=== PATIENT | male | born 1970 | race African-American/Black ===

== ENCOUNTER 2017-04-20 09:20 | Emergency (ER) | payer OTHER ==
[2017-04-20] MEDS: LIDOCAINE (700MG/PATCH) PATCH. TD ×2 (10:01)
[2017-04-20] MEDS: predniSONE 20 MG TABLET PO ×2 (10:02)
== END 2017-04-20 10:44 | disposition home or self-care (01) ==
LOC: ER 09:20
DX: M62.838 Other muscle spasm (principal); E78.00 Pure hypercholesterolemia, unspecified; E11.9 Type 2 diabetes mellitus without complications; I10 Essential (primary) hypertension; M10.9 Gout, unspecified; E66.01 Morbid (severe) obesity due to excess calories; Z68.43 Body mass index [BMI] 50.0-59.9, adult
CPT/HCPCS: 71046; 93005; 99284-25; J7512

== ENCOUNTER 2019-07-12 12:58 | Inpatient (IN) | payer BC, OTHER ==
[2019-07-12] VITALS: BP 195/101
[~2019-07-12] VITALS: Ht 185.4 cm; Wt 172.0 kg
[2019-07-12] MEDS: IV NORMAL SALINE 1000ML BAG 1,000 ML IV SCH (03:13)
[~2019-07-12 12:58] MED LIST: CYCL5TAB PO; PRED20TA PO; lidoderm 5% patch TOP
[2019-07-12] MEDS ORDERED: IV NORMAL SALINE 1000ML BAG 1,000 ML IV ONE (13:30)
[2019-07-12] MEDS ORDERED: ACETAMINOPHEN 500 MG TABLET PO ONE (13:45)
--- NOTE | 2019-07-12 14:00 | RAD ---
EXAM: CHEST 1 VIEW History: Covid-19 COMPARISON: 04/20/2017 TECHNIQUE: Single portable radiograph of the chest Findings/ impression: Low lung volumes and technique accentuates heart size and pulmonary vascularity. Bibasilar lung airspace opacities likely atelectasis or infiltrates likely pneumonia or atelectasis or atypical/viral infection/viral pneumonia. Correlate clinically and with lab values. Electronically signed by: Viral Mason MD (07/12/2019 1:57 PM) [id number]
[2019-07-12 14:23] LABS: BASO % 0 % (0-3); EOS % 0 % (0-3); HEMATOCRIT 36.7 % (39.0-53.0); HEMOGLOBIN 12.1 g/dL (13.0-17.5); LYMPH # 0.8 x10^3/uL (1.0-4.8); LYMPH % 8 % (24-48); MEAN CORPUSCULAR HEMOGLOBIN 27 pg (25-35); MEAN CORPUSCULAR HGB CONC 33 g/dL (31-37); MEAN CORPUSCULAR VOLUME 83 fL (79-100); MONO # 0.4 x10^3/uL (0.0-1.1); MONO % 4 % (0-9); NEUT # 8.4 x10^3/uL (1.8-7.7); NEUT % 88 % (31-73); PLATELET COUNT 251 x10^3/uL (140-400); RED BLOOD COUNT 4.42 x10^6/uL (4.30-5.70); RED CELL DISTRIBUTION WIDTH 15.1 % (11.5-14.5); WHITE BLOOD COUNT 9.6 x10^3/uL (4.0-11.0)
[2019-07-12 14:35] LABS: CALCIUM 8.7 mg/dL (8.5-10.1); CREATININE 1.3 mg/dL (0.7-1.3); GFR 71.3; POTASSIUM 4.3 mmol/L (3.5-5.1)
[2019-07-12 14:40] LABS: ALBUMIN 2.8 g/dL (3.4-5.0); ALBUMIN/GLOBULIN RATIO 0.5 (1.0-1.7); TOTAL BILIRUBIN 0.6 mg/dL (0.2-1.0); TOTAL PROTEIN 7.9 g/dL (6.4-8.2)
--- NOTE | 2019-07-12 14:47 | PHYS DOC ---
Past Medical History Past Medical History: Diabetes-Type II, High Cholesterol, Hypertension, Other Additional Past Medical Histor: morbid obesity, gout Past Surgical History: No Surgical History Smoking Status: Never Smoker Alcohol Use: Occasionally Drug Use: None General Adult EDM: Chief Complaint: SHORTNESS OF BREATH HPI: HPI: Patient is a 48-year-old morbidly obese male who for several days is had body aches subjective fever chills and now today felt very short of breath so he came to the emergency department. Prior to checking in his oxygen saturation was 73%. He does not think he has been exposed to anyone with COVID-19. He has had no nausea vomiting. [] Review of Systems: Review of Systems: Constitutional: Subjective fever. [] Eyes: Denies change in visual acuity. [] HENT: Denies nasal congestion or sore throat. [] Respiratory: Reports cough and shortness of breath. [] Cardiovascular: Denies chest pain or edema. [] GI: Denies abdominal pain, nausea, vomiting, bloody stools or diarrhea. [] : Denies dysuria. [] Musculoskeletal: Denies back pain or joint pain. [] Integument: Denies rash. [] Neurologic: Denies headache, focal weakness or sensory changes. [] Endocrine: Denies polyuria or polydipsia. [] Lymphatic: Denies swollen glands. [] Psychiatric: Anxious. [] Heart Score: Risk Factors: Risk Factors: DM, Current or recent (<one month) smoker, HTN, HLP, family history of CAD, obesity. Risk Scores: Score 0 - 3: 2.5% MACE over next 6 weeks - Discharge Home Score 4 - 6: 20.3% MACE over next 6 weeks - Admit for Clinical Observation Score 7 - 10: 72.7% MACE over next 6 weeks - Early Invasive Strategies Current Medications: Current Medications Medications (Trade) Dose Ordered Sig/Aria Start Time Stop Time Status Last Admin Dose Admin Acetaminophen (Tylenol) 1,000 mg 1X ONCE 07/12/19 13:45 07/12/19 13:46 DC 07/12/19 13:25 1,000 MG Sodium Chloride 1,000 ml @ 1,000 mls/hr 1X ONCE 07/12/19 13:30 07/12/19 14:29 DC 07/12/19 13:25 1,000 MLS/HR Allergies: Allergies: Allergies Coded Allergies Type Severity Reaction Last Updated Verified No Known Drug Allergies 04/20/17 No Physical Exam: PE: Constitutional: Well developed, well nourished, appears acutely ill. [] HENT: Normocephalic, atraumatic, bilateral external ears normal, oropharynx mois t, no oral exudates, nose normal. [] Eyes: PERRLA, EOMI, conjunctiva normal, no discharge. [] Neck: Normal range of motion, no tenderness, supple, no stridor. [] Cardiovascular:Heart rate regular rhythm, no murmur [] Lungs & Thorax: Bilateral breath sounds clear to auscultation [] Abdomen: Bowel sounds normal, soft, no tenderness, no masses, no pulsatile masses. [] Skin: Warm, dry, no erythema, no rash. [] Back: No tenderness, no CVA tenderness. [] Extremities: No tenderness, no cyanosis, no clubbing, ROM intact, no edema. [] Neurologic: Alert and oriented X 3, normal motor function, normal sensory function, no focal deficits noted. [] Psychologic: Affect normal, judgement normal, mood normal. [] Current Patient Data: Labs: Laboratory Tests Test 07/12/19 14:05 White Blood Count 9.6 x10^3/uL (4.0-11.0) Red Blood Count 4.42 x10^6/uL (4.30-5.70) Hemoglobin 12.1 g/dL (13.0-17.5) L Hematocrit 36.7 % (39.0-53.0) L Mean Corpuscular Volume 83 fL (79-100) Mean Corpuscular Hemoglobin 27 pg (25-35) Mean Corpuscular Hemoglobin Concent 33 g/dL (31-37) Red Cell Distribution Width 15.1 % (11.5-14.5) H Platelet Count 251 x10^3/uL (140-400) Neutrophils (%) (Auto) 88 % (31-73) H Lymphocytes (%) (Auto) 8 % (24-48) L Monocytes (%) (Auto) 4 % (0-9) Eosinophils (%) (Auto) 0 % (0-3) Basophils (%) (Auto) 0 % (0-3) Neutrophils # (Auto) 8.4 x10^3/uL (1.8-7.7) H Lymphocytes # (Auto) 0.8 x10^3/uL (1.0-4.8) L Monocytes # (Auto) 0.4 x10^3/uL (0.0-1.1) Eosinophils # (Auto) 0.0 x10^3/uL (0.0-0.7) Basophils # (Auto) 0.0 x10^3/uL (0.0-0.2) Platelet Estimate Pending Sodium Level 139 mmol/L (136-145) Potassium Level 4.3 mmol/L (3.5-5.1) Chloride Level 103 mmol/L (98-107) Carbon Dioxide Level 25 mmol/L (21-32) Anion Gap 11 (6-14) Blood Urea Nitrogen 11 mg/dL (8-26) Creatinine 1.3 mg/dL (0.7-1.3) Estimated GFR (Cockcroft-Gault) 71.3 BUN/Creatinine Ratio 8 (6-20) Glucose Level 126 mg/dL (70-99) H Lactic Acid Level 1.0 mmol/L (0.4-2.0) Calcium Level 8.7 mg/dL (8.5-10.1) Total Bilirubin 0.6 mg/dL (0.2-1.0) Aspartate Amino Transferase (AST) 49 U/L (15-37) H Alanine Aminotransferase (ALT) 40 U/L (16-63) Alkaline Phosphatase 76 U/L (46-116) Total Protein 7.9 g/dL (6.4-8.2) Albumin 2.8 g/dL (3.4-5.0) L Albumin/Globulin Ratio 0.5 (1.0-1.7) L Laboratory Tests 07/12/19 14:05 Laboratory Tests 07/12/19 14:05 Vital Signs: Vital Signs Date Time Temp Pulse Resp B/P (MAP) Pulse Ox O2 Delivery O2 Flow Rate FiO2 07/12/19 13:08 103.3 94 36 189/96 (127) 91 Nasal Cannula 6.0 103.3 EKG: EKG: EKG: Normal sinus rhythm rate of [address]-T changes [] Radiology/Procedures: Radiology/Procedures: [] Impression: REASON: COVID-19 PROCEDURE: CHEST AP ONLY EXAM: CHEST 1 VIEW History: Covid- COMPARISON: 04/20/2017 TECHNIQUE: Single portable radiograph of the chest Findings/ impression: Low lung volumes and technique accentuates heart size and pulmonary vascularity. Bibasilar lung airspace opacities likely atelectasis or infiltrates likely pneumonia or atelectasis or atypical/viral infection/viral pneumonia. Correlate clinically and with lab values. Course & Med Decision Making: Course & Med Decision Making Pertinent Labs and Imaging studies reviewed. (See chart for details) [ED course: Evaluation reveals a 48-year-old male who is in some respiratory distress. His oxygen saturation on room air was in the 70s supplemental oxygen brought his oxygen saturation up into the 90s. The patient was not exposed to COVID-19 but I believe this is what he has. Given the fact that there is no wheezing we will not give him any breathing treatments will watch him on supplemental oxygen and admit him to the hospital.] Patient was evaluated in full PPE Dragon Disclaimer: Dragon Disclaimer: This electronic medical record was generated, in whole or in part, using a voice recognition dictation system. Departure Departure Impression: Primary Impression: Suspected COVID-19 virus infection Disposition: ADMITTED INPATIENT Admitting Physician: SEKOU Condition: GUARDED Referrals: ANDREA HURST JR, MD (PCP) VAL CALIXTO DO Jul 12, 2019 14:47
[2019-07-12 14:58] LABS: % BANDS 9 % (0-9); % LYMPHS 16 % (24-48); % MONOS 1 % (0-10); % SEGS 74 % (35-66)
[2019-07-12 14:59] LABS: PLT ESTIMATE ADEQUATE (ADEQUATE)
--- NOTE | 2019-07-12 16:26 | PDOC1 ---
History and Physical Date of Admission Date of Admission DATE: 07/12/19 TIME: 16:26 Identification/Chief Complaint Chief Complaint SEEN IN ER , 48-year-old morbidly obese male who for several days is had body aches subjective fever chills and now today felt very short of breath prompted visit to the emergency department. Prior to checking in his oxygen saturation was 73%. does not think he has been exposed to anyone with COVID-19. OFF WORK X 4 WEEKS, Just goes to [employer], [place] Past Medical History Past Medical History Past Medical History Past Medical History Past Medical History: Diabetes-Type II, High Cholesterol, Hypertension, Other Additional Past Medical Histor: morbid obesity, gout Past Surgical History: No Surgical History Smoking Status: Never Smoker Alcohol Use: Occasionally Drug Use: None FHX OBESITY Renal/: No pertinent hx Family History Family History: High Cholestrol Social History Smoke: No ALCOHOL: occassional Drugs: None Current Problem List Problem List Problems Medical Problems: (1) Suspected COVID-19 virus infection Status: Acute Current Medications Current Medications Current Medications Sodium Chloride 1,000 ml @ 1,000 mls/hr 1X ONCE IV Last administered on 07/12/19at 13:25; Start 07/12/19 at 13:30; Stop 07/12/19 at 14:29; Status DC Acetaminophen (Tylenol) 1,000 mg 1X ONCE PO Last administered on 07/12/19at 13:25; Start 07/12/19 at 13:45; Stop 07/12/19 at 13:46; Status DC Active Scripts Active [lidoderm 5% patch] 1 Patch TOP PRN Q12HR PRN apply to affected area for 12 hours, then remove for 12 hours. Cyclobenzaprine Hcl 5 Mg Tablet 5-10 Mg PO PRN TID PRN Prednisone 20 Mg Tablet 2 Tab PO DAILY starting tomorrow Allergies Allergies: Coded Allergies: No Known Drug Allergies (Unverified , 04/20/17) ROS Review of System Constitutional: Subjective fever. [] Eyes: Denies change in visual acuity. [] HENT: Denies nasal congestion or sore throat. [] Respiratory: Reports cough and shortness of breath. [] Cardiovascular: Denies chest pain or edema. [] GI: Denies abdominal pain, nausea, vomiting, bloody stools or diarrhea. [] : Denies dysuria. [] Musculoskeletal: Denies back pain or joint pain. [] Integument: Denies rash. [] Neurologic: Denies headache, focal weakness or sensory changes. [] Endocrine: Denies polyuria or polydipsia. [] Lymphatic: Denies swollen glands. [] Psychiatric: Anxious. [] 14 PT ROS OTHERWISE NEG General: YES: Chills, Fatigue ALLERGY AND IMMUNOLOGY: No: Hives, Insect Bite Sensitivity, Itchy/Watery Eyes, Nasal Congestion, Post Nasal Drip, Seasonal Allergies, Other Hematological and Lymphatic: No: Bleeding Problems, Blood Clots, Blood Transfusions, Brusing, Night Sweats, Pallor, Swollen Lymph Nodes, Other Respiratory: YES: Cough, Shortness of breath, SOB with excertion Gastrointestinal: Yes Diarrhea Physical Exam Physical Exam Constitutional: Well developed, well nourished, appears acutely ill. [] HENT: Normocephalic, atraumatic, bilateral external ears normal, oropharynx moist, no oral exudates, nose normal. [] Eyes: PERRLA, EOMI, conjunctiva normal, no discharge. [] Neck: Normal range of motion, no tenderness, supple, no stridor. [] Cardiovascular:Heart rate regular rhythm, no murmur [] Lungs & Thorax: Bilateral breath sounds clear to auscultation [] Abdomen: Bowel sounds normal, soft, no tenderness, no masses, no pulsatile masses. [] Skin: Warm, dry, no erythema, no rash. [] Back: No tenderness, no CVA tenderness. [] Extremities: No tenderness, no cyanosis, no clubbing, ROM intact, no edema. [] Neurologic: Alert and oriented X 3, normal motor function, normal sensory function, no focal deficits noted. [] Psychologic: Affect normal, judgment normal, mood normal. [] General: Oriented X3, Cooperative, mild distress Heart: RRR Breasts: Not examined Abdomen: Soft Rectal Exam: not examined PELVIC: Examination not indicated Extremities: No cyanosis Neuro: Normal speech, Cranial nerves 3-12 NL Psych/Mental Status: Mental status NL, Mood NL Vitals Vitals Vital Signs Date Time Temp Pulse Resp B/P (MAP) Pulse Ox O2 Delivery O2 Flow Rate FiO2 07/12/19 13:08 103.3 94 36 189/96 (127) 91 Nasal Cannula 6.0 103.3 Labs Labs Laboratory Tests Test 07/12/19 14:05 White Blood Count 9.6 x10^3/uL (4.0-11.0) Red Blood Count 4.42 x10^6/uL (4.30-5.70) Hemoglobin 12.1 g/dL (13.0-17.5) Hematocrit 36.7 % (39.0-53.0) Mean Corpuscular Volume 83 fL (79-100) Mean Corpuscular Hemoglobin 27 pg (25-35) Mean Corpuscular Hemoglobin Concent 33 g/dL (31-37) Red Cell Distribution Width 15.1 % (11.5-14.5) Platelet Count 251 x10^3/uL (140-400) Neutrophils (%) (Auto) 88 % (31-73) Lymphocytes (%) (Auto) 8 % (24-48) Monocytes (%) (Auto) 4 % (0-9) Eosinophils (%) (Auto) 0 % (0-3) Basophils (%) (Auto) 0 % (0-3) Neutrophils # (Auto) 8.4 x10^3/uL (1.8-7.7) Lymphocytes # (Auto) 0.8 x10^3/uL (1.0-4.8) Monocytes # (Auto) 0.4 x10^3/uL (0.0-1.1) Eosinophils # (Auto) 0.0 x10^3/uL (0.0-0.7) Basophils # (Auto) 0.0 x10^3/uL (0.0-0.2) Segmented Neutrophils % 74 % (35-66) Band Neutrophils % 9 % (0-9) Lymphocytes % 16 % (24-48) Monocytes % 1 % (0-10) Platelet Estimate Adequate (ADEQUATE) Sodium Level 139 mmol/L (136-145) Potassium Level 4.3 mmol/L (3.5-5.1) Chloride Level 103 mmol/L (98-107) Carbon Dioxide Level 25 mmol/L (21-32) Anion Gap 11 (6-14) Blood Urea Nitrogen 11 mg/dL (8-26) Creatinine 1.3 mg/dL (0.7-1.3) Estimated GFR (Cockcroft-Gault) 71.3 BUN/Creatinine Ratio 8 (6-20) Glucose Level 126 mg/dL (70-99) Lactic Acid Level 1.0 mmol/L (0.4-2.0) Calcium Level 8.7 mg/dL (8.5-10.1) Total Bilirubin 0.6 mg/dL (0.2-1.0) Aspartate Amino Transf (AST/SGOT) 49 U/L (15-37) Alanine Aminotransferase (ALT/SGPT) 40 U/L (16-63) Alkaline Phosphatase 76 U/L (46-116) Total Protein 7.9 g/dL (6.4-8.2) Albumin 2.8 g/dL (3.4-5.0) Albumin/Globulin Ratio 0.5 (1.0-1.7) Laboratory Tests Test 07/12/19 14:05 White Blood Count 9.6 x10^3/uL (4.0-11.0) Red Blood Count 4.42 x10^6/uL (4.30-5.70) Hemoglobin 12.1 g/dL (13.0-17.5) Hematocrit 36.7 % (39.0-53.0) Mean Corpuscular Volume 83 fL (79-100) Mean Corpuscular Hemoglobin 27 pg (25-35) Mean Corpuscular Hemoglobin Concent 33 g/dL (31-37) Red Cell Distribution Width 15.1 % (11.5-14.5) Platelet Count 251 x10^3/uL (140-400) Neutrophils (%) (Auto) 88 % (31-73) Lymphocytes (%) (Auto) 8 % (24-48) Monocytes (%) (Auto) 4 % (0-9) Eosinophils (%) (Auto) 0 % (0-3) Basophils (%) (Auto) 0 % (0-3) Neutrophils # (Auto) 8.4 x10^3/uL (1.8-7.7) Lymphocytes # (Auto) 0.8 x10^3/uL (1.0-4.8) Monocytes # (Auto) 0.4 x10^3/uL (0.0-1.1) Eosinophils # (Auto) 0.0 x10^3/uL (0.0-0.7) Basophils # (Auto) 0.0 x10^3/uL (0.0-0.2) Segmented Neutrophils % 74 % (35-66) Band Neutrophils % 9 % (0-9) Lymphocytes % 16 % (24-48) Monocytes % 1 % (0-10) Platelet Estimate Adequate (ADEQUATE) Sodium Level 139 mmol/L (136-145) Potassium Level 4.3 mmol/L (3.5-5.1) Chloride Level 103 mmol/L (98-107) Carbon Dioxide Level 25 mmol/L (21-32) Anion Gap 11 (6-14) Blood Urea Nitrogen 11 mg/dL (8-26) Creatinine 1.3 mg/dL (0.7-1.3) Estimated GFR (Cockcroft-Gault) 71.3 BUN/Creatinine Ratio 8 (6-20) Glucose Level 126 mg/dL (70-99) Lactic Acid Level 1.0 mmol/L (0.4-2.0) Calcium Level 8.7 mg/dL (8.5-10.1) Total Bilirubin 0.6 mg/dL (0.2-1.0) Aspartate Amino Transf (AST/SGOT) 49 U/L (15-37) Alanine Aminotransferase (ALT/SGPT) 40 U/L (16-63) Alkaline Phosphatase 76 U/L (46-116) Total Protein 7.9 g/dL (6.4-8.2) Albumin 2.8 g/dL (3.4-5.0) Albumin/Globulin Ratio 0.5 (1.0-1.7) Images Images History: Covid-19 COMPARISON: 04/20/2017 TECHNIQUE: Single portable radiograph of the chest Findings/ impression: Low lung volumes and technique accentuates heart size and pulmonary vascularity. Bibasilar lung airspace opacities likely atelectasis or infiltrates likely pneumonia or atelectasis or atypical/viral infection/viral pneumonia. Correlate clinically and with lab values. Electronically signed by: Viral Mason MD (07/12/2019 1:57 PM) [id number] DICTATED and SIGNED BY: VIRAL MASON MD DATE: 07/12/19 1357 VTE Prophylaxis Ordered VTE Prophylaxis Devices: Yes VTE Pharmacological Prophylaxi: Yes Assessment/Plan Assessment/Plan IMPRESSION Acute hypoxic resp failure Super morbid obesity Bibasilar lung airspace opacities likely atelectasis or infiltrates likely pneumonia or atelectasis or atypical/viral infection/viral pneumonia Diabetes Hypertension, uncontrolled normocytic anemia plan admit consult pulm iv zithromax o2 support dvt prophylaxis accuchecks iv hydralazine 10mg q 4 hrs prn bp support home meds COVID-19 CRITERIA: The patient was evaluated during the global COVID-19 pandemic, and that diagnosis was suspected/considered upon their initial presentation. Their evaluation, treatment and testing were consistent with current guidelines for patients who present with complaints or symptoms that may be related to COVID-19. 33 min cc time CELESTINA MURPHY MD Jul 12, 2019 16:26
[2019-07-12] MEDS ORDERED: 0.9 % SODIUM CHLORIDE 10 ML DISP.SYRIN. IV PRN (16:45)
[2019-07-12] MEDS ORDERED: ONDANSETRON PF 4 MG/2 ML VIAL. IV PRN (16:45)
[2019-07-12] MEDS ORDERED: DOCUSATE SODIUM 100 MG CAPSULE. PO PRN (16:45)
[2019-07-12] MEDS ORDERED: IPRATRPIUM/ALBUTEROL 0.5/2.5MG 3 ML NEBU. NEB SCH ×2 (16:45→20:00)
[2019-07-12] MEDS ORDERED: MAG HYDROX/ALUMINUM HYD/SIMETH 30 ML ORAL.SUSP PO PRN (16:45)
[2019-07-12] MEDS ORDERED: ALBUTEROL SULFATE 2.5 MG/3 ML NEBU. NEB PRN (18:45)
[2019-07-12 19:00] VITALS: BP 190/82
[2019-07-12] MEDS ORDERED: METO25TA4 PO (19:36)
[2019-07-12] MEDS ORDERED: DOXA8TAB59 PO (19:36)
[2019-07-12] MEDS ORDERED: AMLO10TA8 PO (19:36)
[2019-07-12] MEDS ORDERED: METF10007 PO (19:36)
[2019-07-12] MEDS ORDERED: ALLO300T PO (19:36)
[2019-07-12] MEDS ORDERED: LISI-130 PO (19:36)
[2019-07-12] MEDS ORDERED: hydrALAZINE 20 MG/ML VIAL. IVP PRN (19:45)
[2019-07-12] MEDS: METOPROLOL TART IMMED RELEASE 25 MG TABLET. PO SCH (19:51)
[2019-07-12 20:00] VITALS: BP 203/106
[2019-07-12] MEDS: ATORVASTATIN CALCIUM 40 MG TABLET. PO SCH (21:19)
--- NOTE | 2019-07-12 21:44 | CONS ---
DATE OF CONSULTATION: 07/12/2019 PULMONARY CONSULTATION ATTENDING PHYSICIAN: Dr. Walter. REASON FOR CONSULTATION: Hypoxia. HISTORY OF PRESENT ILLNESS: The patient is a 48-year-old morbidly obese male with a BMI of 52. The patient also has diabetes. He presented to the hospital with body aches, subjective fever, chills and some shortness of breath. The patient's chest x-ray was done and shows bilateral patchy infiltrates, more on the right than on the left. The patient does not recall any obvious exposure to COVID-19 patient. His T-max was 103. His blood pressure was on the high side with a diastolic of 115. Denies any nausea or vomiting, but did have some diarrhea. The patient has never been tested for sleep apnea. Currently, is requiring 6 liters of oxygen. I have been asked to see him for further evaluation. This consult was done via telemedicine due to COVID-19 pandemia. PAST MEDICAL HISTORY: History of type 2 diabetes, dyslipidemia, hypertension, morbid obesity, gout. PAST SURGICAL HISTORY: None. ALLERGIES: None. MEDICATIONS: Reviewed as listed in the [facility] including antibiotic Levaquin. REVIEW OF SYSTEMS: Twelve-point system obtained. Pertinent positives discussed in my history of present illness, otherwise noncontributory. All systems that were negative were reviewed as well. SOCIAL HISTORY: Nonsmoker. FAMILY HISTORY: Noncontributory to lungs. PHYSICAL EXAMINATION: VITAL SIGNS: T-max of 103.3. Blood pressure 179/84. The diastolic has been higher. Pulse ox 94% on 6 liters. Further exam was performed via telemedicine: GENERAL: The visual findings showed that he does not appear to be in any obvious respiratory distress. SKIN: With no rash. EXTREMITIES: Legs with no edema. LABORATORY DATA: Reviewed. White cell count 9.6, hemoglobin 12.9, platelets 251. BUN 11, creatinine 1.3. IMPRESSION: 1. Acute hypoxic respiratory failure secondary to highly suspected coronavirus disease-19 pneumonia. 2. Abnormal chest x-ray with bilateral infiltrates suggestive of coronavirus disease-19 pneumonia. Cannot exclude bacterial pneumonia. 3. Underlying morbid obesity. 4. Diabetes. 5. Nonsmoker. RECOMMENDATIONS: 1. Continue present oxygen to keep saturation 92 and above. 2. Follow the results of COVID-19 test. 3. Empiric antibiotics. 4. If oxygenation status gets worse, then we may consider using convalescent plasma. 5. We will monitor the clinical course. 6. We will watch for any signs of cytokine storm. 7. Discussed with RN. Chart reviewed. Critical care time 33 minutes including review of chart, chest x-ray, lab values and discussion with RN and patient and decision making. HILARIO BIRCH MD DR: MIRANDA/mayela JOB#: [id number] / [id number]
[2019-07-12 22:00] VITALS: BP 199/118
--- NOTE | 2019-07-12 22:05 | NUR ---
danial Delgado to informed pt elevated BP Dr. Victoria regional trainer returned call @ [phone] informed and read pt BP and pt being anxious informed pt given IV apresoline 10mg and meto prolol po and pt did not take am BP meds cardura 8mg and norvasc 10 mg with order can give it and hold prinivil rechecked BP if it is still elevated can give prinivil
[2019-07-12] MEDS: cloNIDine HCL 0.1 MG TABLET PO PRN (22:26)
[2019-07-12] MEDS ORDERED: LISINOPRIL 10 MG TABLET PO ONE (23:00)
--- NOTE | 2019-07-12 23:00 | NUR ---
pt anxious o2 sat low was placed on venturi mask still low Parvin RN placed pt on non rebreather mask stayed and talk to patient to help patient to calm down will continue to monitor
[2019-07-12] MEDS ORDERED: amLODIPine BESYLATE 10 MG TABLET PO ONE (23:30)
[2019-07-12] MEDS ORDERED: DOXAZOSIN MESYLATE 4 MG TABLET. PO ONE (23:30)
[2019-07-12 23:42] LABS: BASE EXCESS ABG -1 mmol/L (-3-3); CORRECTED PCO2 ABG 37 mmHg; CORRECTED PH ABG 7.41; CORRECTED PO2 ABG 60 mmHg; HCO3 ABG 22 mmol/L (21-28); PCO2 ABG 34 mmHg (35-46); PO2 ABG 53 mmHg (75-108); SAT O2 ABG 86 % (92-99)
[2019-07-12 23:47] LABS: FIO2 ABG 100
[2019-07-12] MEDS: ACETAMINOPHEN 325 MG TABLET. PO PRN (23:49)
[2019-07-13] VITALS (18 sets, daily range): BP systolic 119–195; BP diastolic 69–101
--- NOTE | 2019-07-13 02:00 | NUR ---
Patient's O2 saturation consistently to <90% and as low as 86% on 100% non-rebreather so 8LNC added; O2 saturation range continued to be 88-91%. Dr Dona barrow, returned page at 0145, notified of above and ABGs drawn at while patient on non-rebreather (pH7.41, pCO2 37, pO2 60 temp corrected), also notified RR 40's and shallow, lungs sounds clear, and patient anxious when ABG's drawn but now much calmer and no change in respirations. Orders received to continue non-rebreather 100% and increase nasal canula to keep SaO2>/= to 88%, also speak to Lab to evaluate patient for Covid-19 Serum Plasma Protocol. Spoke with dairy and food laboratory assistant at 0200, she stated patient would need Type/Cross, Transfusion Consent, Consent to enroll in Covid-19 Serum Plasma program and physician will need to enroll patient on line through [facility]. Patient's RN notified. See orders, lab, nursing assessment at 0030 by this RN.
[2019-07-13] MEDS: IV NORMAL SALINE 1000ML BAG 1,000 ML IV SCH ×2 (02:41→13:48)
[2019-07-13 05:46] LABS: CALCIUM 8.4 mg/dL (8.5-10.1); CREATININE 1.2 mg/dL (0.7-1.3); GFR 78.2; POTASSIUM 3.8 mmol/L (3.5-5.1)
[2019-07-13 05:47] LABS: HEMATOCRIT 36.1 % (39.0-53.0); HEMOGLOBIN 11.7 g/dL (13.0-17.5); RED BLOOD COUNT 4.35 x10^6/uL (4.30-5.70); RED CELL DISTRIBUTION WIDTH 15.3 % (11.5-14.5); WHITE BLOOD COUNT 10.7 x10^3/uL (4.0-11.0)
--- NOTE | 2019-07-13 07:10 | NUR ---
Dr Carcamo called, updated on patient's status and O2 of 100% NRB with 15L/NC and O2 sats 88-92%, with intermittent down to 85%. Will continue to plan and give Convalescent Plasma (Covid-19 Antibodies) once registration with [facility] is completed. Orders received ok if O2 Sat mid 80's as long as patient tolerating.
[2019-07-13 07:44] LABS: BILIRUBIN,URINE NEGATIVE (NEG); CLARITY,URINE CLEAR; COLOR,URINE YELLOW; NITRITE,URINE NEGATIVE (NEG); PH,URINE 5.5 (<5.0-8.0); PROTEIN,URINE >=300 mg/dL (NEG-TRACE)
[2019-07-13 08:01] LABS: HYALINE CASTS, URINE OCCASIONAL /HPF
[2019-07-13 08:02] LABS: AMORPHOUS SEDIMENT,UR PRESENT /HPF; BACTERIA,URINE FEW /HPF (0-FEW); GRANULAR CASTS,URINE OCCASIONAL /HPF; RBC,URINE 0 /HPF (0-2); WBC,URINE OCC /HPF (0-4)
[2019-07-13] MEDS: ACETAMINOPHEN 325 MG TABLET. PO PRN ×2 (08:25→16:29)
[2019-07-13] MEDS: METOPROLOL TART IMMED RELEASE 25 MG TABLET. PO SCH ×2 (08:27→21:26)
[2019-07-13] MEDS: cloNIDine HCL 0.1 MG TABLET PO PRN (08:28)
[2019-07-13] MEDS: amLODIPine BESYLATE 10 MG TABLET PO SCH (08:28)
[2019-07-13] MEDS: ALLOPURINOL 300 MG TABLET. PO SCH (08:28)
[2019-07-13] MEDS: LISINOPRIL 20 MG TABLET PO SCH (08:29)
[2019-07-13] MEDS: DOXAZOSIN MESYLATE 4 MG TABLET. PO SCH (08:29)
[2019-07-13] MEDS: metFORMIN 500 MG TABLET PO SCH ×2 (08:30→17:01)
[2019-07-13 08:48] LABS: BASE EXCESS ABG -3 mmol/L (-3-3); HCO3 ABG 20 mmol/L (21-28); PCO2 ABG 30 mmHg (35-46); PO2 ABG 58 mmHg (75-108); SAT O2 ABG 89 % (92-99)
[2019-07-13 09:21] LABS: FIO2 ABG 100 NRB
--- NOTE | 2019-07-13 10:04 | NUR ---
IP: Pt's COVID test was unable to report due to the quantity of specimen submitted was not sufficient to verify results. Recommend retesting.
--- NOTE | 2019-07-13 10:33 | PDOC ---
PROGRESS NOTES History of Present Illness History of Present Illness VTE Prophylaxis Ordered VTE Prophylaxis Devices: Yes VTE Pharmacological Prophylaxi: Yes impression Assessment/Plan IMPRESSION Acute hypoxic resp failure Super morbid obesity Bibasilar lung airspace opacities likely atelectasis or infiltrates likely pneumonia or atelectasis or atypical/viral infection/viral pneumonia Diabetes Hypertension, uncontrolled normocytic anemia plan admit consult pulm iv zithromax o2 support dvt prophylaxis accuchecks iv hydralazine 10mg q 4 hrs prn bp support home meds COVID-19 CRITERIA: The patient was evaluated during the global COVID-19 pandemic, and that diagnosis was suspected/considered upon their initial presentation. Their evaluation, treatment and testing were consistent with current guidelines for patients who present with complaints or symptoms that may be related to COVID-19. 33 min cc time Vitals Vitals Vital Signs Date Time Temp Pulse Resp B/P (MAP) Pulse Ox O2 Delivery O2 Flow Rate FiO2 07/13/19 08:29 176/90 07/13/19 08:28 99 07/13/19 06:15 92 07/13/19 05:15 Nasal Cannula 07/13/19 04:15 41 07/13/19 03:22 100.8 100.8 07/13/19 02:00 15.0 Physical Exam General: Oriented X3, Cooperative, mild distress Abdomen: Soft Extremities: No cyanosis Labs LABS Laboratory Tests Test 07/12/19 14:05 07/12/19 21:15 07/12/19 23:35 07/13/19 04:20 White Blood Count 9.6 x10^3/uL (4.0-11.0) 10.7 x10^3/uL (4.0-11.0) Red Blood Count 4.42 x10^6/uL (4.30-5.70) 4.35 x10^6/uL (4.30-5.70) Hemoglobin 12.1 g/dL (13.0-17.5) 11.7 g/dL (13.0-17.5) Hematocrit 36.7 % (39.0-53.0) 36.1 % (39.0-53.0) Mean Corpuscular Volume 83 fL (79-100) 83 fL (79-100) Mean Corpuscular Hemoglobin 27 pg (25-35) 27 pg (25-35) Mean Corpuscular Hemoglobin Concent 33 g/dL (31-37) 32 g/dL (31-37) Red Cell Distribution Width 15.1 % (11.5-14.5) 15.3 % (11.5-14.5) Platelet Count 251 x10^3/uL (140-400) 284 x10^3/uL (140-400) Neutrophils (%) (Auto) 88 % (31-73) Lymphocytes (%) (Auto) 8 % (24-48) Monocytes (%) (Auto) 4 % (0-9) Eosinophils (%) (Auto) 0 % (0-3) Basophils (%) (Auto) 0 % (0-3) Neutrophils # (Auto) 8.4 x10^3/uL (1.8-7.7) Lymphocytes # (Auto) 0.8 x10^3/uL (1.0-4.8) Monocytes # (Auto) 0.4 x10^3/uL (0.0-1.1) Eosinophils # (Auto) 0.0 x10^3/uL (0.0-0.7) Basophils # (Auto) 0.0 x10^3/uL (0.0-0.2) Segmented Neutrophils % 74 % (35-66) Band Neutrophils % 9 % (0-9) Lymphocytes % 16 % (24-48) Monocytes % 1 % (0-10) Platelet Estimate Adequate (ADEQUATE) Sodium Level 139 mmol/L (136-145) 140 mmol/L (136-145) Potassium Level 4.3 mmol/L (3.5-5.1) 3.8 mmol/L (3.5-5.1) Chloride Level 103 mmol/L (98-107) 104 mmol/L (98-107) Carbon Dioxide Level 25 mmol/L (21-32) 23 mmol/L (21-32) Anion Gap 11 (6-14) 13 (6-14) Blood Urea Nitrogen 11 mg/dL (8-26) 13 mg/dL (8-26) Creatinine 1.3 mg/dL (0.7-1.3) 1.2 mg/dL (0.7-1.3) Estimated GFR (Cockcroft-Gault) 71.3 78.2 BUN/Creatinine Ratio 8 (6-20) Glucose Level 126 mg/dL (70-99) 119 mg/dL (70-99) Lactic Acid Level 1.0 mmol/L (0.4-2.0) Calcium Level 8.7 mg/dL (8.5-10.1) 8.4 mg/dL (8.5-10.1) Total Bilirubin 0.6 mg/dL (0.2-1.0) Aspartate Amino Transf (AST/SGOT) 49 U/L (15-37) Alanine Aminotransferase (ALT/SGPT) 40 U/L (16-63) Alkaline Phosphatase 76 U/L (46-116) Total Protein 7.9 g/dL (6.4-8.2) Albumin 2.8 g/dL (3.4-5.0) Albumin/Globulin Ratio 0.5 (1.0-1.7) Glucose (Fingerstick) 122 mg/dL (70-99) O2 Saturation 86 % (92-99) Arterial Blood pH 7.44 (7.35-7.45) Arterial Blood pH (Temp corrected) 7.41 Arterial Blood pCO2 at Patient Temp 34 mmHg (35-46) Arterial Blood pCO2 (Temp correct) 37 mmHg Arterial Blood pO2 at Patient Temp 53 mmHg (75-108) Arterial Blood pO2 (Temp corrected) 60 mmHg Arterial Blood HCO3 22 mmol/L (21-28) Arterial Blood Base Excess -1 mmol/L (-3-3) FiO2 100 Test 07/13/19 07:15 07/13/19 08:40 Urine Collection Type Unknown Urine Color Yellow Urine Clarity Clear Urine pH 5.5 (<5.0-8.0) Urine Specific Tebbetts 1.020 (1.000-1.030) Urine Protein >=300 mg/dL (NEG-TRACE) Urine Glucose (UA) Negative mg/dL (NEG) Urine Ketones (Stick) Negative mg/dL (NEG) Urine Blood Negative (NEG) Urine Nitrite Negative (NEG) Urine Bilirubin Negative (NEG) Urine Urobilinogen Dipstick 1.0 mg/dL (0.2 mg/dL) Urine Leukocyte Esterase Negative (NEG) Urine RBC 0 /HPF (0-2) Urine WBC Occ /HPF (0-4) Urine Amorphous Sediment Present /HPF Urine Bacteria Few /HPF (0-FEW) Urine Hyaline Casts Occasional /HPF Urine Granular Casts Occasional /HPF Urine Mucus Mod /LPF O2 Saturation 89 % (92-99) Arterial Blood pH 7.44 (7.35-7.45) Arterial Blood pCO2 at Patient Temp 30 mmHg (35-46) Arterial Blood pO2 at Patient Temp 58 mmHg (75-108) Arterial Blood HCO3 20 mmol/L (21-28) Arterial Blood Base Excess -3 mmol/L (-3-3) FiO2 100 nrb Assessment and Plan Assessmemt and Plan Problems Medical Problems: (1) Suspected COVID-19 virus infection Status: Acute COVID-19 CRITERIA: The patient was evaluated during the global COVID-19 pandemic, and that diagnosis was suspected/considered upon their initial presentation. Their evaluation, treatment and testing were consistent with current guidelines for patients who present with complaints or symptoms that may be related to COVID-19 COVID-19 CRITERIA: The patient was evaluated during the global COVID-19 pandemic, and that diagnosis was suspected/considered upon their initial presentation. Their evaluation, treatment and testing were consistent with current guidelines for patients who present with complaints or symptoms that may be related to COVID-19 Comment Review of Relevant I have reviewed the following items lizzy (where applicable) has been applied. Labs Laboratory Tests Test 07/12/19 14:05 07/12/19 21:15 07/12/19 23:35 07/13/19 04:20 White Blood Count 9.6 x10^3/uL (4.0-11.0) 10.7 x10^3/uL (4.0-11.0) Red Blood Count 4.42 x10^6/uL (4.30-5.70) 4.35 x10^6/uL (4.30-5.70) Hemoglobin 12.1 g/dL (13.0-17.5) 11.7 g/dL (13.0-17.5) Hematocrit 36.7 % (39.0-53.0) 36.1 % (39.0-53.0) Mean Corpuscular Volume 83 fL (79-100) 83 fL (79-100) Mean Corpuscular Hemoglobin 27 pg (25-35) 27 pg (25-35) Mean Corpuscular Hemoglobin Concent 33 g/dL (31-37) 32 g/dL (31-37) Red Cell Distribution Width 15.1 % (11.5-14.5) 15.3 % (11.5-14.5) Platelet Count 251 x10^3/uL (140-400) 284 x10^3/uL (140-400) Neutrophils (%) (Auto) 88 % (31-73) Lymphocytes (%) (Auto) 8 % (24-48) Monocytes (%) (Auto) 4 % (0-9) Eosinophils (%) (Auto) 0 % (0-3) Basophils (%) (Auto) 0 % (0-3) Neutrophils # (Auto) 8.4 x10^3/uL (1.8-7.7) Lymphocytes # (Auto) 0.8 x10^3/uL (1.0-4.8) Monocytes # (Auto) 0.4 x10^3/uL (0.0-1.1) Eosinophils # (Auto) 0.0 x10^3/uL (0.0-0.7) Basophils # (Auto) 0.0 x10^3/uL (0.0-0.2) Segmented Neutrophils % 74 % (35-66) Band Neutrophils % 9 % (0-9) Lymphocytes % 16 % (24-48) Monocytes % 1 % (0-10) Platelet Estimate Adequate (ADEQUATE) Sodium Level 139 mmol/L (136-145) 140 mmol/L (136-145) Potassium Level 4.3 mmol/L (3.5-5.1) 3.8 mmol/L (3.5-5.1) Chloride Level 103 mmol/L (98-107) 104 mmol/L (98-107) Carbon Dioxide Level 25 mmol/L (21-32) 23 mmol/L (21-32) Anion Gap 11 (6-14) 13 (6-14) Blood Urea Nitrogen 11 mg/dL (8-26) 13 mg/dL (8-26) Creatinine 1.3 mg/dL (0.7-1.3) 1.2 mg/dL (0.7-1.3) Estimated GFR (Cockcroft-Gault) 71.3 78.2 BUN/Creatinine Ratio 8 (6-20) Glucose Level 126 mg/dL (70-99) 119 mg/dL (70-99) Lactic Acid Level 1.0 mmol/L (0.4-2.0) Calcium Level 8.7 mg/dL (8.5-10.1) 8.4 mg/dL (8.5-10.1) Total Bilirubin 0.6 mg/dL (0.2-1.0) Aspartate Amino Transf (AST/SGOT) 49 U/L (15-37) Alanine Aminotransferase (ALT/SGPT) 40 U/L (16-63) Alkaline Phosphatase 76 U/L (46-116) Total Protein 7.9 g/dL (6.4-8.2) Albumin 2.8 g/dL (3.4-5.0) Albumin/Globulin Ratio 0.5 (1.0-1.7) Glucose (Fingerstick) 122 mg/dL (70-99) O2 Saturation 86 % (92-99) Arterial Blood pH 7.44 (7.35-7.45) Arterial Blood pH (Temp corrected) 7.41 Arterial Blood pCO2 at Patient Temp 34 mmHg (35-46) Arterial Blood pCO2 (Temp correct) 37 mmHg Arterial Blood pO2 at Patient Temp 53 mmHg (75-108) Arterial Blood pO2 (Temp corrected) 60 mmHg Arterial Blood HCO3 22 mmol/L (21-28) Arterial Blood Base Excess -1 mmol/L (-3-3) FiO2 100 Test 07/13/19 07:15 07/13/19 08:40 Urine Collection Type Unknown Urine Color Yellow Urine Clarity Clear Urine pH 5.5 (<5.0-8.0) Urine Specific Tebbetts 1.020 (1.000-1.030) Urine Protein >=300 mg/dL (NEG-TRACE) Urine Glucose (UA) Negative mg/dL (NEG) Urine Ketones (Stick) Negative mg/dL (NEG) Urine Blood Negative (NEG) Urine Nitrite Negative (NEG) Urine Bilirubin Negative (NEG) Urine Urobilinogen Dipstick 1.0 mg/dL (0.2 mg/dL) Urine Leukocyte Esterase Negative (NEG) Urine RBC 0 /HPF (0-2) Urine WBC Occ /HPF (0-4) Urine Amorphous Sediment Present /HPF Urine Bacteria Few /HPF (0-FEW) Urine Hyaline Casts Occasional /HPF Urine Granular Casts Occasional /HPF Urine Mucus Mod /LPF O2 Saturation 89 % (92-99) Arterial Blood pH 7.44 (7.35-7.45) Arterial Blood pCO2 at Patient Temp 30 mmHg (35-46) Arterial Blood pO2 at Patient Temp 58 mmHg (75-108) Arterial Blood HCO3 20 mmol/L (21-28) Arterial Blood Base Excess -3 mmol/L (-3-3) FiO2 100 nrb Laboratory Tests Test 07/12/19 14:05 07/12/19 21:15 07/12/19 23:35 07/13/19 04:20 White Blood Count 9.6 x10^3/uL (4.0-11.0) 10.7 x10^3/uL (4.0-11.0) Red Blood Count 4.42 x10^6/uL (4.30-5.70) 4.35 x10^6/uL (4.30-5.70) Hemoglobin 12.1 g/dL (13.0-17.5) 11.7 g/dL (13.0-17.5) Hematocrit 36.7 % (39.0-53.0) 36.1 % (39.0-53.0) Mean Corpuscular Volume 83 fL (79-100) 83 fL (79-100) Mean Corpuscular Hemoglobin 27 pg (25-35) 27 pg (25-35) Mean Corpuscular Hemoglobin Concent 33 g/dL (31-37) 32 g/dL (31-37) Red Cell Distribution Width 15.1 % (11.5-14.5) 15.3 % (11.5-14.5) Platelet Count 251 x10^3/uL (140-400) 284 x10^3/uL (140-400) Neutrophils (%) (Auto) 88 % (31-73) Lymphocytes (%) (Auto) 8 % (24-48) Monocytes (%) (Auto) 4 % (0-9) Eosinophils (%) (Auto) 0 % (0-3) Basophils (%) (Auto) 0 % (0-3) Neutrophils # (Auto) 8.4 x10^3/uL (1.8-7.7) Lymphocytes # (Auto) 0.8 x10^3/uL (1.0-4.8) Monocytes # (Auto) 0.4 x10^3/uL (0.0-1.1) Eosinophils # (Auto) 0.0 x10^3/uL (0.0-0.7) Basophils # (Auto) 0.0 x10^3/uL (0.0-0.2) Segmented Neutrophils % 74 % (35-66) Band Neutrophils % 9 % (0-9) Lymphocytes % 16 % (24-48) Monocytes % 1 % (0-10) Platelet Estimate Adequate (ADEQUATE) Sodium Level 139 mmol/L (136-145) 140 mmol/L (136-145) Potassium Level 4.3 mmol/L (3.5-5.1) 3.8 mmol/L (3.5-5.1) Chloride Level 103 mmol/L (98-107) 104 mmol/L (98-107) Carbon Dioxide Level 25 mmol/L (21-32) 23 mmol/L (21-32) Anion Gap 11 (6-14) 13 (6-14) Blood Urea Nitrogen 11 mg/dL (8-26) 13 mg/dL (8-26) Creatinine 1.3 mg/dL (0.7-1.3) 1.2 mg/dL (0.7-1.3) Estimated GFR (Cockcroft-Gault) 71.3 78.2 BUN/Creatinine Ratio 8 (6-20) Glucose Level 126 mg/dL (70-99) 119 mg/dL (70-99) Lactic Acid Level 1.0 mmol/L (0.4-2.0) Calcium Level 8.7 mg/dL (8.5-10.1) 8.4 mg/dL (8.5-10.1) Total Bilirubin 0.6 mg/dL (0.2-1.0) Aspartate Amino Transf (AST/SGOT) 49 U/L (15-37) Alanine Aminotransferase (ALT/SGPT) 40 U/L (16-63) Alkaline Phosphatase 76 U/L (46-116) Total Protein 7.9 g/dL (6.4-8.2) Albumin 2.8 g/dL (3.4-5.0) Albumin/Globulin Ratio 0.5 (1.0-1.7) Glucose (Fingerstick) 122 mg/dL (70-99) O2 Saturation 86 % (92-99) Arterial Blood pH 7.44 (7.35-7.45) Arterial Blood pH (Temp corrected) 7.41 Arterial Blood pCO2 at Patient Temp 34 mmHg (35-46) Arterial Blood pCO2 (Temp correct) 37 mmHg Arterial Blood pO2 at Patient Temp 53 mmHg (75-108) Arterial Blood pO2 (Temp corrected) 60 mmHg Arterial Blood HCO3 22 mmol/L (21-28) Arterial Blood Base Excess -1 mmol/L (-3-3) FiO2 100 Test 07/13/19 07:15 07/13/19 08:40 Urine Collection Type Unknown Urine Color Yellow Urine Clarity Clear Urine pH 5.5 (<5.0-8.0) Urine Specific Tebbetts 1.020 (1.000-1.030) Urine Protein >=300 mg/dL (NEG-TRACE) Urine Glucose (UA) Negative mg/dL (NEG) Urine Ketones (Stick) Negative mg/dL (NEG) Urine Blood Negative (NEG) Urine Nitrite Negative (NEG) Urine Bilirubin Negative (NEG) Urine Urobilinogen Dipstick 1.0 mg/dL (0.2 mg/dL) Urine Leukocyte Esterase Negative (NEG) Urine RBC 0 /HPF (0-2) Urine WBC Occ /HPF (0-4) Urine Amorphous Sediment Present /HPF Urine Bacteria Few /HPF (0-FEW) Urine Hyaline Casts Occasional /HPF Urine Granular Casts Occasional /HPF Urine Mucus Mod /LPF O2 Saturation 89 % (92-99) Arterial Blood pH 7.44 (7.35-7.45) Arterial Blood pCO2 at Patient Temp 30 mmHg (35-46) Arterial Blood pO2 at Patient Temp 58 mmHg (75-108) Arterial Blood HCO3 20 mmol/L (21-28) Arterial Blood Base Excess -3 mmol/L (-3-3) FiO2 100 nrb Medications Current Medications Sodium Chloride 1,000 ml @ 1,000 mls/hr 1X ONCE IV Last administered on 07/12/19at 13:25; Start 07/12/19 at 13:30; Stop 07/12/19 at 14:29; Status DC Acetaminophen (Tylenol) 1,000 mg 1X ONCE PO Last administered on 07/12/19at 13:25; Start 07/12/19 at 13:45; Stop 07/12/19 at 13:46; Status DC Sodium Chloride (Normal Saline Flush) 3 ml QSHIFT PRN IV AFTER MEDS AND BLOOD DRAWS; Start 07/12/19 at 16:45 Sodium Chloride 1,000 ml @ 100 mls/hr Q10H IV Last administered on 07/12/19at 03:13; Start 07/12/19 at 16:41 Ondansetron HCl (Zofran) 4 mg PRN Q4HRS PRN IV NAUSEA/VOMITING; Start 07/12/19 at 16:45 Acetaminophen (Tylenol) 650 mg PRN Q4HRS PRN PO TEMP OVER 100.4F OR MILD PAIN Last administered on 07/13/19at 08:25; Start 07/12/19 at 16:45 Al Hydroxide/Mg Hydroxide (Mylanta Plus Xs) 30 ml PRN DAILY PRN PO HEARTBURN / GAS; Start 07/12/19 at 16:45 Clonidine HCl (Catapres) 0.1 mg PRN Q6HRS PRN PO SBP>160 OR DBP>90 Last administered on 07/13/19at 08:28; Start 07/12/19 at 16:45 Docusate Sodium (Colace) 100 mg PRN BID PRN PO CONSTIPATION; Start 07/12/19 at 16:45 Albuterol/ Ipratropium (Duoneb) 3 ml Q4H NEB ; Start 07/12/19 at 16:45; Stop 07/12/19 at 16:55; Status DC Guaifenesin (Robitussin) 200 mg PRN Q4HRS PRN PO COUGH; Start 07/12/19 at 16:45 Levofloxacin/ Dextrose 100 ml @ 100 mls/hr Q24H IV ; Start 07/13/19 at 17:00 Albuterol/ Ipratropium (Duoneb) 3 ml Q4HRS NEB ; Start 07/12/19 at 20:00; Stop 07/12/19 at 18:33; Status DC Levofloxacin/ Dextrose 100 ml @ 100 mls/hr 1X ONCE IV Last administered on 07/12/19at 17:58; Start 07/12/19 at 17:45; Stop 07/12/19 at 18:44; Status DC Albuterol Sulfate (Ventolin Neb Soln) 2.5 mg PRN Q4HRS PRN NEB SHORTNESS OF BREATH; Start 07/12/19 at 18:45 Hydralazine HCl (Apresoline Inj) 10 mg PRN Q4HRS PRN IVP ELEVATED BP, SEE COMMENTS Last administered on 07/12/19at 20:31; Start 07/12/19 at 19:45; Stop 07/12/19 at 22:40; Status DC Allopurinol (Zyloprim) 300 mg DAILY PO Last administered on 07/13/19at 08:28; Start 07/13/19 at 09:00 Amlodipine Besylate (Norvasc) 10 mg DAILY PO Last administered on 07/13/19at 08:28; Start 07/13/19 at 09:00 Lisinopril (Prinivil) 40 mg DAILY PO Last administered on 07/13/19at 08:29; Start 07/13/19 at 09:00 Metoprolol Tartrate (Lopressor) 25 mg BID PO Last administered on 07/13/19at 08:27; Start 07/12/19 at 21:00 Doxazosin Mesylate (Cardura) 8 mg DAILY PO Last administered on 07/13/19at 08:29; Start 07/13/19 at 09:00 Metformin HCl (Glucophage) 1,000 mg BIDWMEALS PO Last administered on 07/13/19at 08:30; Start 07/13/19 at 08:00 Atorvastatin Calcium (Lipitor) 40 mg QHS PO Last administered on 07/12/19at 21:19; Start 07/12/19 at 21:00 Lisinopril (Prinivil) 10 mg 1X ONCE PO Last administered on 07/13/19at 00:41; Start 07/12/19 at 23:00; Stop 07/12/19 at 23:01; Status DC Hydralazine HCl (Apresoline Inj) 10 mg PRN Q4HRS PRN IVP ELEVATED BP, SEE COMMENTS; Start 07/12/19 at 22:45 Doxazosin Mesylate (Cardura) 8 mg 1X ONCE PO Last administered on 07/12/19at 23:08; Start 07/12/19 at 23:30; Stop 07/12/19 at 23:31; Status DC Amlodipine Besylate (Norvasc) 10 mg 1X ONCE PO Last administered on 07/12/19at 23:00; Start 07/12/19 at 23:30; Stop 07/12/19 at 23:31; Status DC Lorazepam (Ativan Inj) 1 mg PRN Q2HRS PRN IVP ANXIETY / AGITATION Last administered on 07/12/19at 23:08; Start 07/12/19 at 23:00 Enoxaparin Sodium (Lovenox 60mg Syringe) 60 mg Q12HR SQ ; Start 07/13/19 at 09:00 Active Scripts Active Reported Metformin Hcl 1,000 Mg Tablet 1,000 Mg PO BIDWMEALS Lisinopril 40 Mg Tablet 40 Mg PO DAILY Allopurinol 300 Mg Tablet 300 Mg PO DAILY Metoprolol Tartrate 25 Mg Tablet 25 Mg PO BID Doxazosin Mesylate 8 Mg Tablet 8 Mg PO DAILY Amlodipine Besylate 10 Mg Tablet 10 Mg PO DAILY Vitals/I & O Vital Sign - Last 24 Hours 07/12/19 07/12/19 07/12/19 07/12/19 13:08 14:04 14:37 15:37 Temp 103.3 103.3 Pulse 94 95 94 89 Resp 36 24 24 20 B/P (MAP) 189/96 (127) 179/84 (115) 183/82 (115) 166/81 (109) Pulse Ox 91 94 93 94 O2 Delivery Nasal Cannula Nasal Cannula Nasal Cannula Nasal Cannula O2 Flow Rate 6.0 6.0 6.0 6.0 07/12/19 07/12/19 07/12/19 07/12/19 16:37 17:37 19:00 19:51 Pulse 85 83 86 89 Resp 20 20 20 B/P (MAP) 156/76 (102) 152/75 (100) 190/82 (118) 203/106 Pulse Ox 93 93 96 O2 Delivery Nasal Cannula Nasal Cannula Nasal Cannula O2 Flow Rate 6.0 6.0 6.0 07/12/19 07/12/19 07/12/19 07/12/19 20:00 20:00 20:31 21:00 Temp 99.3 99.3 Pulse 89 95 Resp 22 B/P (MAP) 203/106 (138) 203/89 Pulse Ox 92 89 O2 Delivery Venturi Mask Nasal Cannula O2 Flow Rate 15.0 6.0 07/12/19 07/12/19 07/12/19 07/12/19 22:00 22:26 23:00 23:08 Pulse 97 97 95 92 Resp 26 B/P (MAP) 199/118 (145) 199/118 203/110 203/86 O2 Delivery Venturi Mask O2 Flow Rate 15.0 07/13/19 07/13/19 07/13/19 07/13/19 00:00 00:30 00:41 02:00 Temp 101.9 101.9 Pulse 87 107 104 B/P (MAP) 195/101 (132) 187/94 164/84 (110) Pulse Ox 87 88 O2 Delivery NonRebreather Mask Non-Rebreather Nasal Cannula O2 Flow Rate 15.0 15.0 15.0 07/13/19 07/13/19 07/13/19 07/13/19 03:22 04:15 05:15 06:15 Temp 100.8 100.8 Pulse 107 102 98 Resp 41 B/P (MAP) 150/88 (108) 156/87 (110) 134/77 (96) Pulse Ox 92 90 92 O2 Delivery Nasal Cannula Nasal Cannula 07/13/19 07/13/19 07/13/19 07/13/19 08:27 08:28 08:28 08:29 Pulse 99 99 B/P (MAP) 176/90 176/90 176/90 176/90 07/13/19 08:29 B/P (MAP) 176/90 Intake and Output 07/12/19 07/12/19 07/13/19 15:00 23:00 07:00 Intake Total 200 ml 150 ml Output Total 500 ml Balance -300 ml 150 ml CELESTINA MURPHY MD Jul 13, 2019 10:33
--- NOTE | 2019-07-13 11:35 | PDOC ---
PULMONARY PROGRESS NOTES Subjective worsening hypoxia since last night now on 100% fio2 BUT NOT IN ANY DISTRESS Vitals Vital Signs Date Time Temp Pulse Resp B/P (MAP) Pulse Ox O2 Delivery O2 Flow Rate FiO2 07/13/19 08:29 176/90 07/13/19 08:28 99 07/13/19 08:00 Non-Rebreather 15.0 07/13/19 08:00 98.9 56 92 98.9 Comments Visual exam done due to COVID pandemic NO SOA, ON 100%fio2 OBESE TRACE LEG EDEMA NO RASH General: Alert, No acute distress Labs Laboratory Tests Test 07/12/19 14:05 07/12/19 21:15 07/12/19 23:35 07/13/19 04:20 White Blood Count 9.6 x10^3/uL (4.0-11.0) 10.7 x10^3/uL (4.0-11.0) Red Blood Count 4.42 x10^6/uL (4.30-5.70) 4.35 x10^6/uL (4.30-5.70) Hemoglobin 12.1 g/dL (13.0-17.5) 11.7 g/dL (13.0-17.5) Hematocrit 36.7 % (39.0-53.0) 36.1 % (39.0-53.0) Mean Corpuscular Volume 83 fL (79-100) 83 fL (79-100) Mean Corpuscular Hemoglobin 27 pg (25-35) 27 pg (25-35) Mean Corpuscular Hemoglobin Concent 33 g/dL (31-37) 32 g/dL (31-37) Red Cell Distribution Width 15.1 % (11.5-14.5) 15.3 % (11.5-14.5) Platelet Count 251 x10^3/uL (140-400) 284 x10^3/uL (140-400) Neutrophils (%) (Auto) 88 % (31-73) Lymphocytes (%) (Auto) 8 % (24-48) Monocytes (%) (Auto) 4 % (0-9) Eosinophils (%) (Auto) 0 % (0-3) Basophils (%) (Auto) 0 % (0-3) Neutrophils # (Auto) 8.4 x10^3/uL (1.8-7.7) Lymphocytes # (Auto) 0.8 x10^3/uL (1.0-4.8) Monocytes # (Auto) 0.4 x10^3/uL (0.0-1.1) Eosinophils # (Auto) 0.0 x10^3/uL (0.0-0.7) Basophils # (Auto) 0.0 x10^3/uL (0.0-0.2) Segmented Neutrophils % 74 % (35-66) Band Neutrophils % 9 % (0-9) Lymphocytes % 16 % (24-48) Monocytes % 1 % (0-10) Platelet Estimate Adequate (ADEQUATE) Sodium Level 139 mmol/L (136-145) 140 mmol/L (136-145) Potassium Level 4.3 mmol/L (3.5-5.1) 3.8 mmol/L (3.5-5.1) Chloride Level 103 mmol/L (98-107) 104 mmol/L (98-107) Carbon Dioxide Level 25 mmol/L (21-32) 23 mmol/L (21-32) Anion Gap 11 (6-14) 13 (6-14) Blood Urea Nitrogen 11 mg/dL (8-26) 13 mg/dL (8-26) Creatinine 1.3 mg/dL (0.7-1.3) 1.2 mg/dL (0.7-1.3) Estimated GFR (Cockcroft-Gault) 71.3 78.2 BUN/Creatinine Ratio 8 (6-20) Glucose Level 126 mg/dL (70-99) 119 mg/dL (70-99) Lactic Acid Level 1.0 mmol/L (0.4-2.0) Calcium Level 8.7 mg/dL (8.5-10.1) 8.4 mg/dL (8.5-10.1) Total Bilirubin 0.6 mg/dL (0.2-1.0) Aspartate Amino Transf (AST/SGOT) 49 U/L (15-37) Alanine Aminotransferase (ALT/SGPT) 40 U/L (16-63) Alkaline Phosphatase 76 U/L (46-116) Total Protein 7.9 g/dL (6.4-8.2) Albumin 2.8 g/dL (3.4-5.0) Albumin/Globulin Ratio 0.5 (1.0-1.7) Glucose (Fingerstick) 122 mg/dL (70-99) O2 Saturation 86 % (92-99) Arterial Blood pH 7.44 (7.35-7.45) Arterial Blood pH (Temp corrected) 7.41 Arterial Blood pCO2 at Patient Temp 34 mmHg (35-46) Arterial Blood pCO2 (Temp correct) 37 mmHg Arterial Blood pO2 at Patient Temp 53 mmHg (75-108) Arterial Blood pO2 (Temp corrected) 60 mmHg Arterial Blood HCO3 22 mmol/L (21-28) Arterial Blood Base Excess -1 mmol/L (-3-3) FiO2 100 Test 07/13/19 07:15 07/13/19 08:40 Urine Collection Type Unknown Urine Color Yellow Urine Clarity Clear Urine pH 5.5 (<5.0-8.0) Urine Specific [place] 1.020 (1.000-1.030) Urine Protein >=300 mg/dL (NEG-TRACE) Urine Glucose (UA) Negative mg/dL (NEG) Urine Ketones (Stick) Negative mg/dL (NEG) Urine Blood Negative (NEG) Urine Nitrite Negative (NEG) Urine Bilirubin Negative (NEG) Urine Urobilinogen Dipstick 1.0 mg/dL (0.2 mg/dL) Urine Leukocyte Esterase Negative (NEG) Urine RBC 0 /HPF (0-2) Urine WBC Occ /HPF (0-4) Urine Amorphous Sediment Present /HPF Urine Bacteria Few /HPF (0-FEW) Urine Hyaline Casts Occasional /HPF Urine Granular Casts Occasional /HPF Urine Mucus Mod /LPF O2 Saturation 89 % (92-99) Arterial Blood pH 7.44 (7.35-7.45) Arterial Blood pCO2 at Patient Temp 30 mmHg (35-46) Arterial Blood pO2 at Patient Temp 58 mmHg (75-108) Arterial Blood HCO3 20 mmol/L (21-28) Arterial Blood Base Excess -3 mmol/L (-3-3) FiO2 100 nrb Laboratory Tests Test 07/12/19 14:05 07/12/19 21:15 07/12/19 23:35 07/13/19 04:20 White Blood Count 9.6 x10^3/uL (4.0-11.0) 10.7 x10^3/uL (4.0-11.0) Red Blood Count 4.42 x10^6/uL (4.30-5.70) 4.35 x10^6/uL (4.30-5.70) Hemoglobin 12.1 g/dL (13.0-17.5) 11.7 g/dL (13.0-17.5) Hematocrit 36.7 % (39.0-53.0) 36.1 % (39.0-53.0) Mean Corpuscular Volume 83 fL (79-100) 83 fL (79-100) Mean Corpuscular Hemoglobin 27 pg (25-35) 27 pg (25-35) Mean Corpuscular Hemoglobin Concent 33 g/dL (31-37) 32 g/dL (31-37) Red Cell Distribution Width 15.1 % (11.5-14.5) 15.3 % (11.5-14.5) Platelet Count 251 x10^3/uL (140-400) 284 x10^3/uL (140-400) Neutrophils (%) (Auto) 88 % (31-73) Lymphocytes (%) (Auto) 8 % (24-48) Monocytes (%) (Auto) 4 % (0-9) Eosinophils (%) (Auto) 0 % (0-3) Basophils (%) (Auto) 0 % (0-3) Neutrophils # (Auto) 8.4 x10^3/uL (1.8-7.7) Lymphocytes # (Auto) 0.8 x10^3/uL (1.0-4.8) Monocytes # (Auto) 0.4 x10^3/uL (0.0-1.1) Eosinophils # (Auto) 0.0 x10^3/uL (0.0-0.7) Basophils # (Auto) 0.0 x10^3/uL (0.0-0.2) Segmented Neutrophils % 74 % (35-66) Band Neutrophils % 9 % (0-9) Lymphocytes % 16 % (24-48) Monocytes % 1 % (0-10) Platelet Estimate Adequate (ADEQUATE) Sodium Level 139 mmol/L (136-145) 140 mmol/L (136-145) Potassium Level 4.3 mmol/L (3.5-5.1) 3.8 mmol/L (3.5-5.1) Chloride Level 103 mmol/L (98-107) 104 mmol/L (98-107) Carbon Dioxide Level 25 mmol/L (21-32) 23 mmol/L (21-32) Anion Gap 11 (6-14) 13 (6-14) Blood Urea Nitrogen 11 mg/dL (8-26) 13 mg/dL (8-26) Creatinine 1.3 mg/dL (0.7-1.3) 1.2 mg/dL (0.7-1.3) Estimated GFR (Cockcroft-Gault) 71.3 78.2 BUN/Creatinine Ratio 8 (6-20) Glucose Level 126 mg/dL (70-99) 119 mg/dL (70-99) Lactic Acid Level 1.0 mmol/L (0.4-2.0) Calcium Level 8.7 mg/dL (8.5-10.1) 8.4 mg/dL (8.5-10.1) Total Bilirubin 0.6 mg/dL (0.2-1.0) Aspartate Amino Transf (AST/SGOT) 49 U/L (15-37) Alanine Aminotransferase (ALT/SGPT) 40 U/L (16-63) Alkaline Phosphatase 76 U/L (46-116) Total Protein 7.9 g/dL (6.4-8.2) Albumin 2.8 g/dL (3.4-5.0) Albumin/Globulin Ratio 0.5 (1.0-1.7) Glucose (Fingerstick) 122 mg/dL (70-99) O2 Saturation 86 % (92-99) Arterial Blood pH 7.44 (7.35-7.45) Arterial Blood pH (Temp corrected) 7.41 Arterial Blood pCO2 at Patient Temp 34 mmHg (35-46) Arterial Blood pCO2 (Temp correct) 37 mmHg Arterial Blood pO2 at Patient Temp 53 mmHg (75-108) Arterial Blood pO2 (Temp corrected) 60 mmHg Arterial Blood HCO3 22 mmol/L (21-28) Arterial Blood Base Excess -1 mmol/L (-3-3) FiO2 100 Test 07/13/19 07:15 07/13/19 08:40 Urine Collection Type Unknown Urine Color Yellow Urine Clarity Clear Urine pH 5.5 (<5.0-8.0) Urine Specific [place] 1.020 (1.000-1.030) Urine Protein >=300 mg/dL (NEG-TRACE) Urine Glucose (UA) Negative mg/dL (NEG) Urine Ketones (Stick) Negative mg/dL (NEG) Urine Blood Negative (NEG) Urine Nitrite Negative (NEG) Urine Bilirubin Negative (NEG) Urine Urobilinogen Dipstick 1.0 mg/dL (0.2 mg/dL) Urine Leukocyte Esterase Negative (NEG) Urine RBC 0 /HPF (0-2) Urine WBC Occ /HPF (0-4) Urine Amorphous Sediment Present /HPF Urine Bacteria Few /HPF (0-FEW) Urine Hyaline Casts Occasional /HPF Urine Granular Casts Occasional /HPF Urine Mucus Mod /LPF O2 Saturation 89 % (92-99) Arterial Blood pH 7.44 (7.35-7.45) Arterial Blood pCO2 at Patient Temp 30 mmHg (35-46) Arterial Blood pO2 at Patient Temp 58 mmHg (75-108) Arterial Blood HCO3 20 mmol/L (21-28) Arterial Blood Base Excess -3 mmol/L (-3-3) FiO2 100 nrb Medications Active Scripts Medications Dose Route/Sig Max Daily Dose Days Date Category Metformin Hcl 1,000 Mg Tablet 1,000 Mg PO BIDWMEALS 07/12/19 Reported Lisinopril 40 Mg Tablet 40 Mg PO DAILY 07/12/19 Reported Allopurinol 300 Mg Tablet 300 Mg PO DAILY 07/12/19 Reported Metoprolol Tartrate 25 Mg Tablet 25 Mg PO BID 07/12/19 Reported Doxazosin Mesylate 8 Mg Tablet 8 Mg PO DAILY 07/12/19 Reported Amlodipine Besylate 10 Mg Tablet 10 Mg PO DAILY 07/12/19 Reported Impression . 1. Acute hypoxic respiratory failure secondary to highly suspected coronavirus disease-19 pneumonia. Worsening hypoxia , likely cytokine surge/ ALI 2. Abnormal chest x-ray with bilateral infiltrates suggestive of coronavirus disease-19 pneumonia. Cannot exclude bacterial pneumonia. 3. Underlying morbid obesity. 4. Diabetes. 5. Nonsmoker. Plan . 1. Continue present oxygen to keep saturation 92 and above. Hold off intubation . sats ok if > 88. He is in no distress and tolerating hypoxia well 2. Follow the results of COVID-19 test. 3. Empiric antibiotics. 4. we may consider using convalescent plasma once test comes back positive. He agrees 5. We will monitor the clinical course. 6. Monitor LFT 7. Discussed with RN. cct 30 min including review of chart, chest x-ray, lab values and discussion with RN and patient and decision making. addend: will request High flow oxygen via Vapotherm. d/w RT director HILARIO BIRCH MD Jul 13, 2019 11:35
--- NOTE | 2019-07-13 15:46 | NUR ---
SS following for discharge planning. SS reviewed pt chart and discussed with RNDes. Pt is from home and is currently requiring oxygen. COVID19 test pending at this time. SS will continue to follow for discharge planning.
[2019-07-13] MEDS: guaiFENesin ORAL 200 MG/10 ML LIQUID. PO PRN (16:30)
[2019-07-13] MEDS: BENZOCAINE/MENTHOL LOZENGE. PO PRN (17:01)
[2019-07-13] MEDS: LACTOBACILLUS RHAMNOSUS GG 1 CAPSULE. PO SCH (21:25)
[2019-07-13] MEDS: ATORVASTATIN CALCIUM 40 MG TABLET. PO SCH (21:27)
[2019-07-14] VITALS (26 sets, daily range): BP systolic 136–210; BP diastolic 75–98
[2019-07-14] MEDS: IV NORMAL SALINE 1000ML BAG 1,000 ML IV SCH ×3 (00:57→23:12)
[2019-07-14] MEDS: hydrALAZINE 20 MG/ML VIAL. IVP PRN ×2 (05:16→23:00)
--- NOTE | 2019-07-14 07:14 | NUR ---
IP: Repeat COVID is Positive.
[2019-07-14] MEDS: guaiFENesin ORAL 200 MG/10 ML LIQUID. PO PRN (08:52)
[2019-07-14] MEDS: cloNIDine HCL 0.1 MG TABLET PO PRN (08:53)
[2019-07-14] MEDS: metFORMIN 500 MG TABLET PO SCH ×2 (08:53→17:28)
[2019-07-14] MEDS: LACTOBACILLUS RHAMNOSUS GG 1 CAPSULE. PO SCH ×2 (08:53→21:21)
[2019-07-14] MEDS: LISINOPRIL 20 MG TABLET PO SCH (08:54)
[2019-07-14] MEDS: amLODIPine BESYLATE 10 MG TABLET PO SCH (08:54)
[2019-07-14] MEDS: ALLOPURINOL 300 MG TABLET. PO SCH (08:55)
[2019-07-14] MEDS: METOPROLOL TART IMMED RELEASE 25 MG TABLET. PO SCH ×2 (08:55→21:21)
[2019-07-14] MEDS: BENZOCAINE/MENTHOL LOZENGE. PO PRN (08:56)
[2019-07-14] MEDS: DOXAZOSIN MESYLATE 4 MG TABLET. PO SCH (08:56)
[2019-07-14] MEDS: ACETAMINOPHEN 325 MG TABLET. PO PRN ×2 (09:04→18:29)
--- NOTE | 2019-07-14 10:07 | PDOC ---
PROGRESS NOTES History of Present Illness History of Present Illness VTE Prophylaxis Ordered VTE Prophylaxis Devices: Yes VTE Pharmacological Prophylaxi: Yes impression Assessment/Plan IMPRESSION Acute hypoxic resp failure Super morbid obesity Bibasilar lung airspace opacities likely atelectasis or infiltrates likely pneumonia or atelectasis or atypical/viral infection/viral pneumonia Diabetes Hypertension, uncontrolled normocytic anemia plan admit consult pulm iv zithromax o2 support, HIGH FLOW 07/13 dvt prophylaxis accuchecks iv hydralazine 10mg q 4 hrs prn bp support home meds CXR IN AM 07/14 LFT'S IN AM COVID-19 CRITERIA: The patient was evaluated during the global COVID-19 pandemic, and that diagnosis was suspected/considered upon their initial presentation. Their evaluation, treatment and testing were consistent with current guidelines for patients who present with complaints or symptoms that may be related to COVID-19. 35 min cc time Vitals Vitals Vital Signs Date Time Temp Pulse Resp B/P (MAP) Pulse Ox O2 Delivery O2 Flow Rate FiO2 07/14/19 08:56 183/87 07/14/19 06:00 98 97 vapotherm 07/14/19 04:00 30.0 07/14/19 04:00 99.6 99.6 07/14/19 02:00 58 Physical Exam General: Oriented X3, Cooperative, mild distress Abdomen: Soft Extremities: No cyanosis Labs LABS SPEC #: [id number] TARIQ: 07/12/19 STATUS: RES REQ #: [id number] RECD: 07/12/[address]: CELESTINA MURPHY MD SOURCE: BLOOD ENTR: 07/12/[address] [facility]: ANDREA HURST JR, MD SPDESC: HILARIO BIRCH MD ORDERED: BCULT ----- ------- Procedure Result BLOOD CULTURE Preliminary NO GROWTH AFTER 1 DAY Laboratory Tests Test 07/13/19 10:20 07/13/19 17:10 07/13/19 21:23 07/14/19 09:09 Coronavirus (COVID-19)(PCR) See separate report Glucose (Fingerstick) 114 mg/dL (70-99) 116 mg/dL (70-99) 105 mg/dL (70-99) Assessment and Plan Assessmemt and Plan Problems Medical Problems: (1) Suspected COVID-19 virus infection Status: Acute Comment Review of Relevant I have reviewed the following items lizzy (where applicable) has been applied. Labs Laboratory Tests Test 07/12/19 14:05 07/12/19 21:15 07/12/19 23:35 07/13/19 04:20 White Blood Count 9.6 x10^3/uL (4.0-11.0) 10.7 x10^3/uL (4.0-11.0) Red Blood Count 4.42 x10^6/uL (4.30-5.70) 4.35 x10^6/uL (4.30-5.70) Hemoglobin 12.1 g/dL (13.0-17.5) 11.7 g/dL (13.0-17.5) Hematocrit 36.7 % (39.0-53.0) 36.1 % (39.0-53.0) Mean Corpuscular Volume 83 fL (79-100) 83 fL (79-100) Mean Corpuscular Hemoglobin 27 pg (25-35) 27 pg (25-35) Mean Corpuscular Hemoglobin Concent 33 g/dL (31-37) 32 g/dL (31-37) Red Cell Distribution Width 15.1 % (11.5-14.5) 15.3 % (11.5-14.5) Platelet Count 251 x10^3/uL (140-400) 284 x10^3/uL (140-400) Neutrophils (%) (Auto) 88 % (31-73) Lymphocytes (%) (Auto) 8 % (24-48) Monocytes (%) (Auto) 4 % (0-9) Eosinophils (%) (Auto) 0 % (0-3) Basophils (%) (Auto) 0 % (0-3) Neutrophils # (Auto) 8.4 x10^3/uL (1.8-7.7) Lymphocytes # (Auto) 0.8 x10^3/uL (1.0-4.8) Monocytes # (Auto) 0.4 x10^3/uL (0.0-1.1) Eosinophils # (Auto) 0.0 x10^3/uL (0.0-0.7) Basophils # (Auto) 0.0 x10^3/uL (0.0-0.2) Segmented Neutrophils % 74 % (35-66) Band Neutrophils % 9 % (0-9) Lymphocytes % 16 % (24-48) Monocytes % 1 % (0-10) Platelet Estimate Adequate (ADEQUATE) Sodium Level 139 mmol/L (136-145) 140 mmol/L (136-145) Potassium Level 4.3 mmol/L (3.5-5.1) 3.8 mmol/L (3.5-5.1) Chloride Level 103 mmol/L (98-107) 104 mmol/L (98-107) Carbon Dioxide Level 25 mmol/L (21-32) 23 mmol/L (21-32) Anion Gap 11 (6-14) 13 (6-14) Blood Urea Nitrogen 11 mg/dL (8-26) 13 mg/dL (8-26) Creatinine 1.3 mg/dL (0.7-1.3) 1.2 mg/dL (0.7-1.3) Estimated GFR (Cockcroft-Gault) 71.3 78.2 BUN/Creatinine Ratio 8 (6-20) Glucose Level 126 mg/dL (70-99) 119 mg/dL (70-99) Lactic Acid Level 1.0 mmol/L (0.4-2.0) Calcium Level 8.7 mg/dL (8.5-10.1) 8.4 mg/dL (8.5-10.1) Total Bilirubin 0.6 mg/dL (0.2-1.0) Aspartate Amino Transf (AST/SGOT) 49 U/L (15-37) Alanine Aminotransferase (ALT/SGPT) 40 U/L (16-63) Alkaline Phosphatase 76 U/L (46-116) Total Protein 7.9 g/dL (6.4-8.2) Albumin 2.8 g/dL (3.4-5.0) Albumin/Globulin Ratio 0.5 (1.0-1.7) Glucose (Fingerstick) 122 mg/dL (70-99) O2 Saturation 86 % (92-99) Arterial Blood pH 7.44 (7.35-7.45) Arterial Blood pH (Temp corrected) 7.41 Arterial Blood pCO2 at Patient Temp 34 mmHg (35-46) Arterial Blood pCO2 (Temp correct) 37 mmHg Arterial Blood pO2 at Patient Temp 53 mmHg (75-108) Arterial Blood pO2 (Temp corrected) 60 mmHg Arterial Blood HCO3 22 mmol/L (21-28) Arterial Blood Base Excess -1 mmol/L (-3-3) FiO2 100 Test 07/13/19 07:15 07/13/19 08:40 07/13/19 10:20 07/13/19 17:10 Urine Collection Type Unknown Urine Color Yellow Urine Clarity Clear Urine pH 5.5 (<5.0-8.0) Urine Specific [place] 1.020 (1.000-1.030) Urine Protein >=300 mg/dL (NEG-TRACE) Urine Glucose (UA) Negative mg/dL (NEG) Urine Ketones (Stick) Negative mg/dL (NEG) Urine Blood Negative (NEG) Urine Nitrite Negative (NEG) Urine Bilirubin Negative (NEG) Urine Urobilinogen Dipstick 1.0 mg/dL (0.2 mg/dL) Urine Leukocyte Esterase Negative (NEG) Urine RBC 0 /HPF (0-2) Urine WBC Occ /HPF (0-4) Urine Amorphous Sediment Present /HPF Urine Bacteria Few /HPF (0-FEW) Urine Hyaline Casts Occasional /HPF Urine Granular Casts Occasional /HPF Urine Mucus Mod /LPF O2 Saturation 89 % (92-99) Arterial Blood pH 7.44 (7.35-7.45) Arterial Blood pCO2 at Patient Temp 30 mmHg (35-46) Arterial Blood pO2 at Patient Temp 58 mmHg (75-108) Arterial Blood HCO3 20 mmol/L (21-28) Arterial Blood Base Excess -3 mmol/L (-3-3) FiO2 100 nrb Coronavirus (COVID-19)(PCR) See separate report Glucose (Fingerstick) 114 mg/dL (70-99) Test 07/13/19 21:23 07/14/19 09:09 Glucose (Fingerstick) 116 mg/dL (70-99) 105 mg/dL (70-99) Laboratory Tests Test 07/13/19 10:20 07/13/19 17:10 07/13/19 21:23 07/14/19 09:09 Coronavirus (COVID-19)(PCR) See separate report Glucose (Fingerstick) 114 mg/dL (70-99) 116 mg/dL (70-99) 105 mg/dL (70-99) Microbiology 07/12/19 Blood Culture - Preliminary, Resulted NO GROWTH AFTER 1 DAY Medications Current Medications Sodium Chloride 1,000 ml @ 1,000 mls/hr 1X ONCE IV Last administered on 07/12/19at 13:25; Start 07/12/19 at 13:30; Stop 07/12/19 at 14:29; Status DC Acetaminophen (Tylenol) 1,000 mg 1X ONCE PO Last administered on 07/12/19at 13:25; Start 07/12/19 at 13:45; Stop 07/12/19 at 13:46; Status DC Sodium Chloride (Normal Saline Flush) 3 ml QSHIFT PRN IV AFTER MEDS AND BLOOD DRAWS; Start 07/12/19 at 16:45 Sodium Chloride 1,000 ml @ 100 mls/hr Q10H IV Last administered on 07/14/19at 00:57; Start 07/12/19 at 16:41 Ondansetron HCl (Zofran) 4 mg PRN Q4HRS PRN IV NAUSEA/VOMITING; Start 07/12/19 at 16:45 Acetaminophen (Tylenol) 650 mg PRN Q4HRS PRN PO TEMP OVER 100.4F OR MILD PAIN Last administered on 07/14/19at 09:04; Start 07/12/19 at 16:45 Al Hydroxide/Mg Hydroxide (Mylanta Plus Xs) 30 ml PRN DAILY PRN PO HEARTBURN / GAS; Start 07/12/19 at 16:45 Clonidine HCl (Catapres) 0.1 mg PRN Q6HRS PRN PO SBP>160 OR DBP>90 Last administered on 07/14/19at 08:53; Start 07/12/19 at 16:45 Docusate Sodium (Colace) 100 mg PRN BID PRN PO CONSTIPATION; Start 07/12/19 at 16:45 Albuterol/ Ipratropium (Duoneb) 3 ml Q4H NEB ; Start 07/12/19 at 16:45; Stop 07/12/19 at 16:55; Status DC Guaifenesin (Robitussin) 200 mg PRN Q4HRS PRN PO COUGH Last administered on 07/14/19at 08:52; Start 07/12/19 at 16:45 Levofloxacin/ Dextrose 100 ml @ 100 mls/hr Q24H IV Last administered on 07/13/19at 17:01; Start 07/13/19 at 17:00 Albuterol/ Ipratropium (Duoneb) 3 ml Q4HRS NEB ; Start 07/12/19 at 20:00; Stop 07/12/19 at 18:33; Status DC Levofloxacin/ Dextrose 100 ml @ 100 mls/hr 1X ONCE IV Last administered on 07/12/19at 17:58; Start 07/12/19 at 17:45; Stop 07/12/19 at 18:44; Status DC Albuterol Sulfate (Ventolin Neb Soln) 2.5 mg PRN Q4HRS PRN NEB SHORTNESS OF BREATH; Start 07/12/19 at 18:45 Hydralazine HCl (Apresoline Inj) 10 mg PRN Q4HRS PRN IVP ELEVATED BP, SEE COMMENTS Last administered on 07/12/19at 20:31; Start 07/12/19 at 19:45; Stop 07/12/19 at 22:40; Status DC Allopurinol (Zyloprim) 300 mg DAILY PO Last administered on 07/14/19 08:55; Start 07/13/19 at 09:00 Amlodipine Besylate (Norvasc) 10 mg DAILY PO Last administered on 07/14/19 08:54; Start 07/13/19 at 09:00 Lisinopril (Prinivil) 40 mg DAILY PO Last administered on 07/14/19 08:54; Start 07/13/19 at 09:00 Metoprolol Tartrate (Lopressor) 25 mg BID PO Last administered on 07/14/19 08:55; Start 07/12/19 at 21:00 Doxazosin Mesylate (Cardura) 8 mg DAILY PO Last administered on 07/14/19 08:56; Start 07/13/19 at 09:00 Metformin HCl (Glucophage) 1,000 mg BIDWMEALS PO Last administered on 07/14/19 08:53; Start 07/13/19 at 08:00 Atorvastatin Calcium (Lipitor) 40 mg QHS PO Last administered on 07/13/19at 21:27; Start 07/12/19 at 21:00 Lisinopril (Prinivil) 10 mg 1X ONCE PO Last administered on 07/13/19at 00:41; Start 07/12/19 at 23:00; Stop 07/12/19 at 23:01; Status DC Hydralazine HCl (Apresoline Inj) 10 mg PRN Q4HRS PRN IVP ELEVATED BP, SEE COMMENTS Last administered on 07/14/19at 05:16; Start 07/12/19 at 22:45 Doxazosin Mesylate (Cardura) 8 mg 1X ONCE PO Last administered on 07/12/19at 23:08; Start 07/12/19 at 23:30; Stop 07/12/19 at 23:31; Status DC Amlodipine Besylate (Norvasc) 10 mg 1X ONCE PO Last administered on 07/12/19at 23:00; Start 07/12/19 at 23:30; Stop 07/12/19 at 23:31; Status DC Lorazepam (Ativan Inj) 1 mg PRN Q2HRS PRN IVP ANXIETY / AGITATION Last administered on 07/13/19at 21:26; Start 07/12/19 at 23:00 Enoxaparin Sodium (Lovenox 60mg Syringe) 60 mg Q12HR SQ Last administered on 07/14/19 08:52; Start 07/13/19 at 09:00 Lactobacillus Rhamnosus (Culturelle) 1 cap BID PO Last administered on 07/14/19at 08:53; Start 07/13/19 at 21:00 Throat Lozenges (Cepacol Sore Throat Lozenge) 1 jessica PRN Q2HRS PRN PO SORE THROAT Last administered on 07/14/19at 08:56; Start 07/13/19 at 16:30 Active Scripts Active Reported Metformin Hcl 1,000 Mg Tablet 1,000 Mg PO BIDWMEALS Lisinopril 40 Mg Tablet 40 Mg PO DAILY Allopurinol 300 Mg Tablet 300 Mg PO DAILY Metoprolol Tartrate 25 Mg Tablet 25 Mg PO BID Doxazosin Mesylate 8 Mg Tablet 8 Mg PO DAILY Amlodipine Besylate 10 Mg Tablet 10 Mg PO DAILY Vitals/I & O Vital Sign - Last 24 Hours 07/13/19 07/13/19 07/13/19 07/13/19 12:00 12:00 14:00 15:00 Temp 99.2 99.2 Pulse 82 82 92 Resp 55 48 58 B/P (MAP) 138/71 (93) 159/76 (103) 156/76 (102) Pulse Ox 92 89 92 O2 Delivery NonRebreather Mask Non-Rebreather NonRebreather Mask NonRebreather Mask O2 Flow Rate 15.0 07/13/19 07/13/19 07/13/19 07/13/19 16:00 16:00 17:00 18:00 Temp 99.0 99.0 Pulse 82 94 86 Resp 60 58 35 B/P (MAP) 119/69 (86) 170/93 (118) 170/93 (118) Pulse Ox 87 90 90 O2 Delivery Non-Rebreather NonRebreather Mask NonRebreather Mask NonRebreather Mask O2 Flow Rate 10.0 07/13/19 07/13/19 07/13/19 07/13/19 19:00 20:00 20:00 21:00 Temp 100.1 100.1 Pulse 98 96 98 Resp 31 55 35 B/P (MAP) 134/74 (94) 144/75 (98) 151/78 (102) Pulse Ox 98 93 91 O2 Delivery vapotherm Nasal Cannula vapotherm vapotherm O2 Flow Rate 30.0 07/13/19 07/13/19 07/13/19 07/14/19 21:26 22:00 23:00 00:00 Temp 99.0 99.0 Pulse 100 96 84 84 Resp 46 B/P (MAP) 151/78 157/87 (110) 125/71 (89) 159/89 (112) Pulse Ox 91 96 O2 Delivery vapotherm vapotherm vapotherm 07/14/19 07/14/19 07/14/19 07/14/19 00:00 01:00 02:00 03:00 Pulse 84 86 86 Resp 57 58 B/P (MAP) 154/81 (105) 165/90 (115) 175/89 (117) Pulse Ox 97 100 98 O2 Delivery Nasal Cannula vapotherm vapotherm vapotherm O2 Flow Rate 30.0 07/14/19 07/14/19 07/14/19 07/14/19 04:00 04:00 05:00 05:16 Temp 99.6 99.6 Pulse 86 98 93 B/P (MAP) 174/93 (120) 178/93 (121) 178/93 Pulse Ox 98 99 O2 Delivery vapotherm Nasal Cannula vapotherm O2 Flow Rate 30.0 07/14/19 07/14/19 07/14/19 07/14/19 06:00 08:53 08:54 08:54 Pulse 98 B/P (MAP) 136/81 (99) 183/87 183/87 183/87 Pulse Ox 97 O2 Delivery vapotherm 07/14/19 07/14/19 08:55 08:56 B/P (MAP) 183/87 183/87 Intake and Output 07/13/19 07/13/19 07/14/19 15:00 23:00 07:00 Intake Total 1950 ml 624 ml 1889 ml Output Total 800 ml Balance 1150 ml 624 ml 1889 ml CELESTINA MURPHY MD Jul 14, 2019 10:07
--- NOTE | 2019-07-14 11:07 | PDOC ---
PULMONARY PROGRESS NOTES Subjective worsening hypoxia 07/12 started on high flow oxygen via vapotherm tolerating well on 100% fio2 and 30 litres flow. NOT IN ANY DISTRESS Vitals Vital Signs Date Time Temp Pulse Resp B/P (MAP) Pulse Ox O2 Delivery O2 Flow Rate FiO2 07/14/19 10:00 88 60 155/80 (105) 91 vapotherm 07/14/19 08:00 30.0 07/14/19 08:00 99.9 99.9 Comments Visual exam done due to COVID pandemic NO SOA, ON 100%fio2 OBESE TRACE LEG EDEMA NO RASH General: Alert, No acute distress Labs Laboratory Tests Test 07/12/19 14:05 07/12/19 21:15 07/12/19 23:35 07/13/19 04:20 White Blood Count 9.6 x10^3/uL (4.0-11.0) 10.7 x10^3/uL (4.0-11.0) Red Blood Count 4.42 x10^6/uL (4.30-5.70) 4.35 x10^6/uL (4.30-5.70) Hemoglobin 12.1 g/dL (13.0-17.5) 11.7 g/dL (13.0-17.5) Hematocrit 36.7 % (39.0-53.0) 36.1 % (39.0-53.0) Mean Corpuscular Volume 83 fL (79-100) 83 fL (79-100) Mean Corpuscular Hemoglobin 27 pg (25-35) 27 pg (25-35) Mean Corpuscular Hemoglobin Concent 33 g/dL (31-37) 32 g/dL (31-37) Red Cell Distribution Width 15.1 % (11.5-14.5) 15.3 % (11.5-14.5) Platelet Count 251 x10^3/uL (140-400) 284 x10^3/uL (140-400) Neutrophils (%) (Auto) 88 % (31-73) Lymphocytes (%) (Auto) 8 % (24-48) Monocytes (%) (Auto) 4 % (0-9) Eosinophils (%) (Auto) 0 % (0-3) Basophils (%) (Auto) 0 % (0-3) Neutrophils # (Auto) 8.4 x10^3/uL (1.8-7.7) Lymphocytes # (Auto) 0.8 x10^3/uL (1.0-4.8) Monocytes # (Auto) 0.4 x10^3/uL (0.0-1.1) Eosinophils # (Auto) 0.0 x10^3/uL (0.0-0.7) Basophils # (Auto) 0.0 x10^3/uL (0.0-0.2) Segmented Neutrophils % 74 % (35-66) Band Neutrophils % 9 % (0-9) Lymphocytes % 16 % (24-48) Monocytes % 1 % (0-10) Platelet Estimate Adequate (ADEQUATE) Sodium Level 139 mmol/L (136-145) 140 mmol/L (136-145) Potassium Level 4.3 mmol/L (3.5-5.1) 3.8 mmol/L (3.5-5.1) Chloride Level 103 mmol/L (98-107) 104 mmol/L (98-107) Carbon Dioxide Level 25 mmol/L (21-32) 23 mmol/L (21-32) Anion Gap 11 (6-14) 13 (6-14) Blood Urea Nitrogen 11 mg/dL (8-26) 13 mg/dL (8-26) Creatinine 1.3 mg/dL (0.7-1.3) 1.2 mg/dL (0.7-1.3) Estimated GFR (Cockcroft-Gault) 71.3 78.2 BUN/Creatinine Ratio 8 (6-20) Glucose Level 126 mg/dL (70-99) 119 mg/dL (70-99) Lactic Acid Level 1.0 mmol/L (0.4-2.0) Calcium Level 8.7 mg/dL (8.5-10.1) 8.4 mg/dL (8.5-10.1) Total Bilirubin 0.6 mg/dL (0.2-1.0) Aspartate Amino Transf (AST/SGOT) 49 U/L (15-37) Alanine Aminotransferase (ALT/SGPT) 40 U/L (16-63) Alkaline Phosphatase 76 U/L (46-116) Total Protein 7.9 g/dL (6.4-8.2) Albumin 2.8 g/dL (3.4-5.0) Albumin/Globulin Ratio 0.5 (1.0-1.7) Glucose (Fingerstick) 122 mg/dL (70-99) O2 Saturation 86 % (92-99) Arterial Blood pH 7.44 (7.35-7.45) Arterial Blood pH (Temp corrected) 7.41 Arterial Blood pCO2 at Patient Temp 34 mmHg (35-46) Arterial Blood pCO2 (Temp correct) 37 mmHg Arterial Blood pO2 at Patient Temp 53 mmHg (75-108) Arterial Blood pO2 (Temp corrected) 60 mmHg Arterial Blood HCO3 22 mmol/L (21-28) Arterial Blood Base Excess -1 mmol/L (-3-3) FiO2 100 Test 07/13/19 07:15 07/13/19 08:40 07/13/19 10:20 07/13/19 17:10 Urine Collection Type Unknown Urine Color Yellow Urine Clarity Clear Urine pH 5.5 (<5.0-8.0) Urine Specific [place] 1.020 (1.000-1.030) Urine Protein >=300 mg/dL (NEG-TRACE) Urine Glucose (UA) Negative mg/dL (NEG) Urine Ketones (Stick) Negative mg/dL (NEG) Urine Blood Negative (NEG) Urine Nitrite Negative (NEG) Urine Bilirubin Negative (NEG) Urine Urobilinogen Dipstick 1.0 mg/dL (0.2 mg/dL) Urine Leukocyte Esterase Negative (NEG) Urine RBC 0 /HPF (0-2) Urine WBC Occ /HPF (0-4) Urine Amorphous Sediment Present /HPF Urine Bacteria Few /HPF (0-FEW) Urine Hyaline Casts Occasional /HPF Urine Granular Casts Occasional /HPF Urine Mucus Mod /LPF O2 Saturation 89 % (92-99) Arterial Blood pH 7.44 (7.35-7.45) Arterial Blood pCO2 at Patient Temp 30 mmHg (35-46) Arterial Blood pO2 at Patient Temp 58 mmHg (75-108) Arterial Blood HCO3 20 mmol/L (21-28) Arterial Blood Base Excess -3 mmol/L (-3-3) FiO2 100 nrb Coronavirus (COVID-19)(PCR) See separate report Glucose (Fingerstick) 114 mg/dL (70-99) Test 07/13/19 21:23 07/14/19 09:09 Glucose (Fingerstick) 116 mg/dL (70-99) 105 mg/dL (70-99) Laboratory Tests Test 07/13/19 17:10 07/13/19 21:23 07/14/19 09:09 Glucose (Fingerstick) 114 mg/dL (70-99) 116 mg/dL (70-99) 105 mg/dL (70-99) Medications Active Scripts Medications Dose Route/Sig Max Daily Dose Days Date Category Metformin Hcl 1,000 Mg Tablet 1,000 Mg PO BIDWMEALS 07/12/19 Reported Lisinopril 40 Mg Tablet 40 Mg PO DAILY 07/12/19 Reported Allopurinol 300 Mg Tablet 300 Mg PO DAILY 07/12/19 Reported Metoprolol Tartrate 25 Mg Tablet 25 Mg PO BID 07/12/19 Reported Doxazosin Mesylate 8 Mg Tablet 8 Mg PO DAILY 07/12/19 Reported Amlodipine Besylate 10 Mg Tablet 10 Mg PO DAILY 07/12/19 Reported Impression . 1. Acute hypoxic respiratory failure secondary to coronavirus disease-19 pneumonia. Worsening hypoxia , likely cytokine surge/ ALI/ ARDS 2. Abnormal chest x-ray with bilateral infiltrates suggestive of coronavirus disease-19 pneumonia. Cannot exclude bacterial pneumonia. 3. Underlying morbid obesity. 4. Diabetes. 5. Nonsmoker. Plan . 1. Continue present oxygen, on 100% FIO2 and 30 litres flow via Vapotherm.. NOT IN ANY DISTRESS to keep saturation 92 and above. Hold off intubation . sats ok if > 88. He is in no distress and tolerating hypoxia well 2. COVID-19 positive 3. Empiric antibiotics. 4. convalescent plasma transfusion today per protocol 5. We will monitor the clinical course. 6. Monitor LFT 7. Discussed with RN. 8. Plan to give monoclonal antibodies/Tocilizumab tomorrow. Requested the drug for availability at our hospital . Pt informed. Agrees cct 30 min including review of chart, chest x-ray, lab values and discussion with RN and patient and decision making. HILARIO BIRCH MD Jul 14, 2019 11:06
[2019-07-14 12:22] LABS: BASE EXCESS ABG -1 mmol/L (-3-3); HCO3 ABG 23 mmol/L (21-28); PCO2 ABG 35 mmHg (35-46); PO2 ABG 65 mmHg (75-108); SAT O2 ABG 92 % (92-99)
[2019-07-14 12:31] LABS: FIO2 ABG 100 vapotherm
--- NOTE | 2019-07-14 15:05 | NUR ---
SS following up with discharge planning. SS discussed with RN, Alondra. Pt is from home and is currently on vapotherm and COVID19 positive. Pt getting plasma today. SS will continue to follow for discharge planning.
[2019-07-14] MEDS: ATORVASTATIN CALCIUM 40 MG TABLET. PO SCH (21:21)
--- NOTE | 2019-07-14 21:50 | NUR ---
Dr Carcamo spoke to patient via Telehealth, discussed POC--continue Vapotherm for oxygenation requirements since patient is tolerating well and plan to give Tocilizumab tomorrow, 07/15/2019. Patient verbalized understanding and states he is "doing better using Vapotherm". Dr Carcamo notified of Vapotherm settings of 100% FiO2 plus 25Liters. No new orders at this time.
[2019-07-14] MEDS ORDERED: HALOPERIDOL LACTATE 5 MG/ML VIAL. IVP PRN (22:30)
[2019-07-15] VITALS (24 sets, daily range): BP systolic 99–202; BP diastolic 46–105
[2019-07-15] MEDS: hydrALAZINE 20 MG/ML VIAL. IVP PRN (03:07)
[2019-07-15] MEDS: cloNIDine HCL 0.1 MG TABLET PO PRN (04:25)
--- NOTE | 2019-07-15 04:44 | RAD ---
Study: CR CHEST AP ONLY Indication: Pneumonia. Comparison: 07/12/2019 Findings: The cardiomediastinal silhouette is enlarged and the central vasculature congested. Noting differences in patient positioning, apparent progression of opacities at the lower half of both lungs but more extensive on the left. Background generalized increased lung markings is similar to the prior. No pneumothorax. Impression: More pronounced opacification at the lower half of both lungs, worse on the left, relative to 07/12/2019. In the setting of cardiomegaly, central vascular congestion and generalized increased lung markings, interstitial/alveolar edema is a consideration versus multifocal pneumonia. Follow-up to resolution is recommended. Electronically signed by: IFEOMA SONG MD (07/15/2019 4:41 AM) [id number]
[2019-07-15 04:47] LABS: BASO % 0 % (0-3); EOS % 1 % (0-3); HEMOGLOBIN 11.5 g/dL (13.0-17.5); LYMPH % 10 % (24-48); MEAN CORPUSCULAR HEMOGLOBIN 27 pg (25-35); MEAN CORPUSCULAR HGB CONC 33 g/dL (31-37); MEAN CORPUSCULAR VOLUME 83 fL (79-100); MONO # 0.8 x10^3/uL (0.0-1.1); MONO % 8 % (0-9); NEUT # 7.9 x10^3/uL (1.8-7.7); NEUT % 81 % (31-73); PLATELET COUNT 379 x10^3/uL (140-400); RED BLOOD COUNT 4.21 x10^6/uL (4.30-5.70); RED CELL DISTRIBUTION WIDTH 15.2 % (11.5-14.5); WHITE BLOOD COUNT 9.8 x10^3/uL (4.0-11.0)
[2019-07-15 05:04] LABS: ALBUMIN 2.4 g/dL (3.4-5.0); ALBUMIN/GLOBULIN RATIO 0.4 (1.0-1.7); CALCIUM 8.8 mg/dL (8.5-10.1); GFR 96.5; POTASSIUM 3.7 mmol/L (3.5-5.1); TOTAL BILIRUBIN 0.9 mg/dL (0.2-1.0); TOTAL PROTEIN 8.2 g/dL (6.4-8.2)
[2019-07-15] MEDS ORDERED: KETAMINE HCL IN NACL, ISO-OSM 50 MG/5 ML SYRINGE ONE (05:44)
[2019-07-15] MEDS ORDERED: PROPOFOL 100 ML IV PRN (05:45)
[2019-07-15] MEDS ORDERED: SUCCINYLCHOLINE 200 MG/10 ML VIAL. ONE (05:45)
[2019-07-15] MEDS ORDERED: MIDAZOLAM PREMIX 100 MG/100 ML NS BAG. IV ONE (05:54)
[2019-07-15] MEDS ORDERED: fentaNYL STANDARD PCA 600 MCG/30 ML PCA.SYRING IV ONE (05:54)
--- NOTE | 2019-07-15 06:00 | NUR ---
Pt progressively tachypneic, anxious this am. ABG's showed low O2.Orders to intubate per Dr Carcamo. Pt and and pt updated on plan of care. Pt now intubated and sedated, report given to oncoming RN.
[2019-07-15] MEDS ORDERED: SUCCINYLCHOLINE 200 MG/10 ML VIAL. IV ONE (06:15)
[2019-07-15] MEDS ORDERED: KETAMINE HCL IN NACL, ISO-OSM 50 MG/5 ML SYRINGE IV ONE (06:15)
[2019-07-15 06:46] LABS: BASE EXCESS ABG -1 mmol/L (-3-3); HCO3 ABG 22 mmol/L (21-28); PCO2 ABG 31 mmHg (35-46); SAT O2 ABG 78 % (92-99)
[2019-07-15 06:48] LABS: FIO2 ABG 100; PO2 ABG 42 mmHg (75-108)
[2019-07-15] MEDS ORDERED: VECURONIUM BOLUS 10 MG VIAL. IV ONE ×2 (06:53→07:00)
[2019-07-15] MEDS: metFORMIN 500 MG TABLET PO SCH ×2 (08:00→16:22)
[2019-07-15] MEDS: PROPOFOL 100 ML IV PRN ×2 (08:04→10:08)
[2019-07-15] MEDS: IV NORMAL SALINE 1000ML BAG 1,000 ML IV SCH ×3 (08:05→21:17)
--- NOTE | 2019-07-15 09:17 | PDOC ---
Provider Note Provider Note Called for CVL. Permit obtained. +COVID. +PPE used. Standard sterile technique. Sedation per nursing and 1% lido for local. US guidance for right IJ cannulation on second try. Return of dark non pulsitile blood. Seldinger technique used. Three lumen CVL passed over wire and sewn in place at 19 cm. Lines aspirated and flushed. Sterile dressing with antibacterial patch used. CXR pending. MD THUY Watts,BERNIE Connell MD July 15, 2019 09:17
--- NOTE | 2019-07-15 09:27 | PDOC ---
Provider Note Provider Note Called for arterial line. Permit obtained. Sterile technique used. Right radial artery for insertion of #20 gauge angiocatheter with return of bright red pulsitile blood. Taped in place. Good waveform. No complications. MD THUY Watts DAVID L MD July 15, 2019 09:27
[2019-07-15 09:59] LABS: BASE EXCESS ABG -6 mmol/L (-3-3); HCO3 ABG 24 mmol/L (21-28); PO2 ABG 63 mmHg (75-108); SAT O2 ABG 83 % (92-99)
[2019-07-15 10:02] LABS: FIO2 ABG 100; PCO2 ABG 70 mmHg (35-46)
[2019-07-15] MEDS: METOPROLOL TART IMMED RELEASE 25 MG TABLET. PO SCH ×2 (10:05→20:57)
[2019-07-15] MEDS: amLODIPine BESYLATE 10 MG TABLET PO SCH (10:06)
[2019-07-15] MEDS: DOXAZOSIN MESYLATE 4 MG TABLET. PO SCH (10:06)
[2019-07-15] MEDS: ALLOPURINOL 300 MG TABLET. PO SCH (10:07)
[2019-07-15] MEDS: LACTOBACILLUS RHAMNOSUS GG 1 CAPSULE. PO SCH ×2 (10:07→20:58)
[2019-07-15] MEDS: LISINOPRIL 20 MG TABLET PO SCH (10:07)
[2019-07-15] MEDS: FAMOTIDINE 20 MG/2 ML VIAL IVP SCH ×2 (10:07→20:58)
--- NOTE | 2019-07-15 10:18 | RAD ---
Examination: PORTABLE CHEST 1V History: Endotracheal tube and nasogastric tube placement Comparison/Correlation: 07/15/2019 chest x-ray exam at 4:11 AM Findings: Portable upright frontal view of chest was obtained. Endotracheal tube terminates 2.5 cm from the germán. Right internal jugular catheter terminates overlying the superior vena cava. Enteric tube terminates in the left upper quadrant overlying the stomach. The sidehole is present just.the expected level of the gastroesophageal junction. Heart size is within upper limits of normal. No pneumothorax. Pulmonary vascular congestion is present with interstitial edema. Bibasilar consolidative findings noted. Interstitial infiltrates may also be present. Impression: No significant change in pulmonary aeration. Lines and tubes in place. No pneumothorax. Electronically signed by: Stephan Gray MD (07/15/2019 10:15 AM) [id number]
--- NOTE | 2019-07-15 10:23 | RAD ---
One view abdomen HISTORY: OG placement Supine AP views of the abdomen were obtained the 9:09 AM examination shows an enteric tube with its tip at the proximal stomach. The 9:12 AM examination shows an enteric tube with its tip at the GE junction. There is patchy opacities in the lung bases not well seen in this study. IMPRESSION: Orogastric tube has tip at the GE junction in the 9:12 AM exam. Electronically signed by: Rodolfo Caldera III, MD (07/15/2019 10:20 AM) [id number]
--- NOTE | 2019-07-15 10:31 | PDOC ---
PROGRESS NOTES History of Present Illness History of Present Illness VTE Prophylaxis Ordered VTE Prophylaxis Devices: Yes VTE Pharmacological Prophylaxi: Yes impression Assessment/Plan IMPRESSION Acute hypoxic/// HYPERCAPNIC resp failure REQUIRING VENT SUPPORT Super morbid obesity Bibasilar lung airspace opacities likely atelectasis or infiltrates likely pneumonia or atelectasis or atypical/viral infection/viral pneumonia Diabetes Hypertension, uncontrolled normocytic anemia SEVERE PROTEIN, CALORIC MALNUTRITION COVID-19 POS plan admit consult pulm iv zithromax o2 support, HIGH FLOW 07/13 NOW ON VENT dvt prophylaxis accuchecks iv hydralazine 10mg q 4 hrs prn bp support home meds CXR IN AM 07/14 LFT'S AST 68 07/14 COVID-19 CRITERIA: The patient was evaluated during the global COVID-19 pandemic, and that diagnosis was suspected/considered upon their initial presentation. Their evaluation, treatment and testing were consistent with current guidelines for patients who present with complaints or symptoms that may be related to COVID-19. 36 min cc time Vitals Vitals Vital Signs Date Time Temp Pulse Resp B/P (MAP) Pulse Ox O2 Delivery O2 Flow Rate FiO2 07/15/19 10:07 122 174/81 07/15/19 07:00 99 Ventilator 07/15/19 05:00 100.3 100.3 07/15/19 04:00 40.0 07/15/19 01:00 42 Physical Exam Physical Exam SEDATED ON VENT Breasts: Not examined Rectal Exam: not examined PELVIC: Examination not indicated Extremities: No cyanosis General: Oriented X3, Cooperative, No acute distress, mild distress Abdomen: Soft Extremities: No cyanosis Labs LABS One view abdomen HISTORY: OG placement Supine AP views of the abdomen were obtained the 9:09 AM examination shows an enteric tube with its tip at the proximal stomach. The 9:12 AM examination shows an enteric tube with its tip at the GE junction. There is patchy opacities in the lung bases not well seen in this study. IMPRESSION: Orogastric tube has tip at the GE junction in the 9:12 AM exam. Electronically signed by: Nataly Roca III, MD (07/15/2019 10:20 AM) [id number] DICTATED and SIGNED BY: NATALY ROCA III, MD DATE: 07/15/19 1020 STATUS: ADM IN ORD. PHYSICIAN: HILARIO BIRCH MD REASON: et tube placement and ng placement PROCEDURE: PORTABLE CHEST 1V Examination: PORTABLE CHEST 1V History: Endotracheal tube and nasogastric tube placement Comparison/Correlation: 07/15/2019 chest x-ray exam at 4:11 AM Findings: Portable upright frontal view of chest was obtained. Endotracheal tube terminates 2.5 cm from the germán. Right internal jugular catheter terminates overlying the superior vena cava. Enteric tube terminates in the left upper quadrant overlying the stomach. The sidehole is present just.the expected level of the gastroesophageal junction. Heart size is within upper limits of normal. No pneumothorax. Pulmonary vascular congestion is present with interstitial edema. Bibasilar consolidative findings noted. Interstitial infiltrates may also be present. Impression: No significant change in pulmonary aeration. Lines and tubes in place. No pneumothorax. Electronically signed by: Stephan Galindo MD (07/15/2019 10:15 AM) [id number] DICTATED and SIGNED BY: STEPHAN GALINDO MD DATE: 07/15/19 1015 Laboratory Tests Test 07/14/19 12:10 07/14/19 12:24 07/14/19 15:45 07/14/19 17:43 O2 Saturation 92 % (92-99) Arterial Blood pH 7.43 (7.35-7.45) Arterial Blood pCO2 at Patient Temp 35 mmHg (35-46) Arterial Blood pO2 at Patient Temp 65 mmHg (75-108) Arterial Blood HCO3 23 mmol/L (21-28) Arterial Blood Base Excess -1 mmol/L (-3-3) FiO2 100 vapotherm Glucose (Fingerstick) 99 mg/dL (70-99) 105 mg/dL (70-99) D-Dimer (Avis) 3.33 ug/mlFEU (0.00-0.50) Procalcitonin 0.89 ng/mL (0.00-0.10) Test 07/15/19 04:40 07/15/19 04:42 07/15/19 08:30 White Blood Count 9.8 x10^3/uL (4.0-11.0) Red Blood Count 4.21 x10^6/uL (4.30-5.70) Hemoglobin 11.5 g/dL (13.0-17.5) Hematocrit 35.0 % (39.0-53.0) Mean Corpuscular Volume 83 fL (79-100) Mean Corpuscular Hemoglobin 27 pg (25-35) Mean Corpuscular Hemoglobin Concent 33 g/dL (31-37) Red Cell Distribution Width 15.2 % (11.5-14.5) Platelet Count 379 x10^3/uL (140-400) Neutrophils (%) (Auto) 81 % (31-73) Lymphocytes (%) (Auto) 10 % (24-48) Monocytes (%) (Auto) 8 % (0-9) Eosinophils (%) (Auto) 1 % (0-3) Basophils (%) (Auto) 0 % (0-3) Neutrophils # (Auto) 7.9 x10^3/uL (1.8-7.7) Lymphocytes # (Auto) 1.0 x10^3/uL (1.0-4.8) Monocytes # (Auto) 0.8 x10^3/uL (0.0-1.1) Eosinophils # (Auto) 0.0 x10^3/uL (0.0-0.7) Basophils # (Auto) 0.0 x10^3/uL (0.0-0.2) Sodium Level 138 mmol/L (136-145) Potassium Level 3.7 mmol/L (3.5-5.1) Chloride Level 104 mmol/L (98-107) Carbon Dioxide Level 22 mmol/L (21-32) Anion Gap 12 (6-14) Blood Urea Nitrogen 13 mg/dL (8-26) Creatinine 1.0 mg/dL (0.7-1.3) Estimated GFR (Cockcroft-Gault) 96.5 BUN/Creatinine Ratio 13 (6-20) Glucose Level 114 mg/dL (70-99) Calcium Level 8.8 mg/dL (8.5-10.1) Total Bilirubin 0.9 mg/dL (0.2-1.0) Aspartate Amino Transf (AST/SGOT) 68 U/L (15-37) Alanine Aminotransferase (ALT/SGPT) 53 U/L (16-63) Alkaline Phosphatase 89 U/L (46-116) Total Protein 8.2 g/dL (6.4-8.2) Albumin 2.4 g/dL (3.4-5.0) Albumin/Globulin Ratio 0.4 (1.0-1.7) O2 Saturation 78 % (92-99) 83 % (92-99) Arterial Blood pH 7.48 (7.35-7.45) 7.16 (7.35-7.45) Arterial Blood pCO2 at Patient Temp 31 mmHg (35-46) 70 mmHg (35-46) Arterial Blood pO2 at Patient Temp 42 mmHg (75-108) 63 mmHg (75-108) Arterial Blood HCO3 22 mmol/L (21-28) 24 mmol/L (21-28) Arterial Blood Base Excess -1 mmol/L (-3-3) -6 mmol/L (-3-3) FiO2 100 100 Assessment and Plan Assessmemt and Plan Problems Medical Problems: (1) Suspected COVID-19 virus infection Status: Acute Comment Review of Relevant I have reviewed the following items lizzy (where applicable) has been applied. Labs Laboratory Tests Test 07/13/19 17:10 07/13/19 21:23 07/14/19 09:09 07/14/19 12:10 Glucose (Fingerstick) 114 mg/dL (70-99) 116 mg/dL (70-99) 105 mg/dL (70-99) O2 Saturation 92 % (92-99) Arterial Blood pH 7.43 (7.35-7.45) Arterial Blood pCO2 at Patient Temp 35 mmHg (35-46) Arterial Blood pO2 at Patient Temp 65 mmHg (75-108) Arterial Blood HCO3 23 mmol/L (21-28) Arterial Blood Base Excess -1 mmol/L (-3-3) FiO2 100 vapotherm Test 07/14/19 12:24 07/14/19 15:45 07/14/19 17:43 07/15/19 04:40 Glucose (Fingerstick) 99 mg/dL (70-99) 105 mg/dL (70-99) D-Dimer (Avis) 3.33 ug/mlFEU (0.00-0.50) Procalcitonin 0.89 ng/mL (0.00-0.10) White Blood Count 9.8 x10^3/uL (4.0-11.0) Red Blood Count 4.21 x10^6/uL (4.30-5.70) Hemoglobin 11.5 g/dL (13.0-17.5) Hematocrit 35.0 % (39.0-53.0) Mean Corpuscular Volume 83 fL (79-100) Mean Corpuscular Hemoglobin 27 pg (25-35) Mean Corpuscular Hemoglobin Concent 33 g/dL (31-37) Red Cell Distribution Width 15.2 % (11.5-14.5) Platelet Count 379 x10^3/uL (140-400) Neutrophils (%) (Auto) 81 % (31-73) Lymphocytes (%) (Auto) 10 % (24-48) Monocytes (%) (Auto) 8 % (0-9) Eosinophils (%) (Auto) 1 % (0-3) Basophils (%) (Auto) 0 % (0-3) Neutrophils # (Auto) 7.9 x10^3/uL (1.8-7.7) Lymphocytes # (Auto) 1.0 x10^3/uL (1.0-4.8) Monocytes # (Auto) 0.8 x10^3/uL (0.0-1.1) Eosinophils # (Auto) 0.0 x10^3/uL (0.0-0.7) Basophils # (Auto) 0.0 x10^3/uL (0.0-0.2) Sodium Level 138 mmol/L (136-145) Potassium Level 3.7 mmol/L (3.5-5.1) Chloride Level 104 mmol/L (98-107) Carbon Dioxide Level 22 mmol/L (21-32) Anion Gap 12 (6-14) Blood Urea Nitrogen 13 mg/dL (8-26) Creatinine 1.0 mg/dL (0.7-1.3) Estimated GFR (Cockcroft-Gault) 96.5 BUN/Creatinine Ratio 13 (6-20) Glucose Level 114 mg/dL (70-99) Calcium Level 8.8 mg/dL (8.5-10.1) Total Bilirubin 0.9 mg/dL (0.2-1.0) Aspartate Amino Transf (AST/SGOT) 68 U/L (15-37) Alanine Aminotransferase (ALT/SGPT) 53 U/L (16-63) Alkaline Phosphatase 89 U/L (46-116) Total Protein 8.2 g/dL (6.4-8.2) Albumin 2.4 g/dL (3.4-5.0) Albumin/Globulin Ratio 0.4 (1.0-1.7) Test 07/15/19 04:42 07/15/19 08:30 O2 Saturation 78 % (92-99) 83 % (92-99) Arterial Blood pH 7.48 (7.35-7.45) 7.16 (7.35-7.45) Arterial Blood pCO2 at Patient Temp 31 mmHg (35-46) 70 mmHg (35-46) Arterial Blood pO2 at Patient Temp 42 mmHg (75-108) 63 mmHg (75-108) Arterial Blood HCO3 22 mmol/L (21-28) 24 mmol/L (21-28) Arterial Blood Base Excess -1 mmol/L (-3-3) -6 mmol/L (-3-3) FiO2 100 100 Laboratory Tests Test 07/14/19 12:10 07/14/19 12:24 07/14/19 15:45 07/14/19 17:43 O2 Saturation 92 % (92-99) Arterial Blood pH 7.43 (7.35-7.45) Arterial Blood pCO2 at Patient Temp 35 mmHg (35-46) Arterial Blood pO2 at Patient Temp 65 mmHg (75-108) Arterial Blood HCO3 23 mmol/L (21-28) Arterial Blood Base Excess -1 mmol/L (-3-3) FiO2 100 vapotherm Glucose (Fingerstick) 99 mg/dL (70-99) 105 mg/dL (70-99) D-Dimer (Avis) 3.33 ug/mlFEU (0.00-0.50) Procalcitonin 0.89 ng/mL (0.00-0.10) Test 07/15/19 04:40 07/15/19 04:42 07/15/19 08:30 White Blood Count 9.8 x10^3/uL (4.0-11.0) Red Blood Count 4.21 x10^6/uL (4.30-5.70) Hemoglobin 11.5 g/dL (13.0-17.5) Hematocrit 35.0 % (39.0-53.0) Mean Corpuscular Volume 83 fL (79-100) Mean Corpuscular Hemoglobin 27 pg (25-35) Mean Corpuscular Hemoglobin Concent 33 g/dL (31-37) Red Cell Distribution Width 15.2 % (11.5-14.5) Platelet Count 379 x10^3/uL (140-400) Neutrophils (%) (Auto) 81 % (31-73) Lymphocytes (%) (Auto) 10 % (24-48) Monocytes (%) (Auto) 8 % (0-9) Eosinophils (%) (Auto) 1 % (0-3) Basophils (%) (Auto) 0 % (0-3) Neutrophils # (Auto) 7.9 x10^3/uL (1.8-7.7) Lymphocytes # (Auto) 1.0 x10^3/uL (1.0-4.8) Monocytes # (Auto) 0.8 x10^3/uL (0.0-1.1) Eosinophils # (Auto) 0.0 x10^3/uL (0.0-0.7) Basophils # (Auto) 0.0 x10^3/uL (0.0-0.2) Sodium Level 138 mmol/L (136-145) Potassium Level 3.7 mmol/L (3.5-5.1) Chloride Level 104 mmol/L (98-107) Carbon Dioxide Level 22 mmol/L (21-32) Anion Gap 12 (6-14) Blood Urea Nitrogen 13 mg/dL (8-26) Creatinine 1.0 mg/dL (0.7-1.3) Estimated GFR (Cockcroft-Gault) 96.5 BUN/Creatinine Ratio 13 (6-20) Glucose Level 114 mg/dL (70-99) Calcium Level 8.8 mg/dL (8.5-10.1) Total Bilirubin 0.9 mg/dL (0.2-1.0) Aspartate Amino Transf (AST/SGOT) 68 U/L (15-37) Alanine Aminotransferase (ALT/SGPT) 53 U/L (16-63) Alkaline Phosphatase 89 U/L (46-116) Total Protein 8.2 g/dL (6.4-8.2) Albumin 2.4 g/dL (3.4-5.0) Albumin/Globulin Ratio 0.4 (1.0-1.7) O2 Saturation 78 % (92-99) 83 % (92-99) Arterial Blood pH 7.48 (7.35-7.45) 7.16 (7.35-7.45) Arterial Blood pCO2 at Patient Temp 31 mmHg (35-46) 70 mmHg (35-46) Arterial Blood pO2 at Patient Temp 42 mmHg (75-108) 63 mmHg (75-108) Arterial Blood HCO3 22 mmol/L (21-28) 24 mmol/L (21-28) Arterial Blood Base Excess -1 mmol/L (-3-3) -6 mmol/L (-3-3) FiO2 100 100 Microbiology 07/12/19 Blood Culture - Preliminary, Resulted NO GROWTH AFTER 2 DAYS Medications Current Medications Sodium Chloride 1,000 ml @ 1,000 mls/hr 1X ONCE IV Last administered on 07/12/19at 13:25; Start 07/12/19 at 13:30; Stop 07/12/19 at 14:29; Status DC Acetaminophen (Tylenol) 1,000 mg 1X ONCE PO Last administered on 07/12/19at 13:25; Start 07/12/19 at 13:45; Stop 07/12/19 at 13:46; Status DC Sodium Chloride (Normal Saline Flush) 3 ml QSHIFT PRN IV AFTER MEDS AND BLOOD DRAWS; Start 07/12/19 at 16:45 Sodium Chloride 1,000 ml @ 100 mls/hr Q10H IV Last administered on 07/15/19at 08:05; Start 07/12/19 at 16:41 Ondansetron HCl (Zofran) 4 mg PRN Q4HRS PRN IV NAUSEA/VOMITING; Start 07/12/19 at 16:45 Acetaminophen (Tylenol) 650 mg PRN Q4HRS PRN PO TEMP OVER 100.4F OR MILD PAIN Last administered on 07/14/19at 18:29; Start 07/12/19 at 16:45 Al Hydroxide/Mg Hydroxide (Mylanta Plus Xs) 30 ml PRN DAILY PRN PO HEARTBURN / GAS; Start 07/12/19 at 16:45 Clonidine HCl (Catapres) 0.1 mg PRN Q6HRS PRN PO SBP>160 OR DBP>90 Last administered on 07/15/19at 04:25; Start 07/12/19 at 16:45 Docusate Sodium (Colace) 100 mg PRN BID PRN PO CONSTIPATION; Start 07/12/19 at 16:45 Albuterol/ Ipratropium (Duoneb) 3 ml Q4H NEB ; Start 07/12/19 at 16:45; Stop 07/12/19 at 16:55; Status DC Guaifenesin (Robitussin) 200 mg PRN Q4HRS PRN PO COUGH Last administered on 07/14/19at 08:52; Start 07/12/19 at 16:45 Levofloxacin/ Dextrose 100 ml @ 100 mls/hr Q24H IV Last administered on 07/14/19at 17:28; Start 07/13/19 at 17:00 Albuterol/ Ipratropium (Duoneb) 3 ml Q4HRS NEB ; Start 07/12/19 at 20:00; Stop 07/12/19 at 18:33; Status DC Levofloxacin/ Dextrose 100 ml @ 100 mls/hr 1X ONCE IV Last administered on 07/12/19at 17:58; Start 07/12/19 at 17:45; Stop 07/12/19 at 18:44; Status DC Albuterol Sulfate (Ventolin Neb Soln) 2.5 mg PRN Q4HRS PRN NEB SHORTNESS OF BREATH; Start 07/12/19 at 18:45 Hydralazine HCl (Apresoline Inj) 10 mg PRN Q4HRS PRN IVP ELEVATED BP, SEE COMMENTS Last administered on 07/12/19at 20:31; Start 07/12/19 at 19:45; Stop 07/12/19 at 22:40; Status DC Allopurinol (Zyloprim) 300 mg DAILY PO Last administered on 07/15/19at 10:07; Start 07/13/19 at 09:00 Amlodipine Besylate (Norvasc) 10 mg DAILY PO Last administered on 07/15/19at 10:06; Start 07/13/19 at 09:00 Lisinopril (Prinivil) 40 mg DAILY PO Last administered on 07/15/19at 10:07; Start 07/13/19 at 09:00 Metoprolol Tartrate (Lopressor) 25 mg BID PO Last administered on 07/15/19 10:05; Start 07/12/19 at 21:00 Doxazosin Mesylate (Cardura) 8 mg DAILY PO Last administered on 07/15/19 10:06; Start 07/13/19 at 09:00 Metformin HCl (Glucophage) 1,000 mg BIDWMEALS PO Last administered on 07/14/19 17:28; Start 07/13/19 at 08:00 Atorvastatin Calcium (Lipitor) 40 mg QHS PO Last administered on 07/14/19at 21:21; Start 07/12/19 at 21:00 Lisinopril (Prinivil) 10 mg 1X ONCE PO Last administered on 07/13/19at 00:41; Start 07/12/19 at 23:00; Stop 07/12/19 at 23:01; Status DC Hydralazine HCl (Apresoline Inj) 10 mg PRN Q4HRS PRN IVP ELEVATED BP, SEE COMMENTS Last administered on 07/15/19at 03:07; Start 07/12/19 at 22:45 Doxazosin Mesylate (Cardura) 8 mg 1X ONCE PO Last administered on 07/12/19at 23:08; Start 07/12/19 at 23:30; Stop 07/12/19 at 23:31; Status DC Amlodipine Besylate (Norvasc) 10 mg 1X ONCE PO Last administered on 07/12/19at 23:00; Start 07/12/19 at 23:30; Stop 07/12/19 at 23:31; Status DC Lorazepam (Ativan Inj) 1 mg PRN Q2HRS PRN IVP ANXIETY / AGITATION Last administered on 07/15/19at 04:24; Start 07/12/19 at 23:00 Enoxaparin Sodium (Lovenox 60mg Syringe) 60 mg Q12HR SQ Last administered on 07/15/19 10:07; Start 07/13/19 at 09:00 Lactobacillus Rhamnosus (Culturelle) 1 cap BID PO Last administered on 07/15/19 10:07; Start 07/13/19 at 21:00 Throat Lozenges (Cepacol Sore Throat Lozenge) 1 jessica PRN Q2HRS PRN PO SORE THROAT Last administered on 07/14/19at 08:56; Start 07/13/19 at 16:30 Haloperidol Lactate (Haldol Inj) 3 mg PRN Q4HRS PRN IVP AGITATION Last administered on 07/14/19at 22:59; Start 07/14/19 at 22:30 Fentanyl Citrate 30 ml @ 0 mls/hr CONT PRN IV SEE PROTOCOL; Start 07/15/19 at 05:45 Propofol 100 ml @ 0 mls/hr CONT PRN IV SEE PROTOCOL Last administered on 07/15/19at 06:03; Start 07/15/19 at 05:45; Stop 07/15/19 at 06:06; Status DC Famotidine (Pepcid Vial) 20 mg BID IVP Last administered on 07/15/19at 10:07; Start 07/15/19 at 09:00 Midazolam HCl 100 ml @ 0 mls/hr CONT PRN IV SEE PROTOCOL; Start 07/15/19 at 05:45 Ketamine HCl (Ketamine) 50 mg STK-MED ONCE .ROUTE ; Start 07/15/19 at 05:44; Stop 07/15/19 at 05:44; Status DC Succinylcholine Chloride (Anectine) 200 mg STK-MED ONCE .ROUTE ; Start 07/15/19 at 05:45; Stop 07/15/19 at 05:45; Status DC Succinylcholine Chloride (Anectine) 200 mg 1X ONCE IV Last administered on 07/15/19at 06:00; Start 07/15/19 at 06:15; Stop 07/15/19 at 06:16; Status DC Propofol 100 ml @ 2.7 mls/hr CONT PRN IV SEE I/O RECORD Last administered on 07/15/19at 10:08; Start 07/15/19 at 06:15 Ketamine HCl (Ketamine) 50 mg 1X ONCE IV Last administered on 07/15/19at 05:55; Start 07/15/19 at 06:15; Stop 07/15/19 at 06:16; Status DC Vecuronium [place] (Norcuron Bolus) 6 mg 1X ONCE IV Last administered on 07/15/19at 06:55; Start 07/15/19 at 07:00; Stop 07/15/19 at 07:01; Status DC Vecuronium [place] (Norcuron Bolus) 10 mg STK-MED ONCE IV ; Start 07/15/19 at 06:53; Stop 07/15/19 at 06:53; Status DC Active Scripts Active Reported Metformin Hcl 1,000 Mg Tablet 1,000 Mg PO BIDWMEALS Lisinopril 40 Mg Tablet 40 Mg PO DAILY Allopurinol 300 Mg Tablet 300 Mg PO DAILY Metoprolol Tartrate 25 Mg Tablet 25 Mg PO BID Doxazosin Mesylate 8 Mg Tablet 8 Mg PO DAILY Amlodipine Besylate 10 Mg Tablet 10 Mg PO DAILY Vitals/I & O Vital Sign - Last 24 Hours 07/14/19 07/14/19 07/14/19 07/14/19 11:00 12:00 12:00 12:27 Temp 98.9 98.9 Pulse 80 78 Resp 22 47 B/P (MAP) 145/76 (99) 145/76 (99) Pulse Ox 94 94 O2 Delivery vapotherm Nasal Cannula vapotherm VAPOTHERM O2 Flow Rate 35.0 07/14/19 07/14/19 07/14/19 07/14/19 12:57 13:00 13:22 14:00 Temp 99.2 98.7 99.2 98.7 Pulse 80 82 79 80 Resp 52 51 50 55 B/P (MAP) 148/78 145/76 (99) 145/77 145/76 (99) Pulse Ox 94 94 O2 Delivery vapotherm vapotherm 07/14/19 07/14/19 07/14/19 07/14/19 15:00 16:00 16:00 17:00 Temp 99.9 99.9 Pulse 86 90 90 Resp 44 60 58 B/P (MAP) 145/76 (99) 145/76 (99) 145/76 (99) Pulse Ox 94 94 94 O2 Delivery vapotherm vapotherm Nasal Cannula vapotherm O2 Flow Rate 35.0 07/14/19 07/14/19 07/14/19 07/14/19 18:00 19:00 20:00 20:00 Temp 100.6 100.6 Pulse 92 92 98 Resp 48 24 60 B/P (MAP) 145/76 (99) 156/75 (102) 179/98 (125) Pulse Ox 94 89 86 O2 Delivery vapotherm vapotherm vapotherm Nasal Cannula O2 Flow Rate 35.0 07/14/19 07/14/19 07/14/19 07/14/19 21:21 21:30 22:00 23:00 Pulse 104 106 100 104 Resp 59 56 B/P (MAP) 210/96 210/96 (134) 182/86 (118) 210/96 Pulse Ox 91 92 O2 Delivery vapotherm vapotherm 07/14/19 07/15/19 07/15/19 07/15/19 23:00 00:00 00:00 01:00 Temp 100.3 100.3 Pulse 88 96 98 Resp 51 42 B/P (MAP) 173/86 (115) 181/85 (117) 179/91 (120) Pulse Ox 82 82 96 O2 Delivery vapotherm vapotherm Nasal Cannula vapotherm O2 Flow Rate 40.0 07/15/19 07/15/19 07/15/19 07/15/19 02:00 03:00 03:07 04:00 Pulse 124 108 108 122 B/P (MAP) 202/100 (134) 187/95 (125) 187/95 199/105 (136) Pulse Ox 90 93 92 O2 Delivery vapotherm vapotherm vapotherm 07/15/19 07/15/19 07/15/19 07/15/19 04:00 04:25 05:00 06:10 Temp 100.3 100.3 Pulse 199 124 B/P (MAP) 196/84 (121) Pulse Ox 90 95 O2 Delivery Nasal Cannula vapotherm Ventilator O2 Flow Rate 40.0 07/15/19 07/15/19 07/15/19 07/15/19 06:30 07:00 10:05 10:06 Pulse 122 122 122 122 B/P (MAP) 181/90 (120) 174/81 (112) 174/81 174/81 Pulse Ox 96 99 O2 Delivery vapotherm Ventilator 07/15/19 07/15/19 10:06 10:07 Pulse 122 122 B/P (MAP) 174/81 174/81 Intake and Output 07/14/19 07/14/19 07/15/19 15:00 23:00 07:00 Intake Total 500 ml 1300 ml 1150 ml Output Total 800 ml 850 ml 700 ml Balance -300 ml 450 ml 450 ml CELESTINA MURPHY MD July 15, 2019 10:30
[2019-07-15] MEDS: MIDAZOLAM 100mg/100ml NS BAG 100 ML IV PRN ×2 (11:11→16:36)
--- NOTE | 2019-07-15 12:47 | PDOC ---
PULMONARY PROGRESS NOTES Subjective worsening hypoxia this am with increase R/R, intubated early this am tolerated vapotherm for 2-3 days but failed this am AC mode, on 100% fio2, 10 PEEP Vitals Vital Signs Date Time Temp Pulse Resp B/P (MAP) Pulse Ox O2 Delivery O2 Flow Rate FiO2 07/15/19 12:00 Mechanical Ventilator 07/15/19 12:00 99.6 88 31 112/53 (72) 90 99.6 07/15/19 04:00 40.0 Comments Visual exam done due to COVID pandemic INTUBATED/ SEDATED TRACE LEG EDEMA NO RASH Labs Laboratory Tests Test 07/13/19 17:10 07/13/19 21:23 07/14/19 09:09 07/14/19 12:10 Glucose (Fingerstick) 114 mg/dL (70-99) 116 mg/dL (70-99) 105 mg/dL (70-99) O2 Saturation 92 % (92-99) Arterial Blood pH 7.43 (7.35-7.45) Arterial Blood pCO2 at Patient Temp 35 mmHg (35-46) Arterial Blood pO2 at Patient Temp 65 mmHg (75-108) Arterial Blood HCO3 23 mmol/L (21-28) Arterial Blood Base Excess -1 mmol/L (-3-3) FiO2 100 vapotherm Test 07/14/19 12:24 07/14/19 15:45 07/14/19 17:43 07/15/19 04:40 Glucose (Fingerstick) 99 mg/dL (70-99) 105 mg/dL (70-99) D-Dimer (Avis) 3.33 ug/mlFEU (0.00-0.50) Procalcitonin 0.89 ng/mL (0.00-0.10) White Blood Count 9.8 x10^3/uL (4.0-11.0) Red Blood Count 4.21 x10^6/uL (4.30-5.70) Hemoglobin 11.5 g/dL (13.0-17.5) Hematocrit 35.0 % (39.0-53.0) Mean Corpuscular Volume 83 fL (79-100) Mean Corpuscular Hemoglobin 27 pg (25-35) Mean Corpuscular Hemoglobin Concent 33 g/dL (31-37) Red Cell Distribution Width 15.2 % (11.5-14.5) Platelet Count 379 x10^3/uL (140-400) Neutrophils (%) (Auto) 81 % (31-73) Lymphocytes (%) (Auto) 10 % (24-48) Monocytes (%) (Auto) 8 % (0-9) Eosinophils (%) (Auto) 1 % (0-3) Basophils (%) (Auto) 0 % (0-3) Neutrophils # (Auto) 7.9 x10^3/uL (1.8-7.7) Lymphocytes # (Auto) 1.0 x10^3/uL (1.0-4.8) Monocytes # (Auto) 0.8 x10^3/uL (0.0-1.1) Eosinophils # (Auto) 0.0 x10^3/uL (0.0-0.7) Basophils # (Auto) 0.0 x10^3/uL (0.0-0.2) Sodium Level 138 mmol/L (136-145) Potassium Level 3.7 mmol/L (3.5-5.1) Chloride Level 104 mmol/L (98-107) Carbon Dioxide Level 22 mmol/L (21-32) Anion Gap 12 (6-14) Blood Urea Nitrogen 13 mg/dL (8-26) Creatinine 1.0 mg/dL (0.7-1.3) Estimated GFR (Cockcroft-Gault) 96.5 BUN/Creatinine Ratio 13 (6-20) Glucose Level 114 mg/dL (70-99) Calcium Level 8.8 mg/dL (8.5-10.1) Total Bilirubin 0.9 mg/dL (0.2-1.0) Aspartate Amino Transf (AST/SGOT) 68 U/L (15-37) Alanine Aminotransferase (ALT/SGPT) 53 U/L (16-63) Alkaline Phosphatase 89 U/L (46-116) Total Protein 8.2 g/dL (6.4-8.2) Albumin 2.4 g/dL (3.4-5.0) Albumin/Globulin Ratio 0.4 (1.0-1.7) Test 07/15/19 04:42 07/15/19 08:30 O2 Saturation 78 % (92-99) 83 % (92-99) Arterial Blood pH 7.48 (7.35-7.45) 7.16 (7.35-7.45) Arterial Blood pCO2 at Patient Temp 31 mmHg (35-46) 70 mmHg (35-46) Arterial Blood pO2 at Patient Temp 42 mmHg (75-108) 63 mmHg (75-108) Arterial Blood HCO3 22 mmol/L (21-28) 24 mmol/L (21-28) Arterial Blood Base Excess -1 mmol/L (-3-3) -6 mmol/L (-3-3) FiO2 100 100 Laboratory Tests Test 07/14/19 15:45 07/14/19 17:43 07/15/19 04:40 07/15/19 04:42 D-Dimer (Avis) 3.33 ug/mlFEU (0.00-0.50) Procalcitonin 0.89 ng/mL (0.00-0.10) Glucose (Fingerstick) 105 mg/dL (70-99) White Blood Count 9.8 x10^3/uL (4.0-11.0) Red Blood Count 4.21 x10^6/uL (4.30-5.70) Hemoglobin 11.5 g/dL (13.0-17.5) Hematocrit 35.0 % (39.0-53.0) Mean Corpuscular Volume 83 fL (79-100) Mean Corpuscular Hemoglobin 27 pg (25-35) Mean Corpuscular Hemoglobin Concent 33 g/dL (31-37) Red Cell Distribution Width 15.2 % (11.5-14.5) Platelet Count 379 x10^3/uL (140-400) Neutrophils (%) (Auto) 81 % (31-73) Lymphocytes (%) (Auto) 10 % (24-48) Monocytes (%) (Auto) 8 % (0-9) Eosinophils (%) (Auto) 1 % (0-3) Basophils (%) (Auto) 0 % (0-3) Neutrophils # (Auto) 7.9 x10^3/uL (1.8-7.7) Lymphocytes # (Auto) 1.0 x10^3/uL (1.0-4.8) Monocytes # (Auto) 0.8 x10^3/uL (0.0-1.1) Eosinophils # (Auto) 0.0 x10^3/uL (0.0-0.7) Basophils # (Auto) 0.0 x10^3/uL (0.0-0.2) Sodium Level 138 mmol/L (136-145) Potassium Level 3.7 mmol/L (3.5-5.1) Chloride Level 104 mmol/L (98-107) Carbon Dioxide Level 22 mmol/L (21-32) Anion Gap 12 (6-14) Blood Urea Nitrogen 13 mg/dL (8-26) Creatinine 1.0 mg/dL (0.7-1.3) Estimated GFR (Cockcroft-Gault) 96.5 BUN/Creatinine Ratio 13 (6-20) Glucose Level 114 mg/dL (70-99) Calcium Level 8.8 mg/dL (8.5-10.1) Total Bilirubin 0.9 mg/dL (0.2-1.0) Aspartate Amino Transf (AST/SGOT) 68 U/L (15-37) Alanine Aminotransferase (ALT/SGPT) 53 U/L (16-63) Alkaline Phosphatase 89 U/L (46-116) Total Protein 8.2 g/dL (6.4-8.2) Albumin 2.4 g/dL (3.4-5.0) Albumin/Globulin Ratio 0.4 (1.0-1.7) O2 Saturation 78 % (92-99) Arterial Blood pH 7.48 (7.35-7.45) Arterial Blood pCO2 at Patient Temp 31 mmHg (35-46) Arterial Blood pO2 at Patient Temp 42 mmHg (75-108) Arterial Blood HCO3 22 mmol/L (21-28) Arterial Blood Base Excess -1 mmol/L (-3-3) FiO2 100 Test 07/15/19 08:30 O2 Saturation 83 % (92-99) Arterial Blood pH 7.16 (7.35-7.45) Arterial Blood pCO2 at Patient Temp 70 mmHg (35-46) Arterial Blood pO2 at Patient Temp 63 mmHg (75-108) Arterial Blood HCO3 24 mmol/L (21-28) Arterial Blood Base Excess -6 mmol/L (-3-3) FiO2 100 Medications Active Scripts Medications Dose Route/Sig Max Daily Dose Days Date Category Metformin Hcl 1,000 Mg Tablet 1,000 Mg PO BIDWMEALS 07/12/19 Reported Lisinopril 40 Mg Tablet 40 Mg PO DAILY 07/12/19 Reported Allopurinol 300 Mg Tablet 300 Mg PO DAILY 07/12/19 Reported Metoprolol Tartrate 25 Mg Tablet 25 Mg PO BID 07/12/19 Reported Doxazosin Mesylate 8 Mg Tablet 8 Mg PO DAILY 07/12/19 Reported Amlodipine Besylate 10 Mg Tablet 10 Mg PO DAILY 07/12/19 Reported Comments CXR 07/14 POST INTUBATION BILATERAL INFILTRATES Impression . 1. Acute hypoxic respiratory failure secondary to coronavirus disease-19 pneumonia. Worsening hypoxia , likely cytokine surge/ ALI/ ARDS, INTUBATED 07/14 2. Abnormal chest x-ray with bilateral infiltrates suggestive of coronavirus disease-19 pneumonia. Cannot exclude bacterial pneumonia. 3. Underlying morbid obesity. 4. Diabetes. 5. Nonsmoker. 6. Increase inflammatory markers suggestive of cytokine surge 7. s/p convalescent plasma Plan . 1. Continue present AC mode, on 100% FIO2 ,10 PEEP. Make changes based on ABG's 2. COVID-19 positive 3. Empiric antibiotics. 4. s/p convalescent plasma transfusion 07/13 5. start nutrition in 24 hrs/ prone positioning 6. Monitor LFT 7. Discussed with RN. 8. Plan to give monoclonal antibodies/Tocilizumab today. Requested the drug for availability at our hospital . cct 35 min including review of chart, chest x-ray, lab values and discussion with RN and patient and decision making. HILARIO BIRCH MD July 15, 2019 12:47
--- NOTE | 2019-07-15 12:51 | NUR ---
SS following up with discharge planning. SS discussed with RN, Asiya. Vapotherm unsuccessful. Pt now intubated. Pt is COVID19 positive. SS will continue to follow for discharge planning.
[2019-07-15] MEDS ORDERED: DEXTROSE 50% 25 GM / 50ML DISP.SYRIN. IV ONE ×2 (15:55→16:30)
[2019-07-15] MEDS ORDERED: TOCILIZUMAB IV ONE (16:00)
[2019-07-15] MEDS ORDERED: NORMAL SALINE IV ONE (16:00)
[2019-07-15] MEDS ORDERED: DEXMEDETOMIDINE 400 MCG in IV NORMAL SALINE 100ML 96 ML IV PRN (16:30)
[2019-07-15] MEDS: DEXMEDETOMIDINE 400 MCG in IV NORMAL SALINE 100ML 96 ML IV PRN ×2 (16:47→21:18)
[2019-07-15] MEDS: ATORVASTATIN CALCIUM 40 MG TABLET. PO SCH (20:58)
[2019-07-16] VITALS (22 sets, daily range): BP systolic 106–168; BP diastolic 72–99
[2019-07-16] MEDS ORDERED: MIDAZOLAM PREMIX 100 MG/100 ML NS BAG. IV ONE ×2 (01:15→11:44)
[2019-07-16 08:36] LABS: BASE EXCESS ABG -5 mmol/L (-3-3); HCO3 ABG 20 mmol/L (21-28); PCO2 ABG 38 mmHg (35-46); PO2 ABG 84 mmHg (75-108); SAT O2 ABG 94 % (92-99)
[2019-07-16 08:37] LABS: FIO2 ABG 100 vent
[2019-07-16] MEDS: LACTOBACILLUS RHAMNOSUS GG 1 CAPSULE. PO SCH ×2 (09:00→20:52)
[2019-07-16] MEDS: DOXAZOSIN MESYLATE 4 MG TABLET. PO SCH (09:00)
[2019-07-16] MEDS: METOPROLOL TART IMMED RELEASE 25 MG TABLET. PO SCH ×2 (09:00→20:51)
--- NOTE | 2019-07-16 09:17 | PDOC ---
PULMONARY PROGRESS NOTES Subjective continue AC mode, on 100% fio2, 10 PEEP on versed, precedex and fent gtt Vitals Vital Signs Date Time Temp Pulse Resp B/P (MAP) Pulse Ox O2 Delivery O2 Flow Rate FiO2 07/16/19 08:18 87 Ventilator 07/16/19 06:00 65 30 150/91 (110) 07/16/19 05:00 97.9 97.9 07/15/19 22:09 40.0 Comments Visual exam done due to COVID pandemic INTUBATED/ SEDATED TRACE LEG EDEMA NO RASH Labs Laboratory Tests Test 07/14/19 12:10 07/14/19 12:24 07/14/19 15:45 07/14/19 17:43 O2 Saturation 92 % (92-99) Arterial Blood pH 7.43 (7.35-7.45) Arterial Blood pCO2 at Patient Temp 35 mmHg (35-46) Arterial Blood pO2 at Patient Temp 65 mmHg (75-108) Arterial Blood HCO3 23 mmol/L (21-28) Arterial Blood Base Excess -1 mmol/L (-3-3) FiO2 100 vapotherm Glucose (Fingerstick) 99 mg/dL (70-99) 105 mg/dL (70-99) D-Dimer (Avis) 3.33 ug/mlFEU (0.00-0.50) Procalcitonin 0.89 ng/mL (0.00-0.10) Test 07/15/19 04:40 07/15/19 04:42 07/15/19 08:30 07/15/19 16:39 White Blood Count 9.8 x10^3/uL (4.0-11.0) Red Blood Count 4.21 x10^6/uL (4.30-5.70) Hemoglobin 11.5 g/dL (13.0-17.5) Hematocrit 35.0 % (39.0-53.0) Mean Corpuscular Volume 83 fL (79-100) Mean Corpuscular Hemoglobin 27 pg (25-35) Mean Corpuscular Hemoglobin Concent 33 g/dL (31-37) Red Cell Distribution Width 15.2 % (11.5-14.5) Platelet Count 379 x10^3/uL (140-400) Neutrophils (%) (Auto) 81 % (31-73) Lymphocytes (%) (Auto) 10 % (24-48) Monocytes (%) (Auto) 8 % (0-9) Eosinophils (%) (Auto) 1 % (0-3) Basophils (%) (Auto) 0 % (0-3) Neutrophils # (Auto) 7.9 x10^3/uL (1.8-7.7) Lymphocytes # (Auto) 1.0 x10^3/uL (1.0-4.8) Monocytes # (Auto) 0.8 x10^3/uL (0.0-1.1) Eosinophils # (Auto) 0.0 x10^3/uL (0.0-0.7) Basophils # (Auto) 0.0 x10^3/uL (0.0-0.2) Sodium Level 138 mmol/L (136-145) Potassium Level 3.7 mmol/L (3.5-5.1) Chloride Level 104 mmol/L (98-107) Carbon Dioxide Level 22 mmol/L (21-32) Anion Gap 12 (6-14) Blood Urea Nitrogen 13 mg/dL (8-26) Creatinine 1.0 mg/dL (0.7-1.3) Estimated GFR (Cockcroft-Gault) 96.5 BUN/Creatinine Ratio 13 (6-20) Glucose Level 114 mg/dL (70-99) Calcium Level 8.8 mg/dL (8.5-10.1) Total Bilirubin 0.9 mg/dL (0.2-1.0) Aspartate Amino Transf (AST/SGOT) 68 U/L (15-37) Alanine Aminotransferase (ALT/SGPT) 53 U/L (16-63) Alkaline Phosphatase 89 U/L (46-116) Total Protein 8.2 g/dL (6.4-8.2) Albumin 2.4 g/dL (3.4-5.0) Albumin/Globulin Ratio 0.4 (1.0-1.7) O2 Saturation 78 % (92-99) 83 % (92-99) Arterial Blood pH 7.48 (7.35-7.45) 7.16 (7.35-7.45) Arterial Blood pCO2 at Patient Temp 31 mmHg (35-46) 70 mmHg (35-46) Arterial Blood pO2 at Patient Temp 42 mmHg (75-108) 63 mmHg (75-108) Arterial Blood HCO3 22 mmol/L (21-28) 24 mmol/L (21-28) Arterial Blood Base Excess -1 mmol/L (-3-3) -6 mmol/L (-3-3) FiO2 100 100 Glucose (Fingerstick) 117 mg/dL (70-99) Test 07/16/19 08:33 O2 Saturation 94 % (92-99) Arterial Blood pH 7.34 (7.35-7.45) Arterial Blood pCO2 at Patient Temp 38 mmHg (35-46) Arterial Blood pO2 at Patient Temp 84 mmHg (75-108) Arterial Blood HCO3 20 mmol/L (21-28) Arterial Blood Base Excess -5 mmol/L (-3-3) FiO2 100 vent Laboratory Tests Test 07/15/19 16:39 07/16/19 08:33 Glucose (Fingerstick) 117 mg/dL (70-99) O2 Saturation 94 % (92-99) Arterial Blood pH 7.34 (7.35-7.45) Arterial Blood pCO2 at Patient Temp 38 mmHg (35-46) Arterial Blood pO2 at Patient Temp 84 mmHg (75-108) Arterial Blood HCO3 20 mmol/L (21-28) Arterial Blood Base Excess -5 mmol/L (-3-3) FiO2 100 vent Medications Active Scripts Medications Dose Route/Sig Max Daily Dose Days Date Category Metformin Hcl 1,000 Mg Tablet 1,000 Mg PO BIDWMEALS 07/12/19 Reported Lisinopril 40 Mg Tablet 40 Mg PO DAILY 07/12/19 Reported Allopurinol 300 Mg Tablet 300 Mg PO DAILY 07/12/19 Reported Metoprolol Tartrate 25 Mg Tablet 25 Mg PO BID 07/12/19 Reported Doxazosin Mesylate 8 Mg Tablet 8 Mg PO DAILY 07/12/19 Reported Amlodipine Besylate 10 Mg Tablet 10 Mg PO DAILY 07/12/19 Reported Comments CXR 07/14 POST INTUBATION BILATERAL INFILTRATES Impression . 1. Acute hypoxic respiratory failure secondary to coronavirus disease-19 pneumonia. Worsening hypoxia , likely cytokine surge/ ALI/ ARDS, INTUBATED 07/14 2. Abnormal chest x-ray with bilateral infiltrates suggestive of coronavirus di sease-19 pneumonia. Cannot exclude bacterial pneumonia. 3. Underlying morbid obesity. 4. Diabetes. 5. Nonsmoker. 6. Increase inflammatory markers suggestive of cytokine surge 7. s/p convalescent plasma Plan . 1. Continue present AC mode, on 100% FIO2 ,10 PEEP. Make changes based on ABG's 2. COVID-19 positive 3. Empiric antibiotics. 4. s/p convalescent plasma transfusion 07/13 5. start nutrition, PPN and TF at5 low dose 6. Monitor LFT 7. Discussed with RN. 8. S/P monoclonal antibodies/Tocilizumab 07/15/19 lovenox/pepcid cct 35 min including review of chart, chest x-ray, lab values and discussion with RN and patient and decision making. HILARIO BIRCH MD July 16, 2019 09:17
[2019-07-16] MEDS ORDERED: SODIUM BICARB ADULT 8.4% 50 MEQ/50 ML DISP.SYRIN. IV ONE (09:30)
--- NOTE | 2019-07-16 10:36 | PDOC ---
GENERAL General: Patient examined chart reviewed discussed with nursing. Today is hospital day 5 for this patient with acute hypoxic respiratory failure secondary to Covid 19. He had convalescent plasma infusion and a dose of tocilizumab yesterday. He continues to require high-dose ventilation. I appreciate critical care input. The only new finding on evaluation today is a loud aortic systolic murmur which appears to be new. We will assess with echocardiogram and cardiology consultation. I have labs pending from this morning including a BNP as well as electrolytes. We will continue current management otherwise. We will need a nutrition consultation now 5 days intubated without nutrition. After reviewing the aortic valve I will reach out to his next of kin to discuss progress. Total time today is 30 minutes with greater than 50% in counseling and coordination of care most of which in discussion with nursing and review of record. Problems: (1) COVID-19 virus infection (2) Aortic systolic murmur on examination (3) Morbid obesity VITAL SIGNS Vital Signs/I&O: Vital Signs Date Time Temp Pulse Resp B/P (MAP) Pulse Ox O2 Delivery O2 Flow Rate FiO2 07/16/19 08:18 87 Ventilator 07/16/19 06:00 65 30 150/91 (110) 07/16/19 05:00 97.9 97.9 07/15/19 22:09 40.0 I & O 07/15/19 07/15/19 07/16/19 15:00 23:00 07:00 Intake Total 317.7 ml 1938.5 ml 1306.68 ml Output Total 600 ml 250 ml 525 ml Balance -282.3 ml 1688.5 ml 781.68 ml Patient is intubated and sedated on the vent appears comfortable HEENT exam is unremarkable Chest bilateral equal air entry anteriorly though diminished throughout inspiratory and expiratory crackles of the bilateral lung bases Heart S1-S2 normal regular rate and rhythm 3 x 6 systolic murmur noted loudest at the second right intercostal space. 1+ bipedal edema is noted Abdomen is obese soft nontender nondistended no masses organomegaly noted Extremity exam is unremarkable other than 1+ bipedal edema ALLERGIES Allergies: Allergies Coded Allergies Type Severity Reaction Last Updated Verified No Known Drug Allergies 04/20/17 No MEDS Medications: Current Medications Medications (Trade) Dose Ordered Sig/Aria Route PRN Reason Start Time Stop Time Status Last Admin Dose Admin Tocilizumab 800 mg/Sodium Chloride 100 ml @ 100 mls/hr ONCE ONCE IV 07/15/19 16:00 07/15/19 16:59 DC 07/15/19 15:51 Dexmedetomidine HCl 400 mcg/ Sodium Chloride 100 ml @ 9 mls/hr CONT PRN IV SEDATION 07/15/19 16:30 07/15/19 21:18 Dextrose (Dextrose 50%-Water Syringe) 25 gm 1X ONCE IV 07/15/19 16:30 07/15/19 16:31 DC 07/15/19 16:28 LAB Lab: Laboratory Tests Test 07/15/19 16:39 07/16/19 08:33 Glucose (Fingerstick) 117 mg/dL (70-99) H O2 Saturation 94 % (92-99) Arterial Blood pH 7.34 (7.35-7.45) L Arterial Blood pCO2 at Patient Temp 38 mmHg (35-46) Arterial Blood pO2 at Patient Temp 84 mmHg (75-108) Arterial Blood HCO3 20 mmol/L (21-28) L Arterial Blood Base Excess -5 mmol/L (-3-3) L FiO2 100 vent ASSESSMENT & PLAN A&P This note was created using edupristine and may have omissions and or er rors due to the nature of real-time voice dry box tender. Assessment and plan as noted above. ERICA SMILEY MD July 16, 2019 10:35
[2019-07-16] MEDS: FAMOTIDINE 20 MG/2 ML VIAL IVP SCH ×2 (11:10→20:53)
[2019-07-16] MEDS: ALLOPURINOL 300 MG TABLET. PO SCH (11:11)
[2019-07-16] MEDS: metFORMIN 500 MG TABLET PO SCH ×2 (11:11→17:00)
[2019-07-16] MEDS: amLODIPine BESYLATE 10 MG TABLET PO SCH (11:12)
[2019-07-16] MEDS: LISINOPRIL 20 MG TABLET PO SCH (11:19)
[2019-07-16] MEDS: AMINO AC 3%/ELECTROLYTE/GLYCER 1,000 ML IV SCH ×2 (11:21→23:29)
[2019-07-16 12:54] LABS: BASO % 1 % (0-3); EOS # 0.2 x10^3/uL (0.0-0.7); EOS % 4 % (0-3); HEMATOCRIT 32.7 % (39.0-53.0); HEMOGLOBIN 10.7 g/dL (13.0-17.5); LYMPH # 0.7 x10^3/uL (1.0-4.8); LYMPH % 12 % (24-48); MEAN CORPUSCULAR HEMOGLOBIN 27 pg (25-35); MEAN CORPUSCULAR HGB CONC 33 g/dL (31-37); MEAN CORPUSCULAR VOLUME 83 fL (79-100); MONO # 0.4 x10^3/uL (0.0-1.1); MONO % 7 % (0-9); NEUT # 4.3 x10^3/uL (1.8-7.7); NEUT % 77 % (31-73); PLATELET COUNT 381 x10^3/uL (140-400); RED BLOOD COUNT 3.92 x10^6/uL (4.30-5.70); RED CELL DISTRIBUTION WIDTH 15.2 % (11.5-14.5); WHITE BLOOD COUNT 5.6 x10^3/uL (4.0-11.0)
[2019-07-16 13:05] LABS: ALBUMIN 2.1 g/dL (3.4-5.0); ALBUMIN/GLOBULIN RATIO 0.4 (1.0-1.7); CALCIUM 8.1 mg/dL (8.5-10.1); CREATININE 1.5 mg/dL (0.7-1.3); TOTAL PROTEIN 6.9 g/dL (6.4-8.2)
[2019-07-16 13:06] LABS: GFR 60.4; POTASSIUM 4.4 mmol/L (3.5-5.1); TOTAL BILIRUBIN 0.5 mg/dL (0.2-1.0)
[2019-07-16] MEDS: MIDAZOLAM 100mg/100ml NS BAG 100 ML IV PRN (19:58)
[2019-07-16] MEDS: DEXMEDETOMIDINE 400 MCG in IV NORMAL SALINE 100ML 96 ML IV PRN (19:58)
[2019-07-16] MEDS: IV NORMAL SALINE 1000ML BAG 1,000 ML IV SCH (20:41)
[2019-07-16] MEDS: ATORVASTATIN CALCIUM 40 MG TABLET. PO SCH (20:52)
[2019-07-16] MEDS: fentaNYL HIGH DOSE PCA 55 ML IV PRN (22:17)
[2019-07-17] VITALS (23 sets, daily range): BP systolic 98–172; BP diastolic 68–100
[2019-07-17] MEDS: MIDAZOLAM 100mg/100ml NS BAG 100 ML IV PRN ×3 (06:04→20:52)
[2019-07-17] MEDS: IV NORMAL SALINE 1000ML BAG 1,000 ML IV SCH ×3 (06:41→16:41)
--- NOTE | 2019-07-17 08:43 | PDOC ---
PULMONARY PROGRESS NOTES Subjective continue AC mode, on 100% fio2, 12 PEEP, remains hypoxic 87% oxygen saturation on versed, precedex and fent gtt not tolerating TF, on PPN Vitals Vital Signs Date Time Temp Pulse Resp B/P (MAP) Pulse Ox O2 Delivery O2 Flow Rate FiO2 07/17/19 06:00 68 39 160/86 (110) 92 Ventilator 07/17/19 05:00 98.3 98.3 07/16/19 11:26 40.0 Comments Visual exam done due to COVID pandemic INTUBATED/ SEDATED TRACE LEG EDEMA NO RASH Labs Laboratory Tests Test 07/15/19 16:39 07/16/19 08:33 07/16/19 11:49 07/16/19 12:00 Glucose (Fingerstick) 117 mg/dL (70-99) 90 mg/dL (70-99) O2 Saturation 94 % (92-99) Arterial Blood pH 7.34 (7.35-7.45) Arterial Blood pCO2 at Patient Temp 38 mmHg (35-46) Arterial Blood pO2 at Patient Temp 84 mmHg (75-108) Arterial Blood HCO3 20 mmol/L (21-28) Arterial Blood Base Excess -5 mmol/L (-3-3) FiO2 100 vent White Blood Count 5.6 x10^3/uL (4.0-11.0) Red Blood Count 3.92 x10^6/uL (4.30-5.70) Hemoglobin 10.7 g/dL (13.0-17.5) Hematocrit 32.7 % (39.0-53.0) Mean Corpuscular Volume 83 fL (79-100) Mean Corpuscular Hemoglobin 27 pg (25-35) Mean Corpuscular Hemoglobin Concent 33 g/dL (31-37) Red Cell Distribution Width 15.2 % (11.5-14.5) Platelet Count 381 x10^3/uL (140-400) Neutrophils (%) (Auto) 77 % (31-73) Lymphocytes (%) (Auto) 12 % (24-48) Monocytes (%) (Auto) 7 % (0-9) Eosinophils (%) (Auto) 4 % (0-3) Basophils (%) (Auto) 1 % (0-3) Neutrophils # (Auto) 4.3 x10^3/uL (1.8-7.7) Lymphocytes # (Auto) 0.7 x10^3/uL (1.0-4.8) Monocytes # (Auto) 0.4 x10^3/uL (0.0-1.1) Eosinophils # (Auto) 0.2 x10^3/uL (0.0-0.7) Basophils # (Auto) 0.0 x10^3/uL (0.0-0.2) Sodium Level 143 mmol/L (136-145) Potassium Level 4.4 mmol/L (3.5-5.1) Chloride Level 108 mmol/L (98-107) Carbon Dioxide Level 27 mmol/L (21-32) Anion Gap 8 (6-14) Blood Urea Nitrogen 24 mg/dL (8-26) Creatinine 1.5 mg/dL (0.7-1.3) Estimated GFR (Cockcroft-Gault) 60.4 BUN/Creatinine Ratio 16 (6-20) Glucose Level 105 mg/dL (70-99) Calcium Level 8.1 mg/dL (8.5-10.1) Total Bilirubin 0.5 mg/dL (0.2-1.0) Aspartate Amino Transf (AST/SGOT) 61 U/L (15-37) Alanine Aminotransferase (ALT/SGPT) 52 U/L (16-63) Alkaline Phosphatase 81 U/L (46-116) Troponin I Quantitative 0.080 ng/mL (0.000-0.055) [id number]-Type Natriuretic Peptide 213 pg/mL (0-124) Total Protein 6.9 g/dL (6.4-8.2) Albumin 2.1 g/dL (3.4-5.0) Albumin/Globulin Ratio 0.4 (1.0-1.7) Test 07/16/19 17:44 Glucose (Fingerstick) 96 mg/dL (70-99) Laboratory Tests Test 07/16/19 11:49 07/16/19 12:00 07/16/19 17:44 Glucose (Fingerstick) 90 mg/dL (70-99) 96 mg/dL (70-99) White Blood Count 5.6 x10^3/uL (4.0-11.0) Red Blood Count 3.92 x10^6/uL (4.30-5.70) Hemoglobin 10.7 g/dL (13.0-17.5) Hematocrit 32.7 % (39.0-53.0) Mean Corpuscular Volume 83 fL (79-100) Mean Corpuscular Hemoglobin 27 pg (25-35) Mean Corpuscular Hemoglobin Concent 33 g/dL (31-37) Red Cell Distribution Width 15.2 % (11.5-14.5) Platelet Count 381 x10^3/uL (140-400) Neutrophils (%) (Auto) 77 % (31-73) Lymphocytes (%) (Auto) 12 % (24-48) Monocytes (%) (Auto) 7 % (0-9) Eosinophils (%) (Auto) 4 % (0-3) Basophils (%) (Auto) 1 % (0-3) Neutrophils # (Auto) 4.3 x10^3/uL (1.8-7.7) Lymphocytes # (Auto) 0.7 x10^3/uL (1.0-4.8) Monocytes # (Auto) 0.4 x10^3/uL (0.0-1.1) Eosinophils # (Auto) 0.2 x10^3/uL (0.0-0.7) Basophils # (Auto) 0.0 x10^3/uL (0.0-0.2) Sodium Level 143 mmol/L (136-145) Potassium Level 4.4 mmol/L (3.5-5.1) Chloride Level 108 mmol/L (98-107) Carbon Dioxide Level 27 mmol/L (21-32) Anion Gap 8 (6-14) Blood Urea Nitrogen 24 mg/dL (8-26) Creatinine 1.5 mg/dL (0.7-1.3) Estimated GFR (Cockcroft-Gault) 60.4 BUN/Creatinine Ratio 16 (6-20) Glucose Level 105 mg/dL (70-99) Calcium Level 8.1 mg/dL (8.5-10.1) Total Bilirubin 0.5 mg/dL (0.2-1.0) Aspartate Amino Transf (AST/SGOT) 61 U/L (15-37) Alanine Aminotransferase (ALT/SGPT) 52 U/L (16-63) Alkaline Phosphatase 81 U/L (46-116) Troponin I Quantitative 0.080 ng/mL (0.000-0.055) [id number]-Type Natriuretic Peptide 213 pg/mL (0-124) Total Protein 6.9 g/dL (6.4-8.2) Albumin 2.1 g/dL (3.4-5.0) Albumin/Globulin Ratio 0.4 (1.0-1.7) Medications Active Scripts Medications Dose Route/Sig Max Daily Dose Days Date Category Metformin Hcl 1,000 Mg Tablet 1,000 Mg PO BIDWMEALS 07/12/19 Reported Lisinopril 40 Mg Tablet 40 Mg PO DAILY 07/12/19 Reported Allopurinol 300 Mg Tablet 300 Mg PO DAILY 07/12/19 Reported Metoprolol Tartrate 25 Mg Tablet 25 Mg PO BID 07/12/19 Reported Doxazosin Mesylate 8 Mg Tablet 8 Mg PO DAILY 07/12/19 Reported Amlodipine Besylate 10 Mg Tablet 10 Mg PO DAILY 07/12/19 Reported Comments CXR 07/14 POST INTUBATION BILATERAL INFILTRATES Impression . 1. Acute hypoxic respiratory failure secondary to coronavirus disease-19 pneumonia. Worsening hypoxia , likely cytokine surge/ ALI/ ARDS, INTUBATED 07/14 2. Abnormal chest x-ray with bilateral infiltrates suggestive of coronavirus disease-19 pneumonia. Cannot exclude bacterial pneumonia. 3. Underlying morbid obesity. 4. Diabetes. 5. Nonsmoker. 6. Increase inflammatory markers suggestive of cytokine surge 7. s/p convalescent plasma Plan . 1. Continue present AC mode, on 100% FIO2 ,10 PEEP. Make changes based on ABG's 2. COVID-19 positive 3. Empiric antibiotics. 4. s/p convalescent plasma transfusion 07/13 5. start nutrition, PPN and TF at5 low dose 6. Monitor LFT 7. Discussed with RN. 8. S/P monoclonal antibodies/Tocilizumab 07/15/19 lovenox/pepcid cct 35 min including review of chart, chest x-ray, lab values and discussion with RN and patient and decision making. HILARIO BIRCH MD July 17, 2019 08:43
[2019-07-17] MEDS: amLODIPine BESYLATE 10 MG TABLET PO SCH (09:00)
[2019-07-17] MEDS: METOPROLOL TART IMMED RELEASE 25 MG TABLET. PO SCH ×2 (09:00→20:52)
[2019-07-17] MEDS: LISINOPRIL 20 MG TABLET PO SCH (09:00)
[2019-07-17] MEDS ORDERED: VECURONIUM BOLUS 10 MG VIAL. IV PRN (10:00)
--- NOTE | 2019-07-17 10:17 | PDOC ---
GENERAL General: Patient examined chart reviewed no change overnight. Appreciate critical care input. We will consult nutrition in the morning guiding PPN if needed. I understand we are holding off on cardiology assessment until he is more stable. That new aortic murmur does need to be assessed in light of his critical illness when safe to do so. We will continue current management. Problems: (1) COVID-19 virus infection (2) Aortic systolic murmur on examination (3) Morbid obesity VITAL SIGNS Vital Signs/I&O: Vital Signs Date Time Temp Pulse Resp B/P (MAP) Pulse Ox O2 Delivery O2 Flow Rate FiO2 07/17/19 07:30 89 Ventilator 07/17/19 06:00 68 39 160/86 (110) 07/17/19 05:00 98.3 98.3 07/16/19 11:26 40.0 I & O 07/16/19 07/16/19 07/17/19 14:59 22:59 06:59 Output Total 750 ml 1100 ml 675 ml Balance -750 ml -1100 ml -675 ml In general the patient is intubated and sedated unresponsive on the ventilator HEENT exam is unremarkable for acute abnormality Chest bilateral equal air entry inspiratory and expiratory wheezes at the bilateral bases anteriorly Heart S1-S2 normal regular rate and rhythm loud systolic murmur at the right second intercostal space Abdomen is obese soft nontender nondistended no masses or organomegaly noted Extremity exam is unremarkable for acute abnormality 1+ bipedal edema is noted ALLERGIES Allergies: Allergies Coded Allergies Type Severity Reaction Last Updated Verified No Known Drug Allergies 04/20/17 No MEDS Medications: Current Medications Medications (Trade) Dose Ordered Sig/Aria Route PRN Reason Start Time Stop Time Status Last Admin Dose Admin Fentanyl Citrate 55 ml @ 0 mls/hr CONT PRN IV SEE I/O RECORD 07/16/19 22:00 07/16/19 22:17 LAB Lab: Laboratory Tests Test 07/16/19 11:49 07/16/19 12:00 07/16/19 17:44 Glucose (Fingerstick) 90 mg/dL (70-99) 96 mg/dL (70-99) White Blood Count 5.6 x10^3/uL (4.0-11.0) Red Blood Count 3.92 x10^6/uL (4.30-5.70) L Hemoglobin 10.7 g/dL (13.0-17.5) L Hematocrit 32.7 % (39.0-53.0) L Mean Corpuscular Volume 83 fL (79-100) Mean Corpuscular Hemoglobin 27 pg (25-35) Mean Corpuscular Hemoglobin Concent 33 g/dL (31-37) Red Cell Distribution Width 15.2 % (11.5-14.5) H Platelet Count 381 x10^3/uL (140-400) Neutrophils (%) (Auto) 77 % (31-73) H Lymphocytes (%) (Auto) 12 % (24-48) L Monocytes (%) (Auto) 7 % (0-9) Eosinophils (%) (Auto) 4 % (0-3) H Basophils (%) (Auto) 1 % (0-3) Neutrophils # (Auto) 4.3 x10^3/uL (1.8-7.7) Lymphocytes # (Auto) 0.7 x10^3/uL (1.0-4.8) L Monocytes # (Auto) 0.4 x10^3/uL (0.0-1.1) Eosinophils # (Auto) 0.2 x10^3/uL (0.0-0.7) Basophils # (Auto) 0.0 x10^3/uL (0.0-0.2) Sodium Level 143 mmol/L (136-145) Potassium Level 4.4 mmol/L (3.5-5.1) Chloride Level 108 mmol/L (98-107) H Carbon Dioxide Level 27 mmol/L (21-32) Anion Gap 8 (6-14) Blood Urea Nitrogen 24 mg/dL (8-26) Creatinine 1.5 mg/dL (0.7-1.3) H Estimated GFR (Cockcroft-Gault) 60.4 BUN/Creatinine Ratio 16 (6-20) Glucose Level 105 mg/dL (70-99) H Calcium Level 8.1 mg/dL (8.5-10.1) L Total Bilirubin 0.5 mg/dL (0.2-1.0) Aspartate Amino Transferase (AST) 61 U/L (15-37) H Alanine Aminotransferase (ALT) 52 U/L (16-63) Alkaline Phosphatase 81 U/L (46-116) Troponin I Quantitative 0.080 ng/mL (0.000-0.055) VX-Wlc-J-Type Natriuretic Peptide 213 pg/mL (0-124) H Total Protein 6.9 g/dL (6.4-8.2) Albumin 2.1 g/dL (3.4-5.0) L Albumin/Globulin Ratio 0.4 (1.0-1.7) L Laboratory Tests 07/16/19 12:00 Laboratory Tests 07/16/19 12:00 ASSESSMENT & PLAN A&P Plan as noted above All medications were reviewed in full and may not be reflected on the active medication list in this progress note. Please see the medication administration record for full details. This note was created using [employer] and may have omissions and/or errors due to the nature of real-time voice manager of quality. ERICA SMILEY MD July 17, 2019 10:16
[2019-07-17] MEDS: LACTOBACILLUS RHAMNOSUS GG 1 CAPSULE. PO SCH ×2 (10:47→20:51)
[2019-07-17] MEDS: metFORMIN 500 MG TABLET PO SCH ×2 (10:50→17:00)
[2019-07-17] MEDS: ALLOPURINOL 300 MG TABLET. PO SCH (10:50)
[2019-07-17] MEDS: DOXAZOSIN MESYLATE 4 MG TABLET. PO SCH (10:50)
[2019-07-17] MEDS: FAMOTIDINE 20 MG/2 ML VIAL IVP SCH ×2 (10:51→20:52)
[2019-07-17] MEDS: AMINO AC 3%/ELECTROLYTE/GLYCER 1,000 ML IV SCH (11:00)
[2019-07-17 12:03] LABS: BASE EXCESS ABG -4 mmol/L (-3-3); HCO3 ABG 25 mmol/L (21-28); SAT O2 ABG 71 % (92-99)
[2019-07-17 12:05] LABS: PCO2 ABG 60 mmHg (35-46); PO2 ABG 47 mmHg (75-108)
[2019-07-17 12:06] LABS: FIO2 ABG 100%
--- NOTE | 2019-07-17 12:25 | PDOC2 ---
CONSULT Date of Consult Date of Consult DATE: 07/17/19 TIME: 12:18 Reason for Consult Reason for Consult: Cardiac murmur Referring Physician Referring Physician: Dr. Mccormick Identification/Chief Complaint Chief Complaint Shortness of breath Source Source: Chart review History of Present Illness Reason for Visit: The patient is a 48-year-old obese male who was initially seen in the emergency room on July 11 for increasing shortness of breath. His symptoms gradually increased and the patient required intubation. He has remained on the ventilator over the past 4 days and has tested positive for COVID-19. He additionally has a history of diabetes, hypertension and hyperlipidemia but no history of coronary artery disease or heart failure by report. We have been asked to evaluate the patient to evaluated for a new systolic murmur. Past Medical History Cardiovascular: HTN, Hyperlipidemia Pulmonary: Bronchitis Rheumatologic: Gout Renal/: No pertinent hx Endocrine: Diabetes Family History Family History: High Cholestrol, Hypertension Social History No ALCOHOL: occassional Drugs: None Current Problem List Problem List Problems Medical Problems: (1) Suspected COVID-19 virus infection Status: Acute Current Medications Current Medications Current Medications Sodium Chloride 1,000 ml @ 1,000 mls/hr 1X ONCE IV Last administered on 07/12/19at 13:25; Start 07/12/19 at 13:30; Stop 07/12/19 at 14:29; Status DC Acetaminophen (Tylenol) 1,000 mg 1X ONCE PO Last administered on 07/12/19at 13:25; Start 07/12/19 at 13:45; Stop 07/12/19 at 13:46; Status DC Sodium Chloride (Normal Saline Flush) 3 ml QSHIFT PRN IV AFTER MEDS AND BLOOD DRAWS; Start 07/12/19 at 16:45 Sodium Chloride 1,000 ml @ 100 mls/hr Q10H IV Last administered on 07/17/19at 11:04; Start 07/12/19 at 16:41 Ondansetron HCl (Zofran) 4 mg PRN Q4HRS PRN IV NAUSEA/VOMITING; Start 07/12/19 at 16:45 Acetaminophen (Tylenol) 650 mg PRN Q4HRS PRN PO TEMP OVER 100.4F OR MILD PAIN Last administered on 07/14/19at 18:29; Start 07/12/19 at 16:45 Al Hydroxide/Mg Hydroxide (Mylanta Plus Xs) 30 ml PRN DAILY PRN PO HEARTBURN / GAS; Start 07/12/19 at 16:45 Clonidine HCl (Catapres) 0.1 mg PRN Q6HRS PRN PO SBP>160 OR DBP>90 Last administered on 07/15/19at 04:25; Start 07/12/19 at 16:45 Docusate Sodium (Colace) 100 mg PRN BID PRN PO CONSTIPATION; Start 07/12/19 at 16:45 Albuterol/ Ipratropium (Duoneb) 3 ml Q4H NEB ; Start 07/12/19 at 16:45; Stop 07/12/19 at 16:55; Status DC Guaifenesin (Robitussin) 200 mg PRN Q4HRS PRN PO COUGH Last administered on 07/14/19at 08:52; Start 07/12/19 at 16:45 Levofloxacin/ Dextrose 100 ml @ 100 mls/hr Q24H IV Last administered on 07/16/19at 17:00; Start 07/13/19 at 17:00 Albuterol/ Ipratropium (Duoneb) 3 ml Q4HRS NEB ; Start 07/12/19 at 20:00; Stop 07/12/19 at 18:33; Status DC Levofloxacin/ Dextrose 100 ml @ 100 mls/hr 1X ONCE IV Last administered on at 17:58; Start 07/12/19 at 17:45; Stop 07/12/19 at 18:44; Status DC Albuterol Sulfate (Ventolin Neb Soln) 2.5 mg PRN Q4HRS PRN NEB SHORTNESS OF BREATH; Start 07/12/19 at 18:45 Hydralazine HCl (Apresoline Inj) 10 mg PRN Q4HRS PRN IVP ELEVATED BP, SEE COMMENTS Last administered on 07/12/19at 20:31; Start 07/12/19 at 19:45; Stop 07/12/19 at 22:40; Status DC Allopurinol (Zyloprim) 300 mg DAILY PO Last administered on 07/17/19at 10:50; Start 07/13/19 at 09:00 Amlodipine Besylate (Norvasc) 10 mg DAILY PO Last administered on 07/16/19at 11:12; Start 07/13/19 at 09:00 Lisinopril (Prinivil) 40 mg DAILY PO Last administered on 07/16/19 11:19; Start 07/13/19 at 09:00 Metoprolol Tartrate (Lopressor) 25 mg BID PO Last administered on 07/16/19 20:51; Start 07/12/19 at 21:00 Doxazosin Mesylate (Cardura) 8 mg DAILY PO Last administered on 07/17/19 10:50; Start 07/13/19 at 09:00 Metformin HCl (Glucophage) 1,000 mg BIDWMEALS PO Last administered on 07/17/19 10:50; Start 07/13/19 at 08:00 Atorvastatin Calcium (Lipitor) 40 mg QHS PO Last administered on 07/16/19 20:52; Start 07/12/19 at 21:00 Lisinopril (Prinivil) 10 mg 1X ONCE PO Last administered on 07/13/19at 00:41; Start 07/12/19 at 23:00; Stop 07/12/19 at 23:01; Status DC Hydralazine HCl (Apresoline Inj) 10 mg PRN Q4HRS PRN IVP ELEVATED BP, SEE COMMENTS Last administered on 07/15/19at 03:07; Start 07/12/19 at 22:45 Doxazosin Mesylate (Cardura) 8 mg 1X ONCE PO Last administered on 07/12/19at 23:08; Start 07/12/19 at 23:30; Stop 07/12/19 at 23:31; Status DC Amlodipine Besylate (Norvasc) 10 mg 1X ONCE PO Last administered on 07/12/19at 23:00; Start 07/12/19 at 23:30; Stop 07/12/19 at 23:31; Status DC Lorazepam (Ativan Inj) 1 mg PRN Q2HRS PRN IVP ANXIETY / AGITATION Last administered on 07/15/19 04:24; Start 07/12/19 at 23:00 Enoxaparin Sodium (Lovenox 60mg Syringe) 60 mg Q12HR SQ Last administered on 07/17/19 09:00; Start 07/13/19 at 09:00 Lactobacillus Rhamnosus (Culturelle) 1 cap BID PO Last administered on 07/17/19at 10:47; Start 07/13/19 at 21:00 Throat Lozenges (Cepacol Sore Throat Lozenge) 1 jessica PRN Q2HRS PRN PO SORE THROAT Last administered on 07/14/19at 08:56; Start 07/13/19 at 16:30 Haloperidol Lactate (Haldol Inj) 3 mg PRN Q4HRS PRN IVP AGITATION Last administered on 07/14/19at 22:59; Start 07/14/19 at 22:30 Fentanyl Citrate 30 ml @ 0 mls/hr CONT PRN IV SEE PROTOCOL Last administered on 07/16/19at 16:07; Start 07/15/19 at 05:45; Stop 07/16/19 at 21:59; Status DC Propofol 100 ml @ 0 mls/hr CONT PRN IV SEE PROTOCOL Last administered on 07/15/19at 06:03; Start 07/15/19 at 05:45; Stop 07/15/19 at 06:06; Status DC Famotidine (Pepcid Vial) 20 mg BID IVP Last administered on 07/17/19at 10:51; Start 07/15/19 at 09:00 Midazolam HCl 100 ml @ 0 mls/hr CONT PRN IV SEE PROTOCOL Last administered on 07/17/19at 06:04; Start 07/15/19 at 05:45 Ketamine HCl (Ketamine) 50 mg STK-MED ONCE .ROUTE ; Start 07/15/19 at 05:44; Stop 07/15/19 at 05:44; Status DC Succinylcholine Chloride (Anectine) 200 mg STK-MED ONCE .ROUTE ; Start 07/15/19 at 05:45; Stop 07/15/19 at 05:45; Status DC Succinylcholine Chloride (Anectine) 200 mg 1X ONCE IV Last administered on 07/15/19at 06:00; Start 07/15/19 at 06:15; Stop 07/15/19 at 06:16; Status DC Propofol 100 ml @ 2.7 mls/hr CONT PRN IV SEE I/O RECORD Last administered on 07/15/19at 10:08; Start 07/15/19 at 06:15 Ketamine HCl (Ketamine) 50 mg 1X ONCE IV Last administered on 07/15/19at 05:55; Start 07/15/19 at 06:15; Stop 07/15/19 at 06:16; Status DC Vecuronium [place] (Norcuron Bolus) 6 mg 1X ONCE IV Last administered on 07/15/19at 06:55; Start 07/15/19 at 07:00; Stop 07/15/19 at 07:01; Status DC Vecuronium [place] (Norcuron Bolus) 10 mg STK-MED ONCE IV ; Start 07/15/19 at 06:53; Stop 07/15/19 at 06:53; Status DC Tocilizumab 800 mg/Sodium Chloride 100 ml @ 100 mls/hr ONCE ONCE IV Last administered on 07/15/19at 15:51; Start 07/15/19 at 16:00; Stop 07/15/19 at 16:59; Status DC Dextrose (Dextrose 50%-Water Syringe) 25 gm STK-MED ONCE IV ; Start 07/15/19 at 15:55; Stop 07/15/19 at 15:56; Status DC Dexmedetomidine HCl 400 mcg/ Sodium Chloride 100 ml @ 9 mls/hr CONT PRN IV SEDATION Last administered on 07/16/19at 19:58; Start 07/15/19 at 16:30 Dexmedetomidine HCl 400 mcg/ Sodium Chloride 100 ml @ 0 mls/hr CONT PRN IV SEDATION; Start 07/15/19 at 16:30; Status UNV Dextrose (Dextrose 50%-Water Syringe) 25 gm 1X ONCE IV Last administered on 07/15/19at 16:28; Start 07/15/19 at 16:30; Stop 07/15/19 at 16:31; Status DC Amino Acids/ Glycerin/ Electrolytes 1,000 ml @ 80 mls/hr [id number] IV Last administered on 07/16/19at 23:29; Start 07/16/19 at 10:00 Sodium Bicarbonate (Sodium Bicarb Adult 8.4% Syr) 50 meq 1X ONCE IV Last administered on 07/16/19at 11:23; Start 07/16/19 at 09:30; Stop 07/16/19 at 09:31; Status DC Fentanyl Citrate 55 ml @ 0 mls/hr CONT PRN IV SEE I/O RECORD Last administered on 07/16/19at 22:17; Start 07/16/19 at 22:00 Vecuronium [place] (Norcuron Bolus) 10 mg PRN Q6HRS PRN IV ASYNCHRONARY W/ VENT; Start 07/17/19 at 10:00 Vecuronium [place] 50 mg/ Miscellaneous 50 ml @ 8.976 mls/ hr CONT PRN IV SEE I/O RECORD; Start 07/17/19 at 12:15; Status UNV Active Scripts Active Reported Metformin Hcl 1,000 Mg Tablet 1,000 Mg PO BIDWMEALS Lisinopril 40 Mg Tablet 40 Mg PO DAILY Allopurinol 300 Mg Tablet 300 Mg PO DAILY Metoprolol Tartrate 25 Mg Tablet 25 Mg PO BID Doxazosin Mesylate 8 Mg Tablet 8 Mg PO DAILY Amlodipine Besylate 10 Mg Tablet 10 Mg PO DAILY Allergies Allergies: Coded Allergies: No Known Drug Allergies (Unverified , 04/20/17) ROS Review of System Not obtainable Physical Exam Physical Exam Deferred secondary to COVID-19. Vitals VITALS Vital Signs Date Time Temp Pulse Resp B/P (MAP) Pulse Ox O2 Delivery O2 Flow Rate FiO2 07/17/19 10:50 137/93 07/17/19 09:00 68 07/17/19 07:30 89 Ventilator 07/17/19 06:00 39 07/17/19 05:00 98.3 98.3 07/16/19 11:26 40.0 Labs Labs Laboratory Tests Test 07/15/19 16:39 07/16/19 08:33 07/16/19 11:49 07/16/19 12:00 Glucose (Fingerstick) 117 mg/dL (70-99) 90 mg/dL (70-99) O2 Saturation 94 % (92-99) Arterial Blood pH 7.34 (7.35-7.45) Arterial Blood pCO2 at Patient Temp 38 mmHg (35-46) Arterial Blood pO2 at Patient Temp 84 mmHg (75-108) Arterial Blood HCO3 20 mmol/L (21-28) Arterial Blood Base Excess -5 mmol/L (-3-3) FiO2 100 vent White Blood Count 5.6 x10^3/uL (4.0-11.0) Red Blood Count 3.92 x10^6/uL (4.30-5.70) Hemoglobin 10.7 g/dL (13.0-17.5) Hematocrit 32.7 % (39.0-53.0) Mean Corpuscular Volume 83 fL (79-100) Mean Corpuscular Hemoglobin 27 pg (25-35) Mean Corpuscular Hemoglobin Concent 33 g/dL (31-37) Red Cell Distribution Width 15.2 % (11.5-14.5) Platelet Count 381 x10^3/uL (140-400) Neutrophils (%) (Auto) 77 % (31-73) Lymphocytes (%) (Auto) 12 % (24-48) Monocytes (%) (Auto) 7 % (0-9) Eosinophils (%) (Auto) 4 % (0-3) Basophils (%) (Auto) 1 % (0-3) Neutrophils # (Auto) 4.3 x10^3/uL (1.8-7.7) Lymphocytes # (Auto) 0.7 x10^3/uL (1.0-4.8) Monocytes # (Auto) 0.4 x10^3/uL (0.0-1.1) Eosinophils # (Auto) 0.2 x10^3/uL (0.0-0.7) Basophils # (Auto) 0.0 x10^3/uL (0.0-0.2) Sodium Level 143 mmol/L (136-145) Potassium Level 4.4 mmol/L (3.5-5.1) Chloride Level 108 mmol/L (98-107) Carbon Dioxide Level 27 mmol/L (21-32) Anion Gap 8 (6-14) Blood Urea Nitrogen 24 mg/dL (8-26) Creatinine 1.5 mg/dL (0.7-1.3) Estimated GFR (Cockcroft-Gault) 60.4 BUN/Creatinine Ratio 16 (6-20) Glucose Level 105 mg/dL (70-99) Calcium Level 8.1 mg/dL (8.5-10.1) Total Bilirubin 0.5 mg/dL (0.2-1.0) Aspartate Amino Transf (AST/SGOT) 61 U/L (15-37) Alanine Aminotransferase (ALT/SGPT) 52 U/L (16-63) Alkaline Phosphatase 81 U/L (46-116) Troponin I Quantitative 0.080 ng/mL (0.000-0.055) MA-Axr-R-Type Natriuretic Peptide 213 pg/mL (0-124) Total Protein 6.9 g/dL (6.4-8.2) Albumin 2.1 g/dL (3.4-5.0) Albumin/Globulin Ratio 0.4 (1.0-1.7) Test 07/16/19 17:44 07/17/19 11:27 07/17/19 11:46 Glucose (Fingerstick) 96 mg/dL (70-99) 104 mg/dL (70-99) O2 Saturation 71 % (92-99) Arterial Blood pH 7.23 (7.35-7.45) Arterial Blood pCO2 at Patient Temp 60 mmHg (35-46) Arterial Blood pO2 at Patient Temp 47 mmHg (75-108) Arterial Blood HCO3 25 mmol/L (21-28) Arterial Blood Base Excess -4 mmol/L (-3-3) FiO2 100% Laboratory Tests Test 07/16/19 17:44 07/17/19 11:27 07/17/19 11:46 Glucose (Fingerstick) 96 mg/dL (70-99) 104 mg/dL (70-99) O2 Saturation 71 % (92-99) Arterial Blood pH 7.23 (7.35-7.45) Arterial Blood pCO2 at Patient Temp 60 mmHg (35-46) Arterial Blood pO2 at Patient Temp 47 mmHg (75-108) Arterial Blood HCO3 25 mmol/L (21-28) Arterial Blood Base Excess -4 mmol/L (-3-3) FiO2 100% Images Images Chest x-ray with bilateral infiltrates. Assessment/Plan Assessment/Plan 1. Respiratory failure. COVID-19 positive. Patient is on a ventilator. He is being followed by the pulmonary and ID services. Continuing present treatments as above. 2. Reported new systolic murmur. Patient will need an echocardiogram. We will review our ECHO protocols for COVID-19 positive patients. 3. Hypertension. Controlled. 4. Hyperlipidemia. Lab testing as above. 5. Diabetes mellitus. As per the primary service. 6. Morbid obesity. Thank you for allowing us to participate in the care of your patient. SOCORRO MEJIA MD July 17, 2019 12:25
--- NOTE | 2019-07-17 12:31 | NUR ---
Vent changes after am ABGs. Tolerated well for approx 2 H. Tachypnea,tachycardia,hypertension. Secretions per ETT scant,nop change in spo2 observed.Sedation bolus' w/o success .Vecuronium able to slow RR from 30-40 down to 29. Additional IV ativan w vent settings back to 24/500/12. ABG reported to Dr Carcamo. Orders noted. Phone report to on changes. Guarded condition at this time. cont POC
[2019-07-17] MEDS: ATORVASTATIN CALCIUM 40 MG TABLET. PO SCH (20:51)
[2019-07-17] MEDS: DEXMEDETOMIDINE 400 MCG in IV NORMAL SALINE 100ML 96 ML IV PRN (21:40)
[2019-07-17] MEDS: VECURONIUM BROMIDE 50 MG in TOTAL VOLUME 50 ML IV PRN (22:50)
[2019-07-17] MEDS: fentaNYL HIGH DOSE PCA 55 ML IV PRN (22:51)
[2019-07-18] VITALS (23 sets, daily range): BP systolic 84–160; BP diastolic 50–92
[2019-07-18] MEDS: AMINO AC 3%/ELECTROLYTE/GLYCER 1,000 ML IV SCH ×2 (00:39→13:03)
[2019-07-18] MEDS: VECURONIUM BROMIDE 50 MG in TOTAL VOLUME 50 ML IV PRN ×3 (04:07→16:28)
[2019-07-18 06:28] LABS: BASO % 1 % (0-3); EOS # 0.3 x10^3/uL (0.0-0.7); EOS % 3 % (0-3); HEMATOCRIT 39.1 % (39.0-53.0); HEMOGLOBIN 12.6 g/dL (13.0-17.5); LYMPH # 0.6 x10^3/uL (1.0-4.8); LYMPH % 7 % (24-48); MEAN CORPUSCULAR HEMOGLOBIN 27 pg (25-35); MEAN CORPUSCULAR HGB CONC 32 g/dL (31-37); MEAN CORPUSCULAR VOLUME 85 fL (79-100); MONO # 0.6 x10^3/uL (0.0-1.1); MONO % 8 % (0-9); NEUT # 6.8 x10^3/uL (1.8-7.7); NEUT % 81 % (31-73); PLATELET COUNT 346 x10^3/uL (140-400); RED BLOOD COUNT 4.63 x10^6/uL (4.30-5.70); RED CELL DISTRIBUTION WIDTH 15.5 % (11.5-14.5); WHITE BLOOD COUNT 8.4 x10^3/uL (4.0-11.0)
[2019-07-18 06:47] LABS: ALBUMIN 2.2 g/dL (3.4-5.0); ALBUMIN/GLOBULIN RATIO 0.5 (1.0-1.7); CALCIUM 8.9 mg/dL (8.5-10.1); GFR 96.5; POTASSIUM 5.5 mmol/L (3.5-5.1); TOTAL BILIRUBIN 0.3 mg/dL (0.2-1.0); TOTAL PROTEIN 6.9 g/dL (6.4-8.2)
[2019-07-18] MEDS: DEXMEDETOMIDINE 400 MCG in IV NORMAL SALINE 100ML 96 ML IV PRN ×2 (07:28→16:28)
[2019-07-18] MEDS: MIDAZOLAM 100mg/100ml NS BAG 100 ML IV PRN ×2 (07:29→17:57)
[2019-07-18] MEDS: metFORMIN 500 MG TABLET PO SCH ×2 (08:00→16:40)
[2019-07-18] MEDS: LISINOPRIL 20 MG TABLET PO SCH (09:00)
--- NOTE | 2019-07-18 09:54 | PDOC ---
PULMONARY PROGRESS NOTES Subjective continue AC mode, on 100% fio2, 14 PEEP, remains hypoxic 90% oxygen saturation on versed, precedex and fent gtt not tolerating TF, on PPN Vitals Vital Signs Date Time Temp Pulse Resp B/P (MAP) Pulse Ox O2 Delivery O2 Flow Rate FiO2 07/18/19 06:00 108 24 102/80 (87) 82 Ventilator 07/18/19 04:00 97.7 97.7 Comments Visual exam done due to COVID pandemic INTUBATED/ SEDATED TRACE LEG EDEMA NO RASH Labs Laboratory Tests Test 07/16/19 11:49 07/16/19 12:00 07/16/19 17:44 07/17/19 11:27 Glucose (Fingerstick) 90 mg/dL (70-99) 96 mg/dL (70-99) 104 mg/dL (70-99) White Blood Count 5.6 x10^3/uL (4.0-11.0) Red Blood Count 3.92 x10^6/uL (4.30-5.70) Hemoglobin 10.7 g/dL (13.0-17.5) Hematocrit 32.7 % (39.0-53.0) Mean Corpuscular Volume 83 fL (79-100) Mean Corpuscular Hemoglobin 27 pg (25-35) Mean Corpuscular Hemoglobin Concent 33 g/dL (31-37) Red Cell Distribution Width 15.2 % (11.5-14.5) Platelet Count 381 x10^3/uL (140-400) Neutrophils (%) (Auto) 77 % (31-73) Lymphocytes (%) (Auto) 12 % (24-48) Monocytes (%) (Auto) 7 % (0-9) Eosinophils (%) (Auto) 4 % (0-3) Basophils (%) (Auto) 1 % (0-3) Neutrophils # (Auto) 4.3 x10^3/uL (1.8-7.7) Lymphocytes # (Auto) 0.7 x10^3/uL (1.0-4.8) Monocytes # (Auto) 0.4 x10^3/uL (0.0-1.1) Eosinophils # (Auto) 0.2 x10^3/uL (0.0-0.7) Basophils # (Auto) 0.0 x10^3/uL (0.0-0.2) Sodium Level 143 mmol/L (136-145) Potassium Level 4.4 mmol/L (3.5-5.1) Chloride Level 108 mmol/L (98-107) Carbon Dioxide Level 27 mmol/L (21-32) Anion Gap 8 (6-14) Blood Urea Nitrogen 24 mg/dL (8-26) Creatinine 1.5 mg/dL (0.7-1.3) Estimated GFR (Cockcroft-Gault) 60.4 BUN/Creatinine Ratio 16 (6-20) Glucose Level 105 mg/dL (70-99) Calcium Level 8.1 mg/dL (8.5-10.1) Total Bilirubin 0.5 mg/dL (0.2-1.0) Aspartate Amino Transf (AST/SGOT) 61 U/L (15-37) Alanine Aminotransferase (ALT/SGPT) 52 U/L (16-63) Alkaline Phosphatase 81 U/L (46-116) Troponin I Quantitative 0.080 ng/mL (0.000-0.055) OI-Cnl-E-Type Natriuretic Peptide 213 pg/mL (0-124) Total Protein 6.9 g/dL (6.4-8.2) Albumin 2.1 g/dL (3.4-5.0) Albumin/Globulin Ratio 0.4 (1.0-1.7) Test 07/17/19 11:46 07/17/19 18:07 07/18/19 05:30 O2 Saturation 71 % (92-99) Arterial Blood pH 7.23 (7.35-7.45) Arterial Blood pCO2 at Patient Temp 60 mmHg (35-46) Arterial Blood pO2 at Patient Temp 47 mmHg (75-108) Arterial Blood HCO3 25 mmol/L (21-28) Arterial Blood Base Excess -4 mmol/L (-3-3) FiO2 100% Glucose (Fingerstick) 90 mg/dL (70-99) White Blood Count 8.4 x10^3/uL (4.0-11.0) Red Blood Count 4.63 x10^6/uL (4.30-5.70) Hemoglobin 12.6 g/dL (13.0-17.5) Hematocrit 39.1 % (39.0-53.0) Mean Corpuscular Volume 85 fL (79-100) Mean Corpuscular Hemoglobin 27 pg (25-35) Mean Corpuscular Hemoglobin Concent 32 g/dL (31-37) Red Cell Distribution Width 15.5 % (11.5-14.5) Platelet Count 346 x10^3/uL (140-400) Neutrophils (%) (Auto) 81 % (31-73) Lymphocytes (%) (Auto) 7 % (24-48) Monocytes (%) (Auto) 8 % (0-9) Eosinophils (%) (Auto) 3 % (0-3) Basophils (%) (Auto) 1 % (0-3) Neutrophils # (Auto) 6.8 x10^3/uL (1.8-7.7) Lymphocytes # (Auto) 0.6 x10^3/uL (1.0-4.8) Monocytes # (Auto) 0.6 x10^3/uL (0.0-1.1) Eosinophils # (Auto) 0.3 x10^3/uL (0.0-0.7) Basophils # (Auto) 0.0 x10^3/uL (0.0-0.2) Sodium Level 141 mmol/L (136-145) Potassium Level 5.5 mmol/L (3.5-5.1) Chloride Level 107 mmol/L (98-107) Carbon Dioxide Level 26 mmol/L (21-32) Anion Gap 8 (6-14) Blood Urea Nitrogen 26 mg/dL (8-26) Creatinine 1.0 mg/dL (0.7-1.3) Estimated GFR (Cockcroft-Gault) 96.5 BUN/Creatinine Ratio 26 (6-20) Glucose Level 130 mg/dL (70-99) Calcium Level 8.9 mg/dL (8.5-10.1) Total Bilirubin 0.3 mg/dL (0.2-1.0) Aspartate Amino Transf (AST/SGOT) 59 U/L (15-37) Alanine Aminotransferase (ALT/SGPT) 73 U/L (16-63) Alkaline Phosphatase 91 U/L (46-116) Total Protein 6.9 g/dL (6.4-8.2) Albumin 2.2 g/dL (3.4-5.0) Albumin/Globulin Ratio 0.5 (1.0-1.7) Laboratory Tests Test 07/17/19 11:27 07/17/19 11:46 07/17/19 18:07 07/18/19 05:30 Glucose (Fingerstick) 104 mg/dL (70-99) 90 mg/dL (70-99) O2 Saturation 71 % (92-99) Arterial Blood pH 7.23 (7.35-7.45) Arterial Blood pCO2 at Patient Temp 60 mmHg (35-46) Arterial Blood pO2 at Patient Temp 47 mmHg (75-108) Arterial Blood HCO3 25 mmol/L (21-28) Arterial Blood Base Excess -4 mmol/L (-3-3) FiO2 100% White Blood Count 8.4 x10^3/uL (4.0-11.0) Red Blood Count 4.63 x10^6/uL (4.30-5.70) Hemoglobin 12.6 g/dL (13.0-17.5) Hematocrit 39.1 % (39.0-53.0) Mean Corpuscular Volume 85 fL (79-100) Mean Corpuscular Hemoglobin 27 pg (25-35) Mean Corpuscular Hemoglobin Concent 32 g/dL (31-37) Red Cell Distribution Width 15.5 % (11.5-14.5) Platelet Count 346 x10^3/uL (140-400) Neutrophils (%) (Auto) 81 % (31-73) Lymphocytes (%) (Auto) 7 % (24-48) Monocytes (%) (Auto) 8 % (0-9) Eosinophils (%) (Auto) 3 % (0-3) Basophils (%) (Auto) 1 % (0-3) Neutrophils # (Auto) 6.8 x10^3/uL (1.8-7.7) Lymphocytes # (Auto) 0.6 x10^3/uL (1.0-4.8) Monocytes # (Auto) 0.6 x10^3/uL (0.0-1.1) Eosinophils # (Auto) 0.3 x10^3/uL (0.0-0.7) Basophils # (Auto) 0.0 x10^3/uL (0.0-0.2) Sodium Level 141 mmol/L (136-145) Potassium Level 5.5 mmol/L (3.5-5.1) Chloride Level 107 mmol/L (98-107) Carbon Dioxide Level 26 mmol/L (21-32) Anion Gap 8 (6-14) Blood Urea Nitrogen 26 mg/dL (8-26) Creatinine 1.0 mg/dL (0.7-1.3) Estimated GFR (Cockcroft-Gault) 96.5 BUN/Creatinine Ratio 26 (6-20) Glucose Level 130 mg/dL (70-99) Calcium Level 8.9 mg/dL (8.5-10.1) Total Bilirubin 0.3 mg/dL (0.2-1.0) Aspartate Amino Transf (AST/SGOT) 59 U/L (15-37) Alanine Aminotransferase (ALT/SGPT) 73 U/L (16-63) Alkaline Phosphatase 91 U/L (46-116) Total Protein 6.9 g/dL (6.4-8.2) Albumin 2.2 g/dL (3.4-5.0) Albumin/Globulin Ratio 0.5 (1.0-1.7) Medications Active Scripts Medications Dose Route/Sig Max Daily Dose Days Date Category Metformin Hcl 1,000 Mg Tablet 1,000 Mg PO BIDWMEALS 07/12/19 Reported Lisinopril 40 Mg Tablet 40 Mg PO DAILY 07/12/19 Reported Allopurinol 300 Mg Tablet 300 Mg PO DAILY 07/12/19 Reported Metoprolol Tartrate 25 Mg Tablet 25 Mg PO BID 07/12/19 Reported Doxazosin Mesylate 8 Mg Tablet 8 Mg PO DAILY 07/12/19 Reported Amlodipine Besylate 10 Mg Tablet 10 Mg PO DAILY 07/12/19 Reported Comments CXR 07/14 POST INTUBATION BILATERAL INFILTRATES Impression . 1. Acute hypoxic respiratory failure secondary to coronavirus disease-19 pne umonia. Worsening hypoxia , likely cytokine surge/ ALI/ ARDS, INTUBATED 07/14 2. Abnormal chest x-ray with bilateral infiltrates suggestive of coronavirus disease-19 pneumonia. Cannot exclude bacterial pneumonia. 3. Underlying morbid obesity. 4. Diabetes. 5. Nonsmoker. 6. Increase inflammatory markers suggestive of cytokine surge 7. s/p convalescent plasma Plan . 1. Continue present AC mode, on 100% FIO2 ,14 PEEP. Make changes based on ABG's 2. COVID-19 positive 3. Empiric antibiotics. 4. s/p convalescent plasma transfusion 07/13 5. nutrition, PPN and TF at5 low dose 6. Monitor LFT 7. Discussed with RN. 8. S/P monoclonal antibodies/Tocilizumab 07/15/19 lovenox/pepcid cct 30 min including review of chart, chest x-ray, lab values and discussion with RN and patient and decision making. d/w Tala. updated his critical condition HILARIO BIRCH MD July 18, 2019 09:54
[2019-07-18 10:23] LABS: BASE EXCESS ABG -5 mmol/L (-3-3); HCO3 ABG 25 mmol/L (21-28)
[2019-07-18] MEDS: LACTOBACILLUS RHAMNOSUS GG 1 CAPSULE. PO SCH ×2 (10:49→20:57)
[2019-07-18] MEDS: METOPROLOL TART IMMED RELEASE 25 MG TABLET. PO SCH ×2 (10:50→20:57)
[2019-07-18] MEDS: ALLOPURINOL 300 MG TABLET. PO SCH (10:50)
[2019-07-18] MEDS: DOXAZOSIN MESYLATE 4 MG TABLET. PO SCH (10:50)
[2019-07-18] MEDS: FAMOTIDINE 20 MG/2 ML VIAL IVP SCH ×2 (10:51→20:57)
[2019-07-18] MEDS: amLODIPine BESYLATE 10 MG TABLET PO SCH (10:51)
[2019-07-18 10:56] LABS: FIO2 ABG 100; PCO2 ABG 70 mmHg (35-46); PO2 ABG 50 mmHg (75-108); SAT O2 ABG 80 % (92-99)
[2019-07-18] MEDS: TPN PER PHARMACY MC PRN ×3 (12:23→12:54)
--- NOTE | 2019-07-18 13:17 | PDOC ---
SIMA WIN RAKING MACHINE OPERATOR 07/18/19 1317: CARDIO Progress Notes Date and Time Date of Service 07/18/19 Time of Evaluation 1020 Subjective Subjective: Other (sedated / intubated ) Vitals Vitals Vital Signs Date Time Temp Pulse Resp B/P (MAP) Pulse Ox O2 Delivery O2 Flow Rate FiO2 07/18/19 12:26 97 Ventilator 07/18/19 12:00 92 07/18/19 12:00 98.1 28 99/50 (66) 98.1 Weight Weight [ ] Input and Output Intake and Output Intake and Output 07/18/19 07:00 Intake Total 2290 ml Output Total 3220 ml Balance -930 ml IV Total 2290 ml Output Urine Total 3220 ml Laboratory Labs Laboratory Tests Test 07/17/19 18:07 07/18/19 05:30 07/18/19 08:50 Glucose (Fingerstick) 90 mg/dL (70-99) White Blood Count 8.4 x10^3/uL (4.0-11.0) Red Blood Count 4.63 x10^6/uL (4.30-5.70) Hemoglobin 12.6 g/dL (13.0-17.5) Hematocrit 39.1 % (39.0-53.0) Mean Corpuscular Volume 85 fL (79-100) Mean Corpuscular Hemoglobin 27 pg (25-35) Mean Corpuscular Hemoglobin Concent 32 g/dL (31-37) Red Cell Distribution Width 15.5 % (11.5-14.5) Platelet Count 346 x10^3/uL (140-400) Neutrophils (%) (Auto) 81 % (31-73) Lymphocytes (%) (Auto) 7 % (24-48) Monocytes (%) (Auto) 8 % (0-9) Eosinophils (%) (Auto) 3 % (0-3) Basophils (%) (Auto) 1 % (0-3) Neutrophils # (Auto) 6.8 x10^3/uL (1.8-7.7) Lymphocytes # (Auto) 0.6 x10^3/uL (1.0-4.8) Monocytes # (Auto) 0.6 x10^3/uL (0.0-1.1) Eosinophils # (Auto) 0.3 x10^3/uL (0.0-0.7) Basophils # (Auto) 0.0 x10^3/uL (0.0-0.2) Sodium Level 141 mmol/L (136-145) Potassium Level 5.5 mmol/L (3.5-5.1) Chloride Level 107 mmol/L (98-107) Carbon Dioxide Level 26 mmol/L (21-32) Anion Gap 8 (6-14) Blood Urea Nitrogen 26 mg/dL (8-26) Creatinine 1.0 mg/dL (0.7-1.3) Estimated GFR (Cockcroft-Gault) 96.5 BUN/Creatinine Ratio 26 (6-20) Glucose Level 130 mg/dL (70-99) Calcium Level 8.9 mg/dL (8.5-10.1) Total Bilirubin 0.3 mg/dL (0.2-1.0) Aspartate Amino Transf (AST/SGOT) 59 U/L (15-37) Alanine Aminotransferase (ALT/SGPT) 73 U/L (16-63) Alkaline Phosphatase 91 U/L (46-116) Total Protein 6.9 g/dL (6.4-8.2) Albumin 2.2 g/dL (3.4-5.0) Albumin/Globulin Ratio 0.5 (1.0-1.7) O2 Saturation 80 % (92-99) Arterial Blood pH 7.17 (7.35-7.45) Arterial Blood pCO2 at Patient Temp 70 mmHg (35-46) Arterial Blood pO2 at Patient Temp 50 mmHg (75-108) Arterial Blood HCO3 25 mmol/L (21-28) Arterial Blood Base Excess -5 mmol/L (-3-3) FiO2 100 Microbiology Micro Microbiology 07/12/19 Blood Culture - Final, Complete NO GROWTH AFTER 5 DAYS Physical Exam HEENT: Neck Supple W Full Motion LUNGS: Other (mechanical vent ) Heart: RRR (SR/ST) Abdomen: Other (obese) Neurology: other (sedated) Assessment Assessment 1. Acute respiratory failure secondary to COVID PNA, ARDS. s/p intubation. s/p convalescent plasma. continue as per pulm and ID. 2. Systolic murmur; consider echo pending course of hospitalization. supportive care 3. Hypertension; controlled 4. Hyperlipidemia 5. Diabetes, II 6. Morbid obesity 7. Hyperkalemia 8. Elevated LFTs PASBHARATKM R MD 07/18/19 1818: CARDIO Progress Notes Assessment Assessment Agree with APPLIANCE MECHANIC's assessment and plan. 2D echo to evaluate murmur pending Continue management of ARF per pulmonary team SIMA WIN APRN July 18, 2019 13:17 KM NIEVES MD July 18, 2019 18:18
--- NOTE | 2019-07-18 13:52 | PDOC ---
PROGRESS NOTES Chief Complaint Chief Complaint Acute hypoxic/// HYPERCAPNIC resp failure REQUIRING VENT SUPPORT Super morbid obesity Bibasilar lung airspace opacities likely atelectasis or infiltrates likely pn eumonia or atelectasis or atypical/viral infection/viral pneumonia Diabetes Hypertension, uncontrolled normocytic anemia SEVERE PROTEIN, CALORIC MALNUTRITION COVID-19 POS Plan: 1. Continue present AC mode, on 100% FIO2 ,14 PEEP. Make changes based on A BG's 2. COVID-19 positive 3. Empiric antibiotics. 4. s/p convalescent plasma transfusion 07/13 5. nutrition, PPN and TF at5 low dose 6. Monitor LFT 7. Discussed with RN. 8. S/P monoclonal antibodies/Tocilizumab 07/15/19 lovenox/pepcid History of Present Illness History of Present Illness No acute events reported overnight, case discussed with nursing staff patient in no acute distress no distress during my visit Prognosis guarded Vitals Vitals Vital Signs Date Time Temp Pulse Resp B/P (MAP) Pulse Ox O2 Delivery O2 Flow Rate FiO2 07/18/19 13:00 88 28 100/55 (70) 75 Ventilator 07/18/19 12:00 98.1 98.1 Physical Exam Physical Exam GENERAL: patient is intubated and sedated unresponsive on the ventilator HEENT unremarkable for acute abnormality Chest bilateral equal air entry inspiratory and expiratory wheezes at the bilateral bases anteriorly Heart S1-S2 normal regular rate and rhythm loud systolic murmur at the right second intercostal space Abdomen is obese soft nontender nondistended no masses or organomegaly noted Extremity exam is unremarkable for acute abnormality 1+ bipedal edema is noted General: Oriented X3, Cooperative, No acute distress, mild distress Abdomen: Soft Extremities: No cyanosis Labs LABS Laboratory Tests Test 07/17/19 18:07 07/18/19 05:30 07/18/19 08:50 Glucose (Fingerstick) 90 mg/dL (70-99) White Blood Count 8.4 x10^3/uL (4.0-11.0) Red Blood Count 4.63 x10^6/uL (4.30-5.70) Hemoglobin 12.6 g/dL (13.0-17.5) Hematocrit 39.1 % (39.0-53.0) Mean Corpuscular Volume 85 fL (79-100) Mean Corpuscular Hemoglobin 27 pg (25-35) Mean Corpuscular Hemoglobin Concent 32 g/dL (31-37) Red Cell Distribution Width 15.5 % (11.5-14.5) Platelet Count 346 x10^3/uL (140-400) Neutrophils (%) (Auto) 81 % (31-73) Lymphocytes (%) (Auto) 7 % (24-48) Monocytes (%) (Auto) 8 % (0-9) Eosinophils (%) (Auto) 3 % (0-3) Basophils (%) (Auto) 1 % (0-3) Neutrophils # (Auto) 6.8 x10^3/uL (1.8-7.7) Lymphocytes # (Auto) 0.6 x10^3/uL (1.0-4.8) Monocytes # (Auto) 0.6 x10^3/uL (0.0-1.1) Eosinophils # (Auto) 0.3 x10^3/uL (0.0-0.7) Basophils # (Auto) 0.0 x10^3/uL (0.0-0.2) Sodium Level 141 mmol/L (136-145) Potassium Level 5.5 mmol/L (3.5-5.1) Chloride Level 107 mmol/L (98-107) Carbon Dioxide Level 26 mmol/L (21-32) Anion Gap 8 (6-14) Blood Urea Nitrogen 26 mg/dL (8-26) Creatinine 1.0 mg/dL (0.7-1.3) Estimated GFR (Cockcroft-Gault) 96.5 BUN/Creatinine Ratio 26 (6-20) Glucose Level 130 mg/dL (70-99) Calcium Level 8.9 mg/dL (8.5-10.1) Total Bilirubin 0.3 mg/dL (0.2-1.0) Aspartate Amino Transf (AST/SGOT) 59 U/L (15-37) Alanine Aminotransferase (ALT/SGPT) 73 U/L (16-63) Alkaline Phosphatase 91 U/L (46-116) Total Protein 6.9 g/dL (6.4-8.2) Albumin 2.2 g/dL (3.4-5.0) Albumin/Globulin Ratio 0.5 (1.0-1.7) O2 Saturation 80 % (92-99) Arterial Blood pH 7.17 (7.35-7.45) Arterial Blood pCO2 at Patient Temp 70 mmHg (35-46) Arterial Blood pO2 at Patient Temp 50 mmHg (75-108) Arterial Blood HCO3 25 mmol/L (21-28) Arterial Blood Base Excess -5 mmol/L (-3-3) FiO2 100 Review of Systems Review of Systems unable to obtain Assessment and Plan Assessmemt and Plan Problems Medical Problems: (1) Suspected COVID-19 virus infection Status: Acute Comment Review of Relevant I have reviewed the following items lizzy (where applicable) has been applied. Labs Laboratory Tests Test 07/16/19 17:44 07/17/19 11:27 07/17/19 11:46 07/17/19 18:07 Glucose (Fingerstick) 96 mg/dL (70-99) 104 mg/dL (70-99) 90 mg/dL (70-99) O2 Saturation 71 % (92-99) Arterial Blood pH 7.23 (7.35-7.45) Arterial Blood pCO2 at Patient Temp 60 mmHg (35-46) Arterial Blood pO2 at Patient Temp 47 mmHg (75-108) Arterial Blood HCO3 25 mmol/L (21-28) Arterial Blood Base Excess -4 mmol/L (-3-3) FiO2 100% Test 07/18/19 05:30 07/18/19 08:50 White Blood Count 8.4 x10^3/uL (4.0-11.0) Red Blood Count 4.63 x10^6/uL (4.30-5.70) Hemoglobin 12.6 g/dL (13.0-17.5) Hematocrit 39.1 % (39.0-53.0) Mean Corpuscular Volume 85 fL (79-100) Mean Corpuscular Hemoglobin 27 pg (25-35) Mean Corpuscular Hemoglobin Concent 32 g/dL (31-37) Red Cell Distribution Width 15.5 % (11.5-14.5) Platelet Count 346 x10^3/uL (140-400) Neutrophils (%) (Auto) 81 % (31-73) Lymphocytes (%) (Auto) 7 % (24-48) Monocytes (%) (Auto) 8 % (0-9) Eosinophils (%) (Auto) 3 % (0-3) Basophils (%) (Auto) 1 % (0-3) Neutrophils # (Auto) 6.8 x10^3/uL (1.8-7.7) Lymphocytes # (Auto) 0.6 x10^3/uL (1.0-4.8) Monocytes # (Auto) 0.6 x10^3/uL (0.0-1.1) Eosinophils # (Auto) 0.3 x10^3/uL (0.0-0.7) Basophils # (Auto) 0.0 x10^3/uL (0.0-0.2) Sodium Level 141 mmol/L (136-145) Potassium Level 5.5 mmol/L (3.5-5.1) Chloride Level 107 mmol/L (98-107) Carbon Dioxide Level 26 mmol/L (21-32) Anion Gap 8 (6-14) Blood Urea Nitrogen 26 mg/dL (8-26) Creatinine 1.0 mg/dL (0.7-1.3) Estimated GFR (Cockcroft-Gault) 96.5 BUN/Creatinine Ratio 26 (6-20) Glucose Level 130 mg/dL (70-99) Calcium Level 8.9 mg/dL (8.5-10.1) Total Bilirubin 0.3 mg/dL (0.2-1.0) Aspartate Amino Transf (AST/SGOT) 59 U/L (15-37) Alanine Aminotransferase (ALT/SGPT) 73 U/L (16-63) Alkaline Phosphatase 91 U/L (46-116) Total Protein 6.9 g/dL (6.4-8.2) Albumin 2.2 g/dL (3.4-5.0) Albumin/Globulin Ratio 0.5 (1.0-1.7) O2 Saturation 80 % (92-99) Arterial Blood pH 7.17 (7.35-7.45) Arterial Blood pCO2 at Patient Temp 70 mmHg (35-46) Arterial Blood pO2 at Patient Temp 50 mmHg (75-108) Arterial Blood HCO3 25 mmol/L (21-28) Arterial Blood Base Excess -5 mmol/L (-3-3) FiO2 100 Laboratory Tests Test 07/17/19 18:07 07/18/19 05:30 07/18/19 08:50 Glucose (Fingerstick) 90 mg/dL (70-99) White Blood Count 8.4 x10^3/uL (4.0-11.0) Red Blood Count 4.63 x10^6/uL (4.30-5.70) Hemoglobin 12.6 g/dL (13.0-17.5) Hematocrit 39.1 % (39.0-53.0) Mean Corpuscular Volume 85 fL (79-100) Mean Corpuscular Hemoglobin 27 pg (25-35) Mean Corpuscular Hemoglobin Concent 32 g/dL (31-37) Red Cell Distribution Width 15.5 % (11.5-14.5) Platelet Count 346 x10^3/uL (140-400) Neutrophils (%) (Auto) 81 % (31-73) Lymphocytes (%) (Auto) 7 % (24-48) Monocytes (%) (Auto) 8 % (0-9) Eosinophils (%) (Auto) 3 % (0-3) Basophils (%) (Auto) 1 % (0-3) Neutrophils # (Auto) 6.8 x10^3/uL (1.8-7.7) Lymphocytes # (Auto) 0.6 x10^3/uL (1.0-4.8) Monocytes # (Auto) 0.6 x10^3/uL (0.0-1.1) Eosinophils # (Auto) 0.3 x10^3/uL (0.0-0.7) Basophils # (Auto) 0.0 x10^3/uL (0.0-0.2) Sodium Level 141 mmol/L (136-145) Potassium Level 5.5 mmol/L (3.5-5.1) Chloride Level 107 mmol/L (98-107) Carbon Dioxide Level 26 mmol/L (21-32) Anion Gap 8 (6-14) Blood Urea Nitrogen 26 mg/dL (8-26) Creatinine 1.0 mg/dL (0.7-1.3) Estimated GFR (Cockcroft-Gault) 96.5 BUN/Creatinine Ratio 26 (6-20) Glucose Level 130 mg/dL (70-99) Calcium Level 8.9 mg/dL (8.5-10.1) Total Bilirubin 0.3 mg/dL (0.2-1.0) Aspartate Amino Transf (AST/SGOT) 59 U/L (15-37) Alanine Aminotransferase (ALT/SGPT) 73 U/L (16-63) Alkaline Phosphatase 91 U/L (46-116) Total Protein 6.9 g/dL (6.4-8.2) Albumin 2.2 g/dL (3.4-5.0) Albumin/Globulin Ratio 0.5 (1.0-1.7) O2 Saturation 80 % (92-99) Arterial Blood pH 7.17 (7.35-7.45) Arterial Blood pCO2 at Patient Temp 70 mmHg (35-46) Arterial Blood pO2 at Patient Temp 50 mmHg (75-108) Arterial Blood HCO3 25 mmol/L (21-28) Arterial Blood Base Excess -5 mmol/L (-3-3) FiO2 100 Microbiology 07/12/19 Blood Culture - Final, Complete NO GROWTH AFTER 5 DAYS Medications Current Medications Sodium Chloride 1,000 ml @ 1,000 mls/hr 1X ONCE IV Last administered on 07/12/19at 13:25; Start 07/12/19 at 13:30; Stop 07/12/19 at 14:29; Status DC Acetaminophen (Tylenol) 1,000 mg 1X ONCE PO Last administered on 07/12/19at 13:25; Start 07/12/19 at 13:45; Stop 07/12/19 at 13:46; Status DC Sodium Chloride (Normal Saline Flush) 3 ml QSHIFT PRN IV AFTER MEDS AND BLOOD DRAWS; Start 07/12/19 at 16:45 Sodium Chloride 1,000 ml @ 20 mls/hr Q24H IV Last administered on 07/17/19at 11:04; Start 07/12/19 at 16:41 Ondansetron HCl (Zofran) 4 mg PRN Q4HRS PRN IV NAUSEA/VOMITING; Start 07/12/19 at 16:45 Acetaminophen (Tylenol) 650 mg PRN Q4HRS PRN PO TEMP OVER 100.4F OR MILD PAIN Last administered on 07/14/19at 18:29; Start 07/12/19 at 16:45 Al Hydroxide/Mg Hydroxide (Mylanta Plus Xs) 30 ml PRN DAILY PRN PO HEARTBURN / GAS; Start 07/12/19 at 16:45 Clonidine HCl (Catapres) 0.1 mg PRN Q6HRS PRN PO SBP>160 OR DBP>90 Last administered on 07/15/19at 04:25; Start 07/12/19 at 16:45 Docusate Sodium (Colace) 100 mg PRN BID PRN PO CONSTIPATION; Start 07/12/19 at 16:45 Albuterol/ Ipratropium (Duoneb) 3 ml Q4H NEB ; Start 07/12/19 at 16:45; Stop 07/12/19 at 16:55; Status DC Guaifenesin (Robitussin) 200 mg PRN Q4HRS PRN PO COUGH Last administered on 07/14/19at 08:52; Start 07/12/19 at 16:45 Levofloxacin/ Dextrose 100 ml @ 100 mls/hr Q24H IV Last administered on 07/17/19at 18:48; Start 07/13/19 at 17:00 Albuterol/ Ipratropium (Duoneb) 3 ml Q4HRS NEB ; Start 07/12/19 at 20:00; Stop 07/12/19 at 18:33; Status DC Levofloxacin/ Dextrose 100 ml @ 100 mls/hr 1X ONCE IV Last administered on 07/12/19at 17:58; Start 07/12/19 at 17:45; Stop 07/12/19 at 18:44; Status DC Albuterol Sulfate (Ventolin Neb Soln) 2.5 mg PRN Q4HRS PRN NEB SHORTNESS OF BREATH; Start 07/12/19 at 18:45 Hydralazine HCl (Apresoline Inj) 10 mg PRN Q4HRS PRN IVP ELEVATED BP, SEE COMMENTS Last administered on 07/12/19at 20:31; Start 07/12/19 at 19:45; Stop 07/12/19 at 22:40; Status DC Allopurinol (Zyloprim) 300 mg DAILY PO Last administered on 07/18/19at 10:50; Start 07/13/19 at 09:00 Amlodipine Besylate (Norvasc) 10 mg DAILY PO Last administered on 07/18/19at 10:51; Start 07/13/19 at 09:00 Lisinopril (Prinivil) 40 mg DAILY PO Last administered on 07/16/19at 11:19; Start 07/13/19 at 09:00 Metoprolol Tartrate (Lopressor) 25 mg BID PO Last administered on 07/18/19 10:50; Start 07/12/19 at 21:00 Doxazosin Mesylate (Cardura) 8 mg DAILY PO Last administered on 07/18/19 10:50; Start 07/13/19 at 09:00 Metformin HCl (Glucophage) 1,000 mg BIDWMEALS PO Last administered on 07/17/19 10:50; Start 07/13/19 at 08:00 Atorvastatin Calcium (Lipitor) 40 mg QHS PO Last administered on 07/17/19 20:51; Start 07/12/19 at 21:00 Lisinopril (Prinivil) 10 mg 1X ONCE PO Last administered on 07/13/19at 00:41; Start 07/12/19 at 23:00; Stop 07/12/19 at 23:01; Status DC Hydralazine HCl (Apresoline Inj) 10 mg PRN Q4HRS PRN IVP ELEVATED BP, SEE COMMENTS Last administered on 07/15/19at 03:07; Start 07/12/19 at 22:45 Doxazosin Mesylate (Cardura) 8 mg 1X ONCE PO Last administered on 07/12/19at 23:08; Start 07/12/19 at 23:30; Stop 07/12/19 at 23:31; Status DC Amlodipine Besylate (Norvasc) 10 mg 1X ONCE PO Last administered on 07/12/19at 23:00; Start 07/12/19 at 23:30; Stop 07/12/19 at 23:31; Status DC Lorazepam (Ativan Inj) 1 mg PRN Q2HRS PRN IVP ANXIETY / AGITATION Last administered on 07/17/19 12:20; Start 07/12/19 at 23:00 Enoxaparin Sodium (Lovenox 60mg Syringe) 60 mg Q12HR SQ Last administered on 07/18/19 10:52; Start 07/13/19 at 09:00 Lactobacillus Rhamnosus (Culturelle) 1 cap BID PO Last administered on 07/18/19 10:49; Start 07/13/19 at 21:00 Throat Lozenges (Cepacol Sore Throat Lozenge) 1 jessica PRN Q2HRS PRN PO SORE THROAT Last administered on 4/30/20at 08:56; Start 07/13/19 at 16:30 Haloperidol Lactate (Haldol Inj) 3 mg PRN Q4HRS PRN IVP AGITATION Last administ ered on 07/14/19at 22:59; Start 07/14/19 at 22:30 Fentanyl Citrate 30 ml @ 0 mls/hr CONT PRN IV SEE PROTOCOL Last administered on 07/16/19at 16:07; Start 07/15/19 at 05:45; Stop 07/16/19 at 21:59; Status DC Propofol 100 ml @ 0 mls/hr CONT PRN IV SEE PROTOCOL Last administered on 07/15/19at 06:03; Start 07/15/19 at 05:45; Stop 07/15/19 at 06:06; Status DC Famotidine (Pepcid Vial) 20 mg BID IVP Last administered on 07/18/19at 10:51; Start 07/15/19 at 09:00 Midazolam HCl 100 ml @ 0 mls/hr CONT PRN IV SEE PROTOCOL Last administered on 07/18/19at 07:29; Start 07/15/19 at 05:45 Ketamine HCl (Ketamine) 50 mg STK-MED ONCE .ROUTE ; Start 07/15/19 at 05:44; Stop 07/15/19 at 05:44; Status DC Succinylcholine Chloride (Anectine) 200 mg STK-MED ONCE .ROUTE ; Start 07/15/19 at 05:45; Stop 07/15/19 at 05:45; Status DC Succinylcholine Chloride (Anectine) 200 mg 1X ONCE IV Last administered on 07/15/19at 06:00; Start 07/15/19 at 06:15; Stop 07/15/19 at 06:16; Status DC Propofol 100 ml @ 2.7 mls/hr CONT PRN IV SEE I/O RECORD Last administered on 07/15/19at 10:08; Start 07/15/19 at 06:15 Ketamine HCl (Ketamine) 50 mg 1X ONCE IV Last administered on 07/15/19at 05:55; Start 07/15/19 at 06:15; Stop 07/15/19 at 06:16; Status DC Vecuronium [place] (Norcuron Bolus) 6 mg 1X ONCE IV Last administered on 07/15/19at 06:55; Start 07/15/19 at 07:00; Stop 07/15/19 at 07:01; Status DC Vecuronium [place] (Norcuron Bolus) 10 mg STK-MED ONCE IV ; Start 07/15/19 at 06:53; Stop 07/15/19 at 06:53; Status DC Tocilizumab 800 mg/Sodium Chloride 100 ml @ 100 mls/hr ONCE ONCE IV Last administered on 07/15/19at 15:51; Start 07/15/19 at 16:00; Stop 07/15/19 at 16:59; Status DC Dextrose (Dextrose 50%-Water Syringe) 25 gm STK-MED ONCE IV ; Start 07/15/19 at 15:55; Stop 07/15/19 at 15:56; Status DC Dexmedetomidine HCl 400 mcg/ Sodium Chloride 100 ml @ 9 mls/hr CONT PRN IV SEDATION Last administered on 07/18/19at 07:28; Start 07/15/19 at 16:30 Dexmedetomidine HCl 400 mcg/ Sodium Chloride 100 ml @ 0 mls/hr CONT PRN IV SEDATION; Start 07/15/19 at 16:30; Status UNV Dextrose (Dextrose 50%-Water Syringe) 25 gm 1X ONCE IV Last administered on 07/15/19at 16:28; Start 07/15/19 at 16:30; Stop 07/15/19 at 16:31; Status DC Amino Acids/ Glycerin/ Electrolytes 1,000 ml @ 80 mls/hr [id number] IV Last administered on 07/18/19at 13:03; Start 07/16/19 at 10:00; Stop 07/18/19 at 21:59 Sodium Bicarbonate (Sodium Bicarb Adult 8.4% Syr) 50 meq 1X ONCE IV Last administered on 07/16/19at 11:23; Start 07/16/19 at 09:30; Stop 07/16/19 at 09:31; Status DC Fentanyl Citrate 55 ml @ 0 mls/hr CONT PRN IV SEE I/O RECORD Last administered on 07/17/19at 22:51; Start 07/16/19 at 22:00 Vecuronium [place] (Norcuron Bolus) 10 mg PRN Q6HRS PRN IV ASYNCHRONARY W/ VENT Last administered on 07/17/19at 12:19; Start 07/17/19 at 10:00 Vecuronium [place] 50 mg/ Miscellaneous 50 ml @ 8.976 mls/ hr CONT PRN IV SEE I/O RECORD Last administered on 07/18/19at 10:00; Start 07/17/19 at 12:15 Info (Tpn Per Pharmacy) 1 each PRN DAILY PRN MC SEE COMMENTS Last administered on 07/18/19at 12:54; Start 07/18/19 at 10:45 Sodium Acetate 60 meq/Potassium Phosphate 13.6 mmol/Magnesium Sulfate 10 meq/ Calcium Gluconate 10 meq/ Multivitamins 10 ml/Chromium/ Copper/Manganese/ Seleni/Zn 0.5 ml/ Total Parenteral Nutrition/Amino Acids/Dextrose 1,920 ml @ 80 mls/hr TPN CONT IV ; Start 07/18/19 at 22:00; Stop 07/19/19 at 21:59 Active Scripts Active Reported Metformin Hcl 1,000 Mg Tablet 1,000 Mg PO BIDWMEALS Lisinopril 40 Mg Tablet 40 Mg PO DAILY Allopurinol 300 Mg Tablet 300 Mg PO DAILY Metoprolol Tartrate 25 Mg Tablet 25 Mg PO BID Doxazosin Mesylate 8 Mg Tablet 8 Mg PO DAILY Amlodipine Besylate 10 Mg Tablet 10 Mg PO DAILY Vitals/I & O Vital Sign - Last 24 Hours 07/17/19 07/17/19 07/17/19 07/17/19 14:00 15:00 15:15 16:00 Pulse 82 86 88 Resp 24 24 24 B/P (MAP) 98/ 134/ 104/98 (100) Pulse Ox 90 89 89 90 O2 Delivery Ventilator Ventilator Ventilator Ventilator 07/17/19 07/17/19 07/17/19 07/17/19 16:00 16:00 17:00 18:00 Temp 97.7 97.7 Pulse 98 78 Resp 24 24 B/P (MAP) 112/100 (104) 162/84 (110) Pulse Ox 88 93 O2 Delivery Mechanical Ventilator Ventilator Ventilator 07/17/19 07/17/19 07/17/19 07/17/19 19:00 20:00 20:00 20:00 Temp 97.0 97.0 Pulse 82 90 90 Resp 24 24 B/P (MAP) 162/84 (110) 134/96 (109) 134/96 (109) Pulse Ox 89 89 O2 Delivery Ventilator Ventilator Mechanical Ventilator 07/17/19 07/17/19 07/17/19 07/17/19 20:52 20:53 21:00 22:00 Pulse 95 104 80 Resp 24 24 B/P (MAP) 147/94 158/98 (118) 128/90 (103) Pulse Ox 89 86 92 O2 Delivery Ventilator Ventilator Ventilator 07/17/19 07/17/19 07/18/19 07/18/19 23:00 23:40 00:00 00:00 Temp 97.8 97.8 Pulse 76 82 82 Resp 24 24 B/P (MAP) 118/88 (98) 114/88 (97) 114/88 (97) Pulse Ox 90 92 O2 Delivery Ventilator Mechanical Ventilator Ventilator 07/18/19 07/18/19 07/18/19 07/18/19 00:21 01:00 02:00 03:00 Pulse 77 78 83 Resp 24 24 B/P (MAP) 112/87 (95) 108/87 (94) 115/92 (100) Pulse Ox 92 94 95 93 O2 Delivery Ventilator Ventilator Ventilator Ventilator 07/18/19 07/18/19 07/18/19 07/18/19 04:00 04:00 04:00 05:00 Temp 97.7 97.7 Pulse 98 98 105 Resp 24 B/P (MAP) 100/82 (88) 100/82 (88) 128/80 (96) Pulse Ox 92 91 O2 Delivery Mechanical Ventilator Ventilator Ventilator 07/18/19 07/18/19 07/18/19 07/18/19 05:30 06:00 07:00 08:00 Temp 97.9 97.9 Pulse 108 98 98 Resp 24 24 B/P (MAP) 102/80 (87) 84/78 (80) 124/78 (93) Pulse Ox 92 82 87 87 O2 Delivery Ventilator Ventilator Ventilator Ventilator 07/18/19 07/18/19 07/18/19 07/18/19 08:00 08:00 08:45 09:00 Pulse 133 124 Resp 24 B/P (MAP) 160/60 (93) Pulse Ox 80 80 O2 Delivery Mechanical Ventilator Ventilator Ventilator 07/18/19 07/18/19 07/18/19 07/18/19 10:00 10:50 10:50 10:51 Pulse 130 133 130 133 Resp 28 B/P (MAP) 156/58 (90) 141/75 141/54 139/54 Pulse Ox 80 O2 Delivery Ventilator 07/18/19 07/18/19 07/18/19 07/18/19 11:00 12:00 12:00 12:00 Temp 98.1 98.1 Pulse 132 96 92 Resp 28 28 B/P (MAP) 140/56 (84) 99/50 (66) Pulse Ox 75 97 O2 Delivery Ventilator Mechanical Ventilator Ventilator 07/18/19 07/18/19 12:26 13:00 Pulse 88 Resp 28 B/P (MAP) 100/55 (70) Pulse Ox 97 75 O2 Delivery Ventilator Ventilator Intake and Output 07/17/19 07/17/19 07/18/19 15:00 23:00 07:00 Intake Total 1113 ml 1177 ml Output Total 650 ml 1225 ml 1345 ml Balance -650 ml -112 ml -168 ml GABRIEL REGALADO MD July 18, 2019 13:52
--- NOTE | 2019-07-18 14:13 | NUR ---
Pharmacy TPN Dosing Note S: REINALDO BOWER is a 48 year old M Currently receiving Central Continuous TPN started 07/18/19 B:Pertinent PMH: NPO Height: 6 feet, 1 inches Weight: 183.502353 kg Current diet: PPN AT 80ML/HR SINCE 07/15 LABS: Sodium: 141 Potassium: 5.5 Chloride: 107 Calcium: 8.9 Corrected Calcium: 10.34 Magnesium: CO2: 26 SCr: 1.0 Glucose: 130/90 Albumin: 2.2 AST: 59 ALT: 73 TPN FORMULA: TPN TYPE: Central Continuous AMINO ACIDS: 155 gm DEXTROSE: 225 gm LIPIDS: 0 gm SODIUM CHLORIDE: mEq SODIUM ACETATE: 60 mEq SODIUM PHOSPHATE: mmol POTASSIUM CHLORIDE: mEq POTASSIUM ACETATE: mEq POTASSIUM PHOSPHATE: 13.6 mmol MAGNESIUM: 10 mEq CALCIUM: 10 mEq INSULIN: units MULTIPLE VITAMIN: 10 ml TRACE ELEMENTS: 0.5 ml(s) TPN PLAN: NO LIPID/ON PROPOFOL AT 54ML/HR. NO POTASSIUM TODAY. R: Begin TPN WITH AA 155GM/DEX 225GM, TRA 80 ML/HR. LAB IN AM Will monitor electrolytes, glucose, and tolerance to TPN. CHAIM BAUER RPH, 07/18/19 141
--- NOTE | 2019-07-18 14:35 | NUR ---
SS following up with discharge planning. SS discussed with RN, Ashley. Pt is currently on the vent and TPN. Pt is COVID19 positive. SS will continue to follow for discharge planning.
--- NOTE | 2019-07-18 15:16 | RAD ---
PORTABLE CHEST 1V Clinical indications: Respiratory failure. Covid -19. COMPARISON: July 15, 2019. Findings: There is an increase in dense consolidative lung infiltrates bilaterally. No pleural effusion or pneumothorax is seen. There have been no interval tube or line changes. The tip of NG tube cannot be seen in this study. The heart size and mediastinum are stable. IMPRESSION: Worsening bilateral lung infiltrates. Electronically signed by: Crow Glynn MD (07/18/2019 3:14 PM) [id number]
[2019-07-18] MEDS: IV NORMAL SALINE 1000ML BAG 1,000 ML IV SCH (16:44)
[2019-07-18] MEDS: ATORVASTATIN CALCIUM 40 MG TABLET. PO SCH (20:57)
[2019-07-18] MEDS ORDERED: [UNRECOGNIZED DRUG - OTHER] IV SCH ×8 (22:00)
[2019-07-18] MEDS ORDERED: DEXTROSE 70% IV SCH ×8 (22:00)
[2019-07-18] MEDS ORDERED: TOTAL PARENTERAL NUTRITION IV SCH ×8 (22:00)
[2019-07-18] MEDS ORDERED: AMINO ACID IV SCH ×8 (22:00)
[2019-07-19] VITALS (30 sets, daily range): BP systolic 98–177; BP diastolic 42–80
[2019-07-19] MEDS: fentaNYL HIGH DOSE PCA 55 ML IV PRN (02:53)
[2019-07-19 06:01] LABS: CALCIUM 8.5 mg/dL (8.5-10.1); CREATININE 1.2 mg/dL (0.7-1.3); GFR 78.2; MAGNESIUM 2.5 mg/dL (1.8-2.4); PHOSPHORUS 4.1 mg/dL (2.6-4.7); POTASSIUM 5.1 mmol/L (3.5-5.1)
[2019-07-19] MEDS: DEXMEDETOMIDINE 400 MCG in IV NORMAL SALINE 100ML 96 ML IV PRN ×3 (06:25→19:22)
[2019-07-19] MEDS: MIDAZOLAM 100mg/100ml NS BAG 100 ML IV PRN ×3 (06:25→23:44)
[2019-07-19] MEDS: VECURONIUM BROMIDE 50 MG in TOTAL VOLUME 50 ML IV PRN ×3 (07:14→23:43)
--- NOTE | 2019-07-19 08:20 | PDOC ---
PULMONARY PROGRESS NOTES Subjective continue AC mode, on 100% fio2 15 PEEP Vitals Vital Signs Date Time Temp Pulse Resp B/P (MAP) Pulse Ox O2 Delivery O2 Flow Rate FiO2 07/19/19 07:00 93 28 125/67 (86) 97 Ventilator 07/19/19 04:00 98.8 98.8 Comments Visual exam done due to COVID pandemic Patient in sync with the ventilator, no respiratory distress. Labs Laboratory Tests Test 07/17/19 11:27 07/17/19 11:46 07/17/19 18:07 07/18/19 05:30 Glucose (Fingerstick) 104 mg/dL (70-99) 90 mg/dL (70-99) O2 Saturation 71 % (92-99) Arterial Blood pH 7.23 (7.35-7.45) Arterial Blood pCO2 at Patient Temp 60 mmHg (35-46) Arterial Blood pO2 at Patient Temp 47 mmHg (75-108) Arterial Blood HCO3 25 mmol/L (21-28) Arterial Blood Base Excess -4 mmol/L (-3-3) FiO2 100% White Blood Count 8.4 x10^3/uL (4.0-11.0) Red Blood Count 4.63 x10^6/uL (4.30-5.70) Hemoglobin 12.6 g/dL (13.0-17.5) Hematocrit 39.1 % (39.0-53.0) Mean Corpuscular Volume 85 fL (79-100) Mean Corpuscular Hemoglobin 27 pg (25-35) Mean Corpuscular Hemoglobin Concent 32 g/dL (31-37) Red Cell Distribution Width 15.5 % (11.5-14.5) Platelet Count 346 x10^3/uL (140-400) Neutrophils (%) (Auto) 81 % (31-73) Lymphocytes (%) (Auto) 7 % (24-48) Monocytes (%) (Auto) 8 % (0-9) Eosinophils (%) (Auto) 3 % (0-3) Basophils (%) (Auto) 1 % (0-3) Neutrophils # (Auto) 6.8 x10^3/uL (1.8-7.7) Lymphocytes # (Auto) 0.6 x10^3/uL (1.0-4.8) Monocytes # (Auto) 0.6 x10^3/uL (0.0-1.1) Eosinophils # (Auto) 0.3 x10^3/uL (0.0-0.7) Basophils # (Auto) 0.0 x10^3/uL (0.0-0.2) Sodium Level 141 mmol/L (136-145) Potassium Level 5.5 mmol/L (3.5-5.1) Chloride Level 107 mmol/L (98-107) Carbon Dioxide Level 26 mmol/L (21-32) Anion Gap 8 (6-14) Blood Urea Nitrogen 26 mg/dL (8-26) Creatinine 1.0 mg/dL (0.7-1.3) Estimated GFR (Cockcroft-Gault) 96.5 BUN/Creatinine Ratio 26 (6-20) Glucose Level 130 mg/dL (70-99) Calcium Level 8.9 mg/dL (8.5-10.1) Total Bilirubin 0.3 mg/dL (0.2-1.0) Aspartate Amino Transf (AST/SGOT) 59 U/L (15-37) Alanine Aminotransferase (ALT/SGPT) 73 U/L (16-63) Alkaline Phosphatase 91 U/L (46-116) Total Protein 6.9 g/dL (6.4-8.2) Albumin 2.2 g/dL (3.4-5.0) Albumin/Globulin Ratio 0.5 (1.0-1.7) Test 07/18/19 08:50 07/19/19 00:04 07/19/19 05:15 07/19/19 05:21 O2 Saturation 80 % (92-99) Arterial Blood pH 7.17 (7.35-7.45) Arterial Blood pCO2 at Patient Temp 70 mmHg (35-46) Arterial Blood pO2 at Patient Temp 50 mmHg (75-108) Arterial Blood HCO3 25 mmol/L (21-28) Arterial Blood Base Excess -5 mmol/L (-3-3) FiO2 100 Glucose (Fingerstick) 131 mg/dL (70-99) 132 mg/dL (70-99) Sodium Level 139 mmol/L (136-145) Potassium Level 5.1 mmol/L (3.5-5.1) Chloride Level 106 mmol/L (98-107) Carbon Dioxide Level 26 mmol/L (21-32) Anion Gap 7 (6-14) Blood Urea Nitrogen 39 mg/dL (8-26) Creatinine 1.2 mg/dL (0.7-1.3) Estimated GFR (Cockcroft-Gault) 78.2 Glucose Level 145 mg/dL (70-99) Calcium Level 8.5 mg/dL (8.5-10.1) Phosphorus Level 4.1 mg/dL (2.6-4.7) Magnesium Level 2.5 mg/dL (1.8-2.4) Triglycerides Level 238 mg/dL (0-150) Laboratory Tests Test 07/18/19 08:50 07/19/19 00:04 07/19/19 05:15 07/19/19 05:21 O2 Saturation 80 % (92-99) Arterial Blood pH 7.17 (7.35-7.45) Arterial Blood pCO2 at Patient Temp 70 mmHg (35-46) Arterial Blood pO2 at Patient Temp 50 mmHg (75-108) Arterial Blood HCO3 25 mmol/L (21-28) Arterial Blood Base Excess -5 mmol/L (-3-3) FiO2 100 Glucose (Fingerstick) 131 mg/dL (70-99) 132 mg/dL (70-99) Sodium Level 139 mmol/L (136-145) Potassium Level 5.1 mmol/L (3.5-5.1) Chloride Level 106 mmol/L (98-107) Carbon Dioxide Level 26 mmol/L (21-32) Anion Gap 7 (6-14) Blood Urea Nitrogen 39 mg/dL (8-26) Creatinine 1.2 mg/dL (0.7-1.3) Estimated GFR (Cockcroft-Gault) 78.2 Glucose Level 145 mg/dL (70-99) Calcium Level 8.5 mg/dL (8.5-10.1) Phosphorus Level 4.1 mg/dL (2.6-4.7) Magnesium Level 2.5 mg/dL (1.8-2.4) Triglycerides Level 238 mg/dL (0-150) Medications Active Scripts Medications Dose Route/Sig Max Daily Dose Days Date Category Metformin Hcl 1,000 Mg Tablet 1,000 Mg PO BIDWMEALS 07/12/19 Reported Lisinopril 40 Mg Tablet 40 Mg PO DAILY 07/12/19 Reported Allopurinol 300 Mg Tablet 300 Mg PO DAILY 07/12/19 Reported Metoprolol Tartrate 25 Mg Tablet 25 Mg PO BID 07/12/19 Reported Doxazosin Mesylate 8 Mg Tablet 8 Mg PO DAILY 07/12/19 Reported Amlodipine Besylate 10 Mg Tablet 10 Mg PO DAILY 07/12/19 Reported Comments CXR 07/14 POST INTUBATION BILATERAL INFILTRATES Impression . 1. Acute hypoxic respiratory failure multifactorial, COVID-19, ARDS, INTUBATED 07/14 2. Abnormal chest x-ray with bilateral infiltrates suggestive of coronavirus disease-19 pneumonia, possible bacterial pneumonia 3. Underlying morbid obesity. 4. Diabetes. 5. Nonsmoker. 6. Increase inflammatory markers suggestive of cytokine surge 7. s/p convalescent plasma Plan . AC mode, adjust minute ventilation Empiric antibiotic Status post convalescent serum transfusion 07/13 Nutritional support Status post Tocilizumab Labs DVT GI prophylax Total cumulative critical care time of 35 minutes, reviewing labs, chest x-ray, data, formulating a plan PURA FOSTER MD July 19, 2019 08:20
[2019-07-19] MEDS: metFORMIN 500 MG TABLET PO SCH ×2 (08:42→18:07)
[2019-07-19] MEDS: FAMOTIDINE 20 MG/2 ML VIAL IVP SCH ×2 (08:43→20:39)
[2019-07-19] MEDS: LACTOBACILLUS RHAMNOSUS GG 1 CAPSULE. PO SCH ×2 (08:44→20:50)
[2019-07-19] MEDS: DOXAZOSIN MESYLATE 4 MG TABLET. PO SCH (08:44)
[2019-07-19] MEDS: amLODIPine BESYLATE 10 MG TABLET PO SCH (08:45)
[2019-07-19] MEDS: LISINOPRIL 20 MG TABLET PO SCH (08:46)
[2019-07-19] MEDS: ALLOPURINOL 300 MG TABLET. PO SCH (08:46)
[2019-07-19] MEDS: METOPROLOL TART IMMED RELEASE 25 MG TABLET. PO SCH (09:00)
[2019-07-19] MEDS: hydrALAZINE 20 MG/ML VIAL. IVP PRN (09:07)
[2019-07-19 09:23] LABS: BASE EXCESS ABG -2 mmol/L (-3-3); HCO3 ABG 25 mmol/L (21-28); PCO2 ABG 53 mmHg (35-46); PO2 ABG 56 mmHg (75-108); SAT O2 ABG 85 % (92-99)
[2019-07-19 09:25] LABS: FIO2 ABG 100% VENT
--- NOTE | 2019-07-19 09:27 | PDOC ---
PROGRESS NOTES Chief Complaint Chief Complaint Acute hypoxic/// HYPERCAPNIC resp failure REQUIRING VENT SUPPORT Super morbid obesity Bibasilar lung airspace opacities likely atelectasis or infiltrates likely pn eumonia or atelectasis or atypical/viral infection/viral pneumonia Diabetes Hypertension, uncontrolled normocytic anemia SEVERE PROTEIN, CALORIC MALNUTRITION COVID-19 POS Plan: 1. Continue present AC mode, on 100% FIO2 ,14 PEEP. Make changes based on A BG's 2. COVID-19 positive 3. Empiric antibiotics. 4. s/p convalescent plasma transfusion 07/13 5. nutrition, PPN and TF at5 low dose 6. Monitor LFT 7. Discussed with RN. 8. S/P monoclonal antibodies/Tocilizumab 07/15/19 lovenox/pepcid History of Present Illness History of Present Illness No acute events reported overnight, case discussed with nursing staff patient in no acute distress no distress during my visit Prognosis guarded, remains critically stable Vitals Vitals Vital Signs Date Time Temp Pulse Resp B/P (MAP) Pulse Ox O2 Delivery O2 Flow Rate FiO2 07/19/19 09:07 128 223/88 07/19/19 07:00 28 97 Ventilator 07/19/19 04:00 98.8 98.8 Physical Exam Physical Exam GENERAL: patient is intubated and sedated unresponsive on the ventilator HEENT unremarkable for acute abnormality Chest bilateral equal air entry inspiratory and expiratory wheezes at the bilateral bases anteriorly Heart S1-S2 normal regular rate and rhythm loud systolic murmur at the right second intercostal space Abdomen is obese soft nontender nondistended no masses or organomegaly noted Extremity exam is unremarkable for acute abnormality 1+ bipedal edema is noted General: Oriented X3, Cooperative, No acute distress, mild distress Abdomen: Soft Extremities: No cyanosis Labs LABS Laboratory Tests Test 07/19/19 00:04 07/19/19 05:15 07/19/19 05:21 Glucose (Fingerstick) 131 mg/dL (70-99) 132 mg/dL (70-99) Sodium Level 139 mmol/L (136-145) Potassium Level 5.1 mmol/L (3.5-5.1) Chloride Level 106 mmol/L (98-107) Carbon Dioxide Level 26 mmol/L (21-32) Anion Gap 7 (6-14) Blood Urea Nitrogen 39 mg/dL (8-26) Creatinine 1.2 mg/dL (0.7-1.3) Estimated GFR (Cockcroft-Gault) 78.2 Glucose Level 145 mg/dL (70-99) Calcium Level 8.5 mg/dL (8.5-10.1) Phosphorus Level 4.1 mg/dL (2.6-4.7) Magnesium Level 2.5 mg/dL (1.8-2.4) Triglycerides Level 238 mg/dL (0-150) Assessment and Plan Assessmemt and Plan Problems Medical Problems: (1) Suspected COVID-19 virus infection Status: Acute Comment Review of Relevant I have reviewed the following items lizzy (where applicable) has been applied. Labs Laboratory Tests Test 07/17/19 11:27 07/17/19 11:46 07/17/19 18:07 07/18/19 05:30 Glucose (Fingerstick) 104 mg/dL (70-99) 90 mg/dL (70-99) O2 Saturation 71 % (92-99) Arterial Blood pH 7.23 (7.35-7.45) Arterial Blood pCO2 at Patient Temp 60 mmHg (35-46) Arterial Blood pO2 at Patient Temp 47 mmHg (75-108) Arterial Blood HCO3 25 mmol/L (21-28) Arterial Blood Base Excess -4 mmol/L (-3-3) FiO2 100% White Blood Count 8.4 x10^3/uL (4.0-11.0) Red Blood Count 4.63 x10^6/uL (4.30-5.70) Hemoglobin 12.6 g/dL (13.0-17.5) Hematocrit 39.1 % (39.0-53.0) Mean Corpuscular Volume 85 fL (79-100) Mean Corpuscular Hemoglobin 27 pg (25-35) Mean Corpuscular Hemoglobin Concent 32 g/dL (31-37) Red Cell Distribution Width 15.5 % (11.5-14.5) Platelet Count 346 x10^3/uL (140-400) Neutrophils (%) (Auto) 81 % (31-73) Lymphocytes (%) (Auto) 7 % (24-48) Monocytes (%) (Auto) 8 % (0-9) Eosinophils (%) (Auto) 3 % (0-3) Basophils (%) (Auto) 1 % (0-3) Neutrophils # (Auto) 6.8 x10^3/uL (1.8-7.7) Lymphocytes # (Auto) 0.6 x10^3/uL (1.0-4.8) Monocytes # (Auto) 0.6 x10^3/uL (0.0-1.1) Eosinophils # (Auto) 0.3 x10^3/uL (0.0-0.7) Basophils # (Auto) 0.0 x10^3/uL (0.0-0.2) Sodium Level 141 mmol/L (136-145) Potassium Level 5.5 mmol/L (3.5-5.1) Chloride Level 107 mmol/L (98-107) Carbon Dioxide Level 26 mmol/L (21-32) Anion Gap 8 (6-14) Blood Urea Nitrogen 26 mg/dL (8-26) Creatinine 1.0 mg/dL (0.7-1.3) Estimated GFR (Cockcroft-Gault) 96.5 BUN/Creatinine Ratio 26 (6-20) Glucose Level 130 mg/dL (70-99) Calcium Level 8.9 mg/dL (8.5-10.1) Total Bilirubin 0.3 mg/dL (0.2-1.0) Aspartate Amino Transf (AST/SGOT) 59 U/L (15-37) Alanine Aminotransferase (ALT/SGPT) 73 U/L (16-63) Alkaline Phosphatase 91 U/L (46-116) Total Protein 6.9 g/dL (6.4-8.2) Albumin 2.2 g/dL (3.4-5.0) Albumin/Globulin Ratio 0.5 (1.0-1.7) Test 07/18/19 08:50 07/19/19 00:04 07/19/19 05:15 07/19/19 05:21 O2 Saturation 80 % (92-99) Arterial Blood pH 7.17 (7.35-7.45) Arterial Blood pCO2 at Patient Temp 70 mmHg (35-46) Arterial Blood pO2 at Patient Temp 50 mmHg (75-108) Arterial Blood HCO3 25 mmol/L (21-28) Arterial Blood Base Excess -5 mmol/L (-3-3) FiO2 100 Glucose (Fingerstick) 131 mg/dL (70-99) 132 mg/dL (70-99) Sodium Level 139 mmol/L (136-145) Potassium Level 5.1 mmol/L (3.5-5.1) Chloride Level 106 mmol/L (98-107) Carbon Dioxide Level 26 mmol/L (21-32) Anion Gap 7 (6-14) Blood Urea Nitrogen 39 mg/dL (8-26) Creatinine 1.2 mg/dL (0.7-1.3) Estimated GFR (Cockcroft-Gault) 78.2 Glucose Level 145 mg/dL (70-99) Calcium Level 8.5 mg/dL (8.5-10.1) Phosphorus Level 4.1 mg/dL (2.6-4.7) Magnesium Level 2.5 mg/dL (1.8-2.4) Triglycerides Level 238 mg/dL (0-150) Laboratory Tests Test 07/19/19 00:04 07/19/19 05:15 07/19/19 05:21 Glucose (Fingerstick) 131 mg/dL (70-99) 132 mg/dL (70-99) Sodium Level 139 mmol/L (136-145) Potassium Level 5.1 mmol/L (3.5-5.1) Chloride Level 106 mmol/L (98-107) Carbon Dioxide Level 26 mmol/L (21-32) Anion Gap 7 (6-14) Blood Urea Nitrogen 39 mg/dL (8-26) Creatinine 1.2 mg/dL (0.7-1.3) Estimated GFR (Cockcroft-Gault) 78.2 Glucose Level 145 mg/dL (70-99) Calcium Level 8.5 mg/dL (8.5-10.1) Phosphorus Level 4.1 mg/dL (2.6-4.7) Magnesium Level 2.5 mg/dL (1.8-2.4) Triglycerides Level 238 mg/dL (0-150) Microbiology 07/12/19 Blood Culture - Final, Complete NO GROWTH AFTER 5 DAYS Medications Current Medications Sodium Chloride 1,000 ml @ 1,000 mls/hr 1X ONCE IV Last administered on 07/12/19at 13:25; Start 07/12/19 at 13:30; Stop 07/12/19 at 14:29; Status DC Acetaminophen (Tylenol) 1,000 mg 1X ONCE PO Last administered on 07/12/19at 13:25; Start 07/12/19 at 13:45; Stop 07/12/19 at 13:46; Status DC Sodium Chloride (Normal Saline Flush) 3 ml QSHIFT PRN IV AFTER MEDS AND BLOOD DRAWS; Start 07/12/19 at 16:45 Sodium Chloride 1,000 ml @ 20 mls/hr Q24H IV Last administered on 07/18/19at 16:44; Start 07/12/19 at 16:41 Ondansetron HCl (Zofran) 4 mg PRN Q4HRS PRN IV NAUSEA/VOMITING; Start 07/12/19 at 16:45 Acetaminophen (Tylenol) 650 mg PRN Q4HRS PRN PO TEMP OVER 100.4F OR MILD PAIN Last administered on 07/14/19at 18:29; Start 07/12/19 at 16:45 Al Hydroxide/Mg Hydroxide (Mylanta Plus Xs) 30 ml PRN DAILY PRN PO HEARTBURN / GAS; Start 07/12/19 at 16:45 Clonidine HCl (Catapres) 0.1 mg PRN Q6HRS PRN PO SBP>160 OR DBP>90 Last administered on 07/15/19at 04:25; Start 07/12/19 at 16:45 Docusate Sodium (Colace) 100 mg PRN BID PRN PO CONSTIPATION; Start 07/12/19 at 16:45 Albuterol/ Ipratropium (Duoneb) 3 ml Q4H NEB ; Start 07/12/19 at 16:45; Stop 07/12/19 at 16:55; Status DC Guaifenesin (Robitussin) 200 mg PRN Q4HRS PRN PO COUGH Last administered on 07/14/19at 08:52; Start 07/12/19 at 16:45 Levofloxacin/ Dextrose 100 ml @ 100 mls/hr Q24H IV Last administered on 07/18/19at 16:29; Start 07/13/19 at 17:00 Albuterol/ Ipratropium (Duoneb) 3 ml Q4HRS NEB ; Start 07/12/19 at 20:00; Stop 07/12/19 at 18:33; Status DC Levofloxacin/ Dextrose 100 ml @ 100 mls/hr 1X ONCE IV Last administered on 07/12/19at 17:58; Start 07/12/19 at 17:45; Stop 07/12/19 at 18:44; Status DC Albuterol Sulfate (Ventolin Neb Soln) 2.5 mg PRN Q4HRS PRN NEB SHORTNESS OF BREATH; Start 07/12/19 at 18:45 Hydralazine HCl (Apresoline Inj) 10 mg PRN Q4HRS PRN IVP ELEVATED BP, SEE COMMENTS Last administered on 07/12/19at 20:31; Start 07/12/19 at 19:45; Stop 07/12/19 at 22:40; Status DC Allopurinol (Zyloprim) 300 mg DAILY PO Last administered on 07/19/19 08:46; Start 07/13/19 at 09:00 Amlodipine Besylate (Norvasc) 10 mg DAILY PO Last administered on 07/19/19 08:45; Start 07/13/19 at 09:00 Lisinopril (Prinivil) 40 mg DAILY PO Last administered on 07/19/19 08:46; Start 07/13/19 at 09:00 Metoprolol Tartrate (Lopressor) 25 mg BID PO Last administered on 07/18/19 20:57; Start 07/12/19 at 21:00 Doxazosin Mesylate (Cardura) 8 mg DAILY PO Last administered on 07/19/19 08:44; Start 07/13/19 at 09:00 Metformin HCl (Glucophage) 1,000 mg BIDWMEALS PO Last administered on 07/19/19 08:42; Start 07/13/19 at 08:00 Atorvastatin Calcium (Lipitor) 40 mg QHS PO Last administered on 07/18/19 20:57; Start 07/12/19 at 21:00 Lisinopril (Prinivil) 10 mg 1X ONCE PO Last administered on 07/13/19at 00:41; Start 07/12/19 at 23:00; Stop 07/12/19 at 23:01; Status DC Hydralazine HCl (Apresoline Inj) 10 mg PRN Q4HRS PRN IVP ELEVATED BP, SEE COMMENTS Last administered on 07/19/19at 09:07; Start 07/12/19 at 22:45 Doxazosin Mesylate (Cardura) 8 mg 1X ONCE PO Last administered on 07/12/19 2 3:08; Start 07/12/19 at 23:30; Stop 07/12/19 at 23:31; Status DC Amlodipine Besylate (Norvasc) 10 mg 1X ONCE PO Last administered on 07/12/19at 23:00; Start 07/12/19 at 23:30; Stop 07/12/19 at 23:31; Status DC Lorazepam (Ativan Inj) 1 mg PRN Q2HRS PRN IVP ANXIETY / AGITATION Last administered on 07/17/19 12:20; Start 07/12/19 at 23:00 Enoxaparin Sodium (Lovenox 60mg Syringe) 60 mg Q12HR SQ Last administered on 07/19/19 08:46; Start 07/13/19 at 09:00 Lactobacillus Rhamnosus (Culturelle) 1 cap BID PO Last administered on 07/19/19 08:44; Start 07/13/19 at 21:00 Throat Lozenges (Cepacol Sore Throat Lozenge) 1 jessica PRN Q2HRS PRN PO SORE THROAT Last administered on 07/14/19 08:56; Start 07/13/19 at 16:30 Haloperidol Lactate (Haldol Inj) 3 mg PRN Q4HRS PRN IVP AGITATION Last administered on 07/14/19 22:59; Start 07/14/19 at 22:30 Fentanyl Citrate 30 ml @ 0 mls/hr CONT PRN IV SEE PROTOCOL Last administered on 07/16/19at 16:07; Start 07/15/19 at 05:45; Stop 07/16/19 at 21:59; Status DC Propofol 100 ml @ 0 mls/hr CONT PRN IV SEE PROTOCOL Last administered on 07/15/19at 06:03; Start 07/15/19 at 05:45; Stop 07/15/19 at 06:06; Status DC Famotidine (Pepcid Vial) 20 mg BID IVP Last administered on 07/19/19 08:43; Start 07/15/19 at 09:00 Midazolam HCl 100 ml @ 0 mls/hr CONT PRN IV SEE PROTOCOL Last administered on 07/19/19at 06:25; Start 07/15/19 at 05:45 Ketamine HCl (Ketamine) 50 mg STK-MED ONCE .ROUTE ; Start 07/15/19 at 05:44; Stop 07/15/19 at 05:44; Status DC Succinylcholine Chloride (Anectine) 200 mg STK-MED ONCE .ROUTE ; Start 07/15/19 at 05:45; Stop 07/15/19 at 05:45; Status DC Succinylcholine Chloride (Anectine) 200 mg 1X ONCE IV Last administered on 07/15/19at 06:00; Start 07/15/19 at 06:15; Stop 07/15/19 at 06:16; Status DC Propofol 100 ml @ 2.7 mls/hr CONT PRN IV SEE I/O RECORD Last administered on 07/15/19at 10:08; Start 07/15/19 at 06:15 Ketamine HCl (Ketamine) 50 mg 1X ONCE IV Last administered on 07/15/19at 05:55; Start 07/15/19 at 06:15; Stop 07/15/19 at 06:16; Status DC Vecuronium [place] (Norcuron Bolus) 6 mg 1X ONCE IV Last administered on 07/15/19at 06:55; Start 07/15/19 at 07:00; Stop 07/15/19 at 07:01; Status DC Vecuronium [place] (Norcuron Bolus) 10 mg STK-MED ONCE IV ; Start 07/15/19 at 06:53; Stop 07/15/19 at 06:53; Status DC Tocilizumab 800 mg/Sodium Chloride 100 ml @ 100 mls/hr ONCE ONCE IV Last administered on 07/15/19at 15:51; Start 07/15/19 at 16:00; Stop 07/15/19 at 16:59; Status DC Dextrose (Dextrose 50%-Water Syringe) 25 gm STK-MED ONCE IV ; Start 07/15/19 at 15:55; Stop 07/15/19 at 15:56; Status DC Dexmedetomidine HCl 400 mcg/ Sodium Chloride 100 ml @ 9 mls/hr CONT PRN IV SEDATION Last administered on 07/19/19at 06:25; Start 07/15/19 at 16:30 Dexmedetomidine HCl 400 mcg/ Sodium Chloride 100 ml @ 0 mls/hr CONT PRN IV SEDATION; Start 07/15/19 at 16:30; Status UNV Dextrose (Dextrose 50%-Water Syringe) 25 gm 1X ONCE IV Last administered on 07/15/19at 16:28; Start 07/15/19 at 16:30; Stop 07/15/19 at 16:31; Status DC Amino Acids/ Glycerin/ Electrolytes 1,000 ml @ 80 mls/hr [id number] IV Last administered on 07/18/19at 13:03; Start 07/16/19 at 10:00; Stop 07/18/19 at 21:59; Status DC Sodium Bicarbonate (Sodium Bicarb Adult 8.4% Syr) 50 meq 1X ONCE IV Last administered on 07/16/19at 11:23; Start 07/16/19 at 09:30; Stop 07/16/19 at 09:31; Status DC Fentanyl Citrate 55 ml @ 0 mls/hr CONT PRN IV SEE I/O RECORD Last administered on 07/19/19at 02:53; Start 07/16/19 at 22:00 Vecuronium [place] (Norcuron Bolus) 10 mg PRN Q6HRS PRN IV ASYNCHRONARY W/ VENT Last administered on 07/17/19 12:19; Start 07/17/19 at 10:00 Vecuronium [place] 50 mg/ Miscellaneous 50 ml @ 8.976 mls/ hr CONT PRN IV SEE I/O RECORD Last administered on 07/19/19 07:14; Start 07/17/19 at 12:15 Info (Tpn Per Pharmacy) 1 each PRN DAILY PRN MC SEE COMMENTS Last administered on 07/18/19at 12:54; Start 07/18/19 at 10:45 Sodium Acetate 60 meq/Potassium Phosphate 13.6 mmol/Magnesium Sulfate 10 meq/ Calcium Gluconate 10 meq/ Multivitamins 10 ml/Chromium/ Copper/Manganese/ Seleni/Zn 0.5 ml/ Total Parenteral Nutrition/Amino Acids/Dextrose 1,920 ml @ 80 mls/hr TPN CONT IV Last administered on 07/18/19at 22:18; Start 07/18/19 at 22:00; Stop 07/19/19 at 21:59 Labetalol HCl (Normodyne Iv Push) 20 mg 1X ONCE IVP ; Start 07/19/19 at 09:30; Stop 07/19/19 at 09:31 Labetalol HCl (Normodyne Iv Push) 10 mg PRN Q5MIN PRN IVP HYPERTENSION; Start 07/19/19 at 09:30 Active Scripts Active Reported Metformin Hcl 1,000 Mg Tablet 1,000 Mg PO BIDWMEALS Lisinopril 40 Mg Tablet 40 Mg PO DAILY Allopurinol 300 Mg Tablet 300 Mg PO DAILY Metoprolol Tartrate 25 Mg Tablet 25 Mg PO BID Doxazosin Mesylate 8 Mg Tablet 8 Mg PO DAILY Amlodipine Besylate 10 Mg Tablet 10 Mg PO DAILY Vitals/I & O Vital Sign - Last 24 Hours 07/18/19 07/18/19 07/18/19 07/18/19 10:00 10:50 10:50 10:51 Pulse 130 133 130 133 28 B/P (MAP) 156/58 (90) 141/75 141/54 139/54 Pulse Ox 80 O2 Delivery Ventilator 07/18/19 07/18/19 07/18/19 07/18/19 11:00 12:00 12:00 12:00 Temp 98.1 98.1 Pulse 132 96 92 B/P (MAP) 140/56 (84) 99/50 (66) Pulse Ox 75 97 O2 Delivery Ventilator Mechanical Ventilator Ventilator 07/18/19 07/18/19 07/18/19 07/18/19 12:26 13:00 14:00 15:00 Pulse 88 85 87 Resp 28 B/P (MAP) 100/55 (70) 101/55 (70) 110/56 (74) Pulse Ox 97 97 97 97 O2 Delivery Ventilator Ventilator Ventilator Ventilator 07/18/19 07/18/19 07/18/19 07/18/19 15:08 15:39 16:00 16:00 Pulse 87 86 Pulse Ox 99 O2 Delivery Ventilator Mechanical Ventilator 07/18/19 07/18/19 07/18/19 07/18/19 16:00 17:00 19:00 20:00 Temp 97.7 97.7 Pulse 87 88 82 28 B/P (MAP) 115/59 (77) 118/61 (80) 115/59 (77) Pulse Ox 99 99 100 100 O2 Delivery Ventilator Ventilator Ventilator Ventilator 07/18/19 07/18/19 07/18/19 07/18/19 20:00 20:00 20:00 20:57 Temp 99.2 99.2 Pulse 80 80 76 28 B/P (MAP) 114/63 (80) 114/63 (80) 110/60 Pulse Ox 100 O2 Delivery Mechanical Ventilator Ventilator 07/18/19 07/18/19/07/0307/18/19 21:00 22:00 22:13 23:00 Pulse 75 72 68 Resp 28 B/P (MAP) 101/59 (73) 98/59 (72) 100/58 (72) Pulse Ox 100 100 100 100 O2 Delivery Ventilator Ventilator Ventilator Ventilator 07/19/19 07/19/19/08/0207/19/19 00:00 00:00 00:00 01:00 Temp 98.9 98.9 Pulse 71 71 74 Resp B/P (MAP) 104/59 (74) 104/59 (74) 118/64 (82) Pulse Ox 100 100 O2 Delivery Ventilator Mechanical Ventilator Ventilator 07/19/19 07/19/19/08/0207/19/19 01:30 02:00 03:00 03:45 Pulse 79 88 B/P (MAP) 136/70 (92) 153/77 (102) Pulse Ox 100 100 100 O2 Delivery Ventilator Ventilator Ventilator Mechanical Ventilator 07/19/19 07/19/19/08/0207/19/19 04:00 04:00 05:00 05:10 Temp 98.8 98.8 Pulse 89 89 84 B/P (MAP) 119/64 (82) 119/64 (82) 138/72 (94) Pulse Ox 100 100 100 O2 Delivery Ventilator Ventilator Ventilator 07/19/19 07/19/19/08/0207/19/19 06:00 07:00 08:44 08:45 Pulse 102 93 115 115 B/P (MAP) 177/73 (107) 125/67 (86) 164/73 164/73 Pulse Ox 98 97 O2 Delivery Ventilator Ventilator 07/19/19 07/19/19 08:46 09:07 Pulse 115 128 B/P (MAP) 164/73 223/88 Intake and Output 07/18/19 07/18/19 07/19/19 15:00 23:00 07:00 Intake Total 1597.6 ml 1317 ml Output Total 650 ml 610 ml 390 ml Balance -650 ml 987.6 ml 927 ml GABRIEL REGALADO MD July 19, 2019 09:27
[2019-07-19] MEDS ORDERED: LABETALOL 20 MG/4 ML DISP.SYRIN. IVP ONE (09:30)
[2019-07-19] MEDS: TPN PER PHARMACY MC PRN (09:51)
--- NOTE | 2019-07-19 09:52 | NUR ---
Pharmacy TPN Dosing Note S: REINALDO BOWER is a 48 year old M Currently receiving Central Continuous TPN started 07/18/19 B:Pertinent PMH: critical illness Height: 6 feet, 1 inches Weight: 182.0 kg Current diet: NPO LABS: Sodium: 139 Potassium: 5.1 Chloride: 106 Calcium: 8.5 Corrected Calcium: 9.94 Magnesium: 2.5 CO2: 26 SCr: 1.2 Glucose: 145, 132 Albumin: 2.2 AST: 59 ALT: 73 TPN FORMULA: TPN TYPE: Central Continuous AMINO ACIDS: 155 gm DEXTROSE: 225 gm LIPIDS: 20 gm SODIUM ACETATE: 60 mEq POTASSIUM PHOSPHATE: 13.6 mmol MAGNESIUM: 5 mEq CALCIUM: 10 mEq MULTIPLE VITAMIN: 10 ml TRACE ELEMENTS: 0.5 ml TPN PLAN: -Propofol infusion off, start lipids 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 -Serum mag elevated, reduce mag sulfate to 5 mEq/day. -Other labs appear trending towards goal. -Trigs 238, okay to start lipids at this TG level. -BMP, mag, phos tomorrow. R: Continue TPN @ current rate and above formula. Will monitor electrolytes, glucose, and tolerance to TPN. TITI MILLER [facility], 07/19/19 [id number]
[2019-07-19] MEDS: LABETALOL 20 MG/4 ML DISP.SYRIN. IVP PRN ×2 (10:12→11:02)
--- NOTE | 2019-07-19 14:06 | PDOC ---
SIMA WIN TOBY MAKER 07/19/19 1406: CARDIO Progress Notes Date and Time Date of Service 07/19/19 Time of Evaluation 1110 Subjective Subjective: No Chest Pain, No shortness of breath, No Palpitations, Other (sedated / intubated ) Vitals Vitals Vital Signs Date Time Temp Pulse Resp B/P (MAP) Pulse Ox O2 Delivery O2 Flow Rate FiO2 07/19/19 13:03 94 Ventilator 07/19/19 13:00 102 28 108/42 (64) 07/19/19 09:56 98.3 98.3 Weight Weight [ ] Input and Output Intake and Output Intake and Output 07/19/19 07:00 Intake Total 2914.6 ml Output Total 1650 ml Balance 1264.6 ml IV Total 2914.6 ml Output Urine Total 1650 ml Laboratory Labs Laboratory Tests Test 07/19/19 00:04 07/19/19 05:15 07/19/19 05:21 07/19/19 08:00 Glucose (Fingerstick) 131 mg/dL (70-99) 132 mg/dL (70-99) Sodium Level 139 mmol/L (136-145) Potassium Level 5.1 mmol/L (3.5-5.1) Chloride Level 106 mmol/L (98-107) Carbon Dioxide Level 26 mmol/L (21-32) Anion Gap 7 (6-14) Blood Urea Nitrogen 39 mg/dL (8-26) Creatinine 1.2 mg/dL (0.7-1.3) Estimated GFR (Cockcroft-Gault) 78.2 Glucose Level 145 mg/dL (70-99) Calcium Level 8.5 mg/dL (8.5-10.1) Phosphorus Level 4.1 mg/dL (2.6-4.7) Magnesium Level 2.5 mg/dL (1.8-2.4) Triglycerides Level 238 mg/dL (0-150) O2 Saturation 85 % (92-99) Arterial Blood pH 7.29 (7.35-7.45) Arterial Blood pCO2 at Patient Temp 53 mmHg (35-46) Arterial Blood pO2 at Patient Temp 56 mmHg (75-108) Arterial Blood HCO3 25 mmol/L (21-28) Arterial Blood Base Excess -2 mmol/L (-3-3) FiO2 100% vent Test 07/19/19 10:22 Glucose (Fingerstick) 148 mg/dL (70-99) Microbiology Micro Microbiology 07/12/19 Blood Culture - Final, Complete NO GROWTH AFTER 5 DAYS Physical Exam HEENT: Neck Supple W Full Motion Chest: Symmetric LUNGS: Other (mechanical vent ) Heart: RRR (SR/ST), other (distant heart tones ) Abdomen: Other (obese) Extremities: Other (trace bilateral LE edema) Neurology: other (sedated) Assessment Assessment 1. Acute respiratory failure secondary to COVID PNA, ARDS. s/p intubation. s/p convalescent plasma. continue as per pulm and ID. 2. Systolic murmur; . Heart tones difficulty to appreciate with mechanical ventilation 3. Hypertension; controlled 4. Hyperlipidemia; statin 5. Diabetes, II 6. Morbid obesity 7. Hyperkalemia; resolved. 8. Elevated LFTs Recommendations Continue current antiHTN therapy Hold statin with elevated LFTs Consider echo pending course of hospitalization. Supportive care KM NIEVES MD 07/19/19 1425: CARDIO Progress Notes Assessment Assessment Agree with GROUNDS CLEANER's assessment and plan. Continue treatment for acute respiratory failure/COVID pneumonia per pulmonary and ID teams We will consider 2D echo to evaluate systolic murmur if patient's condition improves. SIMA WIN APRN July 19, 2019 14:06 KM NIEVES MD July 19, 2019 14:25
[2019-07-19] MEDS ORDERED: NOREPINEPHRINE VIAL 8 MG in IV DEXTROSE 5% 250 ML IV PRN (16:00)
--- NOTE | 2019-07-19 16:11 | NUR ---
SS following up with discharge planning. SS reviewed pt chart and discussed with RN, Paco. Pt remains on the vent at this time and is COVID19 positive. Pt is Full Code. SS will continue to follow for discharge planning.
[2019-07-19 16:51] LABS: BASE EXCESS ABG -3 mmol/L (-3-3); HCO3 ABG 25 mmol/L (21-28); PCO2 ABG 58 mmHg (35-46); PO2 ABG 53 mmHg (75-108); SAT O2 ABG 81 % (92-99)
[2019-07-19 16:54] LABS: FIO2 ABG 100
--- NOTE | 2019-07-19 17:42 | NUR ---
Patient was maintaining around 92% on PEEP 15 and 100% FIO2 for a majority of the day. Around 1530, SPO2 decreased to 78%, patient was suctioned and bolus of medication given but SPO2 remained low. Dr. Freitas notified, received the order to increase PEEP to 17 and reverse the I:E ratio and get an ABG after changes are made. After increase in PEEP, patient became hypotensive in the 70s/30s, received the order to start levophed. Notified Dr. Freitas of repeat ABG results, no changes for now. Notified patient's of change in condition.
[2019-07-19] MEDS: METOPROLOL TARTRATE 5 MG/5 ML VIAL. IVP SCH ×2 (18:00→23:42)
[2019-07-19] MEDS: IV NORMAL SALINE 1000ML BAG 1,000 ML IV SCH (20:39)
[2019-07-19] MEDS ORDERED: DEXTROSE 70% IV SCH ×9 (22:00)
[2019-07-19] MEDS ORDERED: AMINO ACID IV SCH ×9 (22:00)
[2019-07-19] MEDS ORDERED: [UNRECOGNIZED DRUG - OTHER] IV SCH ×9 (22:00)
[2019-07-19] MEDS ORDERED: TOTAL PARENTERAL NUTRITION IV SCH ×9 (22:00)
[2019-07-20] VITALS (24 sets, daily range): BP systolic 86–146; BP diastolic 48–68
[2019-07-20] MEDS: METOPROLOL TARTRATE 5 MG/5 ML VIAL. IVP SCH ×3 (05:32→17:40)
[2019-07-20] MEDS: fentaNYL HIGH DOSE PCA 55 ML IV PRN ×2 (05:34→06:30)
[2019-07-20 06:18] LABS: CALCIUM 8.6 mg/dL (8.5-10.1); CREATININE 2.1 mg/dL (0.7-1.3); MAGNESIUM 2.5 mg/dL (1.8-2.4); PHOSPHORUS 4.6 mg/dL (2.6-4.7); POTASSIUM 5.5 mmol/L (3.5-5.1)
[2019-07-20] MEDS ORDERED: MIDAZOLAM PREMIX 100 MG/100 ML NS BAG. IV ONE (06:47)
[2019-07-20] MEDS: metFORMIN 500 MG TABLET PO SCH (08:00)
[2019-07-20] MEDS: amLODIPine BESYLATE 10 MG TABLET PO SCH (09:00)
[2019-07-20] MEDS: LISINOPRIL 20 MG TABLET PO SCH (09:00)
[2019-07-20 09:02] LABS: BASE EXCESS ABG -2 mmol/L (-3-3); HCO3 ABG 26 mmol/L (21-28); PCO2 ABG 58 mmHg (35-46); PO2 ABG 64 mmHg (75-108); SAT O2 ABG 88 % (92-99)
[2019-07-20 09:07] LABS: FIO2 ABG 100
--- NOTE | 2019-07-20 10:57 | NUR ---
SS following up with discharge planning. SS discussed with RNJacqueline. Pt remains on the vent at this time. Pt is COVID19 positive and Full Code. Pt on TPN. SS will continue to follow for discharge planning.
--- NOTE | 2019-07-20 11:34 | PDOC ---
SIMA WIN NETWORK SPECIALIST 07/20/19 1134: CARDIO Progress Notes Date and Time Date of Service 07/20/19 Time of Evaluation 1110 Subjective Subjective: Other (sedated / intubated ) Vitals Vitals Vital Signs Date Time Temp Pulse Resp B/P (MAP) Pulse Ox O2 Delivery O2 Flow Rate FiO2 07/20/19 08:00 98 Ventilator 07/20/19 06:00 104 28 138/68 (91) 07/20/19 04:00 97.8 97.8 Weight Weight [ ] Input and Output Intake and Output Intake and Output 07/20/19 07:00 Intake Total 2966 ml Output Total 1380 ml Balance 1586 ml IV Total 2966 ml Output Urine Total 1380 ml Laboratory Labs Laboratory Tests Test 07/19/19 15:41 07/19/19 23:48 07/20/19 05:45 07/20/19 08:00 O2 Saturation 81 % (92-99) 88 % (92-99) Arterial Blood pH 7.25 (7.35-7.45) 7.26 (7.35-7.45) Arterial Blood pCO2 at Patient Temp 58 mmHg (35-46) 58 mmHg (35-46) Arterial Blood pO2 at Patient Temp 53 mmHg (75-108) 64 mmHg (75-108) Arterial Blood HCO3 25 mmol/L (21-28) 26 mmol/L (21-28) Arterial Blood Base Excess -3 mmol/L (-3-3) -2 mmol/L (-3-3) FiO2 100 100 Glucose (Fingerstick) 160 mg/dL (70-99) Sodium Level 137 mmol/L (136-145) Potassium Level 5.5 mmol/L (3.5-5.1) Chloride Level 104 mmol/L (98-107) Carbon Dioxide Level 26 mmol/L (21-32) Anion Gap 7 (6-14) Blood Urea Nitrogen 65 mg/dL (8-26) Creatinine 2.1 mg/dL (0.7-1.3) Estimated GFR (Cockcroft-Gault) 41.0 Glucose Level 172 mg/dL (70-99) Calcium Level 8.6 mg/dL (8.5-10.1) Phosphorus Level 4.6 mg/dL (2.6-4.7) Magnesium Level 2.5 mg/dL (1.8-2.4) Microbiology Micro Microbiology 07/12/19 Blood Culture - Final, Complete NO GROWTH AFTER 5 DAYS Physical Exam HEENT: Neck Supple W Full Motion Chest: Symmetric LUNGS: Other (mechanical vent ) Heart: RRR (SR/ST), other (distant heart tones ) Abdomen: Other (obese) Extremities: Other (trace bilateral LE edema) Neurology: other (sedated) Assessment Assessment 1. Acute respiratory failure secondary to COVID PNA, ARDS. s/p intubation. s/p convalescent plasma. 2. Systolic murmur; heart tones difficult to appreciate with mechanical ventilation 3. Hypertension; now low end 4. Hyperlipidemia; statin 5. Diabetes, II 6. Morbid obesity 7. Hyperkalemia; resolved. 8. Elevated LFTs 9. GABRIEL, hyperkalemia Recommendations Hold antiHTN therapy as warranted Continue treatment as per pulm and ID. Statin on hold with elevated LFTs Consider echo to assess systolic murmur if patient's condition improves. Supportive care SOCORRO MEJIA MD 07/20/19 1527: CARDIO Progress Notes Assessment Assessment Patient seen and evaluated Acute respiratory failure secondary to COVID PNA, ARDS. s/p intubation. s/p convalescent plasma. Systolic murmur; heart tones difficult to appreciate with mechanical ventilation. Consider echo when COVID guidelines allow. Hypertension; now low end Hyperlipidemia; statin on hold due to elevated LFTs.. Diabetes, II GABRIEL, hyperkalemia SIMA WIN APRN July 20, 2019 11:34 SOCORRO MEJIA MD July 20, 2019 15:27
[2019-07-20] MEDS: ALLOPURINOL 300 MG TABLET. PO SCH (12:15)
[2019-07-20] MEDS: LACTOBACILLUS RHAMNOSUS GG 1 CAPSULE. PO SCH ×2 (12:17→20:10)
[2019-07-20] MEDS: DOXAZOSIN MESYLATE 4 MG TABLET. PO SCH (12:17)
[2019-07-20] MEDS: FAMOTIDINE 20 MG/2 ML VIAL IVP SCH ×2 (12:29→20:10)
[2019-07-20] MEDS: TPN PER PHARMACY MC PRN (13:16)
--- NOTE | 2019-07-20 13:30 | NUR ---
Pharmacy TPN Dosing Note S: REINALDO BOWER is a 48 year old M Currently receiving Central Continuous TPN started 07/18/19 B:Pertinent PMH: critical illness Height: 6 feet, 1 inches Weight: 181.6 kg Current diet: NPO LABS: Sodium: 137 Potassium: 5.5 Chloride: 104 Calcium: 8.6 Corrected Calcium: 10.04 Magnesium: 2.5 CO2: 26 SCr: 2.1 Glucose: 132-172 Albumin: 2.2 AST: 59 ALT: 73 TPN FORMULA: TPN TYPE: Central Continuous AMINO ACIDS: 155 gm DEXTROSE: 225 gm LIPIDS: 20 gm SODIUM ACETATE: 60 mEq SODIUM PHOSPHATE: 5 mmol CALCIUM: 5 mEq MULTIPLE VITAMIN: 10 ml TRACE ELEMENTS: 0.5 ml(s) TPN PLAN: Worsening renal function today with increased K+ amd Mg++ Kphos removed from TPN and 5mmol of sodium phos added. Magnesium removed from TPN Calcium reduced to 5mEq/bag d/t mildly elevated corrected calcium. R: Change TPN per plan and ordered fromula Will monitor electrolytes, glucose, and tolerance to TPN. [place] Pillai [facility], 07/20/19 [id number]
--- NOTE | 2019-07-20 14:35 | PDOC ---
PULMONARY PROGRESS NOTES Subjective continue AC mode, on 100% fio2 15 PEEP Vitals Vital Signs Date Time Temp Pulse Resp B/P (MAP) Pulse Ox O2 Delivery O2 Flow Rate FiO2 07/20/19 12:17 66 97/52 07/20/19 12:00 98.3 28 99 Ventilator 98.3 Comments Visual exam done due to COVID pandemic Patient in sync with the ventilator, no respiratory distress. Labs Laboratory Tests Test 07/19/19 00:04 07/19/19 05:15 07/19/19 05:21 07/19/19 08:00 Glucose (Fingerstick) 131 mg/dL (70-99) 132 mg/dL (70-99) Sodium Level 139 mmol/L (136-145) Potassium Level 5.1 mmol/L (3.5-5.1) Chloride Level 106 mmol/L (98-107) Carbon Dioxide Level 26 mmol/L (21-32) Anion Gap 7 (6-14) Blood Urea Nitrogen 39 mg/dL (8-26) Creatinine 1.2 mg/dL (0.7-1.3) Estimated GFR (Cockcroft-Gault) 78.2 Glucose Level 145 mg/dL (70-99) Calcium Level 8.5 mg/dL (8.5-10.1) Phosphorus Level 4.1 mg/dL (2.6-4.7) Magnesium Level 2.5 mg/dL (1.8-2.4) Triglycerides Level 238 mg/dL (0-150) O2 Saturation 85 % (92-99) Arterial Blood pH 7.29 (7.35-7.45) Arterial Blood pCO2 at Patient Temp 53 mmHg (35-46) Arterial Blood pO2 at Patient Temp 56 mmHg (75-108) Arterial Blood HCO3 25 mmol/L (21-28) Arterial Blood Base Excess -2 mmol/L (-3-3) FiO2 100% vent Test 07/19/19 10:22 07/19/19 15:41 07/19/19 23:48 07/20/19 05:45 Glucose (Fingerstick) 148 mg/dL (70-99) 160 mg/dL (70-99) O2 Saturation 81 % (92-99) Arterial Blood pH 7.25 (7.35-7.45) Arterial Blood pCO2 at Patient Temp 58 mmHg (35-46) Arterial Blood pO2 at Patient Temp 53 mmHg (75-108) Arterial Blood HCO3 25 mmol/L (21-28) Arterial Blood Base Excess -3 mmol/L (-3-3) FiO2 100 Sodium Level 137 mmol/L (136-145) Potassium Level 5.5 mmol/L (3.5-5.1) Chloride Level 104 mmol/L (98-107) Carbon Dioxide Level 26 mmol/L (21-32) Anion Gap 7 (6-14) Blood Urea Nitrogen 65 mg/dL (8-26) Creatinine 2.1 mg/dL (0.7-1.3) Estimated GFR (Cockcroft-Gault) 41.0 Glucose Level 172 mg/dL (70-99) Calcium Level 8.6 mg/dL (8.5-10.1) Phosphorus Level 4.6 mg/dL (2.6-4.7) Magnesium Level 2.5 mg/dL (1.8-2.4) Test 07/20/19 08:00 07/20/19 12:26 O2 Saturation 88 % (92-99) Arterial Blood pH 7.26 (7.35-7.45) Arterial Blood pCO2 at Patient Temp 58 mmHg (35-46) Arterial Blood pO2 at Patient Temp 64 mmHg (75-108) Arterial Blood HCO3 26 mmol/L (21-28) Arterial Blood Base Excess -2 mmol/L (-3-3) FiO2 100 Glucose (Fingerstick) 141 mg/dL (70-99) Laboratory Tests Test 07/19/19 15:41 07/19/19 23:48 07/20/19 05:45 07/20/19 08:00 O2 Saturation 81 % (92-99) 88 % (92-99) Arterial Blood pH 7.25 (7.35-7.45) 7.26 (7.35-7.45) Arterial Blood pCO2 at Patient Temp 58 mmHg (35-46) 58 mmHg (35-46) Arterial Blood pO2 at Patient Temp 53 mmHg (75-108) 64 mmHg (75-108) Arterial Blood HCO3 25 mmol/L (21-28) 26 mmol/L (21-28) Arterial Blood Base Excess -3 mmol/L (-3-3) -2 mmol/L (-3-3) FiO2 100 100 Glucose (Fingerstick) 160 mg/dL (70-99) Sodium Level 137 mmol/L (136-145) Potassium Level 5.5 mmol/L (3.5-5.1) Chloride Level 104 mmol/L (98-107) Carbon Dioxide Level 26 mmol/L (21-32) Anion Gap 7 (6-14) Blood Urea Nitrogen 65 mg/dL (8-26) Creatinine 2.1 mg/dL (0.7-1.3) Estimated GFR (Cockcroft-Gault) 41.0 Glucose Level 172 mg/dL (70-99) Calcium Level 8.6 mg/dL (8.5-10.1) Phosphorus Level 4.6 mg/dL (2.6-4.7) Magnesium Level 2.5 mg/dL (1.8-2.4) Test 07/20/19 12:26 Glucose (Fingerstick) 141 mg/dL (70-99) Medications Active Scripts Medications Dose Route/Sig Max Daily Dose Days Date Category Metformin Hcl 1,000 Mg Tablet 1,000 Mg PO BIDWMEALS 07/12/19 Reported Lisinopril 40 Mg Tablet 40 Mg PO DAILY 07/12/19 Reported Allopurinol 300 Mg Tablet 300 Mg PO DAILY 07/12/19 Reported Metoprolol Tartrate 25 Mg Tablet 25 Mg PO BID 07/12/19 Reported Doxazosin Mesylate 8 Mg Tablet 8 Mg PO DAILY 07/12/19 Reported Amlodipine Besylate 10 Mg Tablet 10 Mg PO DAILY 07/12/19 Reported Impression . 1. Acute hypoxic respiratory failure multifactorial, COVID-19, ARDS, INTUBATED 07/14 2. Abnormal chest x-ray with bilateral infiltrates suggestive of coronavirus disease-19 pneumonia, possible bacterial pneumonia 3. Underlying morbid obesity. 4. Diabetes. 5. Nonsmoker. 6. Increase inflammatory markers suggestive of cytokine surge 7. s/p convalescent plasma Plan . ABG noted, adequate pH for the circumstance Will monitor inflammatory markers Empiric antibiotic Status post convalescent serum transfusion 07/13 Nutritional support Status post Tocilizumab Labs DVT GI prophylax Total cumulative critical care time of 35 minutes, reviewing labs, chest x-ray, data, formulating a plan PURA FOSTER MD July 20, 2019 14:35
--- NOTE | 2019-07-20 16:20 | PDOC ---
PROGRESS NOTES Chief Complaint Chief Complaint Acute hypoxic/// HYPERCAPNIC resp failure REQUIRING VENT SUPPORT Super morbid obesity Bibasilar lung airspace opacities likely atelectasis or infiltrates likely pn eumonia or atelectasis or atypical/viral infection/viral pneumonia Diabetes Hypertension, uncontrolled normocytic anemia SEVERE PROTEIN, CALORIC MALNUTRITION COVID-19 POS Plan: 1. Continue present AC mode, on 100% FIO2 ,14 PEEP. Make changes based on A BG's 2. COVID-19 positive 3. Empiric antibiotics. 4. s/p convalescent plasma transfusion 07/13 5. nutrition, PPN and TF at5 low dose 6. Monitor LFT 7. Discussed with RN. 8. S/P monoclonal antibodies/Tocilizumab 07/15/19 lovenox/pepcid History of Present Illness History of Present Illness No acute events reported overnight, case discussed with nursing staff patient in no acute distress no distress during my visit Prognosis guarded, remains critically stable Vitals Vitals Vital Signs Date Time Temp Pulse Resp B/P (MAP) Pulse Ox O2 Delivery O2 Flow Rate FiO2 07/20/19 12:17 66 97/52 07/20/19 12:00 98.3 28 99 Ventilator 98.3 Physical Exam Physical Exam GENERAL: patient is intubated and sedated unresponsive on the ventilator HEENT unremarkable for acute abnormality Chest bilateral equal air entry inspiratory and expiratory wheezes at the bilateral bases anteriorly Heart S1-S2 normal regular rate and rhythm loud systolic murmur at the right second intercostal space Abdomen is obese soft nontender nondistended no masses or organomegaly noted Extremity exam is unremarkable for acute abnormality 1+ bipedal edema is noted General: Oriented X3, Cooperative, No acute distress, mild distress Abdomen: Soft Extremities: No cyanosis Labs LABS Laboratory Tests Test 07/19/19 23:48 07/20/19 05:45 07/20/19 08:00 07/20/19 12:26 Glucose (Fingerstick) 160 mg/dL (70-99) 141 mg/dL (70-99) Sodium Level 137 mmol/L (136-145) Potassium Level 5.5 mmol/L (3.5-5.1) Chloride Level 104 mmol/L (98-107) Carbon Dioxide Level 26 mmol/L (21-32) Anion Gap 7 (6-14) Blood Urea Nitrogen 65 mg/dL (8-26) Creatinine 2.1 mg/dL (0.7-1.3) Estimated GFR (Cockcroft-Gault) 41.0 Glucose Level 172 mg/dL (70-99) Calcium Level 8.6 mg/dL (8.5-10.1) Phosphorus Level 4.6 mg/dL (2.6-4.7) Magnesium Level 2.5 mg/dL (1.8-2.4) O2 Saturation 88 % (92-99) Arterial Blood pH 7.26 (7.35-7.45) Arterial Blood pCO2 at Patient Temp 58 mmHg (35-46) Arterial Blood pO2 at Patient Temp 64 mmHg (75-108) Arterial Blood HCO3 26 mmol/L (21-28) Arterial Blood Base Excess -2 mmol/L (-3-3) FiO2 100 Assessment and Plan Assessmemt and Plan Problems Medical Problems: (1) Suspected COVID-19 virus infection Status: Acute Comment Review of Relevant I have reviewed the following items lizzy (where applicable) has been applied. Labs Laboratory Tests Test 07/19/19 00:04 07/19/19 05:15 07/19/19 05:21 07/19/19 08:00 Glucose (Fingerstick) 131 mg/dL (70-99) 132 mg/dL (70-99) Sodium Level 139 mmol/L (136-145) Potassium Level 5.1 mmol/L (3.5-5.1) Chloride Level 106 mmol/L (98-107) Carbon Dioxide Level 26 mmol/L (21-32) Anion Gap 7 (6-14) Blood Urea Nitrogen 39 mg/dL (8-26) Creatinine 1.2 mg/dL (0.7-1.3) Estimated GFR (Cockcroft-Gault) 78.2 Glucose Level 145 mg/dL (70-99) Calcium Level 8.5 mg/dL (8.5-10.1) Phosphorus Level 4.1 mg/dL (2.6-4.7) Magnesium Level 2.5 mg/dL (1.8-2.4) Triglycerides Level 238 mg/dL (0-150) O2 Saturation 85 % (92-99) Arterial Blood pH 7.29 (7.35-7.45) Arterial Blood pCO2 at Patient Temp 53 mmHg (35-46) Arterial Blood pO2 at Patient Temp 56 mmHg (75-108) Arterial Blood HCO3 25 mmol/L (21-28) Arterial Blood Base Excess -2 mmol/L (-3-3) FiO2 100% vent Test 07/19/19 10:22 07/19/19 15:41 07/19/19 23:48 07/20/19 05:45 Glucose (Fingerstick) 148 mg/dL (70-99) 160 mg/dL (70-99) O2 Saturation 81 % (92-99) Arterial Blood pH 7.25 (7.35-7.45) Arterial Blood pCO2 at Patient Temp 58 mmHg (35-46) Arterial Blood pO2 at Patient Temp 53 mmHg (75-108) Arterial Blood HCO3 25 mmol/L (21-28) Arterial Blood Base Excess -3 mmol/L (-3-3) FiO2 100 Sodium Level 137 mmol/L (136-145) Potassium Level 5.5 mmol/L (3.5-5.1) Chloride Level 104 mmol/L (98-107) Carbon Dioxide Level 26 mmol/L (21-32) Anion Gap 7 (6-14) Blood Urea Nitrogen 65 mg/dL (8-26) Creatinine 2.1 mg/dL (0.7-1.3) Estimated GFR (Cockcroft-Gault) 41.0 Glucose Level 172 mg/dL (70-99) Calcium Level 8.6 mg/dL (8.5-10.1) Phosphorus Level 4.6 mg/dL (2.6-4.7) Magnesium Level 2.5 mg/dL (1.8-2.4) Test 07/20/19 08:00 07/20/19 12:26 O2 Saturation 88 % (92-99) Arterial Blood pH 7.26 (7.35-7.45) Arterial Blood pCO2 at Patient Temp 58 mmHg (35-46) Arterial Blood pO2 at Patient Temp 64 mmHg (75-108) Arterial Blood HCO3 26 mmol/L (21-28) Arterial Blood Base Excess -2 mmol/L (-3-3) FiO2 100 Glucose (Fingerstick) 141 mg/dL (70-99) Laboratory Tests Test 07/19/19 23:48 07/20/19 05:45 07/20/19 08:00 07/20/19 12:26 Glucose (Fingerstick) 160 mg/dL (70-99) 141 mg/dL (70-99) Sodium Level 137 mmol/L (136-145) Potassium Level 5.5 mmol/L (3.5-5.1) Chloride Level 104 mmol/L (98-107) Carbon Dioxide Level 26 mmol/L (21-32) Anion Gap 7 (6-14) Blood Urea Nitrogen 65 mg/dL (8-26) Creatinine 2.1 mg/dL (0.7-1.3) Estimated GFR (Cockcroft-Gault) 41.0 Glucose Level 172 mg/dL (70-99) Calcium Level 8.6 mg/dL (8.5-10.1) Phosphorus Level 4.6 mg/dL (2.6-4.7) Magnesium Level 2.5 mg/dL (1.8-2.4) O2 Saturation 88 % (92-99) Arterial Blood pH 7.26 (7.35-7.45) Arterial Blood pCO2 at Patient Temp 58 mmHg (35-46) Arterial Blood pO2 at Patient Temp 64 mmHg (75-108) Arterial Blood HCO3 26 mmol/L (21-28) Arterial Blood Base Excess -2 mmol/L (-3-3) FiO2 100 Microbiology 07/12/19 Blood Culture - Final, Complete NO GROWTH AFTER 5 DAYS Medications Current Medications Sodium Chloride 1,000 ml @ 1,000 mls/hr 1X ONCE IV Last administered on 07/12/19at 13:25; Start 07/12/19 at 13:30; Stop 07/12/19 at 14:29; Status DC Acetaminophen (Tylenol) 1,000 mg 1X ONCE PO Last administered on 07/12/19at 13:25; Start 07/12/19 at 13:45; Stop 07/12/19 at 13:46; Status DC Sodium Chloride (Normal Saline Flush) 3 ml QSHIFT PRN IV AFTER MEDS AND BLOOD DRAWS; Start 07/12/19 at 16:45 Sodium Chloride 1,000 ml @ 20 mls/hr Q24H IV Last administered on 07/19/19at 20:39; Start 07/12/19 at 16:41 Ondansetron HCl (Zofran) 4 mg PRN Q4HRS PRN IV NAUSEA/VOMITING; Start 07/12/19 at 16:45 Acetaminophen (Tylenol) 650 mg PRN Q4HRS PRN PO TEMP OVER 100.4F OR MILD PAIN Last administered on 07/14/19at 18:29; Start 07/12/19 at 16:45 Al Hydroxide/Mg Hydroxide (Mylanta Plus Xs) 30 ml PRN DAILY PRN PO HEARTBURN / GAS; Start 07/12/19 at 16:45 Clonidine HCl (Catapres) 0.1 mg PRN Q6HRS PRN PO SBP>160 OR DBP>90 Last administered on 07/15/19at 04:25; Start 07/12/19 at 16:45 Docusate Sodium (Colace) 100 mg PRN BID PRN PO CONSTIPATION; Start 07/12/19 at 16:45 Albuterol/ Ipratropium (Duoneb) 3 ml Q4H NEB ; Start 07/12/19 at 16:45; Stop 07/12/19 at 16:55; Status DC Guaifenesin (Robitussin) 200 mg PRN Q4HRS PRN PO COUGH Last administered on 07/14/19at 08:52; Start 07/12/19 at 16:45 Levofloxacin/ Dextrose 100 ml @ 100 mls/hr Q24H IV Last administered on 07/18/19at 16:29; Start 07/13/19 at 17:00; Stop 07/19/19 at 15:22; Status DC Albuterol/ Ipratropium (Duoneb) 3 ml Q4HRS NEB ; Start 07/12/19 at 20:00; Stop 07/12/19 at 18:33; Status DC Levofloxacin/ Dextrose 100 ml @ 100 mls/hr 1X ONCE IV Last administered on 07/12/19at 17:58; Start 07/12/19 at 17:45; Stop 07/12/19 at 18:44; Status DC Albuterol Sulfate (Ventolin Neb Soln) 2.5 mg PRN Q4HRS PRN NEB SHORTNESS OF BREATH; Start 07/12/19 at 18:45 Hydralazine HCl (Apresoline Inj) 10 mg PRN Q4HRS PRN IVP ELEVATED BP, SEE COMMENTS Last administered on 07/12/19at 20:31; Start 07/12/19 at 19:45; Stop 07/12/19 at 22:40; Status DC Allopurinol (Zyloprim) 300 mg DAILY PO Last administered on 07/20/19 12:15; Start 07/13/19 at 09:00 Amlodipine Besylate (Norvasc) 10 mg DAILY PO Last administered on 07/19/19 08:45; Start 07/13/19 at 09:00 Lisinopril (Prinivil) 40 mg DAILY PO Last administered on 07/19/19 08:46; Start 07/13/19 at 09:00 Metoprolol Tartrate (Lopressor) 25 mg BID PO Last administered on 07/18/19 20:57; Start 07/12/19 at 21:00; Stop 07/19/19 at 14:04; Status DC Doxazosin Mesylate (Cardura) 8 mg DAILY PO Last administered on 07/20/19 12:17; Start 07/13/19 at 09:00 Metformin HCl (Glucophage) 1,000 mg BIDWMEALS PO Last administered on 07/19/19 18:07; Start 07/13/19 at 08:00; Stop 07/20/19 at 13:33; Status DC Atorvastatin Calcium (Lipitor) 40 mg QHS PO Last administered on 07/18/19 20:57; Start 07/12/19 at 21:00; Stop 07/19/19 at 14:07; Status DC Lisinopril (Prinivil) 10 mg 1X ONCE PO Last administered on 07/13/19at 00:41; Start 07/12/19 at 23:00; Stop 07/12/19 at 23:01; Status DC Hydralazine HCl (Apresoline Inj) 10 mg PRN Q4HRS PRN IVP ELEVATED BP, SEE COMMENTS Last administered on 07/19/19 09:07; Start 07/12/19 at 22:45 Doxazosin Mesylate (Cardura) 8 mg 1X ONCE PO Last administered on 07/12/19at 23:08; Start 07/12/19 at 23:30; Stop 07/12/19 at 23:31; Status DC Amlodipine Besylate (Norvasc) 10 mg 1X ONCE PO Last administered on 07/12/19at 23:00; Start 07/12/19 at 23:30; Stop 07/12/19 at 23:31; Status DC Lorazepam (Ativan Inj) 1 mg PRN Q2HRS PRN IVP ANXIETY / AGITATION Last administered on 07/17/19 12:20; Start 07/12/19 at 23:00 Enoxaparin Sodium (Lovenox 60mg Syringe) 60 mg Q12HR SQ Last administered on 07/20/19 12:15; Start 07/13/19 at 09:00 Lactobacillus Rhamnosus (Culturelle) 1 cap BID PO Last administered on 07/20/19 12:17; Start 07/13/19 at 21:00 Throat Lozenges (Cepacol Sore Throat Lozenge) 1 jessica PRN Q2HRS PRN PO SORE THROAT Last administered on 07/14/19at 08:56; Start 07/13/19 at 16:30 Haloperidol Lactate (Haldol Inj) 3 mg PRN Q4HRS PRN IVP AGITATION Last administered on 07/14/19at 22:59; Start 07/14/19 at 22:30 Fentanyl Citrate 30 ml @ 0 mls/hr CONT PRN IV SEE PROTOCOL Last administered on 07/16/19at 16:07; Start 07/15/19 at 05:45; Stop 07/16/19 at 21:59; Status DC Propofol 100 ml @ 0 mls/hr CONT PRN IV SEE PROTOCOL Last administered on 07/15/19at 06:03; Start 07/15/19 at 05:45; Stop 07/15/19 at 06:06; Status DC Famotidine (Pepcid Vial) 20 mg BID IVP Last administered on 07/20/19at 12:29; Start 07/15/19 at 09:00 Midazolam HCl 100 ml @ 0 mls/hr CONT PRN IV SEE PROTOCOL Last administered on 07/19/19at 23:44; Start 07/15/19 at 05:45 Ketamine HCl (Ketamine) 50 mg STK-MED ONCE .ROUTE ; Start 07/15/19 at 05:44; Stop 07/15/19 at 05:44; Status DC Succinylcholine Chloride (Anectine) 200 mg STK-MED ONCE .ROUTE ; Start 07/15/19 at 05:45; Stop 07/15/19 at 05:45; Status DC Succinylcholine Chloride (Anectine) 200 mg 1X ONCE IV Last administered on 07/15/19at 06:00; Start 07/15/19 at 06:15; Stop 07/15/19 at 06:16; Status DC Propofol 100 ml @ 2.7 mls/hr CONT PRN IV SEE I/O RECORD Last administered on 07/15/19at 10:08; Start 07/15/19 at 06:15 Ketamine HCl (Ketamine) 50 mg 1X ONCE IV Last administered on 07/15/19at 05:55; Start 07/15/19 at 06:15; Stop 07/15/19 at 06:16; Status DC Vecuronium Amonate (Norcuron Bolus) 6 mg 1X ONCE IV Last administered on 07/15/19at 06:55; Start 07/15/19 at 07:00; Stop 07/15/19 at 07:01; Status DC Vecuronium Amonate (Norcuron Bolus) 10 mg STK-MED ONCE IV ; Start 07/15/19 at 06:53; Stop 07/15/19 at 06:53; Status DC Tocilizumab 800 mg/Sodium Chloride 100 ml @ 100 mls/hr ONCE ONCE IV Last administered on 07/15/19at 15:51; Start 07/15/19 at 16:00; Stop 07/15/19 at 16:59; Status DC Dextrose (Dextrose 50%-Water Syringe) 25 gm STK-MED ONCE IV ; Start 07/15/19 at 15:55; Stop 07/15/19 at 15:56; Status DC Dexmedetomidine HCl 400 mcg/ Sodium Chloride 100 ml @ 9 mls/hr CONT PRN IV SEDATION Last administered on 07/19/19at 19:22; Start 07/15/19 at 16:30 Dexmedetomidine HCl 400 mcg/ Sodium Chloride 100 ml @ 0 mls/hr CONT PRN IV SEDATION; Start 07/15/19 at 16:30; Status UNV Dextrose (Dextrose 50%-Water Syringe) 25 gm 1X ONCE IV Last administered on 07/15/19at 16:28; Start 07/15/19 at 16:30; Stop 07/15/19 at 16:31; Status DC Amino Acids/ Glycerin/ Electrolytes 1,000 ml @ 80 mls/hr [id number] IV Last administered on 07/18/19at 13:03; Start 07/16/19 at 10:00; Stop 07/18/19 at 21:59; Status DC Sodium Bicarbonate (Sodium Bicarb Adult 8.4% Syr) 50 meq 1X ONCE IV Last administered on 07/16/19at 11:23; Start 07/16/19 at 09:30; Stop 07/16/19 at 09:31; Status DC Fentanyl Citrate 55 ml @ 0 mls/hr CONT PRN IV SEE I/O RECORD Last administered on 07/20/19at 06:30; Start 07/16/19 at 22:00 Vecuronium Amonate (Norcuron Bolus) 10 mg PRN Q6HRS PRN IV ASYNCHRONARY W/ VENT Last administered on 07/17/19at 12:19; Start 07/17/19 at 10:00 Vecuronium Amonate 50 mg/ Miscellaneous 50 ml @ 8.976 mls/ hr CONT PRN IV SEE I/O RECORD Last administered on 07/19/19at 23:43; Start 07/17/19 at 12:15 Info (Tpn Per Pharmacy) 1 each PRN DAILY PRN MC SEE COMMENTS Last administered on 07/20/19at 13:16; Start 07/18/19 at 10:45 Sodium Acetate 60 meq/Potassium Phosphate 13.6 mmol/Magnesium Sulfate 10 meq/ Calcium Gluconate 10 meq/ Multivitamins 10 ml/Chromium/ Copper/Manganese/ Seleni/Zn 0.5 ml/ Total Parenteral Nutrition/Amino Acids/Dextrose 1,920 ml @ 80 mls/hr TPN CONT IV Last administered on 07/18/19at 22:18; Start 07/18/19 at 22:00; Stop 07/19/19 at 21:59; Status DC Labetalol HCl (Normodyne Iv Push) 20 mg 1X ONCE IVP Last administered on at 09:30; Start 07/19/19 at 09:30; Stop 07/19/19 at 09:31; Status DC Labetalol HCl (Normodyne Iv Push) 10 mg PRN Q5MIN PRN IVP HYPERTENSION; Start 07/19/19 at 09:30 Sodium Acetate 60 meq/Potassium Phosphate 13.6 mmol/Magnesium Sulfate 5 meq/ Calcium Gluconate 10 meq/ Multivitamins 10 ml/Chromium/ Copper/Manganese/ Seleni/Zn 0.5 ml/ Total Parenteral Nutrition/Amino Acids/Dextrose/ Fat Emulsion Intravenous 1,920 ml @ 80 mls/hr TPN CONT IV Last administered on 07/19/19at 20:45; Start 07/19/19 at 22:00; Stop 07/20/19 at 21:59 Metoprolol Tartrate (Lopressor Vial) 5 mg Q6HRS IVP ; Start 07/19/19 at 18:00 Norepinephrine Bitartrate 8 mg/ Dextrose 258 ml @ 35.217 mls/ hr CONT PRN IV PER PROTOCOL Last administered on 07/19/19at 15:59; Start 07/19/19 at 16:00 Sodium Acetate 60 meq/Sodium Phosphate 5 mmol/ Calcium Gluconate 5 meq/ Multivitamins 10 ml/Chromium/ Copper/Manganese/ Seleni/Zn 0.5 ml/ Total Parenteral Nutrition/Amino Acids/Dextrose/ Fat Emulsion Intravenous 1,920 ml @ 80 mls/hr TPN CONT IV ; Start 07/20/19 at 22:00; Stop 07/21/19 at 21:59 Active Scripts Active Reported Metformin Hcl 1,000 Mg Tablet 1,000 Mg PO BIDWMEALS Lisinopril 40 Mg Tablet 40 Mg PO DAILY Allopurinol 300 Mg Tablet 300 Mg PO DAILY Metoprolol Tartrate 25 Mg Tablet 25 Mg PO BID Doxazosin Mesylate 8 Mg Tablet 8 Mg PO DAILY Amlodipine Besylate 10 Mg Tablet 10 Mg PO DAILY Vitals/I & O Vital Sign - Last 24 Hours 07/19/19 07/19/19 07/19/19 07/19/19 17:00 17:15 17:48 18:00 Pulse 118 115 108 108 Resp 28 28 B/P (MAP) 158/66 (96) 118/52 (74) 116/58 (77) 122/58 (79) Pulse Ox 94 95 96 O2 Delivery Ventilator Ventilator Ventilator 07/19/19 07/19/19 07/19/19 07/19/19 19:00 19:59 20:00 20:00 Temp 98.8 98.8 Pulse 117 120 Resp 28 28 B/P (MAP) 130/57 (81) 122/56 (78) Pulse Ox 97 86 96 O2 Delivery Ventilator Ventilator Mechanical Ventilator Ventilator 07/19/19 07/19/19 07/19/19 07/19/19 20:15 20:30 20:45 21:00 Pulse 120 Resp 28 B/P (MAP) 116/54 (74) 114/52 (72) 114/54 (74) 106/56 (73) Pulse Ox 96 O2 Delivery Ventilator 07/19/19/20 5/08/02 5/08/02 22:00 23:00 23:42 23:45 Pulse 121 117 115 Resp 28 28 B/P (MAP) 108/53 (71) 98/52 (67) 103/54 Pulse Ox 95 98 O2 Delivery Ventilator Ventilator Mechanical Ventilator 07/20/19 5// 5//20 /09/02 00:00 00:15 01:00 02:00 Temp 98.1 98.1 Pulse 116 114 114 Resp 28 28 28 B/P (MAP) 100/52 (68) 94/50 (65) 100/54 (69) Pulse Ox 98 94 97 98 O2 Delivery Ventilator Ventilator Ventilator Ventilator 07/20/19//02 08//02 08/09/02 03:00 04:00 04:00 04:00 Temp 97.8 97.8 Pulse 114 108 Resp 28 28 B/P (MAP) 94/50 (65) 86/48 (61) Pulse Ox 98 98 O2 Delivery Ventilator Mechanical Ventilator Ventilator 07/20/19//02 08//20 /09/02 04:00 05:00 05:32 06:00 Pulse 103 100 104 Resp 28 28 B/P (MAP) 98/54 (69) 105/55 138/68 (91) Pulse Ox 99 98 99 O2 Delivery Ventilator Ventilator Ventilator 07/20/19//02 08//07/20/19 06:30 07:00 07:16 08:00 Temp 98.0 98.0 Pulse 110 Resp 28 B/P (MAP) 146/68 (94) Pulse Ox 99 98 98 O2 Delivery Ventilator Ventilator Ventilator Ventilator 07/20/19/09/02//20 /09/02 08:00 08:00 08:00 09:00 Pulse 108 104 Resp 28 B/P (MAP) 120/62 (81) 92/56 Pulse Ox 97 O2 Delivery Mechanical Ventilator Ventilator 07/20/19// 5/6/20 /09/02 09:00 09:00 10:00 11:00 Pulse 88 104 98 98 Resp 28 28 28 B/P (MAP) 92/58 114/58 (76) 110/58 (75) 100/54 (69) Pulse Ox 98 98 98 O2 Delivery Ventilator Ventilator Ventilator 07/20/19 07/20/19 07/20/19 07/20/19 12:00 12:00 12:00 12:00 Pulse 68 B/P (MAP) 92/55 Pulse Ox 98 O2 Delivery Mechanical Ventilator Ventilator 07/20/19 07/20/19 12:00 12:17 Temp 98.3 98.3 Pulse 96 66 Resp 28 B/P (MAP) 104/56 (72) 97/52 Pulse Ox 99 O2 Delivery Ventilator Intake and Output 07/19/19 07/19/19 07/20/19 15:00 23:00 07:00 Intake Total 1431 ml 1535 ml Output Total 685 ml 575 ml 120 ml Balance -685 ml 856 ml 1415 ml GABRIEL REGALADO MD July 20, 2019 16:20
[2019-07-20] MEDS: IV NORMAL SALINE 1000ML BAG 1,000 ML IV SCH (17:40)
[2019-07-20] MEDS: VECURONIUM BROMIDE 50 MG in TOTAL VOLUME 50 ML IV PRN (18:43)
[2019-07-20] MEDS: MIDAZOLAM 100mg/100ml NS BAG 100 ML IV PRN (20:11)
[2019-07-20] MEDS: DEXMEDETOMIDINE 400 MCG in IV NORMAL SALINE 100ML 96 ML IV PRN (20:11)
[2019-07-20] MEDS ORDERED: DEXTROSE 70% IV SCH ×8 (22:00)
[2019-07-20] MEDS ORDERED: AMINO ACID IV SCH ×8 (22:00)
[2019-07-20] MEDS ORDERED: [UNRECOGNIZED DRUG - OTHER] IV SCH ×8 (22:00)
[2019-07-20] MEDS ORDERED: TOTAL PARENTERAL NUTRITION IV SCH ×8 (22:00)
[2019-07-20 22:08] LABS: FIBRINOGEN 476 mg/dL (200-440)
[2019-07-20 22:34] LABS: D-DIMER > 20.00 ug/mlFEU (0.00-0.50)
[2019-07-21] VITALS (24 sets, daily range): BP systolic 95–157; BP diastolic 55–92
[2019-07-21] MEDS ORDERED: MIDAZOLAM PREMIX 100 MG/100 ML NS BAG. IV ONE (05:22)
[2019-07-21] MEDS: METOPROLOL TARTRATE 5 MG/5 ML VIAL. IVP SCH ×5 (06:00→23:53)
[2019-07-21 07:19] LABS: CALCIUM 8.5 mg/dL (8.5-10.1); CREATININE 2.3 mg/dL (0.7-1.3); GFR 36.9; MAGNESIUM 2.6 mg/dL (1.8-2.4); PHOSPHORUS 6.3 mg/dL (2.6-4.7); POTASSIUM 5.7 mmol/L (3.5-5.1)
[2019-07-21] MEDS ORDERED: fentaNYL HIGH DOSE PCA 2,750 MCG/55 ML PCA.SYRING IV ONE (07:48)
[2019-07-21 08:16] LABS: BASE EXCESS ABG -6 mmol/L (-3-3); HCO3 ABG 22 mmol/L (21-28); PCO2 ABG 53 mmHg (35-46); PO2 ABG 80 mmHg (75-108); SAT O2 ABG 93 % (92-99)
--- NOTE | 2019-07-21 08:20 | PDOC ---
PULMONARY PROGRESS NOTES Subjective continue AC mode, on 100% fio2 17 PEEP Vitals Vital Signs Date Time Temp Pulse Resp B/P (MAP) Pulse Ox O2 Delivery O2 Flow Rate FiO2 07/21/19 06:00 105 28 101/59 (73) 100 Ventilator 07/21/19 04:00 98.8 98.8 Comments Visual exam done due to COVID pandemic Patient in sync with the ventilator, no respiratory distress. Labs Laboratory Tests Test 07/19/19 10:22 07/19/19 15:41 07/19/19 23:48 07/20/19 05:45 Glucose (Fingerstick) 148 mg/dL (70-99) 160 mg/dL (70-99) O2 Saturation 81 % (92-99) Arterial Blood pH 7.25 (7.35-7.45) Arterial Blood pCO2 at Patient Temp 58 mmHg (35-46) Arterial Blood pO2 at Patient Temp 53 mmHg (75-108) Arterial Blood HCO3 25 mmol/L (21-28) Arterial Blood Base Excess -3 mmol/L (-3-3) FiO2 100 Sodium Level 137 mmol/L (136-145) Potassium Level 5.5 mmol/L (3.5-5.1) Chloride Level 104 mmol/L (98-107) Carbon Dioxide Level 26 mmol/L (21-32) Anion Gap 7 (6-14) Blood Urea Nitrogen 65 mg/dL (8-26) Creatinine 2.1 mg/dL (0.7-1.3) Estimated GFR (Cockcroft-Gault) 41.0 Glucose Level 172 mg/dL (70-99) Calcium Level 8.6 mg/dL (8.5-10.1) Phosphorus Level 4.6 mg/dL (2.6-4.7) Magnesium Level 2.5 mg/dL (1.8-2.4) Test 07/20/19 08:00 07/20/19 12:26 07/20/19 21:30 07/21/19 00:41 O2 Saturation 88 % (92-99) Arterial Blood pH 7.26 (7.35-7.45) Arterial Blood pCO2 at Patient Temp 58 mmHg (35-46) Arterial Blood pO2 at Patient Temp 64 mmHg (75-108) Arterial Blood HCO3 26 mmol/L (21-28) Arterial Blood Base Excess -2 mmol/L (-3-3) FiO2 100 Glucose (Fingerstick) 141 mg/dL (70-99) 143 mg/dL (70-99) Erythrocyte Sedimentation Rate 51 (0-15) Fibrinogen 476 mg/dL (200-440) D-Dimer (Avis) > 20.00 ug/mlFEU Ferritin 538 ng/mL (26-388) Test 07/21/19 06:15 Sodium Level 137 mmol/L (136-145) Potassium Level 5.7 mmol/L (3.5-5.1) Chloride Level 103 mmol/L (98-107) Carbon Dioxide Level 26 mmol/L (21-32) Anion Gap 8 (6-14) Blood Urea Nitrogen 95 mg/dL (8-26) Creatinine 2.3 mg/dL (0.7-1.3) Estimated GFR (Cockcroft-Gault) 36.9 Glucose Level 149 mg/dL (70-99) Calcium Level 8.5 mg/dL (8.5-10.1) Phosphorus Level 6.3 mg/dL (2.6-4.7) Magnesium Level 2.6 mg/dL (1.8-2.4) Laboratory Tests Test 07/20/19 12:26 07/20/19 21:30 07/21/19 00:41 07/21/19 06:15 Glucose (Fingerstick) 141 mg/dL (70-99) 143 mg/dL (70-99) Erythrocyte Sedimentation Rate 51 (0-15) Fibrinogen 476 mg/dL (200-440) D-Dimer (Avis) > 20.00 ug/mlFEU Ferritin 538 ng/mL (26-388) Sodium Level 137 mmol/L (136-145) Potassium Level 5.7 mmol/L (3.5-5.1) Chloride Level 103 mmol/L (98-107) Carbon Dioxide Level 26 mmol/L (21-32) Anion Gap 8 (6-14) Blood Urea Nitrogen 95 mg/dL (8-26) Creatinine 2.3 mg/dL (0.7-1.3) Estimated GFR (Cockcroft-Gault) 36.9 Glucose Level 149 mg/dL (70-99) Calcium Level 8.5 mg/dL (8.5-10.1) Phosphorus Level 6.3 mg/dL (2.6-4.7) Magnesium Level 2.6 mg/dL (1.8-2.4) Medications Active Scripts Medications Dose Route/Sig Max Daily Dose Days Date Category Metformin Hcl 1,000 Mg Tablet 1,000 Mg PO BIDWMEALS 07/12/19 Reported Lisinopril 40 Mg Tablet 40 Mg PO DAILY 07/12/19 Reported Allopurinol 300 Mg Tablet 300 Mg PO DAILY 07/12/19 Reported Metoprolol Tartrate 25 Mg Tablet 25 Mg PO BID 07/12/19 Reported Doxazosin Mesylate 8 Mg Tablet 8 Mg PO DAILY 07/12/19 Reported Amlodipine Besylate 10 Mg Tablet 10 Mg PO DAILY 07/12/19 Reported Impression . 1. Acute hypoxic respiratory failure multifactorial, COVID-19, ARDS, INTUBATED 07/14 2. Abnormal chest x-ray with bilateral infiltrates suggestive of coronavirus disease-19 pneumonia, possible bacterial pneumonia 3. Underlying morbid obesity. 4. Diabetes. 5. Nonsmoker. 6. Increase inflammatory markers suggestive of cytokine surge 7. s/p convalescent plasma Plan . Case discussed with RN Will monitor inflammatory markers, they are increased, will add steroid Empiric antibiotic Status post convalescent serum transfusion 07/13 Nutritional support Status post Tocilizumab Labs DVT GI prophylax Total cumulative critical care time of 35 minutes, reviewing labs, chest x-ray, data, formulating a plan PURA FOSTER MD July 21, 2019 08:20
[2019-07-21 08:36] LABS: FIO2 ABG 100 VENT
[2019-07-21] MEDS: LISINOPRIL 20 MG TABLET PO SCH (09:00)
[2019-07-21] MEDS: amLODIPine BESYLATE 10 MG TABLET PO SCH (09:00)
[2019-07-21] MEDS: ALLOPURINOL 300 MG TABLET. PO SCH (09:00)
[2019-07-21] MEDS: FAMOTIDINE 20 MG/2 ML VIAL IVP SCH ×2 (09:00→19:56)
[2019-07-21] MEDS: DOXAZOSIN MESYLATE 4 MG TABLET. PO SCH (09:00)
--- NOTE | 2019-07-21 10:44 | PDOC ---
SIMA WIN TIN WHIZ MACHINE OPERATOR 07/21/19 1044: CARDIO Progress Notes Date and Time Date of Service 07/21/19 Time of Evaluation 1020 Subjective Subjective: Other (sedated / intubated ) Vitals Vitals Vital Signs Date Time Temp Pulse Resp B/P (MAP) Pulse Ox O2 Delivery O2 Flow Rate FiO2 07/21/19 06:00 105 28 101/59 (73) 100 Ventilator 07/21/19 04:00 98.8 98.8 Weight Weight [ ] Input and Output Intake and Output Intake and Output 07/21/19 07:00 Intake Total 762 ml Output Total 1135 ml Balance -373 ml Intake Oral 0 ml IV Total 762 ml Output Urine Total 1135 ml Laboratory Labs Laboratory Tests Test 07/20/19 12:26 07/20/19 21:30 07/21/19 00:41 07/21/19 06:15 Glucose (Fingerstick) 141 mg/dL (70-99) 143 mg/dL (70-99) Erythrocyte Sedimentation Rate 51 (0-15) Fibrinogen 476 mg/dL (200-440) D-Dimer (Avis) > 20.00 ug/mlFEU Ferritin 538 ng/mL (26-388) Sodium Level 137 mmol/L (136-145) Potassium Level 5.7 mmol/L (3.5-5.1) Chloride Level 103 mmol/L (98-107) Carbon Dioxide Level 26 mmol/L (21-32) Anion Gap 8 (6-14) Blood Urea Nitrogen 95 mg/dL (8-26) Creatinine 2.3 mg/dL (0.7-1.3) Estimated GFR (Cockcroft-Gault) 36.9 Glucose Level 149 mg/dL (70-99) Calcium Level 8.5 mg/dL (8.5-10.1) Phosphorus Level 6.3 mg/dL (2.6-4.7) Magnesium Level 2.6 mg/dL (1.8-2.4) Test 07/21/19 08:10 O2 Saturation 93 % (92-99) Arterial Blood pH 7.24 (7.35-7.45) Arterial Blood pCO2 at Patient Temp 53 mmHg (35-46) Arterial Blood pO2 at Patient Temp 80 mmHg (75-108) Arterial Blood HCO3 22 mmol/L (21-28) Arterial Blood Base Excess -6 mmol/L (-3-3) FiO2 100 vent Microbiology Micro Microbiology 07/12/19 Blood Culture - Final, Complete NO GROWTH AFTER 5 DAYS Physical Exam HEENT: Neck Supple W Full Motion Chest: Symmetric LUNGS: Other (mechanical vent ) Heart: RRR (SR/ST), other (distant heart tones ) Abdomen: Other (obese, distended) Extremities: Other (trace bilateral LE edema) Neurology: other (sedated) Assessment Assessment 1. Acute respiratory failure secondary to COVID PNA, ARDS. s/p intubation. s/p convalescent plasma. 2. Systolic murmur; heart tones difficult to appreciate with mechanical ventilation 3. Hypertension; remains low end 4. Hyperlipidemia; statin on hold 5. Diabetes, II 6. Morbid obesity 7. Hyperkalemia; resolved. 8. Elevated LFTs 9. GABRIEL, hyperkalemia 10. Elevated d-dimer Recommendations Continue to hold antiHTN therapy as warranted Consult renal Consider switching Levonox to heparin with GABRIEL Ongoing treatment as per pulm and ID. Consider echo to assess systolic murmur if patient's condition improves. Supportive care SOCORRO MEJIA MD 07/21/19 1615: CARDIO Progress Notes Assessment Assessment Patient seen and evaluated I agree with our nurse practitioners assessment. Acute respiratory failure secondary to COVID PNA, ARDS. s/p intubation. s/p convalescent plasma. Systolic murmur; heart tones difficult to appreciate with mechanical ventilation. Echo when possible with COVID guidelines. History of hypertension; BP remains low end Hyperlipidemia; statin on hold GABRIEL SIMA WIN APRN July 21, 2019 10:44 SOCORRO MEJIA MD July 21, 2019 16:15
--- NOTE | 2019-07-21 11:26 | PDOC ---
PROGRESS NOTES Chief Complaint Chief Complaint Acute hypoxic/// HYPERCAPNIC resp failure REQUIRING VENT SUPPORT Super morbid obesity Bibasilar lung airspace opacities likely atelectasis or infiltrates likely pn eumonia or atelectasis or atypical/viral infection/viral pneumonia Diabetes Hypertension, uncontrolled normocytic anemia SEVERE PROTEIN, CALORIC MALNUTRITION COVID-19 POS Plan: 1. Continue present AC mode, on 100% FIO2 ,14 PEEP. Make changes based on A BG's 2. COVID-19 positive 3. Empiric antibiotics. 4. s/p convalescent plasma transfusion 07/13 5. nutrition, PPN and TF at5 low dose 6. Monitor LFT 7. Discussed with RN. 8. S/P monoclonal antibodies/Tocilizumab 07/15/19 lovenox/pepcid History of Present Illness History of Present Illness No acute events reported overnight, case discussed with nursing staff patient in no acute distress no distress during my visit Prognosis guarded, remains critically stable Vitals Vitals Vital Signs Date Time Temp Pulse Resp B/P (MAP) Pulse Ox O2 Delivery O2 Flow Rate FiO2 07/21/19 06:00 105 28 101/59 (73) 100 Ventilator 07/21/19 04:00 98.8 98.8 Physical Exam Physical Exam GENERAL: patient is intubated and sedated unresponsive on the ventilator HEENT unremarkable for acute abnormality Chest bilateral equal air entry inspiratory and expiratory wheezes at the bilateral bases anteriorly Heart S1-S2 normal regular rate and rhythm loud systolic murmur at the right second intercostal space Abdomen is obese soft nontender nondistended no masses or organomegaly noted Extremity exam is unremarkable for acute abnormality 1+ bipedal edema is noted General: Oriented X3, Cooperative, No acute distress, mild distress Abdomen: Soft Extremities: No cyanosis Labs LABS Laboratory Tests Test 07/20/19 12:26 07/20/19 21:30 07/21/19 00:41 07/21/19 06:15 Glucose (Fingerstick) 141 mg/dL (70-99) 143 mg/dL (70-99) Erythrocyte Sedimentation Rate 51 (0-15) Fibrinogen 476 mg/dL (200-440) D-Dimer (Avis) > 20.00 ug/mlFEU Ferritin 538 ng/mL (26-388) Sodium Level 137 mmol/L (136-145) Potassium Level 5.7 mmol/L (3.5-5.1) Chloride Level 103 mmol/L (98-107) Carbon Dioxide Level 26 mmol/L (21-32) Anion Gap 8 (6-14) Blood Urea Nitrogen 95 mg/dL (8-26) Creatinine 2.3 mg/dL (0.7-1.3) Estimated GFR (Cockcroft-Gault) 36.9 Glucose Level 149 mg/dL (70-99) Calcium Level 8.5 mg/dL (8.5-10.1) Phosphorus Level 6.3 mg/dL (2.6-4.7) Magnesium Level 2.6 mg/dL (1.8-2.4) Test 07/21/19 08:10 O2 Saturation 93 % (92-99) Arterial Blood pH 7.24 (7.35-7.45) Arterial Blood pCO2 at Patient Temp 53 mmHg (35-46) Arterial Blood pO2 at Patient Temp 80 mmHg (75-108) Arterial Blood HCO3 22 mmol/L (21-28) Arterial Blood Base Excess -6 mmol/L (-3-3) FiO2 100 vent Assessment and Plan Assessmemt and Plan Problems Medical Problems: (1) Suspected COVID-19 virus infection Status: Acute Comment Review of Relevant I have reviewed the following items lizzy (where applicable) has been applied. Labs Laboratory Tests Test 07/19/19 15:41 07/19/19 23:48 07/20/19 05:45 07/20/19 08:00 O2 Saturation 81 % (92-99) 88 % (92-99) Arterial Blood pH 7.25 (7.35-7.45) 7.26 (7.35-7.45) Arterial Blood pCO2 at Patient Temp 58 mmHg (35-46) 58 mmHg (35-46) Arterial Blood pO2 at Patient Temp 53 mmHg (75-108) 64 mmHg (75-108) Arterial Blood HCO3 25 mmol/L (21-28) 26 mmol/L (21-28) Arterial Blood Base Excess -3 mmol/L (-3-3) -2 mmol/L (-3-3) FiO2 100 100 Glucose (Fingerstick) 160 mg/dL (70-99) Sodium Level 137 mmol/L (136-145) Potassium Level 5.5 mmol/L (3.5-5.1) Chloride Level 104 mmol/L (98-107) Carbon Dioxide Level 26 mmol/L (21-32) Anion Gap 7 (6-14) Blood Urea Nitrogen 65 mg/dL (8-26) Creatinine 2.1 mg/dL (0.7-1.3) Estimated GFR (Cockcroft-Gault) 41.0 Glucose Level 172 mg/dL (70-99) Calcium Level 8.6 mg/dL (8.5-10.1) Phosphorus Level 4.6 mg/dL (2.6-4.7) Magnesium Level 2.5 mg/dL (1.8-2.4) Test 07/20/19 12:26 07/20/19 21:30 07/21/19 00:41 07/21/19 06:15 Glucose (Fingerstick) 141 mg/dL (70-99) 143 mg/dL (70-99) Erythrocyte Sedimentation Rate 51 (0-15) Fibrinogen 476 mg/dL (200-440) D-Dimer (Avis) > 20.00 ug/mlFEU Ferritin 538 ng/mL (26-388) Sodium Level 137 mmol/L (136-145) Potassium Level 5.7 mmol/L (3.5-5.1) Chloride Level 103 mmol/L (98-107) Carbon Dioxide Level 26 mmol/L (21-32) Anion Gap 8 (6-14) Blood Urea Nitrogen 95 mg/dL (8-26) Creatinine 2.3 mg/dL (0.7-1.3) Estimated GFR (Cockcroft-Gault) 36.9 Glucose Level 149 mg/dL (70-99) Calcium Level 8.5 mg/dL (8.5-10.1) Phosphorus Level 6.3 mg/dL (2.6-4.7) Magnesium Level 2.6 mg/dL (1.8-2.4) Test 07/21/19 08:10 O2 Saturation 93 % (92-99) Arterial Blood pH 7.24 (7.35-7.45) Arterial Blood pCO2 at Patient Temp 53 mmHg (35-46) Arterial Blood pO2 at Patient Temp 80 mmHg (75-108) Arterial Blood HCO3 22 mmol/L (21-28) Arterial Blood Base Excess -6 mmol/L (-3-3) FiO2 100 vent Laboratory Tests Test 07/20/19 12:26 07/20/19 21:30 07/21/19 00:41 07/21/19 06:15 Glucose (Fingerstick) 141 mg/dL (70-99) 143 mg/dL (70-99) Erythrocyte Sedimentation Rate 51 (0-15) Fibrinogen 476 mg/dL (200-440) D-Dimer (Avis) > 20.00 ug/mlFEU Ferritin 538 ng/mL (26-388) Sodium Level 137 mmol/L (136-145) Potassium Level 5.7 mmol/L (3.5-5.1) Chloride Level 103 mmol/L (98-107) Carbon Dioxide Level 26 mmol/L (21-32) Anion Gap 8 (6-14) Blood Urea Nitrogen 95 mg/dL (8-26) Creatinine 2.3 mg/dL (0.7-1.3) Estimated GFR (Cockcroft-Gault) 36.9 Glucose Level 149 mg/dL (70-99) Calcium Level 8.5 mg/dL (8.5-10.1) Phosphorus Level 6.3 mg/dL (2.6-4.7) Magnesium Level 2.6 mg/dL (1.8-2.4) Test 07/21/19 08:10 O2 Saturation 93 % (92-99) Arterial Blood pH 7.24 (7.35-7.45) Arterial Blood pCO2 at Patient Temp 53 mmHg (35-46) Arterial Blood pO2 at Patient Temp 80 mmHg (75-108) Arterial Blood HCO3 22 mmol/L (21-28) Arterial Blood Base Excess -6 mmol/L (-3-3) FiO2 100 vent Microbiology 07/12/19 Blood Culture - Final, Complete NO GROWTH AFTER 5 DAYS Medications Current Medications Sodium Chloride 1,000 ml @ 1,000 mls/hr 1X ONCE IV Last administered on 07/12/19at 13:25; Start 07/12/19 at 13:30; Stop 07/12/19 at 14:29; Status DC Acetaminophen (Tylenol) 1,000 mg 1X ONCE PO Last administered on 07/12/19at 13:25; Start 07/12/19 at 13:45; Stop 07/12/19 at 13:46; Status DC Sodium Chloride (Normal Saline Flush) 3 ml QSHIFT PRN IV AFTER MEDS AND BLOOD DRAWS; Start 07/12/19 at 16:45 Sodium Chloride 1,000 ml @ 20 mls/hr Q24H IV Last administered on 07/20/19at 17:40; Start 07/12/19 at 16:41 Ondansetron HCl (Zofran) 4 mg PRN Q4HRS PRN IV NAUSEA/VOMITING; Start 07/12/19 at 16:45 Acetaminophen (Tylenol) 650 mg PRN Q4HRS PRN PO TEMP OVER 100.4F OR MILD PAIN Last administered on 07/14/19at 18:29; Start 07/12/19 at 16:45 Al Hydroxide/Mg Hydroxide (Mylanta Plus Xs) 30 ml PRN DAILY PRN PO HEARTBURN / GAS; Start 07/12/19 at 16:45 Clonidine HCl (Catapres) 0.1 mg PRN Q6HRS PRN PO SBP>160 OR DBP>90 Last administered on 07/15/19at 04:25; Start 07/12/19 at 16:45 Docusate Sodium (Colace) 100 mg PRN BID PRN PO CONSTIPATION; Start 07/12/19 at 16:45 Albuterol/ Ipratropium (Duoneb) 3 ml Q4H NEB ; Start 07/12/19 at 16:45; Stop 07/12/19 at 16:55; Status DC Guaifenesin (Robitussin) 200 mg PRN Q4HRS PRN PO COUGH Last administered on 07/14/19at 08:52; Start 07/12/19 at 16:45 Levofloxacin/ Dextrose 100 ml @ 100 mls/hr Q24H IV Last administered on 07/18/19at 16:29; Start 07/13/19 at 17:00; Stop 07/19/19 at 15:22; Status DC Albuterol/ Ipratropium (Duoneb) 3 ml Q4HRS NEB ; Start 07/12/19 at 20:00; Stop 07/12/19 at 18:33; Status DC Levofloxacin/ Dextrose 100 ml @ 100 mls/hr 1X ONCE IV Last administered on 07/12/19at 17:58; Start 07/12/19 at 17:45; Stop 07/12/19 at 18:44; Status DC Albuterol Sulfate (Ventolin Neb Soln) 2.5 mg PRN Q4HRS PRN NEB SHORTNESS OF BREATH; Start 07/12/19 at 18:45 Hydralazine HCl (Apresoline Inj) 10 mg PRN Q4HRS PRN IVP ELEVATED BP, SEE COMMENTS Last administered on 07/12/19at 20:31; Start 07/12/19 at 19:45; Stop 07/12/19 at 22:40; Status DC Allopurinol (Zyloprim) 300 mg DAILY PO Last administered on 07/20/19 12:15; Start 07/13/19 at 09:00 Amlodipine Besylate (Norvasc) 10 mg DAILY PO Last administered on 07/19/19 08:45; Start 07/13/19 at 09:00 Lisinopril (Prinivil) 40 mg DAILY PO Last administered on 07/19/19 08:46; Start 07/13/19 at 09:00 Metoprolol Tartrate (Lopressor) 25 mg BID PO Last administered on 07/18/19 20:57; Start 07/12/19 at 21:00; Stop 07/19/19 at 14:04; Status DC Doxazosin Mesylate (Cardura) 8 mg DAILY PO Last administered on 07/20/19 12:17; Start 07/13/19 at 09:00 Metformin HCl (Glucophage) 1,000 mg BIDWMEALS PO Last administered on 07/19/19 18:07; Start 07/13/19 at 08:00; Stop 07/20/19 at 13:33; Status DC Atorvastatin Calcium (Lipitor) 40 mg QHS PO Last administered on 07/18/19 20:57; Start 07/12/19 at 21:00; Stop 07/19/19 at 14:07; Status DC Lisinopril (Prinivil) 10 mg 1X ONCE PO Last administered on 07/13/19at 00:41; Start 07/12/19 at 23:00; Stop 07/12/19 at 23:01; Status DC Hydralazine HCl (Apresoline Inj) 10 mg PRN Q4HRS PRN IVP ELEVATED BP, 1ST CHOICE Last administered on 07/19/19 09:07; Start 07/12/19 at 22:45 Doxazosin Mesylate (Cardura) 8 mg 1X ONCE PO Last administered on 07/12/19at 23:08; Start 07/12/19 at 23:30; Stop 07/12/19 at 23:31; Status DC Amlodipine Besylate (Norvasc) 10 mg 1X ONCE PO Last administered on 07/12/19at 23:00; Start 07/12/19 at 23:30; Stop 07/12/19 at 23:31; Status DC Lorazepam (Ativan Inj) 1 mg PRN Q2HRS PRN IVP ANXIETY Last administered on 07/17/19at 12:20; Start 07/12/19 at 23:00 Enoxaparin Sodium (Lovenox 60mg Syringe) 60 mg Q12HR SQ Last administered on 07/20/19 20:10; Start 07/13/19 at 09:00 Lactobacillus Rhamnosus (Culturelle) 1 cap BID PO Last administered on 07/20/19 20:10; Start 07/13/19 at 21:00; Stop 07/21/19 at 10:47; Status DC Throat Lozenges (Cepacol Sore Throat Lozenge) 1 jessica PRN Q2HRS PRN PO SORE THROAT Last administered on 07/14/19at 08:56; Start 07/13/19 at 16:30 Haloperidol Lactate (Haldol Inj) 3 mg PRN Q4HRS PRN IVP AGITATION Last administered on 07/14/19at 22:59; Start 07/14/19 at 22:30 Fentanyl Citrate 30 ml @ 0 mls/hr CONT PRN IV SEE PROTOCOL Last administered on 07/16/19at 16:07; Start 07/15/19 at 05:45; Stop 07/16/19 at 21:59; Status DC Propofol 100 ml @ 0 mls/hr CONT PRN IV SEE PROTOCOL Last administered on at 06:03; Start 07/15/19 at 05:45; Stop 07/15/19 at 06:06; Status DC Famotidine (Pepcid Vial) 20 mg BID IVP Last administered on 07/21/19at 09:00; Start 07/15/19 at 09:00 Midazolam HCl 100 ml @ 0 mls/hr CONT PRN IV SEE PROTOCOL Last administered on 07/20/19at 20:11; Start 07/15/19 at 05:45 Ketamine HCl (Ketamine) 50 mg STK-MED ONCE .ROUTE ; Start 07/15/19 at 05:44; Stop 07/15/19 at 05:44; Status DC Succinylcholine Chloride (Anectine) 200 mg STK-MED ONCE .ROUTE ; Start 07/15/19 at 05:45; Stop 07/15/19 at 05:45; Status DC Succinylcholine Chloride (Anectine) 200 mg 1X ONCE IV Last administered on 07/15/19at 06:00; Start 07/15/19 at 06:15; Stop 07/15/19 at 06:16; Status DC Propofol 100 ml @ 2.7 mls/hr CONT PRN IV SEE I/O RECORD Last administered on 07/15/19at 10:08; Start 07/15/19 at 06:15 Ketamine HCl (Ketamine) 50 mg 1X ONCE IV Last administered on 07/15/19at 05:55; Start 07/15/19 at 06:15; Stop 07/15/19 at 06:16; Status DC Vecuronium [place] (Norcuron Bolus) 6 mg 1X ONCE IV Last administered on 07/15/19at 06:55; Start 07/15/19 at 07:00; Stop 07/15/19 at 07:01; Status DC Vecuronium [place] (Norcuron Bolus) 10 mg STK-MED ONCE IV ; Start 07/15/19 at 06:53; Stop 07/15/19 at 06:53; Status DC Tocilizumab 800 mg/Sodium Chloride 100 ml @ 100 mls/hr ONCE ONCE IV Last administered on 07/15/19at 15:51; Start 07/15/19 at 16:00; Stop 07/15/19 at 16:59; Status DC Dextrose (Dextrose 50%-Water Syringe) 25 gm STK-MED ONCE IV ; Start 07/15/19 at 15:55; Stop 07/15/19 at 15:56; Status DC Dexmedetomidine HCl 400 mcg/ Sodium Chloride 100 ml @ 9 mls/hr CONT PRN IV SEDATION Last administered on 07/20/19at 20:11; Start 07/15/19 at 16:30 Dexmedetomidine HCl 400 mcg/ Sodium Chloride 100 ml @ 0 mls/hr CONT PRN IV SEDATION; Start 07/15/19 at 16:30; Status UNV Dextrose (Dextrose 50%-Water Syringe) 25 gm 1X ONCE IV Last administered on 07/15/19at 16:28; Start 07/15/19 at 16:30; Stop 07/15/19 at 16:31; Status DC Amino Acids/ Glycerin/ Electrolytes 1,000 ml @ 80 mls/hr [id number] IV Last administered on 07/18/19 13:03; Start 07/16/19 at 10:00; Stop 07/18/19 at 21:59; Status DC Sodium Bicarbonate (Sodium Bicarb Adult 8.4% Syr) 50 meq 1X ONCE IV Last administered on 07/16/19 11:23; Start 07/16/19 at 09:30; Stop 07/16/19 at 09:31; Status DC Fentanyl Citrate 55 ml @ 0 mls/hr CONT PRN IV SEE I/O RECORD Last administered on 07/20/19 06:30; Start 07/16/19 at 22:00 Vecuronium [place] (Norcuron Bolus) 10 mg PRN Q6HRS PRN IV ASYNCHRONARY W/ VENT Last administered on 07/17/19 12:19; Start 07/17/19 at 10:00 Vecuronium [place] 50 mg/ Miscellaneous 50 ml @ 8.976 mls/ hr CONT PRN IV SEE I/O RECORD Last administered on 07/20/19 18:43; Start 07/17/19 at 12:15 Info (Tpn Per Pharmacy) 1 each PRN DAILY PRN MC SEE COMMENTS Last administered on 07/20/19 13:16; Start 07/18/19 at 10:45 Sodium Acetate 60 meq/Potassium Phosphate 13.6 mmol/Magnesium Sulfate 10 meq/ Calcium Gluconate 10 meq/ Multivitamins 10 ml/Chromium/ Copper/Manganese/ Seleni/Zn 0.5 ml/ Total Parenteral Nutrition/Amino Acids/Dextrose 1,920 ml @ 80 mls/hr TPN CONT IV Last administered on 07/18/19 22:18; Start 07/18/19 at 22:00; Stop 07/19/19 at 21:59; Status DC Labetalol HCl (Normodyne Iv Push) 20 mg 1X ONCE IVP Last administered on 07/19/19 09:30; Start 07/19/19 at 09:30; Stop 07/19/19 at 09:31; Status DC Labetalol HCl (Normodyne Iv Push) 10 mg PRN Q5MIN PRN IVP HYPERTENSION, 2ND CHOICE; Start 07/19/19 at 09:30 Sodium Acetate 60 meq/Potassium Phosphate 13.6 mmol/Magnesium Sulfate 5 meq/ Calcium Gluconate 10 meq/ Multivitamins 10 ml/Chromium/ Copper/Manganese/ Seleni/Zn 0.5 ml/ Total Parenteral Nutrition/Amino Acids/Dextrose/ Fat Emulsion Intravenous 1,920 ml @ 80 mls/hr TPN CONT IV Last administered on 07/19/19at 20:45; Start 07/19/19 at 22:00; Stop 07/20/19 at 21:59; Status DC Metoprolol Tartrate (Lopressor Vial) 5 mg Q6HRS IVP ; Start 07/19/19 at 18:00 Norepinephrine Bitartrate 8 mg/ Dextrose 258 ml @ 35.217 mls/ hr CONT PRN IV PER PROTOCOL Last administered on 07/19/19at 15:59; Start 07/19/19 at 16:00 Sodium Acetate 60 meq/Sodium Phosphate 5 mmol/ Calcium Gluconate 5 meq/ Multivitamins 10 ml/Chromium/ Copper/Manganese/ Seleni/Zn 0.5 ml/ Total Parenteral Nutrition/Amino Acids/Dextrose/ Fat Emulsion Intravenous 1,920 ml @ 80 mls/hr TPN CONT IV Last administered on 07/20/19at 21:23; Start 07/20/19 at 22:00; Stop 07/21/19 at 21:59 Active Scripts Active Reported Metformin Hcl 1,000 Mg Tablet 1,000 Mg PO BIDWMEALS Lisinopril 40 Mg Tablet 40 Mg PO DAILY Allopurinol 300 Mg Tablet 300 Mg PO DAILY Metoprolol Tartrate 25 Mg Tablet 25 Mg PO BID Doxazosin Mesylate 8 Mg Tablet 8 Mg PO DAILY Amlodipine Besylate 10 Mg Tablet 10 Mg PO DAILY Vitals/I & O Vital Sign - Last 24 Hours 07/20/19 07/20/19 07/20/19 07/20/19 12:00 12:00 12:00 12:00 Pulse 68 B/P (MAP) 92/55 Pulse Ox 98 O2 Delivery Mechanical Ventilator Ventilator 07/20/19 07/20/19 07/20/19 07/20/19 12:00 12:17 13:00 14:00 Temp 98.3 98.3 Pulse 96 66 96 96 Resp 28 28 28 B/P (MAP) 104/56 (72) 97/52 100/54 (69) 110/54 (72) Pulse Ox 99 98 98 O2 Delivery Ventilator Ventilator Ventilator 07/20/19 07/20/19/09/0207/20/19 15:00 16:00 16:00 16:00 Pulse 98 98 Resp 28 28 B/P (MAP) 110/58 (75) 122/58 (79) Pulse Ox 98 98 O2 Delivery Ventilator Ventilator Mechanical Ventilator 07/20/19 07/20/19 07/20/19 07/20/19 16:38 17:00 17:40 18:00 Temp 98.0 98.0 Pulse 100 104 106 Resp 28 B/P (MAP) 124/60 (81) 119/59 121/60 (80) Pulse Ox 98 97 97 O2 Delivery Ventilator Ventilator Ventilator 07/20/19 07/20/19 07/20/19 07/20/19 19:00 20:00 20:00 20:00 Temp 98.0 98.0 Pulse 109 110 Resp 28 B/P (MAP) 119/63 (81) 130/66 (87) Pulse Ox 98 96 O2 Delivery Ventilator Mechanical Ventilator Ventilator 07/20/19 07/20/19 07/20/19 07/20/19 20:46 21:00 22:00 23:00 Pulse 112 110 110 Resp 28 28 28 B/P (MAP) 118/62 (80) 115/61 (79) 104/58 (73) Pulse Ox 98 98 98 99 O2 Delivery Ventilator Ventilator Ventilator Ventilator 07/21/19 07/21/19 07/21/19 07/21/19 00:00 00:00 00:00 00:00 Temp 98.5 98.5 Pulse 109 110 Resp 28 B/P (MAP) 104/56 120/64 (82) Pulse Ox 99 100 O2 Delivery Ventilator Mechanical Ventilator Ventilator 07/21/19 07/21/19 07/21/19 07/21/19 00:00 01:00 02:00 03:00 Pulse 108 108 108 Resp 28 28 28 B/P (MAP) 110/60 (77) 108/62 (77) 95/59 (71) Pulse Ox 99 99 100 O2 Delivery Ventilator Ventilator Ventilator 07/21/19 07/21/19 07/21/19 07/21/19 04:00 04:00 04:00 04:00 Temp 98.8 98.8 Pulse 106 Resp 28 B/P (MAP) 114/63 (80) Pulse Ox 100 100 O2 Delivery Ventilator Mechanical Ventilator Ventilator 07/21/19 07/21/19 07/21/19 05:00 06:00 06:00 Pulse 106 105 105 Resp 28 28 B/P (MAP) 103/59 (74) 108/63 101/59 (73) Pulse Ox 100 100 O2 Delivery Ventilator Ventilator Intake and Output 07/20/19 07/20/19 07/21/19 15:00 23:00 07:00 Intake Total 0 ml 762 ml Output Total 360 ml 325 ml 450 ml Balance -360 ml -325 ml 312 ml GABRIEL REGALADO MD July 21, 2019 11:26
[2019-07-21] MEDS: TPN PER PHARMACY MC PRN (12:51)
--- NOTE | 2019-07-21 13:04 | NUR ---
Pharmacy TPN Dosing Note S: REINALDO BOWER is a 48 year old M Currently receiving Central Continuous TPN started 07/18/19 B:Pertinent PMH: critical illness Height: 6 feet, 1 inches Weight: 183.6 kg Current diet: NPO LABS: Sodium: 137 Potassium: 5.7 Chloride: 103 Calcium: 8.5 Corrected Calcium: 9.94 Magnesium: 2.6 CO2: 26 SCr: 2.3 Glucose: 141-172 Albumin: 2.2 AST: 59 ALT: 73 TPN FORMULA: TPN TYPE: Central Continuous AMINO ACIDS: 155 gm DEXTROSE: 225 gm LIPIDS: 20 gm SODIUM ACETATE: 60 mEq CALCIUM: 5 mEq MULTIPLE VITAMIN: 10 ml TRACE ELEMENTS: 0.5 ml(s) TPN PLAN: Elevated potassium, phos, and mag levels. Sodium phos removed from TPN; TPN already has no magnesium or potassium. R: Change TPN per plan and ordered formula Will monitor electrolytes, glucose, and tolerance to TPN. [place] Pillai RPH, 07/21/19 [id number]
--- NOTE | 2019-07-21 14:06 | NUR ---
SS following up with discharge planning. SS discussed with RN, Jacqueline. Pt remains on the vent at this time. Pt is COVID positive and on TPN. Pt's spouse wanting Full Code and full care at this time. SS spoke with pt's spouse and pt's spouse reported that if it is available she does have ability to Facetime on her phone. Pt's RN notified. SS will continue to follow for discharge planning.
[2019-07-21] MEDS ORDERED: methylPREDNISolone SOD SUCC PF 125 MG/2 ML VIAL. IV SCH (14:30)
--- NOTE | 2019-07-21 16:28 | NUR ---
Phone update earlier to . Realistic conversation reporting poor prognosis as related to lack of response to medical Rx. Prefers "no" negativity. Discussed her preferences w an agreement reached in informing the way and the kind of information preferred.Phone # request from Dr Freitas so he could discuss patient condition later today. No overt progree as evdanced by decreasing 12 H output,lack of turn around in lab in spite of dictated medicalRX. Prognosis guarded to poor
[2019-07-21] MEDS: IV NORMAL SALINE 1000ML BAG 1,000 ML IV SCH (16:41)
[2019-07-21] MEDS: methylPREDNISolone SOD SUCC 250 MG in IV NORMAL SALINE 100ML 100 ML IV SCH ×2 (17:20→23:54)
[2019-07-21] MEDS: MIDAZOLAM 100mg/100ml NS BAG 100 ML IV PRN (19:56)
[2019-07-21] MEDS: DEXMEDETOMIDINE 400 MCG in IV NORMAL SALINE 100ML 96 ML IV PRN (19:57)
[2019-07-21] MEDS ORDERED: [UNRECOGNIZED DRUG - OTHER] IV SCH ×7 (22:00)
[2019-07-21] MEDS ORDERED: AMINO ACID IV SCH ×7 (22:00)
[2019-07-21] MEDS ORDERED: TOTAL PARENTERAL NUTRITION IV SCH ×7 (22:00)
[2019-07-21] MEDS ORDERED: DEXTROSE 70% IV SCH ×7 (22:00)
--- NOTE | 2019-07-21 23:06 | NUR ---
Patient condition remains critical. Unable to offset patient due to inability to tolerate (hypotension, decreasing O2 saturation). Patient remains paralyzed and sedated. Nereida called this RN for update, stated that no vent or medication changes have been made at this time. This RN reiterated that patient does remain in critical condition, this information proves difficult for the to hear. She would like to hear from the frame nailer, will pass this information on. Metoprolol non-admin due to fluctuating BP.
[2019-07-21] MEDS: VECURONIUM BROMIDE 50 MG in TOTAL VOLUME 50 ML IV PRN (23:54)
[2019-07-22] VITALS (24 sets, daily range): BP systolic 122–175; BP diastolic 52–79
[2019-07-22] MEDS ORDERED: HEPARIN 25,000UTS/250ML PREMIX 250 ML IV PRN (04:00)
[2019-07-22] MEDS ORDERED: HEPARIN for IV BOLUS 10,000 UNIT/10 ML VIAL. IV PRN ×2 (04:00)
[2019-07-22] MEDS ORDERED: ANTI-COAG MONITOR BY PHARMACY. MC PRN (04:15)
[2019-07-22 04:16] LABS: BASO % 0 % (0-3); EOS # 0.1 x10^3/uL (0.0-0.7); EOS % 0 % (0-3); HEMATOCRIT 36.3 % (39.0-53.0); HEMOGLOBIN 11.4 g/dL (13.0-17.5); LYMPH # 1.1 x10^3/uL (1.0-4.8); LYMPH % 6 % (24-48); MEAN CORPUSCULAR HEMOGLOBIN 27 pg (25-35); MEAN CORPUSCULAR HGB CONC 31 g/dL (31-37); MEAN CORPUSCULAR VOLUME 85 fL (79-100); MONO # 0.5 x10^3/uL (0.0-1.1); MONO % 3 % (0-9); NEUT % 91 % (31-73); PLATELET COUNT 420 x10^3/uL (140-400); RED BLOOD COUNT 4.25 x10^6/uL (4.30-5.70); RED CELL DISTRIBUTION WIDTH 15.6 % (11.5-14.5); WHITE BLOOD COUNT 19.8 x10^3/uL (4.0-11.0)
[2019-07-22 04:46] LABS: MAGNESIUM 2.9 mg/dL (1.8-2.4); PHOSPHORUS 6.3 mg/dL (2.6-4.7)
--- NOTE | 2019-07-22 05:30 | NUR ---
Appox. 4am patient saturation rapidly dropped to 85%, nothing was touching patient at the time, no activity was occuring. Volumes low on ventilator so air placed in cuff. Volumes increased. Patient deep suctioned- but no sputum. Patient mouth suctioned with moderate amount of thick white sputum. Patient bolused with versed, fentanyl, and vec. Patient saturation continued to drop, reaching 75%. Respiratory called and arrived to room. Dr. Freitas called orders given to start heparin gtt PE protocol, increase PEEP to 20. [facility] plans to discuss possible ECHO in AM with cardiology. Isaiah Padron was called shortly after and given update about patient's deteriorating status. When PEEP was increased from 17 to 20, patient O2 saturation rapidly dropped to 65%. PEEP turned down with respiratory at bedside to 13, patient O2 saturation began to slowly recover to 80% and plateaued there. CBC drawn stat. Hgb 11.4, heparin gtt initiated. Isaiah Padron called again with updated status, reiterated that patient remains critical.
[2019-07-22] MEDS: MIDAZOLAM 100mg/100ml NS BAG 100 ML IV PRN ×2 (05:50→15:05)
[2019-07-22] MEDS: methylPREDNISolone SOD SUCC 250 MG in IV NORMAL SALINE 100ML 100 ML IV SCH ×4 (06:00→23:49)
[2019-07-22] MEDS: METOPROLOL TARTRATE 5 MG/5 ML VIAL. IVP SCH ×4 (06:00→23:52)
[2019-07-22] MEDS: DEXMEDETOMIDINE 400 MCG in IV NORMAL SALINE 100ML 96 ML IV PRN ×2 (06:45→15:05)
[2019-07-22 07:37] LABS: % BANDS 3 % (0-9); % LYMPHS 7 % (24-48); % MYELOS 1 % (0-0); % SEGS 89 % (35-66); PLT ESTIMATE ADEQUATE (ADEQUATE)
[2019-07-22 08:13] LABS: CALCIUM 8.5 mg/dL (8.5-10.1); CREATININE 2.2 mg/dL (0.7-1.3); GFR 38.8
[2019-07-22 08:21] LABS: POTASSIUM 6.8 mmol/L (3.5-5.1)
[2019-07-22 08:21] LABS: BASE EXCESS ABG -4 mmol/L (-3-3); HCO3 ABG 25 mmol/L (21-28); PCO2 ABG 59 mmHg (35-46); SAT O2 ABG 73 % (92-99)
[2019-07-22 08:30] LABS: FIO2 ABG 100%; PO2 ABG 48 mmHg (75-108)
[2019-07-22] MEDS: LISINOPRIL 20 MG TABLET PO SCH (09:00)
[2019-07-22] MEDS ORDERED: CALCIUM GLUCONATE 1,000 MG/10 ML VIAL. IVP ONE ×2 (09:00→13:15)
[2019-07-22] MEDS ORDERED: FUROSEMIDE 40 MG/4 ML VIAL. IVP ONE ×2 (09:00)
[2019-07-22] MEDS: ALLOPURINOL 300 MG TABLET. PO SCH (09:10)
[2019-07-22] MEDS: FAMOTIDINE 20 MG/2 ML VIAL IVP SCH ×2 (09:10→20:33)
[2019-07-22] MEDS ORDERED: DEXTROSE 50% 25 GM / 50ML DISP.SYRIN. IV PRN (09:15)
[2019-07-22] MEDS: TPN PER PHARMACY MC PRN (09:30)
[2019-07-22] MEDS: amLODIPine BESYLATE 10 MG TABLET PO SCH (09:31)
--- NOTE | 2019-07-22 09:31 | NUR ---
Pharmacy TPN Dosing Note S: REINALDO BOWER is a 48 year old M Currently receiving Central Continuous TPN started 07/18/19 B:Pertinent PMH: critical illness Height: 6 feet, 1 inches Weight: 183.4 kg Current diet: NPO LABS: Sodium: 138 Potassium: 6.8 Chloride: 104 Calcium: 8.5 Corrected Calcium: 9.94 Magnesium: 2.9 CO2: 26 SCr: 2.2 Glucose: 247-265 Albumin: 2.2 AST: 59 ALT: 73 TPN FORMULA: TPN TYPE: Central Continuous AMINO ACIDS: 155 gm DEXTROSE: 225 gm LIPIDS: 20 gm SODIUM ACETATE: 60 mEq CALCIUM: 5 mEq MULTIPLE VITAMIN: 10 ml TRACE ELEMENTS: 0.5 ml TPN PLAN: -Elevated serum potassium, phosphorus, magnesium - TPN does not contain these electrolytes. Continue same TPN. -Serum glucose elevated, Lantus insulin + SSI started per primary. -BMP tomorrow. R: Continue TPN Will monitor electrolytes, glucose, and tolerance to TPN. TITI MILLER, [facility], 07/22/19 0818
[2019-07-22] MEDS: INSULIN LISPRO 300 UNITS/3 ML VIAL. SQ SCH ×2 (09:43→17:44)
--- NOTE | 2019-07-22 09:54 | RAD ---
EXAM: Chest radiograph DATE: 07/22/2019 8:06 AM INDICATION: Vent changes, ET tube. COMPARISON: Chest radiograph 07/18/2019 FINDINGS: The endotracheal tube terminates in similar position, approximately 4.2 cm above the germán. The germán is difficult to visualize. Nasogastric is seen to the level of the midesophagus and not well visualized more distally. A right internal jugular central venous catheter tip overlies the superior vena cava, unchanged. There is new, complete white out of the right lung with associated volume loss and rightward mediastinal shift suggesting atelectasis and mucous plugging. The cardiac silhouette is mostly obscured. Airspace opacities throughout the left lung have significantly decreased but persists, greatest in the base. No definite pleural effusion. No pneumothorax. IMPRESSION: 1. New complete whiteout of the right lung with volume loss, suspicious for complete atelectasis, likely due to mucous plugging. 2. Significantly decreased but persistent opacities in the left lung. 3. Endotracheal tube terminating in similar position, approximately 4.2 cm above the germán. Critical results were discussed by Dr. Valdez with nurse Michelle Horton at 9:[address] Freitas at 9:50 am on 07/22/2019. FOR INTERNAL CODING PURPOSES RESULT CODE: Electronically signed by: Ashwini Valdez MD (07/22/2019 9:51 AM) [id number]
--- NOTE | 2019-07-22 10:45 | PDOC2 ---
CONSULT Date of Consult Date of Consult DATE: 07/22/19 TIME: 10:20 History of Present Illness Reason for Visit: Hx Obtained from chart review - /2 intubated Pt is 48 yo M admitted to [facility] on 07/11, he is morbidly obese with a BMI of 52, diabetes. He presented to the hospital with body aches, subjective fever, chills and some shortness of breath. He did not recall any obvious exposure to COVID-19 patient. No N/V but had some diarrhea at presentation. At presentation T-max was 103 blood pressure was on the high side with a diastolic of 115. Chest x-ray showed bilateral patchy infiltrates, more on the right than on the left . Initially requiring 6 liters of oxygen Past Medical History Cardiovascular: HTN, Hyperlipidemia Pulmonary: Bronchitis Rheumatologic: Gout Renal/: No pertinent hx Endocrine: Diabetes Family History Family History: High Cholestrol, Hypertension Social History No ALCOHOL: occassional Drugs: None Current Problem List Problem List Problems Medical Problems: (1) Suspected COVID-19 virus infection Status: Acute Current Medications Current Medications Current Medications Sodium Chloride 1,000 ml @ 1,000 mls/hr 1X ONCE IV Last administered on 07/12/19at 13:25; Start 07/12/19 at 13:30; Stop 07/12/19 at 14:29; Status DC Acetaminophen (Tylenol) 1,000 mg 1X ONCE PO Last administered on 07/12/19at 13:25; Start 07/12/19 at 13:45; Stop 07/12/19 at 13:46; Status DC Sodium Chloride (Normal Saline Flush) 3 ml QSHIFT PRN IV AFTER MEDS AND BLOOD DRAWS; Start 07/12/19 at 16:45 Sodium Chloride 1,000 ml @ 20 mls/hr Q24H IV Last administered on 07/20/19at 17:40; Start 07/12/19 at 16:41 Ondansetron HCl (Zofran) 4 mg PRN Q4HRS PRN IV NAUSEA/VOMITING; Start 07/12/19 at 16:45 Acetaminophen (Tylenol) 650 mg PRN Q4HRS PRN PO TEMP OVER 100.4F OR MILD PAIN Last administered on 07/14/19at 18:29; Start 07/12/19 at 16:45 Al Hydroxide/Mg Hydroxide (Mylanta Plus Xs) 30 ml PRN DAILY PRN PO HEARTBURN / GAS; Start 07/12/19 at 16:45; Stop 07/22/19 at 04:48; Status DC Clonidine HCl (Catapres) 0.1 mg PRN Q6HRS PRN PO SBP>160 OR DBP>90 Last administered on 07/15/19at 04:25; Start 07/12/19 at 16:45 Docusate Sodium (Colace) 100 mg PRN BID PRN PO CONSTIPATION; Start 07/12/19 at 16:45 Albuterol/ Ipratropium (Duoneb) 3 ml Q4H NEB ; Start 07/12/19 at 16:45; Stop 07/12/19 at 16:55; Status DC Guaifenesin (Robitussin) 200 mg PRN Q4HRS PRN PO COUGH Last administered on 07/14/19at 08:52; Start 07/12/19 at 16:45 Levofloxacin/ Dextrose 100 ml @ 100 mls/hr Q24H IV Last administered on 07/18/19at 16:29; Start 07/13/19 at 17:00; Stop 07/19/19 at 15:22; Status DC Albuterol/ Ipratropium (Duoneb) 3 ml Q4HRS NEB ; Start 07/12/19 at 20:00; Stop 07/12/19 at 18:33; Status DC Levofloxacin/ Dextrose 100 ml @ 100 mls/hr 1X ONCE IV Last administered on 07/12/19at 17:58; Start 07/12/19 at 17:45; Stop 07/12/19 at 18:44; Status DC Albuterol Sulfate (Ventolin Neb Soln) 2.5 mg PRN Q4HRS PRN NEB SHORTNESS OF BREATH; Start 07/12/19 at 18:45 Hydralazine HCl (Apresoline Inj) 10 mg PRN Q4HRS PRN IVP ELEVATED BP, SEE COMMENTS Last administered on 07/12/19at 20:31; Start 07/12/19 at 19:45; Stop 07/12/19 at 22:40; Status DC Allopurinol (Zyloprim) 300 mg DAILY PO Last administered on 07/22/19at 09:10; Start 07/13/19 at 09:00 Amlodipine Besylate (Norvasc) 10 mg DAILY PO Last administered on 07/22/19 09:31; Start 07/13/19 at 09:00 Lisinopril (Prinivil) 40 mg DAILY PO Last administered on 07/19/19 08:46; Start 07/13/19 at 09:00 Metoprolol Tartrate (Lopressor) 25 mg BID PO Last administered on 07/18/19 20:57; Start 07/12/19 at 21:00; Stop 07/19/19 at 14:04; Status DC Doxazosin Mesylate (Cardura) 8 mg DAILY PO Last administered on 07/20/19 12:17; Start 07/13/19 at 09:00 Metformin HCl (Glucophage) 1,000 mg BIDWMEALS PO Last administered on 07/19/19 18:07; Start 07/13/19 at 08:00; Stop 07/20/19 at 13:33; Status DC Atorvastatin Calcium (Lipitor) 40 mg QHS PO Last administered on 07/18/19 20:57; Start 07/12/19 at 21:00; Stop 07/19/19 at 14:07; Status DC Lisinopril (Prinivil) 10 mg 1X ONCE PO Last administered on 07/13/19at 00:41; Start 07/12/19 at 23:00; Stop 07/12/19 at 23:01; Status DC Hydralazine HCl (Apresoline Inj) 10 mg PRN Q4HRS PRN IVP ELEVATED BP, 1ST CHOICE Last administered on 07/19/19 09:07; Start 07/12/19 at 22:45 Doxazosin Mesylate (Cardura) 8 mg 1X ONCE PO Last administered on 07/12/19at 23:08; Start 07/12/19 at 23:30; Stop 07/12/19 at 23:31; Status DC Amlodipine Besylate (Norvasc) 10 mg 1X ONCE PO Last administered on 07/12/19at 23:00; Start 07/12/19 at 23:30; Stop 07/12/19 at 23:31; Status DC Lorazepam (Ativan Inj) 1 mg PRN Q2HRS PRN IVP ANXIETY Last administered on 07/17/19 12:20; Start 07/12/19 at 23:00 Enoxaparin Sodium (Lovenox 60mg Syringe) 60 mg Q12HR SQ Last administered on 07/21/19at 19:56; Start 07/13/19 at 09:00; Stop 07/22/19 at 04:00; Status DC Lactobacillus Rhamnosus (Culturelle) 1 cap BID PO Last administered on 07/20/19at 20:10; Start 07/13/19 at 21:00; Stop 07/21/19 at 10:47; Status DC Throat Lozenges (Cepacol Sore Throat Lozenge) 1 jessica PRN Q2HRS PRN PO SORE THROAT Last administered on 07/14/19at 08:56; Start 07/13/19 at 16:30 Haloperidol Lactate (Haldol Inj) 3 mg PRN Q4HRS PRN IVP AGITATION Last administered on 07/14/19at 22:59; Start 07/14/19 at 22:30 Fentanyl Citrate 30 ml @ 0 mls/hr CONT PRN IV SEE PROTOCOL Last administered on 07/16/19at 16:07; Start 07/15/19 at 05:45; Stop 07/16/19 at 21:59; Status DC Propofol 100 ml @ 0 mls/hr CONT PRN IV SEE PROTOCOL Last administered on 07/15/19at 06:03; Start 07/15/19 at 05:45; Stop 07/15/19 at 06:06; Status DC Famotidine (Pepcid Vial) 20 mg BID IVP Last administered on 07/22/19at 09:10; Start 07/15/19 at 09:00 Midazolam HCl 100 ml @ 0 mls/hr CONT PRN IV SEE PROTOCOL Last administered on 07/22/19at 05:50; Start 07/15/19 at 05:45 Ketamine HCl (Ketamine) 50 mg STK-MED ONCE .ROUTE ; Start 07/15/19 at 05:44; Stop 07/15/19 at 05:44; Status DC Succinylcholine Chloride (Anectine) 200 mg STK-MED ONCE .ROUTE ; Start 07/15/19 at 05:45; Stop 07/15/19 at 05:45; Status DC Succinylcholine Chloride (Anectine) 200 mg 1X ONCE IV Last administered on 07/15/19at 06:00; Start 07/15/19 at 06:15; Stop 07/15/19 at 06:16; Status DC Propofol 100 ml @ 2.7 mls/hr CONT PRN IV SEE I/O RECORD Last administered on 07/15/19at 10:08; Start 07/15/19 at 06:15 Ketamine HCl (Ketamine) 50 mg 1X ONCE IV Last administered on 07/15/19at 05:55; Start 07/15/19 at 06:15; Stop 07/15/19 at 06:16; Status DC Vecuronium [place] (Norcuron Bolus) 6 mg 1X ONCE IV Last administered on 07/15/19at 06:55; Start 07/15/19 at 07:00; Stop 07/15/19 at 07:01; Status DC Vecuronium [place] (Norcuron Bolus) 10 mg STK-MED ONCE IV ; Start 07/15/19 at 06:53; Stop 07/15/19 at 06:53; Status DC Tocilizumab 800 mg/Sodium Chloride 100 ml @ 100 mls/hr ONCE ONCE IV Last administered on 07/15/19at 15:51; Start 07/15/19 at 16:00; Stop 07/15/19 at 16:59; Status DC Dextrose (Dextrose 50%-Water Syringe) 25 gm STK-MED ONCE IV ; Start 07/15/19 at 15:55; Stop 07/15/19 at 15:56; Status DC Dexmedetomidine HCl 400 mcg/ Sodium Chloride 100 ml @ 9 mls/hr CONT PRN IV SEDATION Last administered on 07/22/19at 06:45; Start 07/15/19 at 16:30 Dexmedetomidine HCl 400 mcg/ Sodium Chloride 100 ml @ 0 mls/hr CONT PRN IV SEDATION; Start 07/15/19 at 16:30; Status UNV Dextrose (Dextrose 50%-Water Syringe) 25 gm 1X ONCE IV Last administered on 07/15/19at 16:28; Start 07/15/19 at 16:30; Stop 07/15/19 at 16:31; Status DC Amino Acids/ Glycerin/ Electrolytes 1,000 ml @ 80 mls/hr [id number] IV Last administered on 07/18/19at 13:03; Start 07/16/19 at 10:00; Stop 07/18/19 at 21:59; Status DC Sodium Bicarbonate (Sodium Bicarb Adult 8.4% Syr) 50 meq 1X ONCE IV Last administered on 07/16/19 11:23; Start 07/16/19 at 09:30; Stop 07/16/19 at 09:31; Status DC Fentanyl Citrate 55 ml @ 0 mls/hr CONT PRN IV SEE I/O RECORD Last administered on 07/20/19at 06:30; Start 07/16/19 at 22:00 Vecuronium [place] (Norcuron Bolus) 10 mg PRN Q6HRS PRN IV ASYNCHRONARY W/ VENT Last administered on 07/17/19 12:19; Start 07/17/19 at 10:00 Vecuronium [place] 50 mg/ Miscellaneous 50 ml @ 8.976 mls/ hr CONT PRN IV SEE I/O RECORD Last administered on 07/21/19at 23:54; Start 07/17/19 at 12:15 Info (Tpn Per Pharmacy) 1 each PRN DAILY PRN MC SEE COMMENTS Last administered on 07/22/19 09:30; Start 07/18/19 at 10:45 Sodium Acetate 60 meq/Potassium Phosphate 13.6 mmol/Magnesium Sulfate 10 meq/ Calcium Gluconate 10 meq/ Multivitamins 10 ml/Chromium/ Copper/Manganese/ Seleni/Zn 0.5 ml/ Total Parenteral Nutrition/Amino Acids/Dextrose 1,920 ml @ 80 mls/hr TPN CONT IV Last administered on 07/18/19 22:18; Start 07/18/19 at 22:00; Stop 07/19/19 at 21:59; Status DC Labetalol HCl (Normodyne Iv Push) 20 mg 1X ONCE IVP Last administered on 07/19/19at 09:30; Start 07/19/19 at 09:30; Stop 07/19/19 at 09:31; Status DC Labetalol HCl (Normodyne Iv Push) 10 mg PRN Q5MIN PRN IVP HYPERTENSION, 2ND CHOICE; Start 07/19/19 at 09:30 Sodium Acetate 60 meq/Potassium Phosphate 13.6 mmol/Magnesium Sulfate 5 meq/ Calcium Gluconate 10 meq/ Multivitamins 10 ml/Chromium/ Copper/Manganese/ Seleni/Zn 0.5 ml/ Total Parenteral Nutrition/Amino Acids/Dextrose/ Fat Emulsion Intravenous 1,920 ml @ 80 mls/hr TPN CONT IV Last administered on 07/19/19at 20:45; Start 07/19/19 at 22:00; Stop 07/20/19 at 21:59; Status DC Metoprolol Tartrate (Lopressor Vial) 5 mg Q6HRS IVP Last administered on 07/21/19at 17:58; Start 07/19/19 at 18:00 Norepinephrine Bitartrate 8 mg/ Dextrose 258 ml @ 35.217 mls/ hr CONT PRN IV PER PROTOCOL Last administered on 07/19/19at 15:59; Start 07/19/19 at 16:00 Sodium Acetate 60 meq/Sodium Phosphate 5 mmol/ Calcium Gluconate 5 meq/ Multivitamins 10 ml/Chromium/ Copper/Manganese/ Seleni/Zn 0.5 ml/ Total Parent eral Nutrition/Amino Acids/Dextrose/ Fat Emulsion Intravenous 1,920 ml @ 80 mls/hr TPN CONT IV Last administered on 07/20/19at 21:23; Start 07/20/19 at 22:00; Stop 07/21/19 at 21:59; Status DC Sodium Acetate 60 meq/Calcium Gluconate 5 meq/ Multivitamins 10 ml/Chromium/ Copper/Manganese/ Seleni/Zn 0.5 ml/ Total Parenteral Nutrition/Amino Acids/Dextrose/ Fat Emulsion Intravenous 1,680 ml @ 70 mls/hr TPN CONT IV Last administered on 07/21/19at 21:21; Start 07/21/19 at 22:00; Stop 07/22/19 at 21:59 Methylprednisolone Sodium Succinate (SOLU-Medrol 125MG VIAL) 250 mg Q6HRS IV ; Start 07/21/19 at 14:30; Status UNV Methylprednisolone Sodium Succinate 250 mg/Sodium Chloride 100 ml @ 100 mls/hr Q6HRS IV Last administered on 07/22/19at 06:00; Start 07/21/19 at 16:00; Stop 07/24/19 at 12:59 Heparin Sodium/ Dextrose 250 ml @ 0 mls/hr CONT PRN IV PER PROTOCOL Last administered on 07/22/19at 04:31; Start 07/22/19 at 04:00 Heparin Sodium (Porcine) (Heparin Sodium) 5,500 unit PRN Q6HRS PRN IV FOR UFH LEVEL LESS THAN 0.2; Start 07/22/19 at 04:00 Heparin Sodium (Porcine) (Heparin Sodium) 2,750 unit PRN Q6HRS PRN IV FOR UFH LEVEL 0.2 - 0.29; Start 07/22/19 at 04:00 Info (Anti-Coagulation Monitoring By Pharmacy) 1 each PRN DAILY PRN MC SEE COMMENTS Last administered on 07/22/19at 04:54; Start 07/22/19 at 04:15 Furosemide (Lasix) 40 mg 1X ONCE IVP ; Start 07/22/19 at 09:00; Stop 07/22/19 at 09:01; Status Cancel Calcium Gluconate (Calcium Gluconate) 1,000 mg 1X ONCE IVP Last administered on 07/22/19at 09:09; Start 07/22/19 at 09:00; Stop 07/22/19 at 09:01; Status DC Furosemide (Lasix) 40 mg 1X ONCE IVP Last administered on 07/22/19at 09:10; Start 07/22/19 at 09:00; Stop 07/22/19 at 09:01; Status DC Insulin Glargine (Lantus Syringe) 10 unit QHS SQ ; Start 07/22/19 at 21:00 Insulin Human Lispro (HumaLOG) 0-5 UNITS Q6HRS SQ Last administered on 07/22/19at 09:43; Start 07/22/19 at 12:00 Dextrose (Dextrose 50%-Water Syringe) 12.5 gm PRN Q15MIN PRN IV SEE COMMENTS; Start 07/22/19 at 09:15 Sodium Acetate 60 meq/Calcium Gluconate 5 meq/ Multivitamins 10 ml/Chromium/ Copper/Manganese/ Seleni/Zn 0.5 ml/ Total Parenteral Nutrition/Amino Acids/Dextrose/ Fat Emulsion Intravenous 1,680 ml @ 70 mls/hr TPN CONT IV ; Start 07/22/19 at 22:00; Stop 07/23/19 at 21:59; Status Cancel Sodium Acetate 60 meq/Calcium Gluconate 5 meq/ Multivitamins 10 ml/Chromium/ Copper/Manganese/ Seleni/Zn 0.5 ml/ Total Parenteral Nutrition/Amino Acids/Dextrose/ Fat Emulsion Intravenous 1,680 ml @ 70 mls/hr TPN CONT IV ; Start 07/22/19 at 22:00; Stop 07/23/19 at 21:59 Active Scripts Active Reported Metformin Hcl 1,000 Mg Tablet 1,000 Mg PO BIDWMEALS Lisinopril 40 Mg Tablet 40 Mg PO DAILY Allopurinol 300 Mg Tablet 300 Mg PO DAILY Metoprolol Tartrate 25 Mg Tablet 25 Mg PO BID Doxazosin Mesylate 8 Mg Tablet 8 Mg PO DAILY Amlodipine Besylate 10 Mg Tablet 10 Mg PO DAILY Allergies Allergies: Coded Allergies: No Known Drug Allergies (Unverified , 04/20/17) ROS Review of System Unable to Obtain 2/2 to above Physical Exam Physical Exam Per Pulmonary / and Visual GENERAL: patient is intubated and sedated HEENT Intubated Lungs- decreased at bases Heart S1-S2 systolic murmur + Abdomen obese soft nontender Extremity 1+ LE edema Sims + Neuro- On Vent Vital Signs Vital Signs Date Time Temp Pulse Resp B/P (MAP) Pulse Ox O2 Delivery O2 Flow Rate FiO2 07/22/19 09:31 110 161/91 07/22/19 07:48 84 Ventilator 07/22/19 06:00 28 07/22/19 04:00 98.5 98.5 Assessment & Plan GABRIEL --ATN Non Oliguric, Good UOP, UA at presentation unremarkable Discrepancy between BUN/Cr, on TPN and Steroids HyperKalemia - Lisinopril held for past few days ,Dw Nursing Acute hypoxic respiratory failure secondary to coronavirus disease-19 pneumonia. Worsening hypoxia , likely cytokine surge/ ALI/ ARDS, INTUBATED 07/14 s/p convalescent plasma transfusion 07/13; S/P monoclonal antibodies/Tocilizumab 07/15/19 Abnormal chest x-ray with bilateral infiltrates suggestive of coronavirus disease-19 pneumonia. Cannot exclude bacterial pneumonia. Elevated D-dimer and LFT's Super morbid obesity Diabetes Hypertension, uncontrolled Anemia Labs Labs Laboratory Tests Test 07/20/19 12:26 07/20/19 21:30 07/21/19 00:41 07/21/19 06:15 Glucose (Fingerstick) 141 mg/dL (70-99) 143 mg/dL (70-99) Erythrocyte Sedimentation Rate 51 (0-15) Fibrinogen 476 mg/dL (200-440) D-Dimer (Avis) > 20.00 ug/mlFEU Ferritin 538 ng/mL (26-388) Sodium Level 137 mmol/L (136-145) Potassium Level 5.7 mmol/L (3.5-5.1) Chloride Level 103 mmol/L (98-107) Carbon Dioxide Level 26 mmol/L (21-32) Anion Gap 8 (6-14) Blood Urea Nitrogen 95 mg/dL (8-26) Creatinine 2.3 mg/dL (0.7-1.3) Estimated GFR (Cockcroft-Gault) 36.9 Glucose Level 149 mg/dL (70-99) Calcium Level 8.5 mg/dL (8.5-10.1) Phosphorus Level 6.3 mg/dL (2.6-4.7) Magnesium Level 2.6 mg/dL (1.8-2.4) Test 07/21/19 08:10 07/21/19 17:36 07/22/19 04:00 07/22/19 06:33 O2 Saturation 93 % (92-99) Arterial Blood pH 7.24 (7.35-7.45) Arterial Blood pCO2 at Patient Temp 53 mmHg (35-46) Arterial Blood pO2 at Patient Temp 80 mmHg (75-108) Arterial Blood HCO3 22 mmol/L (21-28) Arterial Blood Base Excess -6 mmol/L (-3-3) FiO2 100 vent Glucose (Fingerstick) 123 mg/dL (70-99) 247 mg/dL (70-99) White Blood Count 19.8 x10^3/uL (4.0-11.0) Red Blood Count 4.25 x10^6/uL (4.30-5.70) Hemoglobin 11.4 g/dL (13.0-17.5) Hematocrit 36.3 % (39.0-53.0) Mean Corpuscular Volume 85 fL (79-100) Mean Corpuscular Hemoglobin 27 pg (25-35) Mean Corpuscular Hemoglobin Concent 31 g/dL (31-37) Red Cell Distribution Width 15.6 % (11.5-14.5) Platelet Count 420 x10^3/uL (140-400) Neutrophils (%) (Auto) 91 % (31-73) Lymphocytes (%) (Auto) 6 % (24-48) Monocytes (%) (Auto) 3 % (0-9) Eosinophils (%) (Auto) 0 % (0-3) Basophils (%) (Auto) 0 % (0-3) Neutrophils # (Auto) 18.0 x10^3/uL (1.8-7.7) Lymphocytes # (Auto) 1.1 x10^3/uL (1.0-4.8) Monocytes # (Auto) 0.5 x10^3/uL (0.0-1.1) Eosinophils # (Auto) 0.1 x10^3/uL (0.0-0.7) Basophils # (Auto) 0.0 x10^3/uL (0.0-0.2) Segmented Neutrophils % 89 % (35-66) Band Neutrophils % 3 % (0-9) Lymphocytes % 7 % (24-48) Myelocytes % 1 % (0-0) Platelet Estimate Adequate (ADEQUATE) Sodium Level 138 mmol/L (136-145) Potassium Level 6.8 mmol/L (3.5-5.1) Chloride Level 104 mmol/L (98-107) Carbon Dioxide Level 26 mmol/L (21-32) Anion Gap 8 (6-14) Blood Urea Nitrogen 115 mg/dL (8-26) Creatinine 2.2 mg/dL (0.7-1.3) Estimated GFR (Cockcroft-Gault) 38.8 Glucose Level 247 mg/dL (70-99) Calcium Level 8.5 mg/dL (8.5-10.1) Phosphorus Level 6.3 mg/dL (2.6-4.7) Magnesium Level 2.9 mg/dL (1.8-2.4) Test 07/22/19 08:00 07/22/19 09:06 O2 Saturation 73 % (92-99) Arterial Blood pH 7.24 (7.35-7.45) Arterial Blood pCO2 at Patient Temp 59 mmHg (35-46) Arterial Blood pO2 at Patient Temp 48 mmHg (75-108) Arterial Blood HCO3 25 mmol/L (21-28) Arterial Blood Base Excess -4 mmol/L (-3-3) FiO2 100% Glucose (Fingerstick) 265 mg/dL (70-99) Laboratory Tests Test 07/21/19 17:36 07/22/19 04:00 07/22/19 06:33 07/22/19 08:00 Glucose (Fingerstick) 123 mg/dL (70-99) 247 mg/dL (70-99) White Blood Count 19.8 x10^3/uL (4.0-11.0) Red Blood Count 4.25 x10^6/uL (4.30-5.70) Hemoglobin 11.4 g/dL (13.0-17.5) Hematocrit 36.3 % (39.0-53.0) Mean Corpuscular Volume 85 fL (79-100) Mean Corpuscular Hemoglobin 27 pg (25-35) Mean Corpuscular Hemoglobin Concent 31 g/dL (31-37) Red Cell Distribution Width 15.6 % (11.5-14.5) Platelet Count 420 x10^3/uL (140-400) Neutrophils (%) (Auto) 91 % (31-73) Lymphocytes (%) (Auto) 6 % (24-48) Monocytes (%) (Auto) 3 % (0-9) Eosinophils (%) (Auto) 0 % (0-3) Basophils (%) (Auto) 0 % (0-3) Neutrophils # (Auto) 18.0 x10^3/uL (1.8-7.7) Lymphocytes # (Auto) 1.1 x10^3/uL (1.0-4.8) Monocytes # (Auto) 0.5 x10^3/uL (0.0-1.1) Eosinophils # (Auto) 0.1 x10^3/uL (0.0-0.7) Basophils # (Auto) 0.0 x10^3/uL (0.0-0.2) Segmented Neutrophils % 89 % (35-66) Band Neutrophils % 3 % (0-9) Lymphocytes % 7 % (24-48) Myelocytes % 1 % (0-0) Platelet Estimate Adequate (ADEQUATE) Sodium Level 138 mmol/L (136-145) Potassium Level 6.8 mmol/L (3.5-5.1) Chloride Level 104 mmol/L (98-107) Carbon Dioxide Level 26 mmol/L (21-32) Anion Gap 8 (6-14) Blood Urea Nitrogen 115 mg/dL (8-26) Creatinine 2.2 mg/dL (0.7-1.3) Estimated GFR (Cockcroft-Gault) 38.8 Glucose Level 247 mg/dL (70-99) Calcium Level 8.5 mg/dL (8.5-10.1) Phosphorus Level 6.3 mg/dL (2.6-4.7) Magnesium Level 2.9 mg/dL (1.8-2.4) O2 Saturation 73 % (92-99) Arterial Blood pH 7.24 (7.35-7.45) Arterial Blood pCO2 at Patient Temp 59 mmHg (35-46) Arterial Blood pO2 at Patient Temp 48 mmHg (75-108) Arterial Blood HCO3 25 mmol/L (21-28) Arterial Blood Base Excess -4 mmol/L (-3-3) FiO2 100% Test 07/22/19 09:06 Glucose (Fingerstick) 265 mg/dL (70-99) Review All relevant outside records, renal labs, imaging studies, telemetry/EKG's were reviewed. Images Images CxR- IMPRESSION: 1. New complete whiteout of the right lung with volume loss, suspicious for complete atelectasis, likely due to mucous plugging. 2. Significantly decreased but persistent opacities in the left lung. 3. Endotracheal tube terminating in similar position, approximately 4.2 cm above the germán. DIANA SANDY MD July 22, 2019 10:45
--- NOTE | 2019-07-22 11:16 | NUR ---
SS following up with discharge planning. SS discussed with RN, Maria C, and reviewed pt's chart. Pt is currently on the vent and per RN is still very critical. Pt is COVID19 positive. SS will continue to follow for discharge planning.
[2019-07-22] MEDS: DOXAZOSIN MESYLATE 4 MG TABLET. PO SCH (11:24)
[2019-07-22] MEDS: VECURONIUM BROMIDE 50 MG in TOTAL VOLUME 50 ML IV PRN (11:40)
[2019-07-22] MEDS: fentaNYL HIGH DOSE PCA 55 ML IV PRN (11:40)
--- NOTE | 2019-07-22 12:13 | PDOC ---
DEXTER BARNARD FRETTED INSTRUMENTS INSPECTOR 07/22/19 1212: CARDIO Progress Notes Date and Time Date of Service 07/22/2019 Time of Evaluation 1020 Subjective Subjective: Other (sedated / intubated ) Vitals Vitals Vital Signs Date Time Temp Pulse Resp B/P (MAP) Pulse Ox O2 Delivery O2 Flow Rate FiO2 07/22/19 11:40 84 40.0 07/22/19 11:24 103 139/89 07/22/19 11:00 28 Ventilator 07/22/19 08:00 98.4 98.4 Weight Weight [ ] Input and Output Intake and Output Intake and Output 07/22/19 07:00 Intake Total 3595 ml Output Total 2205 ml Balance 1390 ml Intake Oral 0 ml IV Total 3595 ml Output Urine Total 2205 ml Laboratory Labs Laboratory Tests Test 07/21/19 17:36 07/22/19 04:00 07/22/19 06:33 07/22/19 08:00 Glucose (Fingerstick) 123 mg/dL (70-99) 247 mg/dL (70-99) White Blood Count 19.8 x10^3/uL (4.0-11.0) Red Blood Count 4.25 x10^6/uL (4.30-5.70) Hemoglobin 11.4 g/dL (13.0-17.5) Hematocrit 36.3 % (39.0-53.0) Mean Corpuscular Volume 85 fL (79-100) Mean Corpuscular Hemoglobin 27 pg (25-35) Mean Corpuscular Hemoglobin Concent 31 g/dL (31-37) Red Cell Distribution Width 15.6 % (11.5-14.5) Platelet Count 420 x10^3/uL (140-400) Neutrophils (%) (Auto) 91 % (31-73) Lymphocytes (%) (Auto) 6 % (24-48) Monocytes (%) (Auto) 3 % (0-9) Eosinophils (%) (Auto) 0 % (0-3) Basophils (%) (Auto) 0 % (0-3) Neutrophils # (Auto) 18.0 x10^3/uL (1.8-7.7) Lymphocytes # (Auto) 1.1 x10^3/uL (1.0-4.8) Monocytes # (Auto) 0.5 x10^3/uL (0.0-1.1) Eosinophils # (Auto) 0.1 x10^3/uL (0.0-0.7) Basophils # (Auto) 0.0 x10^3/uL (0.0-0.2) Segmented Neutrophils % 89 % (35-66) Band Neutrophils % 3 % (0-9) Lymphocytes % 7 % (24-48) Myelocytes % 1 % (0-0) Platelet Estimate Adequate (ADEQUATE) Sodium Level 138 mmol/L (136-145) Potassium Level 6.8 mmol/L (3.5-5.1) Chloride Level 104 mmol/L (98-107) Carbon Dioxide Level 26 mmol/L (21-32) Anion Gap 8 (6-14) Blood Urea Nitrogen 115 mg/dL (8-26) Creatinine 2.2 mg/dL (0.7-1.3) Estimated GFR (Cockcroft-Gault) 38.8 Glucose Level 247 mg/dL (70-99) Calcium Level 8.5 mg/dL (8.5-10.1) Phosphorus Level 6.3 mg/dL (2.6-4.7) Magnesium Level 2.9 mg/dL (1.8-2.4) O2 Saturation 73 % (92-99) Arterial Blood pH 7.24 (7.35-7.45) Arterial Blood pCO2 at Patient Temp 59 mmHg (35-46) Arterial Blood pO2 at Patient Temp 48 mmHg (75-108) Arterial Blood HCO3 25 mmol/L (21-28) Arterial Blood Base Excess -4 mmol/L (-3-3) FiO2 100% Test 07/22/19 09:06 Glucose (Fingerstick) 265 mg/dL (70-99) Microbiology Micro Microbiology 07/12/19 Blood Culture - Final, Complete NO GROWTH AFTER 5 DAYS Physical Exam Chest: Symmetric LUNGS: Other (mechanical vent ) Heart: RRR (SR/ST), other (distant heart tones ) Abdomen: Other (obese, distended) Neurology: other (sedated) Other Exams Visual exam, Discussed with RN, Labs and CXR reviewed Assessment Assessment 1. Acute respiratory failure secondary to COVID-19 PNA, ARDS. s/p intubation. s/p convalescent plasma. 2. Systolic murmur 3. Hypertension; controlled 4. DM2/HLP 5. Morbid obesity 7. GABRIEL/hyperkalemia/uremic: nephrology consulted 8. 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 Empiric heparin. On vecuronium Ongoing treatment as per pulm and ID. Consider echo to assess systolic murmur if patient's condition improves. Worsening with multiorgan failure. May need HD. Stop ACEi. Supportive care MARY BOOKER MD 07/22/19 1752: CARDIO Progress Notes Plan Plan Pt. seen and examined. Agree with above ACQUISITION EDITOR note. Supportive care. Poor intermediate accountant prognosis. DEXTER BARNARD APRN July 22, 2019 12:12 MARY BOOKER MD July 22, 2019 17:52
[2019-07-22 12:33] LABS: CREATININE 2.1 mg/dL (0.7-1.3)
[2019-07-22 12:35] LABS: POTASSIUM 6.2 mmol/L (3.5-5.1)
[2019-07-22 12:39] LABS: ALBUMIN 2.7 g/dL (3.4-5.0); DIRECT BILIRUBIN 0.2 mg/dL (0.0-0.2); TOTAL BILIRUBIN 0.4 mg/dL (0.2-1.0)
[2019-07-22] MEDS ORDERED: SODIUM POLYSTYRENE SULFON/SORB 15 GM/60 ML ORAL.SUSP PO ONE (13:15)
[2019-07-22] MEDS ORDERED: DEXTROSE 50% 25 GM / 50ML DISP.SYRIN. IV ONE (13:15)
[2019-07-22] MEDS ORDERED: SODIUM BICARB ADULT 8.4% 50 MEQ/50 ML DISP.SYRIN. IV ONE (13:15)
[2019-07-22] MEDS ORDERED: INSULIN REGULAR 100 UNIT/ML 3ML VIAL. IV ONE (13:15)
[2019-07-22 13:53] LABS: BASE EXCESS ABG -1 mmol/L (-3-3); HCO3 ABG 26 mmol/L (21-28); PCO2 ABG 54 mmHg (35-46); PO2 ABG 64 mmHg (75-108); SAT O2 ABG 88 % (92-99)
[2019-07-22 13:57] LABS: FIO2 ABG 100
--- NOTE | 2019-07-22 14:15 | PDOC ---
PROGRESS NOTES Chief Complaint Chief Complaint Acute hypoxic/// HYPERCAPNIC resp failure REQUIRING VENT SUPPORT Super morbid obesity Bibasilar lung airspace opacities likely atelectasis or infiltrates likely pn eumonia or atelectasis or atypical/viral infection/viral pneumonia Diabetes Hypertension, uncontrolled normocytic anemia SEVERE PROTEIN, CALORIC MALNUTRITION COVID-19 POS Acute renal failure vasomotor etiology likely Hyperkalemia secondary to the above Plan: 1. Continue present AC mode, on 100% FIO2 ,14 PEEP. Make changes based on ABG's 2. COVID-19 positive 3. Empiric antibiotics. 4. s/p convalescent plasma transfusion 07/13 5. nutrition, PPN and TF at5 low dose 6. Monitor LFT 7. Discussed with RN. 8. S/P monoclonal antibodies/Tocilizumab 07/15/19 9. Hold tello inhibitor, appreciate nephrology consultation lovenox/pepcid History of Present Illness History of Present Illness No acute events reported overnight, case discussed with nursing staff patient in no acute distress no distress during my visit Prognosis guarded, remains critically stable Vitals Vitals Vital Signs Date Time Temp Pulse Resp B/P (MAP) Pulse Ox O2 Delivery O2 Flow Rate FiO2 07/22/19 13:00 92 28 122/54 (76) 100 Ventilator 07/22/19 12:00 99.1 99.1 07/22/19 11:40 40.0 Physical Exam Physical Exam GENERAL: patient is intubated and sedated unresponsive on the ventilator HEENT unremarkable for acute abnormality Chest bilateral equal air entry inspiratory and expiratory wheezes at the bilateral bases anteriorly Heart S1-S2 normal regular rate and rhythm loud systolic murmur at the right second intercostal space Abdomen is obese soft nontender nondistended no masses or organomegaly noted Extremity exam is unremarkable for acute abnormality 1+ bipedal edema is noted General: Oriented X3, Cooperative, No acute distress, mild distress Abdomen: Soft Extremities: No cyanosis Labs LABS Laboratory Tests Test 07/21/19 17:36 07/22/19 04:00 07/22/19 06:33 07/22/19 08:00 Glucose (Fingerstick) 123 mg/dL (70-99) 247 mg/dL (70-99) White Blood Count 19.8 x10^3/uL (4.0-11.0) Red Blood Count 4.25 x10^6/uL (4.30-5.70) Hemoglobin 11.4 g/dL (13.0-17.5) Hematocrit 36.3 % (39.0-53.0) Mean Corpuscular Volume 85 fL (79-100) Mean Corpuscular Hemoglobin 27 pg (25-35) Mean Corpuscular Hemoglobin Concent 31 g/dL (31-37) Red Cell Distribution Width 15.6 % (11.5-14.5) Platelet Count 420 x10^3/uL (140-400) Neutrophils (%) (Auto) 91 % (31-73) Lymphocytes (%) (Auto) 6 % (24-48) Monocytes (%) (Auto) 3 % (0-9) Eosinophils (%) (Auto) 0 % (0-3) Basophils (%) (Auto) 0 % (0-3) Neutrophils # (Auto) 18.0 x10^3/uL (1.8-7.7) Lymphocytes # (Auto) 1.1 x10^3/uL (1.0-4.8) Monocytes # (Auto) 0.5 x10^3/uL (0.0-1.1) Eosinophils # (Auto) 0.1 x10^3/uL (0.0-0.7) Basophils # (Auto) 0.0 x10^3/uL (0.0-0.2) Segmented Neutrophils % 89 % (35-66) Band Neutrophils % 3 % (0-9) Lymphocytes % 7 % (24-48) Myelocytes % 1 % (0-0) Platelet Estimate Adequate (ADEQUATE) Sodium Level 138 mmol/L (136-145) Potassium Level 6.8 mmol/L (3.5-5.1) Chloride Level 104 mmol/L (98-107) Carbon Dioxide Level 26 mmol/L (21-32) Anion Gap 8 (6-14) Blood Urea Nitrogen 115 mg/dL (8-26) Creatinine 2.2 mg/dL (0.7-1.3) Estimated GFR (Cockcroft-Gault) 38.8 Glucose Level 247 mg/dL (70-99) Calcium Level 8.5 mg/dL (8.5-10.1) Phosphorus Level 6.3 mg/dL (2.6-4.7) Magnesium Level 2.9 mg/dL (1.8-2.4) Total Bilirubin 0.4 mg/dL (0.2-1.0) Direct Bilirubin 0.2 mg/dL (0.0-0.2) Aspartate Amino Transf (AST/SGOT) 40 U/L (15-37) Alanine Aminotransferase (ALT/SGPT) 132 U/L (16-63) Alkaline Phosphatase 99 U/L (46-116) Total Protein 7.0 g/dL (6.4-8.2) Albumin 2.7 g/dL (3.4-5.0) O2 Saturation 73 % (92-99) Arterial Blood pH 7.24 (7.35-7.45) Arterial Blood pCO2 at Patient Temp 59 mmHg (35-46) Arterial Blood pO2 at Patient Temp 48 mmHg (75-108) Arterial Blood HCO3 25 mmol/L (21-28) Arterial Blood Base Excess -4 mmol/L (-3-3) FiO2 100% Test 07/22/19 09:06 07/22/19 11:00 07/22/19 12:15 07/22/19 13:45 Glucose (Fingerstick) 265 mg/dL (70-99) Heparin Anti-Xa Act, Unfractionated > 1.10 IU/mL (0.30-0.70) Sodium Level 141 mmol/L (136-145) Potassium Level 6.2 mmol/L (3.5-5.1) Chloride Level 105 mmol/L (98-107) Carbon Dioxide Level 29 mmol/L (21-32) Anion Gap 7 (6-14) Blood Urea Nitrogen 118 mg/dL (8-26) Creatinine 2.1 mg/dL (0.7-1.3) Estimated GFR (Cockcroft-Gault) 41.0 Glucose Level 221 mg/dL (70-99) Calcium Level 9.0 mg/dL (8.5-10.1) O2 Saturation 88 % (92-99) Arterial Blood pH 7.31 (7.35-7.45) Arterial Blood pCO2 at Patient Temp 54 mmHg (35-46) Arterial Blood pO2 at Patient Temp 64 mmHg (75-108) Arterial Blood HCO3 26 mmol/L (21-28) Arterial Blood Base Excess -1 mmol/L (-3-3) FiO2 100 Assessment and Plan Assessmemt and Plan Problems Medical Problems: (1) Suspected COVID-19 virus infection Status: Acute Comment Review of Relevant I have reviewed the following items lizzy (where applicable) has been applied. Labs Laboratory Tests Test 07/20/19 21:30 07/21/19 00:41 07/21/19 06:15 07/21/19 08:10 Erythrocyte Sedimentation Rate 51 (0-15) Fibrinogen 476 mg/dL (200-440) D-Dimer (Avis) > 20.00 ug/mlFEU Ferritin 538 ng/mL (26-388) Glucose (Fingerstick) 143 mg/dL (70-99) Sodium Level 137 mmol/L (136-145) Potassium Level 5.7 mmol/L (3.5-5.1) Chloride Level 103 mmol/L (98-107) Carbon Dioxide Level 26 mmol/L (21-32) Anion Gap 8 (6-14) Blood Urea Nitrogen 95 mg/dL (8-26) Creatinine 2.3 mg/dL (0.7-1.3) Estimated GFR (Cockcroft-Gault) 36.9 Glucose Level 149 mg/dL (70-99) Calcium Level 8.5 mg/dL (8.5-10.1) Phosphorus Level 6.3 mg/dL (2.6-4.7) Magnesium Level 2.6 mg/dL (1.8-2.4) O2 Saturation 93 % (92-99) Arterial Blood pH 7.24 (7.35-7.45) Arterial Blood pCO2 at Patient Temp 53 mmHg (35-46) Arterial Blood pO2 at Patient Temp 80 mmHg (75-108) Arterial Blood HCO3 22 mmol/L (21-28) Arterial Blood Base Excess -6 mmol/L (-3-3) FiO2 100 vent Test 07/21/19 17:36 07/22/19 04:00 07/22/19 06:33 07/22/19 08:00 Glucose (Fingerstick) 123 mg/dL (70-99) 247 mg/dL (70-99) White Blood Count 19.8 x10^3/uL (4.0-11.0) Red Blood Count 4.25 x10^6/uL (4.30-5.70) Hemoglobin 11.4 g/dL (13.0-17.5) Hematocrit 36.3 % (39.0-53.0) Mean Corpuscular Volume 85 fL (79-100) Mean Corpuscular Hemoglobin 27 pg (25-35) Mean Corpuscular Hemoglobin Concent 31 g/dL (31-37) Red Cell Distribution Width 15.6 % (11.5-14.5) Platelet Count 420 x10^3/uL (140-400) Neutrophils (%) (Auto) 91 % (31-73) Lymphocytes (%) (Auto) 6 % (24-48) Monocytes (%) (Auto) 3 % (0-9) Eosinophils (%) (Auto) 0 % (0-3) Basophils (%) (Auto) 0 % (0-3) Neutrophils # (Auto) 18.0 x10^3/uL (1.8-7.7) Lymphocytes # (Auto) 1.1 x10^3/uL (1.0-4.8) Monocytes # (Auto) 0.5 x10^3/uL (0.0-1.1) Eosinophils # (Auto) 0.1 x10^3/uL (0.0-0.7) Basophils # (Auto) 0.0 x10^3/uL (0.0-0.2) Segmented Neutrophils % 89 % (35-66) Band Neutrophils % 3 % (0-9) Lymphocytes % 7 % (24-48) Myelocytes % 1 % (0-0) Platelet Estimate Adequate (ADEQUATE) Sodium Level 138 mmol/L (136-145) Potassium Level 6.8 mmol/L (3.5-5.1) Chloride Level 104 mmol/L (98-107) Carbon Dioxide Level 26 mmol/L (21-32) Anion Gap 8 (6-14) Blood Urea Nitrogen 115 mg/dL (8-26) Creatinine 2.2 mg/dL (0.7-1.3) Estimated GFR (Cockcroft-Gault) 38.8 Glucose Level 247 mg/dL (70-99) Calcium Level 8.5 mg/dL (8.5-10.1) Phosphorus Level 6.3 mg/dL (2.6-4.7) Magnesium Level 2.9 mg/dL (1.8-2.4) Total Bilirubin 0.4 mg/dL (0.2-1.0) Direct Bilirubin 0.2 mg/dL (0.0-0.2) Aspartate Amino Transf (AST/SGOT) 40 U/L (15-37) Alanine Aminotransferase (ALT/SGPT) 132 U/L (16-63) Alkaline Phosphatase 99 U/L (46-116) Total Protein 7.0 g/dL (6.4-8.2) Albumin 2.7 g/dL (3.4-5.0) O2 Saturation 73 % (92-99) Arterial Blood pH 7.24 (7.35-7.45) Arterial Blood pCO2 at Patient Temp 59 mmHg (35-46) Arterial Blood pO2 at Patient Temp 48 mmHg (75-108) Arterial Blood HCO3 25 mmol/L (21-28) Arterial Blood Base Excess -4 mmol/L (-3-3) FiO2 100% Test 07/22/19 09:06 07/22/19 11:00 07/22/19 12:15 07/22/19 13:45 Glucose (Fingerstick) 265 mg/dL (70-99) Heparin Anti-Xa Act, Unfractionated > 1.10 IU/mL (0.30-0.70) Sodium Level 141 mmol/L (136-145) Potassium Level 6.2 mmol/L (3.5-5.1) Chloride Level 105 mmol/L (98-107) Carbon Dioxide Level 29 mmol/L (21-32) Anion Gap 7 (6-14) Blood Urea Nitrogen 118 mg/dL (8-26) Creatinine 2.1 mg/dL (0.7-1.3) Estimated GFR (Cockcroft-Gault) 41.0 Glucose Level 221 mg/dL (70-99) Calcium Level 9.0 mg/dL (8.5-10.1) O2 Saturation 88 % (92-99) Arterial Blood pH 7.31 (7.35-7.45) Arterial Blood pCO2 at Patient Temp 54 mmHg (35-46) Arterial Blood pO2 at Patient Temp 64 mmHg (75-108) Arterial Blood HCO3 26 mmol/L (21-28) Arterial Blood Base Excess -1 mmol/L (-3-3) FiO2 100 Laboratory Tests Test 07/21/19 17:36 07/22/19 04:00 07/22/19 06:33 07/22/19 08:00 Glucose (Fingerstick) 123 mg/dL (70-99) 247 mg/dL (70-99) White Blood Count 19.8 x10^3/uL (4.0-11.0) Red Blood Count 4.25 x10^6/uL (4.30-5.70) Hemoglobin 11.4 g/dL (13.0-17.5) Hematocrit 36.3 % (39.0-53.0) Mean Corpuscular Volume 85 fL (79-100) Mean Corpuscular Hemoglobin 27 pg (25-35) Mean Corpuscular Hemoglobin Concent 31 g/dL (31-37) Red Cell Distribution Width 15.6 % (11.5-14.5) Platelet Count 420 x10^3/uL (140-400) Neutrophils (%) (Auto) 91 % (31-73) Lymphocytes (%) (Auto) 6 % (24-48) Monocytes (%) (Auto) 3 % (0-9) Eosinophils (%) (Auto) 0 % (0-3) Basophils (%) (Auto) 0 % (0-3) Neutrophils # (Auto) 18.0 x10^3/uL (1.8-7.7) Lymphocytes # (Auto) 1.1 x10^3/uL (1.0-4.8) Monocytes # (Auto) 0.5 x10^3/uL (0.0-1.1) Eosinophils # (Auto) 0.1 x10^3/uL (0.0-0.7) Basophils # (Auto) 0.0 x10^3/uL (0.0-0.2) Segmented Neutrophils % 89 % (35-66) Band Neutrophils % 3 % (0-9) Lymphocytes % 7 % (24-48) Myelocytes % 1 % (0-0) Platelet Estimate Adequate (ADEQUATE) Sodium Level 138 mmol/L (136-145) Potassium Level 6.8 mmol/L (3.5-5.1) Chloride Level 104 mmol/L (98-107) Carbon Dioxide Level 26 mmol/L (21-32) Anion Gap 8 (6-14) Blood Urea Nitrogen 115 mg/dL (8-26) Creatinine 2.2 mg/dL (0.7-1.3) Estimated GFR (Cockcroft-Gault) 38.8 Glucose Level 247 mg/dL (70-99) Calcium Level 8.5 mg/dL (8.5-10.1) Phosphorus Level 6.3 mg/dL (2.6-4.7) Magnesium Level 2.9 mg/dL (1.8-2.4) Total Bilirubin 0.4 mg/dL (0.2-1.0) Direct Bilirubin 0.2 mg/dL (0.0-0.2) Aspartate Amino Transf (AST/SGOT) 40 U/L (15-37) Alanine Aminotransferase (ALT/SGPT) 132 U/L (16-63) Alkaline Phosphatase 99 U/L (46-116) Total Protein 7.0 g/dL (6.4-8.2) Albumin 2.7 g/dL (3.4-5.0) O2 Saturation 73 % (92-99) Arterial Blood pH 7.24 (7.35-7.45) Arterial Blood pCO2 at Patient Temp 59 mmHg (35-46) Arterial Blood pO2 at Patient Temp 48 mmHg (75-108) Arterial Blood HCO3 25 mmol/L (21-28) Arterial Blood Base Excess -4 mmol/L (-3-3) FiO2 100% Test 07/22/19 09:06 07/22/19 11:00 07/22/19 12:15 07/22/19 13:45 Glucose (Fingerstick) 265 mg/dL (70-99) Heparin Anti-Xa Act, Unfractionated > 1.10 IU/mL (0.30-0.70) Sodium Level 141 mmol/L (136-145) Potassium Level 6.2 mmol/L (3.5-5.1) Chloride Level 105 mmol/L (98-107) Carbon Dioxide Level 29 mmol/L (21-32) Anion Gap 7 (6-14) Blood Urea Nitrogen 118 mg/dL (8-26) Creatinine 2.1 mg/dL (0.7-1.3) Estimated GFR (Cockcroft-Gault) 41.0 Glucose Level 221 mg/dL (70-99) Calcium Level 9.0 mg/dL (8.5-10.1) O2 Saturation 88 % (92-99) Arterial Blood pH 7.31 (7.35-7.45) Arterial Blood pCO2 at Patient Temp 54 mmHg (35-46) Arterial Blood pO2 at Patient Temp 64 mmHg (75-108) Arterial Blood HCO3 26 mmol/L (21-28) Arterial Blood Base Excess -1 mmol/L (-3-3) FiO2 100 Microbiology 07/12/19 Blood Culture - Final, Complete NO GROWTH AFTER 5 DAYS Medications Current Medications Sodium Chloride 1,000 ml @ 1,000 mls/hr 1X ONCE IV Last administered on 06/15 11/02at 13:25; Start 07/12/19 at 13:30; Stop 07/12/19 at 14:29; Status DC Acetaminophen (Tylenol) 1,000 mg 1X ONCE PO Last administered on 07/12/19at 13:25; Start 07/12/19 at 13:45; Stop 07/12/19 at 13:46; Status DC Sodium Chloride (Normal Saline Flush) 3 ml QSHIFT PRN IV AFTER MEDS AND BLOOD DRAWS; Start 07/12/19 at 16:45 Sodium Chloride 1,000 ml @ 20 mls/hr Q24H IV Last administered on 07/20/19at 17:40; Start 07/12/19 at 16:41 Ondansetron HCl (Zofran) 4 mg PRN Q4HRS PRN IV NAUSEA/VOMITING; Start 07/12/19 at 16:45 Acetaminophen (Tylenol) 650 mg PRN Q4HRS PRN PO TEMP OVER 100.4F OR MILD PAIN Last administered on 07/14/19at 18:29; Start 07/12/19 at 16:45 Al Hydroxide/Mg Hydroxide (Mylanta Plus Xs) 30 ml PRN DAILY PRN PO HEARTBURN / GAS; Start 07/12/19 at 16:45; Stop 07/22/19 at 04:48; Status DC Clonidine HCl (Catapres) 0.1 mg PRN Q6HRS PRN PO SBP>160 OR DBP>90 Last administered on 07/15/19at 04:25; Start 07/12/19 at 16:45 Docusate Sodium (Colace) 100 mg PRN BID PRN PO CONSTIPATION; Start 07/12/19 at 16:45 Albuterol/ Ipratropium (Duoneb) 3 ml Q4H NEB ; Start 07/12/19 at 16:45; Stop 07/12/19 at 16:55; Status DC Guaifenesin (Robitussin) 200 mg PRN Q4HRS PRN PO COUGH Last administered on 07/14/19at 08:52; Start 07/12/19 at 16:45 Levofloxacin/ Dextrose 100 ml @ 100 mls/hr Q24H IV Last administered on 07/18/19at 16:29; Start 07/13/19 at 17:00; Stop 07/19/19 at 15:22; Status DC Albuterol/ Ipratropium (Duoneb) 3 ml Q4HRS NEB ; Start 07/12/19 at 20:00; Stop 07/12/19 at 18:33; Status DC Levofloxacin/ Dextrose 100 ml @ 100 mls/hr 1X ONCE IV Last administered on 07/12/19at 17:58; Start 07/12/19 at 17:45; Stop 07/12/19 at 18:44; Status DC Albuterol Sulfate (Ventolin Neb Soln) 2.5 mg PRN Q4HRS PRN NEB SHORTNESS OF BREATH; Start 07/12/19 at 18:45 Hydralazine HCl (Apresoline Inj) 10 mg PRN Q4HRS PRN IVP ELEVATED BP, SEE COMMENTS Last administered on 07/12/19at 20:31; Start 07/12/19 at 19:45; Stop 07/12/19 at 22:40; Status DC Allopurinol (Zyloprim) 300 mg DAILY PO Last administered on 07/22/19at 09:10; Start 07/13/19 at 09:00 Amlodipine Besylate (Norvasc) 10 mg DAILY PO Last administered on 07/22/19 09:31; Start 07/13/19 at 09:00 Lisinopril (Prinivil) 40 mg DAILY PO Last administered on 07/19/19 08:46; Start 07/13/19 at 09:00; Stop 07/22/19 at 13:54; Status DC Metoprolol Tartrate (Lopressor) 25 mg BID PO Last administered on 07/18/19 20:57; Start 07/12/19 at 21:00; Stop 07/19/19 at 14:04; Status DC Doxazosin Mesylate (Cardura) 8 mg DAILY PO Last administered on 07/22/19at 11:24; Start 07/13/19 at 09:00 Metformin HCl (Glucophage) 1,000 mg BIDWMEALS PO Last administered on 07/19/19 18:07; Start 07/13/19 at 08:00; Stop 07/20/19 at 13:33; Status DC Atorvastatin Calcium (Lipitor) 40 mg QHS PO Last administered on 07/18/19 20:57; Start 07/12/19 at 21:00; Stop 07/19/19 at 14:07; Status DC Lisinopril (Prinivil) 10 mg 1X ONCE PO Last administered on 07/13/19at 00:41; Start 07/12/19 at 23:00; Stop 07/12/19 at 23:01; Status DC Hydralazine HCl (Apresoline Inj) 10 mg PRN Q4HRS PRN IVP ELEVATED BP, 1ST CHOICE Last administered on 07/19/19 09:07; Start 07/12/19 at 22:45 Doxazosin Mesylate (Cardura) 8 mg 1X ONCE PO Last administered on 07/12/19 23:08; Start 07/12/19 at 23:30; Stop 07/12/19 at 23:31; Status DC Amlodipine Besylate (Norvasc) 10 mg 1X ONCE PO Last administered on 07/12/19 23:00; Start 07/12/19 at 23:30; Stop 07/12/19 at 23:31; Status DC Lorazepam (Ativan Inj) 1 mg PRN Q2HRS PRN IVP ANXIETY Last administered on 07/17/19 12:20; Start 07/12/19 at 23:00 Enoxaparin Sodium (Lovenox 60mg Syringe) 60 mg Q12HR SQ Last administered on 07/21/19 19:56; Start 07/13/19 at 09:00; Stop 07/22/19 at 04:00; Status DC Lactobacillus Rhamnosus (Culturelle) 1 cap BID PO Last administered on 07/20/19 20:10; Start 07/13/19 at 21:00; Stop 07/21/19 at 10:47; Status DC Throat Lozenges (Cepacol Sore Throat Lozenge) 1 jessica PRN Q2HRS PRN PO SORE THROAT Last administered on 07/14/19at 08:56; Start 07/13/19 at 16:30 Haloperidol Lactate (Haldol Inj) 3 mg PRN Q4HRS PRN IVP AGITATION Last administered on 07/14/19at 22:59; Start 07/14/19 at 22:30 Fentanyl Citrate 30 ml @ 0 mls/hr CONT PRN IV SEE PROTOCOL Last administered on 07/16/19at 16:07; Start 07/15/19 at 05:45; Stop 07/16/19 at 21:59; Status DC Propofol 100 ml @ 0 mls/hr CONT PRN IV SEE PROTOCOL Last administered on 07/15/19at 06:03; Start 07/15/19 at 05:45; Stop 07/15/19 at 06:06; Status DC Famotidine (Pepcid Vial) 20 mg BID IVP Last administered on 07/22/19at 09:10; Start 07/15/19 at 09:00 Midazolam HCl 100 ml @ 0 mls/hr CONT PRN IV SEE PROTOCOL Last administered on 07/22/19at 05:50; Start 07/15/19 at 05:45 Ketamine HCl (Ketamine) 50 mg STK-MED ONCE .ROUTE ; Start 07/15/19 at 05:44; Stop 07/15/19 at 05:44; Status DC Succinylcholine Chloride (Anectine) 200 mg STK-MED ONCE .ROUTE ; Start 07/15/19 at 05:45; Stop 07/15/19 at 05:45; Status DC Succinylcholine Chloride (Anectine) 200 mg 1X ONCE IV Last administered on 07/15/19at 06:00; Start 07/15/19 at 06:15; Stop 07/15/19 at 06:16; Status DC Propofol 100 ml @ 2.7 mls/hr CONT PRN IV SEE I/O RECORD Last administered on 07/15/19at 10:08; Start 07/15/19 at 06:15 Ketamine HCl (Ketamine) 50 mg 1X ONCE IV Last administered on 07/15/19at 05:55; Start 07/15/19 at 06:15; Stop 07/15/19 at 06:16; Status DC Vecuronium [place] (Norcuron Bolus) 6 mg 1X ONCE IV Last administered on 07/15/19at 06:55; Start 07/15/19 at 07:00; Stop 07/15/19 at 07:01; Status DC Vecuronium [place] (Norcuron Bolus) 10 mg STK-MED ONCE IV ; Start 07/15/19 at 06:53; Stop 07/15/19 at 06:53; Status DC Tocilizumab 800 mg/Sodium Chloride 100 ml @ 100 mls/hr ONCE ONCE IV Last administered on 07/15/19at 15:51; Start 07/15/19 at 16:00; Stop 07/15/19 at 16:59; Status DC Dextrose (Dextrose 50%-Water Syringe) 25 gm STK-MED ONCE IV ; Start 07/15/19 at 15:55; Stop 07/15/19 at 15:56; Status DC Dexmedetomidine HCl 400 mcg/ Sodium Chloride 100 ml @ 9 mls/hr CONT PRN IV SEDATION Last administered on 07/22/19at 06:45; Start 07/15/19 at 16:30 Dexmedetomidine HCl 400 mcg/ Sodium Chloride 100 ml @ 0 mls/hr CONT PRN IV SEDATION; Start 07/15/19 at 16:30; Status UNV Dextrose (Dextrose 50%-Water Syringe) 25 gm 1X ONCE IV Last administered on 07/15/19at 16:28; Start 07/15/19 at 16:30; Stop 07/15/19 at 16:31; Status DC Amino Acids/ Glycerin/ Electrolytes 1,000 ml @ 80 mls/hr [id number] IV Last administered on 07/18/19at 13:03; Start 07/16/19 at 10:00; Stop 07/18/19 at 21:59; Status DC Sodium Bicarbonate (Sodium Bicarb Adult 8.4% Syr) 50 meq 1X ONCE IV Last administered on 07/16/19at 11:23; Start 07/16/19 at 09:30; Stop 07/16/19 at 09:31; Status DC Fentanyl Citrate 55 ml @ 0 mls/hr CONT PRN IV SEE I/O RECORD Last administered on 07/22/19at 11:40; Start 07/16/19 at 22:00 Vecuronium [place] (Norcuron Bolus) 10 mg PRN Q6HRS PRN IV ASYNCHRONARY W/ VENT Last administered on 07/17/19at 12:19; Start 07/17/19 at 10:00 Vecuronium [place] 50 mg/ Miscellaneous 50 ml @ 8.976 mls/ hr CONT PRN IV SEE I/O RECORD Last administered on 07/22/19at 11:40; Start 07/17/19 at 12:15 Info (Tpn Per Pharmacy) 1 each PRN DAILY PRN MC SEE COMMENTS Last administered on 07/22/19at 09:30; Start 07/18/19 at 10:45 Sodium Acetate 60 meq/Potassium Phosphate 13.6 mmol/Magnesium Sulfate 10 meq/ Calcium Gluconate 10 meq/ Multivitamins 10 ml/Chromium/ Copper/Manganese/ Seleni/Zn 0.5 ml/ Total Parenteral Nutrition/Amino Acids/Dextrose 1,920 ml @ 80 mls/hr TPN CONT IV Last administered on 07/18/19at 22:18; Start 07/18/19 at 22:00; Stop 07/19/19 at 21:59; Status DC Labetalol HCl (Normodyne Iv Push) 20 mg 1X ONCE IVP Last administered on 07/19/19at 09:30; Start 07/19/19 at 09:30; Stop 07/19/19 at 09:31; Status DC Labetalol HCl (Normodyne Iv Push) 10 mg PRN Q5MIN PRN IVP HYPERTENSION, 2ND CHOICE; Start 07/19/19 at 09:30 Sodium Acetate 60 meq/Potassium Phosphate 13.6 mmol/Magnesium Sulfate 5 meq/ Calcium Gluconate 10 meq/ Multivitamins 10 ml/Chromium/ Copper/Manganese/ Seleni/Zn 0.5 ml/ Total Parenteral Nutrition/Amino Acids/Dextrose/ Fat Emulsion Intravenous 1,920 ml @ 80 mls/hr TPN CONT IV Last administered on 07/19/19at 20:45; Start 07/19/19 at 22:00; Stop 07/20/19 at 21:59; Status DC Metoprolol Tartrate (Lopressor Vial) 5 mg Q6HRS IVP Last administered on 07/21/19at 17:58; Start 07/19/19 at 18:00 Norepinephrine Bitartrate 8 mg/ Dextrose 258 ml @ 35.217 mls/ hr CONT PRN IV PER PROTOCOL Last administered on 07/19/19at 15:59; Start 07/19/19 at 16:00 Sodium Acetate 60 meq/Sodium Phosphate 5 mmol/ Calcium Gluconate 5 meq/ Multivitamins 10 ml/Chromium/ Copper/Manganese/ Seleni/Zn 0.5 ml/ Total Parenteral Nutrition/Amino Acids/Dextrose/ Fat Emulsion Intravenous 1,920 ml @ 80 mls/hr TPN CONT IV Last administered on 07/20/19at 21:23; Start 07/20/19 at 22:00; Stop 07/21/19 at 21:59; Status DC Sodium Acetate 60 meq/Calcium Gluconate 5 meq/ Multivitamins 10 ml/Chromium/ Copper/Manganese/ Seleni/Zn 0.5 ml/ Total Parenteral Nutrition/Amino Acids/ Dextrose/ Fat Emulsion Intravenous 1,680 ml @ 70 mls/hr TPN CONT IV Last administered on 07/21/19at 21:21; Start 07/21/19 at 22:00; Stop 07/22/19 at 21:59 Methylprednisolone Sodium Succinate (SOLU-Medrol 125MG VIAL) 250 mg Q6HRS IV ; Start 07/21/19 at 14:30; Status UNV Methylprednisolone Sodium Succinate 250 mg/Sodium Chloride 100 ml @ 100 mls/hr Q6HRS IV Last administered on 07/22/19at 11:40; Start 07/21/19 at 16:00; Stop 07/24/19 at 12:59 Heparin Sodium/ Dextrose 250 ml @ 0 mls/hr CONT PRN IV PER PROTOCOL Last administered on 07/22/19at 04:31; Start 07/22/19 at 04:00; Stop 07/22/19 at 12:50; Status DC Heparin Sodium (Porcine) (Heparin Sodium) 5,500 unit PRN Q6HRS PRN IV FOR UFH LEVEL LESS THAN 0.2; Start 07/22/19 at 04:00; Stop 07/22/19 at 12:51; Status DC Heparin Sodium (Porcine) (Heparin Sodium) 2,750 unit PRN Q6HRS PRN IV FOR UFH LEVEL 0.2 - 0.29; Start 07/22/19 at 04:00; Stop 07/22/19 at 12:51; Status DC Info (Anti-Coagulation Monitoring By Pharmacy) 1 each PRN DAILY PRN MC SEE COMMENTS Last administered on 07/22/19at 04:54; Start 07/22/19 at 04:15 Furosemide (Lasix) 40 mg 1X ONCE IVP ; Start 07/22/19 at 09:00; Stop 07/22/19 at 09:01; Status Cancel Calcium Gluconate (Calcium Gluconate) 1,000 mg 1X ONCE IVP Last administered on 07/22/19at 09:09; Start 07/22/19 at 09:00; Stop 07/22/19 at 09:01; Status DC Furosemide (Lasix) 40 mg 1X ONCE IVP Last administered on 07/22/19at 09:10; Start 07/22/19 at 09:00; Stop 07/22/19 at 09:01; Status DC Insulin Glargine (Lantus Syringe) 10 unit QHS SQ ; Start 07/22/19 at 21:00 Insulin Human Lispro (HumaLOG) 0-5 UNITS Q6HRS SQ Last administered on 07/22/19at 09:43; Start 07/22/19 at 12:00 Dextrose (Dextrose 50%-Water Syringe) 12.5 gm PRN Q15MIN PRN IV SEE COMMENTS; Start 07/22/19 at 09:15 Sodium Acetate 60 meq/Calcium Gluconate 5 meq/ Multivitamins 10 ml/Chromium/ Copper/Manganese/ Seleni/Zn 0.5 ml/ Total Parenteral Nutrition/Amino Acids/Dextrose/ Fat Emulsion Intravenous 1,680 ml @ 70 mls/hr TPN CONT IV ; Start 07/22/19 at 22:00; Stop 07/23/19 at 21:59; Status Cancel Sodium Acetate 60 meq/Calcium Gluconate 5 meq/ Multivitamins 10 ml/Chromium/ Copper/Manganese/ Seleni/Zn 0.5 ml/ Total Parenteral Nutrition/Amino Acids/Dextrose/ Fat Emulsion Intravenous 1,680 ml @ 70 mls/hr TPN CONT IV ; Start 07/22/19 at 22:00; Stop 07/23/19 at 21:59 Calcium Gluconate (Calcium Gluconate) 1,000 mg 1X ONCE IVP Last administered on 07/22/19at 13:38; Start 07/22/19 at 13:15; Stop 07/22/19 at 13:21; Status DC Sodium Bicarbonate (Sodium Bicarb Adult 8.4% Syr) 50 meq 1X ONCE IV Last administered on 07/22/19at 13:38; Start 07/22/19 at 13:15; Stop 07/22/19 at 13:21; Status DC Dextrose (Dextrose 50%-Water Syringe) 25 gm 1X ONCE IV Last administered on 07/22/19at 13:41; Start 07/22/19 at 13:15; Stop 07/22/19 at 13:21; Status DC Insulin Human Regular (HumuLIN R VIAL) 10 unit 1X ONCE IV Last administered on 07/22/19at 13:39; Start 07/22/19 at 13:15; Stop 07/22/19 at 13:21; Status DC Sodium Polystyrene Sulfonate (Kayexalate) 30 gm 1X ONCE PO ; Start 07/22/19 at 13:15; Stop 07/22/19 at 13:21; Status DC Active Scripts Active Reported Metformin Hcl 1,000 Mg Tablet 1,000 Mg PO BIDWMEALS Lisinopril 40 Mg Tablet 40 Mg PO DAILY Allopurinol 300 Mg Tablet 300 Mg PO DAILY Metoprolol Tartrate 25 Mg Tablet 25 Mg PO BID Doxazosin Mesylate 8 Mg Tablet 8 Mg PO DAILY Amlodipine Besylate 10 Mg Tablet 10 Mg PO DAILY Vitals/I & O Vital Sign - Last 24 Hours 07/21/19 07/21/19 07/21/19 07/21/19 15:00 16:00 16:00 16:00 Pulse 102 100 B/P (MAP) 118/62 (80) 122/62 (82) Pulse Ox 100 100 O2 Delivery Ventilator Ventilator Mechanical Ventilator 07/21/19 07/21/19 07/21/19 07/21/19 16:33 17:00 17:58 18:00 Temp 97.9 97.9 Pulse 100 109 108 B/P (MAP) 122/60 (80) 140/65 132/62 (85) Pulse Ox 100 100 100 O2 Delivery Ventilator Ventilator Ventilator 07/21/19 07/21/19 07/21/19 07/21/19 19:00 20:00 20:00 20:00 Temp 99.0 99.0 Pulse 102 102 B/P (MAP) 154/72 (99) 157/67 (97) Pulse Ox 99 99 O2 Delivery Ventilator Ventilator Mechanical Ventilator 07/21/19 07/21/19 07/21/19 07/21/19 20:37 21:00 22:00 23:00 Pulse 92 93 91 Resp B/P (MAP) 149/66 (93) 128/59 (82) 108/55 (72) Pulse Ox 100 99 99 99 O2 Delivery Ventilator Ventilator Ventilator Ventilator 07/21/19 07/22/19 07/22/19 07/22/19 23:53 00:00 00:00 00:00 Temp 98.7 98.7 Pulse 85 87 Resp 28 B/P (MAP) 118/56 124/56 (78) Pulse Ox 100 O2 Delivery Ventilator Mechanical Ventilator 07/22/19 07/22/19 07/22/19 07/22/19 00:12 01:00 02:00 03:00 Pulse 90 97 91 Resp 28 28 28 B/P (MAP) 134/58 (83) 150/60 (90) 137/58 (84) Pulse Ox 100 100 100 100 O2 Delivery Ventilator Ventilator Ventilator Ventilator 07/22/19 07/22/19 07/22/19 07/22/19 04:00 04:00 04:00 04:10 Temp 98.5 98.5 Pulse 116 Resp 28 B/P (MAP) 160/54 (89) Pulse Ox 81 82 O2 Delivery Ventilator Mechanical Ventilator Ventilator 07/22/19 07/22/19 07/22/19 07/22/19 05:00 06:00 07:00 07:48 Pulse 116 117 112 Resp 28 28 28 B/P (MAP) 157/55 (89) 138/55 (82) 148/52 (84) Pulse Ox 85 84 85 84 O2 Delivery Ventilator Ventilator Ventilator Ventilator 07/22/19 07/22/19 07/22/19 07/22/19 08:00 08:00 08:00 09:00 Temp 98.4 98.4 Pulse 108 110 108 Resp 28 28 B/P (MAP) 142/56 (84) 144/58 (86) Pulse Ox 83 86 O2 Delivery Mechanical Ventilator Ventilator Ventilator 07/22/19 07/22/19 07/22/19 07/22/19 09:31 10:00 11:00 11:24 Pulse 110 110 104 103 Resp 28 28 B/P (MAP) 161/91 156/60 (92) 146/58 (87) 139/89 Pulse Ox 97 99 O2 Delivery Ventilator Ventilator 07/22/19 07/22/19 07/22/19 07/22/19 11:40 12:00 12:00 12:00 Temp 99.1 99.1 Pulse 108 93 Resp 28 B/P (MAP) 124/56 (78) Pulse Ox 84 100 O2 Delivery Mechanical Ventilator Ventilator O2 Flow Rate 40.0 07/22/19 07/22/19 07/22/19 12:05 12:10 13:00 Pulse 92 Resp 28 B/P (MAP) 122/54 (76) Pulse Ox 98 98 100 O2 Delivery Ventilator Ventilator Intake and Output 07/21/19 07/21/19 07/22/19 14:59 22:59 06:59 Intake Total 0 ml 1908 ml 1687 ml Output Total 355 ml 1000 ml 850 ml Balance -355 ml 908 ml 837 ml GABRIEL REGALADO MD July 22, 2019 14:15
--- NOTE | 2019-07-22 14:41 | PDOC ---
PULMONARY PROGRESS NOTES Subjective continue AC mode, on 100% fio2 17 PEEP Vitals Vital Signs Date Time Temp Pulse Resp B/P (MAP) Pulse Ox O2 Delivery O2 Flow Rate FiO2 07/22/19 13:00 92 28 122/54 (76) 100 Ventilator 07/22/19 12:00 99.1 99.1 07/22/19 11:40 40.0 Comments Visual exam done due to COVID pandemic Patient in sync with the ventilator, no respiratory distress. Labs Laboratory Tests Test 07/20/19 21:30 07/21/19 00:41 07/21/19 06:15 07/21/19 08:10 Erythrocyte Sedimentation Rate 51 (0-15) Fibrinogen 476 mg/dL (200-440) D-Dimer (Avis) > 20.00 ug/mlFEU Ferritin 538 ng/mL (26-388) Glucose (Fingerstick) 143 mg/dL (70-99) Sodium Level 137 mmol/L (136-145) Potassium Level 5.7 mmol/L (3.5-5.1) Chloride Level 103 mmol/L (98-107) Carbon Dioxide Level 26 mmol/L (21-32) Anion Gap 8 (6-14) Blood Urea Nitrogen 95 mg/dL (8-26) Creatinine 2.3 mg/dL (0.7-1.3) Estimated GFR (Cockcroft-Gault) 36.9 Glucose Level 149 mg/dL (70-99) Calcium Level 8.5 mg/dL (8.5-10.1) Phosphorus Level 6.3 mg/dL (2.6-4.7) Magnesium Level 2.6 mg/dL (1.8-2.4) O2 Saturation 93 % (92-99) Arterial Blood pH 7.24 (7.35-7.45) Arterial Blood pCO2 at Patient Temp 53 mmHg (35-46) Arterial Blood pO2 at Patient Temp 80 mmHg (75-108) Arterial Blood HCO3 22 mmol/L (21-28) Arterial Blood Base Excess -6 mmol/L (-3-3) FiO2 100 vent Test 07/21/19 17:36 07/22/19 04:00 07/22/19 06:33 07/22/19 08:00 Glucose (Fingerstick) 123 mg/dL (70-99) 247 mg/dL (70-99) White Blood Count 19.8 x10^3/uL (4.0-11.0) Red Blood Count 4.25 x10^6/uL (4.30-5.70) Hemoglobin 11.4 g/dL (13.0-17.5) Hematocrit 36.3 % (39.0-53.0) Mean Corpuscular Volume 85 fL (79-100) Mean Corpuscular Hemoglobin 27 pg (25-35) Mean Corpuscular Hemoglobin Concent 31 g/dL (31-37) Red Cell Distribution Width 15.6 % (11.5-14.5) Platelet Count 420 x10^3/uL (140-400) Neutrophils (%) (Auto) 91 % (31-73) Lymphocytes (%) (Auto) 6 % (24-48) Monocytes (%) (Auto) 3 % (0-9) Eosinophils (%) (Auto) 0 % (0-3) Basophils (%) (Auto) 0 % (0-3) Neutrophils # (Auto) 18.0 x10^3/uL (1.8-7.7) Lymphocytes # (Auto) 1.1 x10^3/uL (1.0-4.8) Monocytes # (Auto) 0.5 x10^3/uL (0.0-1.1) Eosinophils # (Auto) 0.1 x10^3/uL (0.0-0.7) Basophils # (Auto) 0.0 x10^3/uL (0.0-0.2) Segmented Neutrophils % 89 % (35-66) Band Neutrophils % 3 % (0-9) Lymphocytes % 7 % (24-48) Myelocytes % 1 % (0-0) Platelet Estimate Adequate (ADEQUATE) Sodium Level 138 mmol/L (136-145) Potassium Level 6.8 mmol/L (3.5-5.1) Chloride Level 104 mmol/L (98-107) Carbon Dioxide Level 26 mmol/L (21-32) Anion Gap 8 (6-14) Blood Urea Nitrogen 115 mg/dL (8-26) Creatinine 2.2 mg/dL (0.7-1.3) Estimated GFR (Cockcroft-Gault) 38.8 Glucose Level 247 mg/dL (70-99) Calcium Level 8.5 mg/dL (8.5-10.1) Phosphorus Level 6.3 mg/dL (2.6-4.7) Magnesium Level 2.9 mg/dL (1.8-2.4) Total Bilirubin 0.4 mg/dL (0.2-1.0) Direct Bilirubin 0.2 mg/dL (0.0-0.2) Aspartate Amino Transf (AST/SGOT) 40 U/L (15-37) Alanine Aminotransferase (ALT/SGPT) 132 U/L (16-63) Alkaline Phosphatase 99 U/L (46-116) Total Protein 7.0 g/dL (6.4-8.2) Albumin 2.7 g/dL (3.4-5.0) O2 Saturation 73 % (92-99) Arterial Blood pH 7.24 (7.35-7.45) Arterial Blood pCO2 at Patient Temp 59 mmHg (35-46) Arterial Blood pO2 at Patient Temp 48 mmHg (75-108) Arterial Blood HCO3 25 mmol/L (21-28) Arterial Blood Base Excess -4 mmol/L (-3-3) FiO2 100% Test 07/22/19 09:06 07/22/19 11:00 07/22/19 12:15 07/22/19 13:45 Glucose (Fingerstick) 265 mg/dL (70-99) Heparin Anti-Xa Act, Unfractionated > 1.10 IU/mL (0.30-0.70) Sodium Level 141 mmol/L (136-145) Potassium Level 6.2 mmol/L (3.5-5.1) Chloride Level 105 mmol/L (98-107) Carbon Dioxide Level 29 mmol/L (21-32) Anion Gap 7 (6-14) Blood Urea Nitrogen 118 mg/dL (8-26) Creatinine 2.1 mg/dL (0.7-1.3) Estimated GFR (Cockcroft-Gault) 41.0 Glucose Level 221 mg/dL (70-99) Calcium Level 9.0 mg/dL (8.5-10.1) O2 Saturation 88 % (92-99) Arterial Blood pH 7.31 (7.35-7.45) Arterial Blood pCO2 at Patient Temp 54 mmHg (35-46) Arterial Blood pO2 at Patient Temp 64 mmHg (75-108) Arterial Blood HCO3 26 mmol/L (21-28) Arterial Blood Base Excess -1 mmol/L (-3-3) FiO2 100 Laboratory Tests Test 07/21/19 17:36 07/22/19 04:00 07/22/19 06:33 07/22/19 08:00 Glucose (Fingerstick) 123 mg/dL (70-99) 247 mg/dL (70-99) White Blood Count 19.8 x10^3/uL (4.0-11.0) Red Blood Count 4.25 x10^6/uL (4.30-5.70) Hemoglobin 11.4 g/dL (13.0-17.5) Hematocrit 36.3 % (39.0-53.0) Mean Corpuscular Volume 85 fL (79-100) Mean Corpuscular Hemoglobin 27 pg (25-35) Mean Corpuscular Hemoglobin Concent 31 g/dL (31-37) Red Cell Distribution Width 15.6 % (11.5-14.5) Platelet Count 420 x10^3/uL (140-400) Neutrophils (%) (Auto) 91 % (31-73) Lymphocytes (%) (Auto) 6 % (24-48) Monocytes (%) (Auto) 3 % (0-9) Eosinophils (%) (Auto) 0 % (0-3) Basophils (%) (Auto) 0 % (0-3) Neutrophils # (Auto) 18.0 x10^3/uL (1.8-7.7) Lymphocytes # (Auto) 1.1 x10^3/uL (1.0-4.8) Monocytes # (Auto) 0.5 x10^3/uL (0.0-1.1) Eosinophils # (Auto) 0.1 x10^3/uL (0.0-0.7) Basophils # (Auto) 0.0 x10^3/uL (0.0-0.2) Segmented Neutrophils % 89 % (35-66) Band Neutrophils % 3 % (0-9) Lymphocytes % 7 % (24-48) Myelocytes % 1 % (0-0) Platelet Estimate Adequate (ADEQUATE) Sodium Level 138 mmol/L (136-145) Potassium Level 6.8 mmol/L (3.5-5.1) Chloride Level 104 mmol/L (98-107) Carbon Dioxide Level 26 mmol/L (21-32) Anion Gap 8 (6-14) Blood Urea Nitrogen 115 mg/dL (8-26) Creatinine 2.2 mg/dL (0.7-1.3) Estimated GFR (Cockcroft-Gault) 38.8 Glucose Level 247 mg/dL (70-99) Calcium Level 8.5 mg/dL (8.5-10.1) Phosphorus Level 6.3 mg/dL (2.6-4.7) Magnesium Level 2.9 mg/dL (1.8-2.4) Total Bilirubin 0.4 mg/dL (0.2-1.0) Direct Bilirubin 0.2 mg/dL (0.0-0.2) Aspartate Amino Transf (AST/SGOT) 40 U/L (15-37) Alanine Aminotransferase (ALT/SGPT) 132 U/L (16-63) Alkaline Phosphatase 99 U/L (46-116) Total Protein 7.0 g/dL (6.4-8.2) Albumin 2.7 g/dL (3.4-5.0) O2 Saturation 73 % (92-99) Arterial Blood pH 7.24 (7.35-7.45) Arterial Blood pCO2 at Patient Temp 59 mmHg (35-46) Arterial Blood pO2 at Patient Temp 48 mmHg (75-108) Arterial Blood HCO3 25 mmol/L (21-28) Arterial Blood Base Excess -4 mmol/L (-3-3) FiO2 100% Test 07/22/19 09:06 07/22/19 11:00 07/22/19 12:15 07/22/19 13:45 Glucose (Fingerstick) 265 mg/dL (70-99) Heparin Anti-Xa Act, Unfractionated > 1.10 IU/mL (0.30-0.70) Sodium Level 141 mmol/L (136-145) Potassium Level 6.2 mmol/L (3.5-5.1) Chloride Level 105 mmol/L (98-107) Carbon Dioxide Level 29 mmol/L (21-32) Anion Gap 7 (6-14) Blood Urea Nitrogen 118 mg/dL (8-26) Creatinine 2.1 mg/dL (0.7-1.3) Estimated GFR (Cockcroft-Gault) 41.0 Glucose Level 221 mg/dL (70-99) Calcium Level 9.0 mg/dL (8.5-10.1) O2 Saturation 88 % (92-99) Arterial Blood pH 7.31 (7.35-7.45) Arterial Blood pCO2 at Patient Temp 54 mmHg (35-46) Arterial Blood pO2 at Patient Temp 64 mmHg (75-108) Arterial Blood HCO3 26 mmol/L (21-28) Arterial Blood Base Excess -1 mmol/L (-3-3) FiO2 100 Medications Active Scripts Medications Dose Route/Sig Max Daily Dose Days Date Category Metformin Hcl 1,000 Mg Tablet 1,000 Mg PO BIDWMEALS 07/12/19 Reported Lisinopril 40 Mg Tablet 40 Mg PO DAILY 07/12/19 Reported Allopurinol 300 Mg Tablet 300 Mg PO DAILY 07/12/19 Reported Metoprolol Tartrate 25 Mg Tablet 25 Mg PO BID 07/12/19 Reported Doxazosin Mesylate 8 Mg Tablet 8 Mg PO DAILY 07/12/19 Reported Amlodipine Besylate 10 Mg Tablet 10 Mg PO DAILY 07/12/19 Reported Impression . 1. Acute hypoxic respiratory failure multifactorial, COVID-19, ARDS, INTUBATED 07/14 2. Abnormal chest x-ray with bilateral infiltrates suggestive of coronavirus disease-19 pneumonia, possible bacterial pneumonia 3. Underlying morbid obesity. 4. Diabetes. 5. Nonsmoker. 6. Increase inflammatory markers suggestive of cytokine surge 7. s/p convalescent plasma 8. Abnormal chest x-ray revealing whiteout of the right lung Plan . Case discussed with RN, will repeat chest x-ray, if the same may require a bronchoscopy Steroids added yesterday Empiric antibiotic Status post convalescent serum transfusion 07/13 Nutritional support Status post Tocilizumab Labs DVT GI prophylax Case discussed with , informed her that he may require bronchoscopy, I will defer the timing of the possibility of hemodialysis to nephrology Total cumulative critical care time of 35 minutes, reviewing labs, chest x-ray, data, formulating a plan PURA FOSTER MD July 22, 2019 14:41
--- NOTE | 2019-07-22 15:01 | RAD ---
PORTABLE CHEST 1V Clinical History: Whiteout lung, prebronchial treatment Technique: AP view of the chest was obtained at 07/22/2019 2:29 PM. Comparison: 8:49 AM. Findings: There is hazy opacity over the right chest is patchy nodular opacity throughout the left lung. The pulmonary vessels are not well evaluated. The endotracheal tube and right jugular line are again seen unchanged. The NG tube is not well seen due to underpenetration. The heart size is difficult to assess. Impression: 1. Opacification of the right is likely a large effusion with adjacent infiltrate. This does appear mildly improved. 2. Patchy somewhat nodular infiltrates on the left. This could be atypical pneumonia. Recommend follow-up chest x-ray to complete resolution. Electronically signed by: Rodolfo Caldera III, MD (07/22/2019 2:58 PM) [id number]
[2019-07-22] MEDS ORDERED: LIDOCAINE 1% Multi-Dose 20 ML VIAL. ONE (15:37)
[2019-07-22] MEDS ORDERED: LIDOCAINE WITH 8.4% SOD BICARB 3 ML DISP.SYRIN. INJ ONE (17:00)
--- NOTE | 2019-07-22 17:19 | RAD ---
Procedure: Temporary hemodialysis catheter placement at the bedside. Clinical Indication: Adult male requiring hemodialysis Sedation: Patient is intubated and sedated. Local anesthesia only was a insole and outsole splitter. Antibiotics: None Fluoro Time: Not applicable Contrast: None Sterility: All elements of maximal sterile barrier technique including the use of a cap, mask, sterile gown, sterile gloves, large sterile sheet, appropriate hand hygiene, and 2% chlorhexidine for cutaneous antisepsis (or acceptable alternative antiseptic per current guidelines) were followed for this procedure. Consent: The procedure was explained in its entirety to the patient or the patients designated medical collections representative by a member of the treatment team, including a discussion of the risks, benefits and commonly accepted alternatives to the procedure, as well as the expected consequences of no therapy whatsoever. Discussion of the risks included, but was not limited to, those that are most frequent and those that are rare but possibly severe or life-threatening, as well as the possibility of unforeseen complications. Technique and Findings: Following informed consent, the patient was prepped and draped in the usual sterile fashion. Ultrasound interrogation of the right neck revealed patency and compressibility of the right internal jugular vein. A 21-gauge micropuncture needle was used to gain access to this vein after 1% Lidocaine was used to achieve local anesthesia. A hardcopy ultrasound image was recorded. The needle was exchanged over a wire for serial dilators followed by a 20 cm Schon temporary hemodialysis catheter which was deployed in the expected location of the mid right atrium. The catheter flow rates were assessed manually and found to be excellent. The catheter was then flushed, packed with Heparin, capped, and sutured to the skin. Chest x-ray was then obtained to assess line position. Complications: No immediate Impression: 1. Ultrasound guided placement of a temporary hemodialysis catheter which exhibits excellent manual flow rates as described.
[2019-07-22] MEDS: IV NORMAL SALINE 1000ML BAG 1,000 ML IV SCH (17:34)
--- NOTE | 2019-07-22 17:39 | RAD ---
EXAM: CHEST AP ONLY 07/22/2019 4:52 PM CLINICAL INDICATION:Hemodialysis catheter placement COMPARISON:Chest radiograph 07/22/2019 at 2:33 PM TECHNIQUE:AP supine chest radiograph FINDINGS:The endotracheal tube is unchanged terminating 5.9 cm above the germán. A right internal jugular central venous catheter with tip over the superior vena cava is unchanged. There is a new larger caliber catheter or tube coursing over the right internal jugular vein and terminating near the level of the cavoatrial junction. Nasogastric tube is seen in the level of the midesophagus and not well seen beyond the due to underpenetration. The patient is tilted to the right. The cardiomediastinal silhouette is largely obscured. There are unchanged dense opacities throughout the right lung, greatest in the mid to lower lung. Mild scattered opacities in the left lung. No pneumothorax. IMPRESSION: 1. New right internal jugular central venous catheter or tube overlying the right chest, visualized to the level of the superior cavoatrial junction. 2. Other lines and tubes are unchanged. 3. Unchanged dense opacities throughout the right lung, greatest in the mid and lower lung. Electronically signed by: Ashwini Valdez MD (07/22/2019 5:36 PM) [id number]
[2019-07-22] MEDS: INSULIN GLARGINE SYRINGE. SQ SCH (20:32)
[2019-07-22] MEDS ORDERED: TOTAL PARENTERAL NUTRITION IV SCH ×14 (22:00)
[2019-07-22] MEDS ORDERED: [UNRECOGNIZED DRUG - OTHER] IV SCH ×14 (22:00)
[2019-07-22] MEDS ORDERED: AMINO ACID IV SCH ×14 (22:00)
[2019-07-22] MEDS ORDERED: DEXTROSE 70% IV SCH ×14 (22:00)
[2019-07-23] VITALS (24 sets, daily range): BP systolic 136–212; BP diastolic 60–98
[2019-07-23] MEDS: VECURONIUM BROMIDE 50 MG in TOTAL VOLUME 50 ML IV PRN ×2 (03:50→17:08)
[2019-07-23] MEDS: DEXMEDETOMIDINE 400 MCG in IV NORMAL SALINE 100ML 96 ML IV PRN (03:51)
[2019-07-23] MEDS: methylPREDNISolone SOD SUCC 250 MG in IV NORMAL SALINE 100ML 100 ML IV SCH ×3 (05:55→17:08)
[2019-07-23] MEDS: METOPROLOL TARTRATE 5 MG/5 ML VIAL. IVP SCH ×3 (05:55→17:09)
[2019-07-23] MEDS: MIDAZOLAM 100mg/100ml NS BAG 100 ML IV PRN ×2 (05:55→17:11)
[2019-07-23] MEDS: INSULIN LISPRO 300 UNITS/3 ML VIAL. SQ SCH ×4 (06:00→17:56)
[2019-07-23 06:23] LABS: CREATININE 1.9 mg/dL (0.7-1.3); POTASSIUM 5.2 mmol/L (3.5-5.1)
[2019-07-23 08:33] LABS: BASE EXCESS ABG -2 mmol/L (-3-3); HCO3 ABG 26 mmol/L (21-28); PCO2 ABG 59 mmHg (35-46); PO2 ABG 63 mmHg (75-108); SAT O2 ABG 86 % (92-99)
[2019-07-23 08:35] LABS: FIO2 ABG 100
--- NOTE | 2019-07-23 10:28 | RAD ---
PORTABLE CHEST 1V History: Atelectasis Comparison: July 22, 2019 Findings: Diffuse right lung consolidations, unchanged. Right pleural effusion, unchanged. Right lung volume loss, unchanged. Scattered left lung opacities, unchanged. Stable endotracheal tube, enteric tube and right IJ central lines. Impression: 1. No significant interval change compared to prior. Electronically signed by: Harpreet Prakash DO (07/23/2019 10:25 AM) [facility] [place]
[2019-07-23 11:08] LABS: PROTHROMBIN TIME PATIENT 14.3 SEC (11.7-14.0)
[2019-07-23] MEDS: amLODIPine BESYLATE 10 MG TABLET PO SCH (11:27)
[2019-07-23] MEDS: FAMOTIDINE 20 MG/2 ML VIAL IVP SCH ×2 (11:27→20:43)
[2019-07-23] MEDS: ALLOPURINOL 300 MG TABLET. PO SCH (11:27)
[2019-07-23] MEDS: DOXAZOSIN MESYLATE 4 MG TABLET. PO SCH (11:29)
[2019-07-23] MEDS ORDERED: OXYTOCIN 10 UNIT/ML VIAL. ONE (12:00)
[2019-07-23] MEDS ORDERED: MORPHINE PF 10 MG/10 ML AMPUL. ONE (12:00)
--- NOTE | 2019-07-23 12:20 | PDOC ---
PULMONARY PROGRESS NOTES Subjective continue AC mode, on 100% fio2 13 PEEP on versed, vec, fent, and precedex gtts Vitals Vital Signs Date Time Temp Pulse Resp B/P (MAP) Pulse Ox O2 Delivery O2 Flow Rate FiO2 07/23/19 12:00 95 07/23/19 12:00 Mechanical Ventilator 07/23/19 12:00 98.0 28 90 98.0 07/22/19 11:40 40.0 Comments Visual exam done due to COVID pandemic Patient in sync with the ventilator, no respiratory distress. Labs Laboratory Tests Test 07/21/19 17:36 07/22/19 04:00 07/22/19 06:33 07/22/19 08:00 Glucose (Fingerstick) 123 mg/dL (70-99) 247 mg/dL (70-99) White Blood Count 19.8 x10^3/uL (4.0-11.0) Red Blood Count 4.25 x10^6/uL (4.30-5.70) Hemoglobin 11.4 g/dL (13.0-17.5) Hematocrit 36.3 % (39.0-53.0) Mean Corpuscular Volume 85 fL (79-100) Mean Corpuscular Hemoglobin 27 pg (25-35) Mean Corpuscular Hemoglobin Concent 31 g/dL (31-37) Red Cell Distribution Width 15.6 % (11.5-14.5) Platelet Count 420 x10^3/uL (140-400) Neutrophils (%) (Auto) 91 % (31-73) Lymphocytes (%) (Auto) 6 % (24-48) Monocytes (%) (Auto) 3 % (0-9) Eosinophils (%) (Auto) 0 % (0-3) Basophils (%) (Auto) 0 % (0-3) Neutrophils # (Auto) 18.0 x10^3/uL (1.8-7.7) Lymphocytes # (Auto) 1.1 x10^3/uL (1.0-4.8) Monocytes # (Auto) 0.5 x10^3/uL (0.0-1.1) Eosinophils # (Auto) 0.1 x10^3/uL (0.0-0.7) Basophils # (Auto) 0.0 x10^3/uL (0.0-0.2) Segmented Neutrophils % 89 % (35-66) Band Neutrophils % 3 % (0-9) Lymphocytes % 7 % (24-48) Myelocytes % 1 % (0-0) Platelet Estimate Adequate (ADEQUATE) Sodium Level 138 mmol/L (136-145) Potassium Level 6.8 mmol/L (3.5-5.1) Chloride Level 104 mmol/L (98-107) Carbon Dioxide Level 26 mmol/L (21-32) Anion Gap 8 (6-14) Blood Urea Nitrogen 115 mg/dL (8-26) Creatinine 2.2 mg/dL (0.7-1.3) Estimated GFR (Cockcroft-Gault) 38.8 Glucose Level 247 mg/dL (70-99) Calcium Level 8.5 mg/dL (8.5-10.1) Phosphorus Level 6.3 mg/dL (2.6-4.7) Magnesium Level 2.9 mg/dL (1.8-2.4) Total Bilirubin 0.4 mg/dL (0.2-1.0) Direct Bilirubin 0.2 mg/dL (0.0-0.2) Aspartate Amino Transf (AST/SGOT) 40 U/L (15-37) Alanine Aminotransferase (ALT/SGPT) 132 U/L (16-63) Alkaline Phosphatase 99 U/L (46-116) Total Protein 7.0 g/dL (6.4-8.2) Albumin 2.7 g/dL (3.4-5.0) O2 Saturation 73 % (92-99) Arterial Blood pH 7.24 (7.35-7.45) Arterial Blood pCO2 at Patient Temp 59 mmHg (35-46) Arterial Blood pO2 at Patient Temp 48 mmHg (75-108) Arterial Blood HCO3 25 mmol/L (21-28) Arterial Blood Base Excess -4 mmol/L (-3-3) FiO2 100% Test 07/22/19 09:06 07/22/19 11:00 07/22/19 12:15 07/22/19 13:45 Glucose (Fingerstick) 265 mg/dL (70-99) Heparin Anti-Xa Act, Unfractionated > 1.10 IU/mL (0.30-0.70) Sodium Level 141 mmol/L (136-145) Potassium Level 6.2 mmol/L (3.5-5.1) Chloride Level 105 mmol/L (98-107) Carbon Dioxide Level 29 mmol/L (21-32) Anion Gap 7 (6-14) Blood Urea Nitrogen 118 mg/dL (8-26) Creatinine 2.1 mg/dL (0.7-1.3) Estimated GFR (Cockcroft-Gault) 41.0 Glucose Level 221 mg/dL (70-99) Calcium Level 9.0 mg/dL (8.5-10.1) O2 Saturation 88 % (92-99) Arterial Blood pH 7.31 (7.35-7.45) Arterial Blood pCO2 at Patient Temp 54 mmHg (35-46) Arterial Blood pO2 at Patient Temp 64 mmHg (75-108) Arterial Blood HCO3 26 mmol/L (21-28) Arterial Blood Base Excess -1 mmol/L (-3-3) FiO2 100 Test 07/22/19 17:44 07/22/19 20:28 07/23/19 00:05 07/23/19 05:45 Glucose (Fingerstick) 170 mg/dL (70-99) 164 mg/dL (70-99) 153 mg/dL (70-99) Sodium Level 147 mmol/L (136-145) Potassium Level 5.2 mmol/L (3.5-5.1) Chloride Level 110 mmol/L (98-107) Carbon Dioxide Level 28 mmol/L (21-32) Anion Gap 9 (6-14) Blood Urea Nitrogen 122 mg/dL (8-26) Creatinine 1.9 mg/dL (0.7-1.3) Estimated GFR (Cockcroft-Gault) 46.0 Glucose Level 235 mg/dL (70-99) Calcium Level 9.0 mg/dL (8.5-10.1) Test 07/23/19 08:20 07/23/19 10:30 O2 Saturation 86 % (92-99) Arterial Blood pH 7.27 (7.35-7.45) Arterial Blood pCO2 at Patient Temp 59 mmHg (35-46) Arterial Blood pO2 at Patient Temp 63 mmHg (75-108) Arterial Blood pO2 (Temp corrected) mmHg Arterial Blood HCO3 26 mmol/L (21-28) Arterial Blood Base Excess -2 mmol/L (-3-3) FiO2 100 Prothrombin Time 14.3 SEC (11.7-14.0) Prothromb Time International Ratio 1.2 (0.8-1.1) Glucose (Fingerstick) 242 mg/dL (70-99) Laboratory Tests Test 07/22/19 13:45 07/22/19 17:44 07/22/19 20:28 07/23/19 00:05 O2 Saturation 88 % (92-99) Arterial Blood pH 7.31 (7.35-7.45) Arterial Blood pCO2 at Patient Temp 54 mmHg (35-46) Arterial Blood pO2 at Patient Temp 64 mmHg (75-108) Arterial Blood HCO3 26 mmol/L (21-28) Arterial Blood Base Excess -1 mmol/L (-3-3) FiO2 100 Glucose (Fingerstick) 170 mg/dL (70-99) 164 mg/dL (70-99) 153 mg/dL (70-99) Test 07/23/19 05:45 07/23/19 08:20 07/23/19 10:30 Sodium Level 147 mmol/L (136-145) Potassium Level 5.2 mmol/L (3.5-5.1) Chloride Level 110 mmol/L (98-107) Carbon Dioxide Level 28 mmol/L (21-32) Anion Gap 9 (6-14) Blood Urea Nitrogen 122 mg/dL (8-26) Creatinine 1.9 mg/dL (0.7-1.3) Estimated GFR (Cockcroft-Gault) 46.0 Glucose Level 235 mg/dL (70-99) Calcium Level 9.0 mg/dL (8.5-10.1) O2 Saturation 86 % (92-99) Arterial Blood pH 7.27 (7.35-7.45) Arterial Blood pCO2 at Patient Temp 59 mmHg (35-46) Arterial Blood pO2 at Patient Temp 63 mmHg (75-108) Arterial Blood pO2 (Temp corrected) mmHg Arterial Blood HCO3 26 mmol/L (21-28) Arterial Blood Base Excess -2 mmol/L (-3-3) FiO2 100 Prothrombin Time 14.3 SEC (11.7-14.0) Prothromb Time International Ratio 1.2 (0.8-1.1) Glucose (Fingerstick) 242 mg/dL (70-99) Medications Active Scripts Medications Dose Route/Sig Max Daily Dose Days Date Category Metformin Hcl 1,000 Mg Tablet 1,000 Mg PO BIDWMEALS 07/12/19 Reported Lisinopril 40 Mg Tablet 40 Mg PO DAILY 07/12/19 Reported Allopurinol 300 Mg Tablet 300 Mg PO DAILY 07/12/19 Reported Metoprolol Tartrate 25 Mg Tablet 25 Mg PO BID 07/12/19 Reported Doxazosin Mesylate 8 Mg Tablet 8 Mg PO DAILY 07/12/19 Reported Amlodipine Besylate 10 Mg Tablet 10 Mg PO DAILY 07/12/19 Reported Comments CXR 07/23/2019 Impression: 1. No significant interval change compared to prior. Impression . 1. Acute hypoxic respiratory failure multifactorial, COVID-19, ARDS, INTUBATED 07/14 2. Abnormal chest x-ray with bilateral infiltrates suggestive of coronavirus disease-19 pneumonia, possible bacterial pneumonia 3. Underlying morbid obesity. 4. Diabetes. 5. Nonsmoker. 6. Increase inflammatory markers suggestive of cytokine surge 7. s/p convalescent plasma 8. Abnormal chest x-ray revealing whiteout of the right lung Plan . Continue mechanical ventilation A/C mode PEEP 13 and Fi02 of 100. CXR reviewed improved today, no need for bronchoscopy at this time Status post convalescent serum transfusion 07/13 and Status post Tocilizumab cont. Steroids Cont. ABX Follow nephrology recs -- might require HD Nutritional support-- TPN D/W RN and RT DVT GI prophylaxis: lovenox/pepcid I spoke with with Tala Total cumulative critical care time of 35 minutes, reviewing labs, chest x-ray, data, formulating a plan PURA FOSTER MD July 23, 2019 12:20
--- NOTE | 2019-07-23 12:22 | PDOC ---
PROGRESS NOTES Chief Complaint Chief Complaint Acute hypoxic/// HYPERCAPNIC resp failure REQUIRING VENT SUPPORT Super morbid obesity Bibasilar lung airspace opacities likely atelectasis or infiltrates likely pn eumonia or atelectasis or atypical/viral infection/viral pneumonia Diabetes Hypertension, uncontrolled normocytic anemia SEVERE PROTEIN, CALORIC MALNUTRITION COVID-19 POS Acute renal failure vasomotor etiology likely Hyperkalemia secondary to the above improved Plan: 1. Continue present AC mode, on 100% FIO2 ,14 PEEP. Make changes based on ABG's 2. COVID-19 positive 3. Empiric antibiotics. 4. s/p convalescent plasma transfusion 07/13 5. nutrition, PPN and TF at5 low dose 6. Monitor LFT 7. Discussed with RN. 8. S/P monoclonal antibodies/Tocilizumab 07/15/19 9. Hold tello inhibitor, appreciate nephrology consultation, temporary catheter in place lovenox/pepcid History of Present Illness History of Present Illness No acute events reported overnight, case discussed with nursing staff patient in no acute distress no distress during my visit Prognosis guarded, remains critically stable Vitals Vitals Vital Signs Date Time Temp Pulse Resp B/P (MAP) Pulse Ox O2 Delivery O2 Flow Rate FiO2 07/23/19 12:00 95 07/23/19 12:00 Mechanical Ventilator 07/23/19 12:00 98.0 28 90 98.0 07/22/19 11:40 40.0 Physical Exam Physical Exam GENERAL: patient is intubated and sedated unresponsive on the ventilator HEENT unremarkable for acute abnormality Chest bilateral equal air entry inspiratory and expiratory wheezes at the bilateral bases anteriorly Heart S1-S2 normal regular rate and rhythm loud systolic murmur at the right second intercostal space Abdomen is obese soft nontender nondistended no masses or organomegaly noted Extremity exam is unremarkable for acute abnormality 1+ bipedal edema is noted General: Oriented X3, Cooperative, No acute distress, mild distress Abdomen: Soft Extremities: No cyanosis Labs LABS Laboratory Tests Test 07/22/19 13:45 07/22/19 17:44 07/22/19 20:28 07/23/19 00:05 O2 Saturation 88 % (92-99) Arterial Blood pH 7.31 (7.35-7.45) Arterial Blood pCO2 at Patient Temp 54 mmHg (35-46) Arterial Blood pO2 at Patient Temp 64 mmHg (75-108) Arterial Blood HCO3 26 mmol/L (21-28) Arterial Blood Base Excess -1 mmol/L (-3-3) FiO2 100 Glucose (Fingerstick) 170 mg/dL (70-99) 164 mg/dL (70-99) 153 mg/dL (70-99) Test 07/23/19 05:45 07/23/19 08:20 07/23/19 10:30 Sodium Level 147 mmol/L (136-145) Potassium Level 5.2 mmol/L (3.5-5.1) Chloride Level 110 mmol/L (98-107) Carbon Dioxide Level 28 mmol/L (21-32) Anion Gap 9 (6-14) Blood Urea Nitrogen 122 mg/dL (8-26) Creatinine 1.9 mg/dL (0.7-1.3) Estimated GFR (Cockcroft-Gault) 46.0 Glucose Level 235 mg/dL (70-99) Calcium Level 9.0 mg/dL (8.5-10.1) O2 Saturation 86 % (92-99) Arterial Blood pH 7.27 (7.35-7.45) Arterial Blood pCO2 at Patient Temp 59 mmHg (35-46) Arterial Blood pO2 at Patient Temp 63 mmHg (75-108) Arterial Blood pO2 (Temp corrected) mmHg Arterial Blood HCO3 26 mmol/L (21-28) Arterial Blood Base Excess -2 mmol/L (-3-3) FiO2 100 Prothrombin Time 14.3 SEC (11.7-14.0) Prothromb Time International Ratio 1.2 (0.8-1.1) Glucose (Fingerstick) 242 mg/dL (70-99) Assessment and Plan Assessmemt and Plan Problems Medical Problems: (1) Suspected COVID-19 virus infection Status: Acute Comment Review of Relevant I have reviewed the following items lizzy (where applicable) has been applied. Labs Laboratory Tests Test 07/21/19 17:36 07/22/19 04:00 07/22/19 06:33 07/22/19 08:00 Glucose (Fingerstick) 123 mg/dL (70-99) 247 mg/dL (70-99) White Blood Count 19.8 x10^3/uL (4.0-11.0) Red Blood Count 4.25 x10^6/uL (4.30-5.70) Hemoglobin 11.4 g/dL (13.0-17.5) Hematocrit 36.3 % (39.0-53.0) Mean Corpuscular Volume 85 fL (79-100) Mean Corpuscular Hemoglobin 27 pg (25-35) Mean Corpuscular Hemoglobin Concent 31 g/dL (31-37) Red Cell Distribution Width 15.6 % (11.5-14.5) Platelet Count 420 x10^3/uL (140-400) Neutrophils (%) (Auto) 91 % (31-73) Lymphocytes (%) (Auto) 6 % (24-48) Monocytes (%) (Auto) 3 % (0-9) Eosinophils (%) (Auto) 0 % (0-3) Basophils (%) (Auto) 0 % (0-3) Neutrophils # (Auto) 18.0 x10^3/uL (1.8-7.7) Lymphocytes # (Auto) 1.1 x10^3/uL (1.0-4.8) Monocytes # (Auto) 0.5 x10^3/uL (0.0-1.1) Eosinophils # (Auto) 0.1 x10^3/uL (0.0-0.7) Basophils # (Auto) 0.0 x10^3/uL (0.0-0.2) Segmented Neutrophils % 89 % (35-66) Band Neutrophils % 3 % (0-9) Lymphocytes % 7 % (24-48) Myelocytes % 1 % (0-0) Platelet Estimate Adequate (ADEQUATE) Sodium Level 138 mmol/L (136-145) Potassium Level 6.8 mmol/L (3.5-5.1) Chloride Level 104 mmol/L (98-107) Carbon Dioxide Level 26 mmol/L (21-32) Anion Gap 8 (6-14) Blood Urea Nitrogen 115 mg/dL (8-26) Creatinine 2.2 mg/dL (0.7-1.3) Estimated GFR (Cockcroft-Gault) 38.8 Glucose Level 247 mg/dL (70-99) Calcium Level 8.5 mg/dL (8.5-10.1) Phosphorus Level 6.3 mg/dL (2.6-4.7) Magnesium Level 2.9 mg/dL (1.8-2.4) Total Bilirubin 0.4 mg/dL (0.2-1.0) Direct Bilirubin 0.2 mg/dL (0.0-0.2) Aspartate Amino Transf (AST/SGOT) 40 U/L (15-37) Alanine Aminotransferase (ALT/SGPT) 132 U/L (16-63) Alkaline Phosphatase 99 U/L (46-116) Total Protein 7.0 g/dL (6.4-8.2) Albumin 2.7 g/dL (3.4-5.0) O2 Saturation 73 % (92-99) Arterial Blood pH 7.24 (7.35-7.45) Arterial Blood pCO2 at Patient Temp 59 mmHg (35-46) Arterial Blood pO2 at Patient Temp 48 mmHg (75-108) Arterial Blood HCO3 25 mmol/L (21-28) Arterial Blood Base Excess -4 mmol/L (-3-3) FiO2 100% Test 07/22/19 09:06 07/22/19 11:00 07/22/19 12:15 07/22/19 13:45 Glucose (Fingerstick) 265 mg/dL (70-99) Heparin Anti-Xa Act, Unfractionated > 1.10 IU/mL (0.30-0.70) Sodium Level 141 mmol/L (136-145) Potassium Level 6.2 mmol/L (3.5-5.1) Chloride Level 105 mmol/L (98-107) Carbon Dioxide Level 29 mmol/L (21-32) Anion Gap 7 (6-14) Blood Urea Nitrogen 118 mg/dL (8-26) Creatinine 2.1 mg/dL (0.7-1.3) Estimated GFR (Cockcroft-Gault) 41.0 Glucose Level 221 mg/dL (70-99) Calcium Level 9.0 mg/dL (8.5-10.1) O2 Saturation 88 % (92-99) Arterial Blood pH 7.31 (7.35-7.45) Arterial Blood pCO2 at Patient Temp 54 mmHg (35-46) Arterial Blood pO2 at Patient Temp 64 mmHg (75-108) Arterial Blood HCO3 26 mmol/L (21-28) Arterial Blood Base Excess -1 mmol/L (-3-3) FiO2 100 Test 07/22/19 17:44 5/8/20 20:28 07/23/19 00:05 07/23/19 05:45 Glucose (Fingerstick) 170 mg/dL (70-99) 164 mg/dL (70-99) 153 mg/dL (70-99) Sodium Level 147 mmol/L (136-145) Potassium Level 5.2 mmol/L (3.5-5.1) Chloride Level 110 mmol/L (98-107) Carbon Dioxide Level 28 mmol/L (21-32) Anion Gap 9 (6-14) Blood Urea Nitrogen 122 mg/dL (8-26) Creatinine 1.9 mg/dL (0.7-1.3) Estimated GFR (Cockcroft-Gault) 46.0 Glucose Level 235 mg/dL (70-99) Calcium Level 9.0 mg/dL (8.5-10.1) Test 07/23/19 08:20 07/23/19 10:30 O2 Saturation 86 % (92-99) Arterial Blood pH 7.27 (7.35-7.45) Arterial Blood pCO2 at Patient Temp 59 mmHg (35-46) Arterial Blood pO2 at Patient Temp 63 mmHg (75-108) Arterial Blood pO2 (Temp corrected) mmHg Arterial Blood HCO3 26 mmol/L (21-28) Arterial Blood Base Excess -2 mmol/L (-3-3) FiO2 100 Prothrombin Time 14.3 SEC (11.7-14.0) Prothromb Time International Ratio 1.2 (0.8-1.1) Glucose (Fingerstick) 242 mg/dL (70-99) Laboratory Tests Test 07/22/19 13:45 07/22/19 17:44 07/22/19 20:28 07/23/19 00:05 O2 Saturation 88 % (92-99) Arterial Blood pH 7.31 (7.35-7.45) Arterial Blood pCO2 at Patient Temp 54 mmHg (35-46) Arterial Blood pO2 at Patient Temp 64 mmHg (75-108) Arterial Blood HCO3 26 mmol/L (21-28) Arterial Blood Base Excess -1 mmol/L (-3-3) FiO2 100 Glucose (Fingerstick) 170 mg/dL (70-99) 164 mg/dL (70-99) 153 mg/dL (70-99) Test 07/23/19 05:45 07/23/19 08:20 07/23/19 10:30 Sodium Level 147 mmol/L (136-145) Potassium Level 5.2 mmol/L (3.5-5.1) Chloride Level 110 mmol/L (98-107) Carbon Dioxide Level 28 mmol/L (21-32) Anion Gap 9 (6-14) Blood Urea Nitrogen 122 mg/dL (8-26) Creatinine 1.9 mg/dL (0.7-1.3) Estimated GFR (Cockcroft-Gault) 46.0 Glucose Level 235 mg/dL (70-99) Calcium Level 9.0 mg/dL (8.5-10.1) O2 Saturation 86 % (92-99) Arterial Blood pH 7.27 (7.35-7.45) Arterial Blood pCO2 at Patient Temp 59 mmHg (35-46) Arterial Blood pO2 at Patient Temp 63 mmHg (75-108) Arterial Blood pO2 (Temp corrected) mmHg Arterial Blood HCO3 26 mmol/L (21-28) Arterial Blood Base Excess -2 mmol/L (-3-3) FiO2 100 Prothrombin Time 14.3 SEC (11.7-14.0) Prothromb Time International Ratio 1.2 (0.8-1.1) Glucose (Fingerstick) 242 mg/dL (70-99) Microbiology 07/12/19 Blood Culture - Final, Complete NO GROWTH AFTER 5 DAYS Medications Current Medications Sodium Chloride 1,000 ml @ 1,000 mls/hr 1X ONCE IV Last administered on 07/12/19at 13:25; Start 07/12/19 at 13:30; Stop 07/12/19 at 14:29; Status DC Acetaminophen (Tylenol) 1,000 mg 1X ONCE PO Last administered on 07/12/19at 13:25; Start 07/12/19 at 13:45; Stop 07/12/19 at 13:46; Status DC Sodium Chloride (Normal Saline Flush) 3 ml QSHIFT PRN IV AFTER MEDS AND BLOOD DRAWS; Start 07/12/19 at 16:45 Sodium Chloride 1,000 ml @ 20 mls/hr Q24H IV Last administered on 07/22/19at 17:34; Start 07/12/19 at 16:41 Ondansetron HCl (Zofran) 4 mg PRN Q4HRS PRN IV NAUSEA/VOMITING; Start 07/12/19 at 16:45 Acetaminophen (Tylenol) 650 mg PRN Q4HRS PRN PO TEMP OVER 100.4F OR MILD PAIN Last administered on 07/14/19at 18:29; Start 07/12/19 at 16:45 Al Hydroxide/Mg Hydroxide (Mylanta Plus Xs) 30 ml PRN DAILY PRN PO HEARTBURN / GAS; Start 07/12/19 at 16:45; Stop 07/22/19 at 04:48; Status DC Clonidine HCl (Catapres) 0.1 mg PRN Q6HRS PRN PO SBP>160 OR DBP>90 Last administered on 07/15/19at 04:25; Start 07/12/19 at 16:45 Docusate Sodium (Colace) 100 mg PRN BID PRN PO CONSTIPATION; Start 07/12/19 at 16:45 Albuterol/ Ipratropium (Duoneb) 3 ml Q4H NEB ; Start 07/12/19 at 16:45; Stop 07/12/19 at 16:55; Status DC Guaifenesin (Robitussin) 200 mg PRN Q4HRS PRN PO COUGH Last administered on 07/14/19at 08:52; Start 07/12/19 at 16:45 Levofloxacin/ Dextrose 100 ml @ 100 mls/hr Q24H IV Last administered on 07/18/19at 16:29; Start 07/13/19 at 17:00; Stop 07/19/19 at 15:22; Status DC Albuterol/ Ipratropium (Duoneb) 3 ml Q4HRS NEB ; Start 07/12/19 at 20:00; Stop 07/12/19 at 18:33; Status DC Levofloxacin/ Dextrose 100 ml @ 100 mls/hr 1X ONCE IV Last administered on 07/12/19at 17:58; Start 07/12/19 at 17:45; Stop 07/12/19 at 18:44; Status DC Albuterol Sulfate (Ventolin Neb Soln) 2.5 mg PRN Q4HRS PRN NEB SHORTNESS OF BREATH; Start 07/12/19 at 18:45 Hydralazine HCl (Apresoline Inj) 10 mg PRN Q4HRS PRN IVP ELEVATED BP, SEE COMMENTS Last administered on 07/12/19at 20:31; Start 07/12/19 at 19:45; Stop 07/12/19 at 22:40; Status DC Allopurinol (Zyloprim) 300 mg DAILY PO Last administered on 07/23/19 11:27; Start 07/13/19 at 09:00 Amlodipine Besylate (Norvasc) 10 mg DAILY PO Last administered on 07/23/19 11:27; Start 07/13/19 at 09:00 Lisinopril (Prinivil) 40 mg DAILY PO Last administered on 07/19/19 08:46; Start 07/13/19 at 09:00; Stop 07/22/19 at 13:54; Status DC Metoprolol Tartrate (Lopressor) 25 mg BID PO Last administered on 07/18/19 20:57; Start 07/12/19 at 21:00; Stop 07/19/19 at 14:04; Status DC Doxazosin Mesylate (Cardura) 8 mg DAILY PO Last administered on 07/23/19 11:29; Start 07/13/19 at 09:00 Metformin HCl (Glucophage) 1,000 mg BIDWMEALS PO Last administered on 07/19/19 18:07; Start 07/13/19 at 08:00; Stop 07/20/19 at 13:33; Status DC Atorvastatin Calcium (Lipitor) 40 mg QHS PO Last administered on 07/18/19 20:57; Start 07/12/19 at 21:00; Stop 07/19/19 at 14:07; Status DC Lisinopril (Prinivil) 10 mg 1X ONCE PO Last administered on 07/13/19at 00:41; Start 07/12/19 at 23:00; Stop 07/12/19 at 23:01; Status DC Hydralazine HCl (Apresoline Inj) 10 mg PRN Q4HRS PRN IVP ELEVATED BP, 1ST CHOICE Last administered on 07/19/19 09:07; Start 07/12/19 at 22:45 Doxazosin Mesylate (Cardura) 8 mg 1X ONCE PO Last administered on 07/12/19 23:08; Start 07/12/19 at 23:30; Stop 07/12/19 at 23:31; Status DC Amlodipine Besylate (Norvasc) 10 mg 1X ONCE PO Last administered on 4/28/20at 23:00; Start 07/12/19 at 23:30; Stop 07/12/19 at 23:31; Status DC Lorazepam (Ativan Inj) 1 mg PRN Q2HRS PRN IVP ANXIETY Last administered on 07/17/19 12:20; Start 07/12/19 at 23:00 Enoxaparin Sodium (Lovenox 60mg Syringe) 60 mg Q12HR SQ Last administered on 07/21/19 19:56; Start 07/13/19 at 09:00; Stop 07/22/19 at 04:00; Status DC Lactobacillus Rhamnosus (Culturelle) 1 cap BID PO Last administered on 07/20/19 20:10; Start 07/13/19 at 21:00; Stop 07/21/19 at 10:47; Status DC Throat Lozenges (Cepacol Sore Throat Lozenge) 1 jessica PRN Q2HRS PRN PO SORE THROAT Last administered on 07/14/19at 08:56; Start 07/13/19 at 16:30 Haloperidol Lactate (Haldol Inj) 3 mg PRN Q4HRS PRN IVP AGITATION Last administered on 07/14/19 22:59; Start 07/14/19 at 22:30 Fentanyl Citrate 30 ml @ 0 mls/hr CONT PRN IV SEE PROTOCOL Last administered on 07/16/19 16:07; Start 07/15/19 at 05:45; Stop 07/16/19 at 21:59; Status DC Propofol 100 ml @ 0 mls/hr CONT PRN IV SEE PROTOCOL Last administered on 07/15/19at 06:03; Start 07/15/19 at 05:45; Stop 07/15/19 at 06:06; Status DC Famotidine (Pepcid Vial) 20 mg BID IVP Last administered on 07/23/19at 11:27; Start 07/15/19 at 09:00 Midazolam HCl 100 ml @ 0 mls/hr CONT PRN IV SEE PROTOCOL Last administered on 07/23/19at 05:55; Start 07/15/19 at 05:45 Ketamine HCl (Ketamine) 50 mg STK-MED ONCE .ROUTE ; Start 07/15/19 at 05:44; Stop 07/15/19 at 05:44; Status DC Succinylcholine Chloride (Anectine) 200 mg STK-MED ONCE .ROUTE ; Start 07/15/19 at 05:45; Stop 07/15/19 at 05:45; Status DC Succinylcholine Chloride (Anectine) 200 mg 1X ONCE IV Last administered on 07/15/19at 06:00; Start 07/15/19 at 06:15; Stop 07/15/19 at 06:16; Status DC Propofol 100 ml @ 2.7 mls/hr CONT PRN IV SEE I/O RECORD Last administered on 07/15/19at 10:08; Start 07/15/19 at 06:15 Ketamine HCl (Ketamine) 50 mg 1X ONCE IV Last administered on 07/15/19at 05:55; Start 07/15/19 at 06:15; Stop 07/15/19 at 06:16; Status DC Vecuronium Calhoun (Norcuron Bolus) 6 mg 1X ONCE IV Last administered on 07/15/19at 06:55; Start 07/15/19 at 07:00; Stop 07/15/19 at 07:01; Status DC Vecuronium [place]houn (Norcuron Bolus) 10 mg STK-MED ONCE IV ; Start 07/15/19 at 06:53; Stop 07/15/19 at 06:53; Status DC Tocilizumab 800 mg/Sodium Chloride 100 ml @ 100 mls/hr ONCE ONCE IV Last administered on 07/15/19at 15:51; Start 07/15/19 at 16:00; Stop 07/15/19 at 16:59; Status DC Dextrose (Dextrose 50%-Water Syringe) 25 gm STK-MED ONCE IV ; Start 07/15/19 at 15:55; Stop 07/15/19 at 15:56; Status DC Dexmedetomidine HCl 400 mcg/ Sodium Chloride 100 ml @ 9 mls/hr CONT PRN IV SEDATION Last administered on 07/23/19at 03:51; Start 07/15/19 at 16:30 Dexmedetomidine HCl 400 mcg/ Sodium Chloride 100 ml @ 0 mls/hr CONT PRN IV SEDATION; Start 07/15/19 at 16:30; Status UNV Dextrose (Dextrose 50%-Water Syringe) 25 gm 1X ONCE IV Last administered on 07/15/19at 16:28; Start 07/15/19 at 16:30; Stop 07/15/19 at 16:31; Status DC Amino Acids/ Glycerin/ Electrolytes 1,000 ml @ 80 mls/hr [id number] IV Last administered on 07/18/19 13:03; Start 07/16/19 at 10:00; Stop 07/18/19 at 21:59; Status DC Sodium Bicarbonate (Sodium Bicarb Adult 8.4% Syr) 50 meq 1X ONCE IV Last administered on 07/16/19 11:23; Start 07/16/19 at 09:30; Stop 07/16/19 at 09:31; Status DC Fentanyl Citrate 55 ml @ 0 mls/hr CONT PRN IV SEE I/O RECORD Last administered on 07/22/19at 11:40; Start 07/16/19 at 22:00 Vecuronium [place]houn (Norcuron Bolus) 10 mg PRN Q6HRS PRN IV ASYNCHRONARY W/ VENT Last administered on 07/17/19 12:19; Start 07/17/19 at 10:00 Vecuronium [place]houn 50 mg/ Miscellaneous 50 ml @ 8.976 mls/ hr CONT PRN IV SEE I/O RECORD Last administered on 07/23/19at 03:50; Start 07/17/19 at 12:15 Info (Tpn Per Pharmacy) 1 each PRN DAILY PRN MC SEE COMMENTS Last administered on 07/22/19 09:30; Start 07/18/19 at 10:45 Sodium Acetate 60 meq/Potassium Phosphate 13.6 mmol/Magnesium Sulfate 10 meq/ Calcium Gluconate 10 meq/ Multivitamins 10 ml/Chromium/ Copper/Manganese/ Seleni/Zn 0.5 ml/ Total Parenteral Nutrition/Amino Acids/Dextrose 1,920 ml @ 80 mls/hr TPN CONT IV Last administered on 07/18/19at 22:18; Start 07/18/19 at 22:00; Stop 07/19/19 at 21:59; Status DC Labetalol HCl (Normodyne Iv Push) 20 mg 1X ONCE IVP Last administered on 07/19/19 09:30; Start 07/19/19 at 09:30; Stop 07/19/19 at 09:31; Status DC Labetalol HCl (Normodyne Iv Push) 10 mg PRN Q5MIN PRN IVP HYPERTENSION, 2ND CHOICE; Start 07/19/19 at 09:30 Sodium Acetate 60 meq/Potassium Phosphate 13.6 mmol/Magnesium Sulfate 5 meq/ Calcium Gluconate 10 meq/ Multivitamins 10 ml/Chromium/ Copper/Manganese/ Seleni/Zn 0.5 ml/ Total Parenteral Nutrition/Amino Acids/Dextrose/ Fat Emulsion Intravenous 1,920 ml @ 80 mls/hr TPN CONT IV Last administered on 07/19/19at 20:45; Start 07/19/19 at 22:00; Stop 07/20/19 at 21:59; Status DC Metoprolol Tartrate (Lopressor Vial) 5 mg Q6HRS IVP Last administered on 07/23/19at 11:28; Start 07/19/19 at 18:00 Norepinephrine Bitartrate 8 mg/ Dextrose 258 ml @ 35.217 mls/ hr CONT PRN IV PER PROTOCOL Last administered on 07/19/19at 15:59; Start 07/19/19 at 16:00 Sodium Acetate 60 meq/Sodium Phosphate 5 mmol/ Calcium Gluconate 5 meq/ Multivitamins 10 ml/Chromium/ Copper/Manganese/ Seleni/Zn 0.5 ml/ Total Parenteral Nutrition/Amino Acids/Dextrose/ Fat Emulsion Intravenous 1,920 ml @ 80 mls/hr TPN CONT IV Last administered on 07/20/19at 21:23; Start 07/20/19 at 22:00; Stop 07/21/19 at 21:59; Status DC Sodium Acetate 60 meq/Calcium Gluconate 5 meq/ Multivitamins 10 ml/Chromium/ Copper/Manganese/ Seleni/Zn 0.5 ml/ Total Parenteral Nutrition/Amino Acids/Dextrose/ Fat Emulsion Intravenous 1,680 ml @ 70 mls/hr TPN CONT IV Last administered on 07/21/19at 21:21; Start 07/21/19 at 22:00; Stop 07/22/19 at 21:59; Status DC Methylprednisolone Sodium Succinate (SOLU-Medrol 125MG VIAL) 250 mg Q6HRS IV ; Start 07/21/19 at 14:30; Status UNV Methylprednisolone Sodium Succinate 250 mg/Sodium Chloride 100 ml @ 100 mls/hr Q6HRS IV Last administered on 07/23/19at 11:28; Start 07/21/19 at 16:00; Stop 07/24/19 at 12:59 Heparin Sodium/ Dextrose 250 ml @ 0 mls/hr CONT PRN IV PER PROTOCOL Last ad ministered on 07/22/19at 04:31; Start 07/22/19 at 04:00; Stop 07/22/19 at 12:50; Status DC Heparin Sodium (Porcine) (Heparin Sodium) 5,500 unit PRN Q6HRS PRN IV FOR UFH LEVEL LESS THAN 0.2; Start 07/22/19 at 04:00; Stop 07/22/19 at 12:51; Status DC Heparin Sodium (Porcine) (Heparin Sodium) 2,750 unit PRN Q6HRS PRN IV FOR UFH LEVEL 0.2 - 0.29; Start 07/22/19 at 04:00; Stop 07/22/19 at 12:51; Status DC Info (Anti-Coagulation Monitoring By Pharmacy) 1 each PRN DAILY PRN MC SEE COMMENTS Last administered on 07/22/19at 04:54; Start 07/22/19 at 04:15; Stop 07/23/19 at 08:04; Status DC Furosemide (Lasix) 40 mg 1X ONCE IVP ; Start 07/22/19 at 09:00; Stop 07/22/19 at 09:01; Status Cancel Calcium Gluconate (Calcium Gluconate) 1,000 mg 1X ONCE IVP Last administered on 07/22/19at 09:09; Start 07/22/19 at 09:00; Stop 07/22/19 at 09:01; Status DC Furosemide (Lasix) 40 mg 1X ONCE IVP Last administered on 07/22/19at 09:10; Start 07/22/19 at 09:00; Stop 07/22/19 at 09:01; Status DC Insulin Glargine (Lantus Syringe) 10 unit QHS SQ Last administered on 07/22/19at 20:32; Start 07/22/19 at 21:00 Insulin Human Lispro (HumaLOG) 0-5 UNITS Q6HRS SQ Last administered on 07/23/19at 11:31; Start 07/22/19 at 12:00 Dextrose (Dextrose 50%-Water Syringe) 12.5 gm PRN Q15MIN PRN IV SEE COMMENTS; Start 07/22/19 at 09:15 Sodium Acetate 60 meq/Calcium Gluconate 5 meq/ Multivitamins 10 ml/Chromium/ Copper/Manganese/ Seleni/Zn 0.5 ml/ Total Parenteral Nutrition/Amino Acids/Dextrose/ Fat Emulsion Intravenous 1,680 ml @ 70 mls/hr TPN CONT IV ; Start 07/22/19 at 22:00; Stop 07/23/19 at 21:59; Status Cancel Sodium Acetate 60 meq/Calcium Gluconate 5 meq/ Multivitamins 10 ml/Chromium/ Copper/Manganese/ Seleni/Zn 0.5 ml/ Total Parenteral Nutrition/Amino Acids/Dextrose/ Fat Emulsion Intravenous 1,680 ml @ 70 mls/hr TPN CONT IV Last administered on 07/22/19at 23:49; Start 07/22/19 at 22:00; Stop 07/23/19 at 21:59 Calcium Gluconate (Calcium Gluconate) 1,000 mg 1X ONCE IVP Last administered on 07/22/19at 13:38; Start 07/22/19 at 13:15; Stop 07/22/19 at 13:21; Status DC Sodium Bicarbonate (Sodium Bicarb Adult 8.4% Syr) 50 meq 1X ONCE IV Last administered on 07/22/19at 13:38; Start 07/22/19 at 13:15; Stop 07/22/19 at 13:21; Status DC Dextrose (Dextrose 50%-Water Syringe) 25 gm 1X ONCE IV Last administered on 07/22/19at 13:41; Start 07/22/19 at 13:15; Stop 07/22/19 at 13:21; Status DC Insulin Human Regular (HumuLIN R VIAL) 10 unit 1X ONCE IV Last administered on 07/22/19at 13:39; Start 07/22/19 at 13:15; Stop 07/22/19 at 13:21; Status DC Sodium Polystyrene Sulfonate (Kayexalate) 30 gm 1X ONCE PO ; Start 07/22/19 at 13:15; Stop 07/22/19 at 13:21; Status DC Lidocaine HCl (Lidocaine 1% 20ml Vial) 20 ml STK-MED ONCE .ROUTE ; Start 07/22/19 at 15:37; Stop 07/22/19 at 15:37; Status DC Enoxaparin Sodium (Lovenox 60mg Syringe) 60 mg Q12HR SQ Last administered on 07/23/19at 09:00; Start 07/22/19 at 21:00 Lidocaine HCl (Buffered Lidocaine 1%) 6 ml 1X ONCE INJ Last administered on 07/22/19at 16:53; Start 07/22/19 at 17:00; Stop 07/22/19 at 17:01; Status DC Oxytocin (Pitocin) 10 unit STK-MED ONCE .ROUTE ; Start 07/23/19 at 12:00; Stop 07/23/19 at 12:01; Status DC Morphine Sulfate (Morphine Preservative Free) 10 mg STK-MED ONCE .ROUTE ; Start 07/23/19 at 12:00; Stop 07/23/19 at 12:01; Status DC Active Scripts Active Reported Metformin Hcl 1,000 Mg Tablet 1,000 Mg PO BIDWMEALS Lisinopril 40 Mg Tablet 40 Mg PO DAILY Allopurinol 300 Mg Tablet 300 Mg PO DAILY Metoprolol Tartrate 25 Mg Tablet 25 Mg PO BID Doxazosin Mesylate 8 Mg Tablet 8 Mg PO DAILY Amlodipine Besylate 10 Mg Tablet 10 Mg PO DAILY Vitals/I & O Vital Sign - Last 24 Hours 07/22/19 07/22/19 07/22/19 07/22/19 13:00 14:00 15:00 15:38 Pulse 92 90 90 Resp 28 B/P (MAP) 122/54 (76) 175/76 (109) 174/79 (110) Pulse Ox 100 100 100 94 O2 Delivery Ventilator Ventilator Ventilator Ventilator 07/22/19 07/22/19 07/22/19 07/22/19 16:00 16:00 16:00 17:00 Temp 99.1 99.1 Pulse 108 90 84 Resp 28 B/P (MAP) 145/68 (93) 142/68 (92) Pulse Ox 100 95 O2 Delivery Mechanical Ventilator Ventilator Ventilator 07/22/19 07/22/19 07/22/19 07/22/19 17:34 18:00 19:00 19:51 Pulse 85 77 72 Resp 28 B/P (MAP) 153/71 124/62 (82) 134/67 (89) Pulse Ox 95 94 94 O2 Delivery Ventilator Ventilator Ventilator 07/22/19 07/22/19 07/22/19 07/22/19 20:00 20:15 20:15 21:00 Pulse 72 81 78 Resp 28 B/P (MAP) 138/68 (91) 140/68 (92) Pulse Ox 94 96 O2 Delivery Ventilator Mechanical Ventilator Ventilator 07/22/19 07/22/19 07/22/19 07/23/19 22:00 23:00 23:52 00:00 Temp 98.5 98.5 Pulse 78 78 73 70 Resp 28 28 28 B/P (MAP) 140/68 (92) 138/68 (91) 140/63 136/68 (90) Pulse Ox 94 94 95 O2 Delivery Ventilator Ventilator Ventilator 07/23/19 07/23/19 07/23/19 07/23/19 00:10 00:10 00:59 01:00 Pulse 79 72 Resp 28 B/P (MAP) 160/74 (102) Pulse Ox 94 96 O2 Delivery Mechanical Ventilator Ventilator Ventilator 07/23/19 07/23/19 07/23/19 07/23/19 02:00 03:00 04:00 04:00 Pulse 80 86 93 Resp 28 28 B/P (MAP) 170/74 (106) 182/76 (111) 176/73 (107) Pulse Ox 96 97 97 O2 Delivery Ventilator Ventilator Ventilator Mechanical Ventilator 07/23/19 07/23/19 07/23/19 07/23/19 04:00 05:00 05:13 05:55 Pulse 92 92 86 Resp 28 B/P (MAP) 167/73 (104) 157/71 Pulse Ox 97 94 O2 Delivery Ventilator Ventilator 07/23/19 07/23/19 07/23/19 07/23/19 06:00 07:00 08:00 08:00 Temp 97.8 97.8 Pulse 79 76 95 80 Resp 28 28 B/P (MAP) 157/70 (99) 156/70 (98) 158/70 (99) Pulse Ox 98 98 95 O2 Delivery Ventilator Ventilator Ventilator 07/23/19 07/23/19 07/23/19 07/23/19 08:00 09:00 10:00 11:00 Pulse 88 98 96 Resp 28 B/P (MAP) 188/78 (114) 212/80 (124) 160/60 (93) Pulse Ox 98 98 98 O2 Delivery Mechanical Ventilator Ventilator Ventilator Ventilator 07/23/19 07/23/19 07/23/19 07/23/19 11:27 11:28 11:29 12:00 Temp 98.0 98.0 Pulse 98 97 98 98 Resp 28 B/P (MAP) 150/72 156/60 156/89 166/68 (100) Pulse Ox 90 O2 Delivery Ventilator 07/23/19 07/23/19 12:00 12:00 Pulse 95 B/P (MAP) O2 Delivery Mechanical Ventilator Intake and Output 07/22/19 07/22/19 07/23/19 15:00 23:00 07:00 Intake Total 583 ml 692 ml Output Total 2000 ml 850 ml 2225 ml Balance -2000 ml -267 ml -1533 ml GABRIEL REGALADO MD July 23, 2019 12:22
[2019-07-23] MEDS: TPN PER PHARMACY MC PRN (12:38)
--- NOTE | 2019-07-23 12:38 | NUR ---
Pharmacy TPN Dosing Note S: REINALDO BOWER is a 48 year old M Currently receiving Central Continuous TPN started 07/18/19 B:Pertinent PMH: critical illness Height: 6 feet, 1 inches Weight: 178.4 kg Current diet: NPO LABS: Sodium: 147 Potassium: 5.2 Chloride: 110 Calcium: 9.0 Corrected Calcium: 10.04 Magnesium: 2.9 CO2: 28 SCr: 1.9 Glucose: 153-242 Albumin: 2.7 AST: 40 ALT: 132 TPN FORMULA: TPN TYPE: Central Continuous AMINO ACIDS: 155 gm DEXTROSE: 225 gm LIPIDS: 20 gm SODIUM ACETATE: 50 mEq CALCIUM: 5 mEq MULTIPLE VITAMIN: 10 ml TRACE ELEMENTS: 0.5 ml(s) TPN PLAN: K is elevated- no Potassium in TPN. BG above goal- last day of solumedrol today and patient receiving lantus and SSI. Will monitor levels tomorrow.Na elevated- will decrease NaAce to 50 mEq in TPN. -CMP on 07/24 R: Change TPN as noted above. Will monitor electrolytes, glucose, and tolerance to TPN. BRITTANY FOLEY [facility], 07/23/19 [id number]
[2019-07-23] MEDS ORDERED: ePHEDrine PF IN SALINE 50 MG/10 ML SYRINGE. IV ONE (12:41)
--- NOTE | 2019-07-23 13:07 | PDOC ---
PROGRESS NOTES Subjective Subjective SEEN IN FOLLOW UP OF ARF AND TPN. PATIENT IS COVID 19 + AND EVALUATED FROM DOOR Objective Objective Vital Signs Date Time Temp Pulse Resp B/P (MAP) Pulse Ox O2 Delivery O2 Flow Rate FiO2 07/23/19 12:09 97 Ventilator 07/23/19 12:00 95 07/23/19 12:00 98.0 28 98.0 07/22/19 11:40 40.0 Intake and Output 07/23/19 07:00 Intake Total 1275 ml Output Total 5075 ml Balance -3800 ml IV Total 1275 ml Output Urine Total 5075 ml Physical Exam Lungs: Other (ON VENT) Diagnosis RENAL FAILURE: Acute (Acute tubular necrosis) Assessment Assessment Problems Medical Problems: (1) Suspected COVID-19 virus infection Status: Acute Plan Plan of Care RENAL FUNCTION IS BETTER PER SERUM CREATININE. BUN >> CREAT DUE TO CATABOLIC STATE AND TPN. WILL NOT PROCEED WITH DIALYSIS TODAY. CONT TO FOLLOW Comment Review of Relevant I have reviewed the following items lizzy (where applicable) has been applied. Labs Laboratory Tests Test 07/21/19 17:36 07/22/19 04:00 07/22/19 06:33 07/22/19 08:00 Glucose (Fingerstick) 123 mg/dL (70-99) 247 mg/dL (70-99) White Blood Count 19.8 x10^3/uL (4.0-11.0) Red Blood Count 4.25 x10^6/uL (4.30-5.70) Hemoglobin 11.4 g/dL (13.0-17.5) Hematocrit 36.3 % (39.0-53.0) Mean Corpuscular Volume 85 fL (79-100) Mean Corpuscular Hemoglobin 27 pg (25-35) Mean Corpuscular Hemoglobin Concent 31 g/dL (31-37) Red Cell Distribution Width 15.6 % (11.5-14.5) Platelet Count 420 x10^3/uL (140-400) Neutrophils (%) (Auto) 91 % (31-73) Lymphocytes (%) (Auto) 6 % (24-48) Monocytes (%) (Auto) 3 % (0-9) Eosinophils (%) (Auto) 0 % (0-3) Basophils (%) (Auto) 0 % (0-3) Neutrophils # (Auto) 18.0 x10^3/uL (1.8-7.7) Lymphocytes # (Auto) 1.1 x10^3/uL (1.0-4.8) Monocytes # (Auto) 0.5 x10^3/uL (0.0-1.1) Eosinophils # (Auto) 0.1 x10^3/uL (0.0-0.7) Basophils # (Auto) 0.0 x10^3/uL (0.0-0.2) Segmented Neutrophils % 89 % (35-66) Band Neutrophils % 3 % (0-9) Lymphocytes % 7 % (24-48) Myelocytes % 1 % (0-0) Platelet Estimate Adequate (ADEQUATE) Sodium Level 138 mmol/L (136-145) Potassium Level 6.8 mmol/L (3.5-5.1) Chloride Level 104 mmol/L (98-107) Carbon Dioxide Level 26 mmol/L (21-32) Anion Gap 8 (6-14) Blood Urea Nitrogen 115 mg/dL (8-26) Creatinine 2.2 mg/dL (0.7-1.3) Estimated GFR (Cockcroft-Gault) 38.8 Glucose Level 247 mg/dL (70-99) Calcium Level 8.5 mg/dL (8.5-10.1) Phosphorus Level 6.3 mg/dL (2.6-4.7) Magnesium Level 2.9 mg/dL (1.8-2.4) Total Bilirubin 0.4 mg/dL (0.2-1.0) Direct Bilirubin 0.2 mg/dL (0.0-0.2) Aspartate Amino Transf (AST/SGOT) 40 U/L (15-37) Alanine Aminotransferase (ALT/SGPT) 132 U/L (16-63) Alkaline Phosphatase 99 U/L (46-116) Total Protein 7.0 g/dL (6.4-8.2) Albumin 2.7 g/dL (3.4-5.0) O2 Saturation 73 % (92-99) Arterial Blood pH 7.24 (7.35-7.45) Arterial Blood pCO2 at Patient Temp 59 mmHg (35-46) Arterial Blood pO2 at Patient Temp 48 mmHg (75-108) Arterial Blood HCO3 25 mmol/L (21-28) Arterial Blood Base Excess -4 mmol/L (-3-3) FiO2 100% Test 07/22/19 09:06 07/22/19 11:00 07/22/19 12:15 07/22/19 13:45 Glucose (Fingerstick) 265 mg/dL (70-99) Heparin Anti-Xa Act, Unfractionated > 1.10 IU/mL (0.30-0.70) Sodium Level 141 mmol/L (136-145) Potassium Level 6.2 mmol/L (3.5-5.1) Chloride Level 105 mmol/L (98-107) Carbon Dioxide Level 29 mmol/L (21-32) Anion Gap 7 (6-14) Blood Urea Nitrogen 118 mg/dL (8-26) Creatinine 2.1 mg/dL (0.7-1.3) Estimated GFR (Cockcroft-Gault) 41.0 Glucose Level 221 mg/dL (70-99) Calcium Level 9.0 mg/dL (8.5-10.1) O2 Saturation 88 % (92-99) Arterial Blood pH 7.31 (7.35-7.45) Arterial Blood pCO2 at Patient Temp 54 mmHg (35-46) Arterial Blood pO2 at Patient Temp 64 mmHg (75-108) Arterial Blood HCO3 26 mmol/L (21-28) Arterial Blood Base Excess -1 mmol/L (-3-3) FiO2 100 Test 07/22/19 17:44 07/22/19 20:28 07/23/19 00:05 07/23/19 05:45 Glucose (Fingerstick) 170 mg/dL (70-99) 164 mg/dL (70-99) 153 mg/dL (70-99) Sodium Level 147 mmol/L (136-145) Potassium Level 5.2 mmol/L (3.5-5.1) Chloride Level 110 mmol/L (98-107) Carbon Dioxide Level 28 mmol/L (21-32) Anion Gap 9 (6-14) Blood Urea Nitrogen 122 mg/dL (8-26) Creatinine 1.9 mg/dL (0.7-1.3) Estimated GFR (Cockcroft-Gault) 46.0 Glucose Level 235 mg/dL (70-99) Calcium Level 9.0 mg/dL (8.5-10.1) Test 07/23/19 08:20 07/23/19 10:30 O2 Saturation 86 % (92-99) Arterial Blood pH 7.27 (7.35-7.45) Arterial Blood pCO2 at Patient Temp 59 mmHg (35-46) Arterial Blood pO2 at Patient Temp 63 mmHg (75-108) Arterial Blood pO2 (Temp corrected) mmHg Arterial Blood HCO3 26 mmol/L (21-28) Arterial Blood Base Excess -2 mmol/L (-3-3) FiO2 100 Prothrombin Time 14.3 SEC (11.7-14.0) Prothromb Time International Ratio 1.2 (0.8-1.1) Glucose (Fingerstick) 242 mg/dL (70-99) Laboratory Tests Test 07/22/19 13:45 07/22/19 17:44 07/22/19 20:28 07/23/19 00:05 O2 Saturation 88 % (92-99) Arterial Blood pH 7.31 (7.35-7.45) Arterial Blood pCO2 at Patient Temp 54 mmHg (35-46) Arterial Blood pO2 at Patient Temp 64 mmHg (75-108) Arterial Blood HCO3 26 mmol/L (21-28) Arterial Blood Base Excess -1 mmol/L (-3-3) FiO2 100 Glucose (Fingerstick) 170 mg/dL (70-99) 164 mg/dL (70-99) 153 mg/dL (70-99) Test 07/23/19 05:45 07/23/19 08:20 07/23/19 10:30 Sodium Level 147 mmol/L (136-145) Potassium Level 5.2 mmol/L (3.5-5.1) Chloride Level 110 mmol/L (98-107) Carbon Dioxide Level 28 mmol/L (21-32) Anion Gap 9 (6-14) Blood Urea Nitrogen 122 mg/dL (8-26) Creatinine 1.9 mg/dL (0.7-1.3) Estimated GFR (Cockcroft-Gault) 46.0 Glucose Level 235 mg/dL (70-99) Calcium Level 9.0 mg/dL (8.5-10.1) O2 Saturation 86 % (92-99) Arterial Blood pH 7.27 (7.35-7.45) Arterial Blood pCO2 at Patient Temp 59 mmHg (35-46) Arterial Blood pO2 at Patient Temp 63 mmHg (75-108) Arterial Blood pO2 (Temp corrected) mmHg Arterial Blood HCO3 26 mmol/L (21-28) Arterial Blood Base Excess -2 mmol/L (-3-3) FiO2 100 Prothrombin Time 14.3 SEC (11.7-14.0) Prothromb Time International Ratio 1.2 (0.8-1.1) Glucose (Fingerstick) 242 mg/dL (70-99) Microbiology 07/12/19 Blood Culture - Final, Complete NO GROWTH AFTER 5 DAYS Medications Current Medications Sodium Chloride 1,000 ml @ 1,000 mls/hr 1X ONCE IV Last administered on 07/12/19at 13:25; Start 07/12/19 at 13:30; Stop 07/12/19 at 14:29; Status DC Acetaminophen (Tylenol) 1,000 mg 1X ONCE PO Last administered on 07/12/19at 13:25; Start 07/12/19 at 13:45; Stop 07/12/19 at 13:46; Status DC Sodium Chloride (Normal Saline Flush) 3 ml QSHIFT PRN IV AFTER MEDS AND BLOOD DRAWS; Start 07/12/19 at 16:45 Sodium Chloride 1,000 ml @ 20 mls/hr Q24H IV Last administered on 07/22/19at 17:34; Start 07/12/19 at 16:41 Ondansetron HCl (Zofran) 4 mg PRN Q4HRS PRN IV NAUSEA/VOMITING; Start 07/12/19 at 16:45 Acetaminophen (Tylenol) 650 mg PRN Q4HRS PRN PO TEMP OVER 100.4F OR MILD PAIN Last administered on 07/14/19at 18:29; Start 07/12/19 at 16:45 Al Hydroxide/Mg Hydroxide (Mylanta Plus Xs) 30 ml PRN DAILY PRN PO HEARTBURN / GAS; Start 07/12/19 at 16:45; Stop 07/22/19 at 04:48; Status DC Clonidine HCl (Catapres) 0.1 mg PRN Q6HRS PRN PO SBP>160 OR DBP>90 Last administered on 07/15/19at 04:25; Start 07/12/19 at 16:45 Docusate Sodium (Colace) 100 mg PRN BID PRN PO CONSTIPATION; Start 07/12/19 at 16:45 Albuterol/ Ipratropium (Duoneb) 3 ml Q4H NEB ; Start 07/12/19 at 16:45; Stop 07/12/19 at 16:55; Status DC Guaifenesin (Robitussin) 200 mg PRN Q4HRS PRN PO COUGH Last administered on 07/14/19at 08:52; Start 07/12/19 at 16:45 Levofloxacin/ Dextrose 100 ml @ 100 mls/hr Q24H IV Last administered on 07/18/19at 16:29; Start 07/13/19 at 17:00; Stop 07/19/19 at 15:22; Status DC Albuterol/ Ipratropium (Duoneb) 3 ml Q4HRS NEB ; Start 07/12/19 at 20:00; Stop 07/12/19 at 18:33; Status DC Levofloxacin/ Dextrose 100 ml @ 100 mls/hr 1X ONCE IV Last administered on 07/12/19at 17:58; Start 07/12/19 at 17:45; Stop 07/12/19 at 18:44; Status DC Albuterol Sulfate (Ventolin Neb Soln) 2.5 mg PRN Q4HRS PRN NEB SHORTNESS OF BREATH; Start 07/12/19 at 18:45 Hydralazine HCl (Apresoline Inj) 10 mg PRN Q4HRS PRN IVP ELEVATED BP, SEE COMMENTS Last administered on 07/12/19at 20:31; Start 07/12/19 at 19:45; Stop 07/12/19 at 22:40; Status DC Allopurinol (Zyloprim) 300 mg DAILY PO Last administered on 07/23/19at 11:27; Start 07/13/19 at 09:00 Amlodipine Besylate (Norvasc) 10 mg DAILY PO Last administered on 07/23/19at 11:27; Start 07/13/19 at 09:00 Lisinopril (Prinivil) 40 mg DAILY PO Last administered on 07/19/19at 08:46; Start 07/13/19 at 09:00; Stop 07/22/19 at 13:54; Status DC Metoprolol Tartrate (Lopressor) 25 mg BID PO Last administered on 07/18/19at 20:57; Start 07/12/19 at 21:00; Stop 5/5/20 at 14:04; Status DC Doxazosin Mesylate (Cardura) 8 mg DAILY PO Last administered on 07/23/19 11:29; Start 07/13/19 at 09:00 Metformin HCl (Glucophage) 1,000 mg BIDWMEALS PO Last administered on 07/19/19 18:07; Start 07/13/19 at 08:00; Stop 07/20/19 at 13:33; Status DC Atorvastatin Calcium (Lipitor) 40 mg QHS PO Last administered on 07/18/19 20:57; Start 07/12/19 at 21:00; Stop 07/19/19 at 14:07; Status DC Lisinopril (Prinivil) 10 mg 1X ONCE PO Last administered on 07/13/19at 00:41; Start 07/12/19 at 23:00; Stop 07/12/19 at 23:01; Status DC Hydralazine HCl (Apresoline Inj) 10 mg PRN Q4HRS PRN IVP ELEVATED BP, 1ST CHOICE Last administered on 07/19/19 09:07; Start 07/12/19 at 22:45 Doxazosin Mesylate (Cardura) 8 mg 1X ONCE PO Last administered on 07/12/19at 23:08; Start 07/12/19 at 23:30; Stop 07/12/19 at 23:31; Status DC Amlodipine Besylate (Norvasc) 10 mg 1X ONCE PO Last administered on 07/12/19 23:00; Start 07/12/19 at 23:30; Stop 07/12/19 at 23:31; Status DC Lorazepam (Ativan Inj) 1 mg PRN Q2HRS PRN IVP ANXIETY Last administered on 07/17/19 12:20; Start 07/12/19 at 23:00 Enoxaparin Sodium (Lovenox 60mg Syringe) 60 mg Q12HR SQ Last administered on 07/21/19 19:56; Start 07/13/19 at 09:00; Stop 07/22/19 at 04:00; Status DC Lactobacillus Rhamnosus (Culturelle) 1 cap BID PO Last administered on 07/20/19at 20:10; Start 07/13/19 at 21:00; Stop 07/21/19 at 10:47; Status DC Throat Lozenges (Cepacol Sore Throat Lozenge) 1 jessica PRN Q2HRS PRN PO SORE THROAT Last administered on 07/14/19at 08:56; Start 07/13/19 at 16:30 Haloperidol Lactate (Haldol Inj) 3 mg PRN Q4HRS PRN IVP AGITATION Last administered on 07/14/19at 22:59; Start 07/14/19 at 22:30 Fentanyl Citrate 30 ml @ 0 mls/hr CONT PRN IV SEE PROTOCOL Last administered on 07/16/19at 16:07; Start 07/15/19 at 05:45; Stop 07/16/19 at 21:59; Status DC Propofol 100 ml @ 0 mls/hr CONT PRN IV SEE PROTOCOL Last administered on 07/15/19at 06:03; Start 07/15/19 at 05:45; Stop 07/15/19 at 06:06; Status DC Famotidine (Pepcid Vial) 20 mg BID IVP Last administered on 07/23/19at 11:27; Start 07/15/19 at 09:00 Midazolam HCl 100 ml @ 0 mls/hr CONT PRN IV SEE PROTOCOL Last administered on 07/23/19at 05:55; Start 07/15/19 at 05:45 Ketamine HCl (Ketamine) 50 mg STK-MED ONCE .ROUTE ; Start 07/15/19 at 05:44; Stop 07/15/19 at 05:44; Status DC Succinylcholine Chloride (Anectine) 200 mg STK-MED ONCE .ROUTE ; Start 07/15/19 at 05:45; Stop 07/15/19 at 05:45; Status DC Succinylcholine Chloride (Anectine) 200 mg 1X ONCE IV Last administered on 07/15/19at 06:00; Start 07/15/19 at 06:15; Stop 07/15/19 at 06:16; Status DC Propofol 100 ml @ 2.7 mls/hr CONT PRN IV SEE I/O RECORD Last administered on 07/15/19at 10:08; Start 07/15/19 at 06:15 Ketamine HCl (Ketamine) 50 mg 1X ONCE IV Last administered on 07/15/19at 05:55; Start 07/15/19 at 06:15; Stop 07/15/19 at 06:16; Status DC Vecuronium [place] (Norcuron Bolus) 6 mg 1X ONCE IV Last administered on 07/15/19at 06:55; Start 07/15/19 at 07:00; Stop 07/15/19 at 07:01; Status DC Vecuronium [place] (Norcuron Bolus) 10 mg STK-MED ONCE IV ; Start 07/15/19 at 06:53; Stop 07/15/19 at 06:53; Status DC Tocilizumab 800 mg/Sodium Chloride 100 ml @ 100 mls/hr ONCE ONCE IV Last administered on 07/15/19at 15:51; Start 07/15/19 at 16:00; Stop 07/15/19 at 16:59; Status DC Dextrose (Dextrose 50%-Water Syringe) 25 gm STK-MED ONCE IV ; Start 07/15/19 at 15:55; Stop 07/15/19 at 15:56; Status DC Dexmedetomidine HCl 400 mcg/ Sodium Chloride 100 ml @ 9 mls/hr CONT PRN IV SEDATION Last administered on 07/23/19at 03:51; Start 07/15/19 at 16:30 Dexmedetomidine HCl 400 mcg/ Sodium Chloride 100 ml @ 0 mls/hr CONT PRN IV SEDATION; Start 07/15/19 at 16:30; Status UNV Dextrose (Dextrose 50%-Water Syringe) 25 gm 1X ONCE IV Last administered on 07/15/19at 16:28; Start 07/15/19 at 16:30; Stop 07/15/19 at 16:31; Status DC Amino Acids/ Glycerin/ Electrolytes 1,000 ml @ 80 mls/hr [id number] IV Last administered on 07/18/19at 13:03; Start 07/16/19 at 10:00; Stop 07/18/19 at 21:59; Status DC Sodium Bicarbonate (Sodium Bicarb Adult 8.4% Syr) 50 meq 1X ONCE IV Last administered on 07/16/19at 11:23; Start 07/16/19 at 09:30; Stop 07/16/19 at 09:31; Status DC Fentanyl Citrate 55 ml @ 0 mls/hr CONT PRN IV SEE I/O RECORD Last administered on 07/22/19at 11:40; Start 07/16/19 at 22:00 Vecuronium [place] (Norcuron Bolus) 10 mg PRN Q6HRS PRN IV ASYNCHRONARY W/ VENT Last administered on 07/17/19 12:19; Start 07/17/19 at 10:00 Vecuronium [place] 50 mg/ Miscellaneous 50 ml @ 8.976 mls/ hr CONT PRN IV SEE I/O RECORD Last administered on 07/23/19at 03:50; Start 07/17/19 at 12:15 Info (Tpn Per Pharmacy) 1 each PRN DAILY PRN MC SEE COMMENTS Last administered on 07/23/19 12:38; Start 07/18/19 at 10:45 Sodium Acetate 60 meq/Potassium Phosphate 13.6 mmol/Magnesium Sulfate 10 meq/ Calcium Gluconate 10 meq/ Multivitamins 10 ml/Chromium/ Copper/Manganese/ Seleni/Zn 0.5 ml/ Total Parenteral Nutrition/Amino Acids/Dextrose 1,920 ml @ 80 mls/hr TPN CONT IV Last administered on 07/18/19 22:18; Start 07/18/19 at 22:00; Stop 07/19/19 at 21:59; Status DC Labetalol HCl (Normodyne Iv Push) 20 mg 1X ONCE IVP Last administered on 07/19/19at 09:30; Start 07/19/19 at 09:30; Stop 07/19/19 at 09:31; Status DC Labetalol HCl (Normodyne Iv Push) 10 mg PRN Q5MIN PRN IVP HYPERTENSION, 2ND CHOICE; Start 07/19/19 at 09:30 Sodium Acetate 60 meq/Potassium Phosphate 13.6 mmol/Magnesium Sulfate 5 meq/ Calcium Gluconate 10 meq/ Multivitamins 10 ml/Chromium/ Copper/Manganese/ Seleni/Zn 0.5 ml/ Total Parenteral Nutrition/Amino Acids/Dextrose/ Fat Emulsion Intravenous 1,920 ml @ 80 mls/hr TPN CONT IV Last administered on 07/19/19at 20:45; Start 07/19/19 at 22:00; Stop 07/20/19 at 21:59; Status DC Metoprolol Tartrate (Lopressor Vial) 5 mg Q6HRS IVP Last administered on 07/23/19at 11:28; Start 07/19/19 at 18:00 Norepinephrine Bitartrate 8 mg/ Dextrose 258 ml @ 35.217 mls/ hr CONT PRN IV PER PROTOCOL Last administered on 07/19/19at 15:59; Start 07/19/19 at 16:00 Sodium Acetate 60 meq/Sodium Phosphate 5 mmol/ Calcium Gluconate 5 meq/ Multivitamins 10 ml/Chromium/ Copper/Manganese/ Seleni/Zn 0.5 ml/ Total Parenteral Nutrition/Amino Acids/Dextrose/ Fat Emulsion Intravenous 1,920 ml @ 80 mls/hr TPN CONT IV Last administered on 07/20/19at 21:23; Start 07/20/19 at 22:00; Stop 07/21/19 at 21:59; Status DC Sodium Acetate 60 meq/Calcium Gluconate 5 meq/ Multivitamins 10 ml/Chromium/ C opper/Manganese/ Seleni/Zn 0.5 ml/ Total Parenteral Nutrition/Amino Acids/Dextrose/ Fat Emulsion Intravenous 1,680 ml @ 70 mls/hr TPN CONT IV Last administered on 07/21/19at 21:21; Start 07/21/19 at 22:00; Stop 07/22/19 at 21:59; Status DC Methylprednisolone Sodium Succinate (SOLU-Medrol 125MG VIAL) 250 mg Q6HRS IV ; Start 07/21/19 at 14:30; Status UNV Methylprednisolone Sodium Succinate 250 mg/Sodium Chloride 100 ml @ 100 mls/hr Q6HRS IV Last administered on 07/23/19at 11:28; Start 07/21/19 at 16:00; Stop 07/24/19 at 12:59 Heparin Sodium/ Dextrose 250 ml @ 0 mls/hr CONT PRN IV PER PROTOCOL Last administered on 07/22/19at 04:31; Start 07/22/19 at 04:00; Stop 07/22/19 at 12:50; Status DC Heparin Sodium (Porcine) (Heparin Sodium) 5,500 unit PRN Q6HRS PRN IV FOR UFH LEVEL LESS THAN 0.2; Start 07/22/19 at 04:00; Stop 07/22/19 at 12:51; Status DC Heparin Sodium (Porcine) (Heparin Sodium) 2,750 unit PRN Q6HRS PRN IV FOR UFH LEVEL 0.2 - 0.29; Start 07/22/19 at 04:00; Stop 07/22/19 at 12:51; Status DC Info (Anti-Coagulation Monitoring By Pharmacy) 1 each PRN DAILY PRN MC SEE COMMENTS Last administered on 07/22/19at 04:54; Start 07/22/19 at 04:15; Stop 07/23/19 at 08:04; Status DC Furosemide (Lasix) 40 mg 1X ONCE IVP ; Start 07/22/19 at 09:00; Stop 07/22/19 at 09:01; Status Cancel Calcium Gluconate (Calcium Gluconate) 1,000 mg 1X ONCE IVP Last administered on 07/22/19at 09:09; Start 07/22/19 at 09:00; Stop 07/22/19 at 09:01; Status DC Furosemide (Lasix) 40 mg 1X ONCE IVP Last administered on 07/22/19at 09:10; Start 07/22/19 at 09:00; Stop 07/22/19 at 09:01; Status DC Insulin Glargine (Lantus Syringe) 10 unit QHS SQ Last administered on 07/22/19at 20:32; Start 07/22/19 at 21:00 Insulin Human Lispro (HumaLOG) 0-5 UNITS Q6HRS SQ Last administered on 07/23/19at 11:31; Start 07/22/19 at 12:00 Dextrose (Dextrose 50%-Water Syringe) 12.5 gm PRN Q15MIN PRN IV SEE COMMENTS; Start 07/22/19 at 09:15 Sodium Acetate 60 meq/Calcium Gluconate 5 meq/ Multivitamins 10 ml/Chromium/ Copper/Manganese/ Seleni/Zn 0.5 ml/ Total Parenteral Nutrition/Amino A cids/Dextrose/ Fat Emulsion Intravenous 1,680 ml @ 70 mls/hr TPN CONT IV ; Start 07/22/19 at 22:00; Stop 07/23/19 at 21:59; Status Cancel Sodium Acetate 60 meq/Calcium Gluconate 5 meq/ Multivitamins 10 ml/Chromium/ Copper/Manganese/ Seleni/Zn 0.5 ml/ Total Parenteral Nutrition/Amino Acids/Dextrose/ Fat Emulsion Intravenous 1,680 ml @ 70 mls/hr TPN CONT IV Last administered on 07/22/19at 23:49; Start 07/22/19 at 22:00; Stop 07/23/19 at 21:59 Calcium Gluconate (Calcium Gluconate) 1,000 mg 1X ONCE IVP Last administered on 07/22/19at 13:38; Start 07/22/19 at 13:15; Stop 07/22/19 at 13:21; Status DC Sodium Bicarbonate (Sodium Bicarb Adult 8.4% Syr) 50 meq 1X ONCE IV Last administered on 07/22/19at 13:38; Start 07/22/19 at 13:15; Stop 07/22/19 at 13:21; Status DC Dextrose (Dextrose 50%-Water Syringe) 25 gm 1X ONCE IV Last administered on 07/22/19at 13:41; Start 07/22/19 at 13:15; Stop 07/22/19 at 13:21; Status DC Insulin Human Regular (HumuLIN R VIAL) 10 unit 1X ONCE IV Last administered on 07/22/19at 13:39; Start 07/22/19 at 13:15; Stop 07/22/19 at 13:21; Status DC Sodium Polystyrene Sulfonate (Kayexalate) 30 gm 1X ONCE PO ; Start 07/22/19 at 13:15; Stop 07/22/19 at 13:21; Status DC Lidocaine HCl (Lidocaine 1% 20ml Vial) 20 ml STK-MED ONCE .ROUTE ; Start 07/22/19 at 15:37; Stop 07/22/19 at 15:37; Status DC Enoxaparin Sodium (Lovenox 60mg Syringe) 60 mg Q12HR SQ Last administered on 07/23/19at 09:00; Start 07/22/19 at 21:00 Lidocaine HCl (Buffered Lidocaine 1%) 6 ml 1X ONCE INJ Last administered on 07/22/19at 16:53; Start 07/22/19 at 17:00; Stop 07/22/19 at 17:01; Status DC Oxytocin (Pitocin) 10 unit STK-MED ONCE .ROUTE ; Start 07/23/19 at 12:00; Stop 07/23/19 at 12:01; Status DC Morphine Sulfate (Morphine Preservative Free) 10 mg STK-MED ONCE .ROUTE ; Start 07/23/19 at 12:00; Stop 07/23/19 at 12:01; Status DC Sodium Acetate 50 meq/Calcium Gluconate 5 meq/ Multivitamins 10 ml/Chromium/ Copper/Manganese/ Seleni/Zn 0.5 ml/ Total Parenteral Nutrition/Amino Acids/Dextrose/ Fat Emulsion Intravenous 1,680 ml @ 70 mls/hr TPN CONT IV ; Start 07/23/19 at 22:00; Stop 07/24/19 at 21:59 Ephedrine Sulfate (ePHEDrine PF IN SALINE SYRINGE) 50 mg STK-MED ONCE IV ; Sta rt 07/23/19 at 12:41; Stop 07/23/19 at 12:41; Status DC Active Scripts Active Reported Metformin Hcl 1,000 Mg Tablet 1,000 Mg PO BIDWMEALS Lisinopril 40 Mg Tablet 40 Mg PO DAILY Allopurinol 300 Mg Tablet 300 Mg PO DAILY Metoprolol Tartrate 25 Mg Tablet 25 Mg PO BID Doxazosin Mesylate 8 Mg Tablet 8 Mg PO DAILY Amlodipine Besylate 10 Mg Tablet 10 Mg PO DAILY Vitals/I & O Vital Sign - Last 24 Hours 07/22/19 07/22/19 07/22/19 07/22/19 14:00 15:00 15:38 16:00 Pulse 90 90 Resp 28 B/P (MAP) 175/76 (109) 174/79 (110) Pulse Ox 100 100 94 O2 Delivery Ventilator Ventilator Ventilator Mechanical Ventilator 07/22/19 07/22/19 07/22/19 07/22/19 16:00 16:00 17:00 17:34 Temp 99.1 99.1 Pulse 108 90 84 85 Resp 28 B/P (MAP) 145/68 (93) 142/68 (92) 153/71 Pulse Ox 100 95 O2 Delivery Ventilator Ventilator 07/22/19 07/22/19 07/22/19 07/22/19 18:00 19:00 19:51 20:00 Pulse 77 72 72 Resp 28 28 B/P (MAP) 124/62 (82) 134/67 (89) 138/68 (91) Pulse Ox 95 94 94 94 O2 Delivery Ventilator Ventilator Ventilator Ventilator 07/22/19 07/22/19 07/22/19 07/22/19 20:15 20:15 21:00 22:00 Pulse 81 78 78 Resp 28 B/P (MAP) 140/68 (92) 140/68 (92) Pulse Ox 96 94 O2 Delivery Mechanical Ventilator Ventilator Ventilator 07/22/19 07/22/19 07/23/19 07/23/19 23:00 23:52 00:00 00:10 Temp 98.5 98.5 Pulse 78 73 70 Resp 28 B/P (MAP) 138/68 (91) 140/63 136/68 (90) Pulse Ox 94 95 O2 Delivery Ventilator Ventilator Mechanical Ventilator 07/23/19 07/23/19 07/23/19 07/23/19 00:10 00:59 01:00 02:00 Pulse 79 72 80 Resp 28 28 B/P (MAP) 160/74 (102) 170/74 (106) Pulse Ox 94 96 96 O2 Delivery Ventilator Ventilator Ventilator 07/23/19 07/23/19 07/23/19 07/23/19 03:00 04:00 04:00 04:00 Pulse 86 93 92 Resp 28 28 B/P (MAP) 182/76 (111) 176/73 (107) Pulse Ox 97 97 O2 Delivery Ventilator Ventilator Mechanical Ventilator 07/23/19 07/23/19 07/23/19 07/23/19 05:00 05:13 05:55 06:00 Pulse 92 86 79 Resp 28 28 B/P (MAP) 167/73 (104) 157/71 157/70 (99) Pulse Ox 97 94 98 O2 Delivery Ventilator Ventilator Ventilator 07/23/19 07/23/19 07/23/19 07/23/19 07:00 08:00 08:00 08:00 Temp 97.8 97.8 Pulse 76 95 80 Resp 28 28 B/P (MAP) 156/70 (98) 158/70 (99) Pulse Ox 98 95 O2 Delivery Ventilator Ventilator Mechanical Ventilator 07/23/19 07/23/19 07/23/19 07/23/19 08:20 09:00 10:00 11:00 Pulse 88 98 96 Resp 28 28 28 B/P (MAP) 188/78 (114) 212/80 (124) 160/60 (93) Pulse Ox 97 98 98 98 O2 Delivery Ventilator Ventilator Ventilator Ventilator 07/23/19 07/23/19 07/23/19 07/23/19 11:27 11:28 11:29 12:00 Temp 98.0 98.0 Pulse 98 97 98 98 Resp 28 B/P (MAP) 150/72 156/60 156/89 166/68 (100) Pulse Ox 90 O2 Delivery Ventilator 07/23/19 07/23/19 07/23/19 12:00 12:00 12:09 Pulse 95 B/P (MAP) Pulse Ox 97 O2 Delivery Mechanical Ventilator Ventilator Intake and Output 0 07/22/19 07/22/19 07/23/19 15:00 23:00 07:00 Intake Total 583 ml 692 ml Output Total 2000 ml 850 ml 2225 ml Balance -2000 ml -267 ml -1533 ml JUAN DAVID GONSALEZ MD July 23, 2019 13:07
[2019-07-23] MEDS: fentaNYL HIGH DOSE PCA 55 ML IV PRN (14:08)
--- NOTE | 2019-07-23 17:04 | PDOC ---
CARDIOLOGY PROGRESS NOTE SUBJECTIVE: No new events. Not yet on hemodialysis Still sedated and paralyzed OBJECTIVE: Vital Signs/I&O: Vital Signs Date Time Temp Pulse Resp B/P (MAP) Pulse Ox O2 Delivery O2 Flow Rate FiO2 07/23/19 16:00 Mechanical Ventilator 07/23/19 16:00 98.9 90 28 180/76 (110) 93 98.9 07/23/19 14:08 40.0 I & O 07/22/19 07/22/19 07/23/19 15:00 23:00 07:00 Intake Total 583 ml 692 ml Output Total 2000 ml 850 ml 2225 ml Balance -2000 ml -267 ml -1533 ml Objective: seen from door no new changes to exam. ' CURRENT MEDICATIONS: Current Medications Medications (Trade) Dose Ordered Sig/Aria Route PRN Reason Start Time Stop Time Status Last Admin Dose Admin Insulin Glargine (Lantus Syringe) 10 unit QHS SQ 07/22/19 21:00 07/22/19 20:32 Sodium Acetate 60 meq/Calcium Gluconate 5 meq/ Multivitamins 10 ml/Chromium/ Copper/Manganese/ Seleni/Zn 0.5 ml/ Total Parenteral Nutrition/Amino Acids/Dextrose/ Fat Emulsion Intravenous 1,680 ml @ 70 mls/hr TPN CONT IV 07/22/19 22:00 07/23/19 21:59 07/22/19 23:49 Enoxaparin Sodium (Lovenox 60mg Syringe) 60 mg Q12HR SQ 07/22/19 21:00 07/23/19 09:00 DIAGNOSTIC TESTING: labs reviewed. vent settings reviewed. BP tracings reviewed Labs: Laboratory Tests 07/23/19 05:45 Laboratory Tests Test 07/22/19 17:44 07/22/19 20:28 07/23/19 00:05 07/23/19 05:45 Glucose (Fingerstick) 170 mg/dL (70-99) H 164 mg/dL (70-99) H 153 mg/dL (70-99) H Sodium Level 147 mmol/L (136-145) H Potassium Level 5.2 mmol/L (3.5-5.1) H Chloride Level 110 mmol/L (98-107) H Carbon Dioxide Level 28 mmol/L (21-32) Anion Gap 9 (6-14) Blood Urea Nitrogen 122 mg/dL (8-26) H Creatinine 1.9 mg/dL (0.7-1.3) H Estimated GFR (Cockcroft-Gault) 46.0 Glucose Level 235 mg/dL (70-99) H Calcium Level 9.0 mg/dL (8.5-10.1) Test 07/23/19 08:20 07/23/19 10:30 O2 Saturation 86 % (92-99) L Arterial Blood pH 7.27 (7.35-7.45) L Arterial Blood pCO2 at Patient Temp 59 mmHg (35-46) H Arterial Blood pO2 at Patient Temp 63 mmHg (75-108) L Arterial Blood pO2 (Temp corrected) mmHg Arterial Blood HCO3 26 mmol/L (21-28) Arterial Blood Base Excess -2 mmol/L (-3-3) FiO2 100 Prothrombin Time 14.3 SEC (11.7-14.0) H Prothromb Time International Ratio 1.2 (0.8-1.1) H Glucose (Fingerstick) 242 mg/dL (70-99) H ASSESSMENT: 1. Acute respiratory failure secondary to COVID-19 PNA, ARDS. s/p intubation. s/p convalescent plasma. 2. Systolic murmur 3. Hypertension; controlled 4. DM2/HLP 5. Morbid obesity 7. GABRIEL/hyperkalemia/uremic: nephrology consulted 8. High DDIMER: likely from cytokine surge/endothelial dysfunction PLAN: 1. At this time, main issues is respiratory failure and mucous plugging, supportive care from CV standpoint. Continue diuresis. He is maintaining a good perfusion pressure, less suspicious for cardiac failure. Will follow along. Thanks MARY BOOKER MD July 23, 2019 17:04
[2019-07-23] MEDS: IV NORMAL SALINE 1000ML BAG 1,000 ML IV SCH (17:10)
[2019-07-23] MEDS: INSULIN GLARGINE SYRINGE. SQ SCH (20:44)
[2019-07-23] MEDS ORDERED: [UNRECOGNIZED DRUG - OTHER] IV SCH ×7 (22:00)
[2019-07-23] MEDS ORDERED: DEXTROSE 70% IV SCH ×7 (22:00)
[2019-07-23] MEDS ORDERED: TOTAL PARENTERAL NUTRITION IV SCH ×7 (22:00)
[2019-07-23] MEDS ORDERED: AMINO ACID IV SCH ×7 (22:00)
[2019-07-24] VITALS (24 sets, daily range): BP systolic 146–191; BP diastolic 70–82
[2019-07-24] MEDS: INSULIN LISPRO 300 UNITS/3 ML VIAL. SQ SCH ×4 (00:02→17:20)
[2019-07-24] MEDS: VECURONIUM BROMIDE 50 MG in TOTAL VOLUME 50 ML IV PRN ×3 (03:31→22:15)
[2019-07-24] MEDS: MIDAZOLAM 100mg/100ml NS BAG 100 ML IV PRN ×2 (03:32→16:34)
--- NOTE | 2019-07-24 04:57 | RAD ---
PORTABLE CHEST 1V Clinical History: Atelectasis Technique: AP view of the chest was obtained at 07/24/2019 9:00 AM. Comparison: July 23, 2019. Findings: Endotracheal tube NG tube and right jugular single-lumen catheter and right jugular double lumen catheter again seen. The heart is normal size. The pulmonary vessels are top normal limits in size and is patchy perihilar and basilar opacities and obscuration right hemidiaphragm. Impression: Small right effusion and bilateral infiltrates. This appears mildly worse. Electronically signed by: Rodolfo Caldera III, MD (07/24/2019 4:54 AM) [id number]
[2019-07-24] MEDS: METOPROLOL TARTRATE 5 MG/5 ML VIAL. IVP SCH ×4 (05:52→16:30)
[2019-07-24] MEDS: methylPREDNISolone SOD SUCC 250 MG in IV NORMAL SALINE 100ML 100 ML IV SCH ×3 (05:52)
[2019-07-24 06:46] LABS: HEMATOCRIT 35.4 % (39.0-53.0); HEMOGLOBIN 11.1 g/dL (13.0-17.5); RED BLOOD COUNT 4.15 x10^6/uL (4.30-5.70); WHITE BLOOD COUNT 15.3 x10^3/uL (4.0-11.0)
[2019-07-24 06:51] LABS: C-REACTIVE PROTEIN 0.8 mg/L (0-3.3)
[2019-07-24 07:38] LABS: D-DIMER 9.74 ug/mlFEU (0.00-0.50)
[2019-07-24 08:09] LABS: CALCIUM 9.4 mg/dL (8.5-10.1); CREATININE 1.7 mg/dL (0.7-1.3); GFR 52.3
[2019-07-24] MEDS: DOXAZOSIN MESYLATE 4 MG TABLET. PO SCH (08:20)
[2019-07-24] MEDS: FAMOTIDINE 20 MG/2 ML VIAL IVP SCH (08:20)
[2019-07-24] MEDS: ALLOPURINOL 300 MG TABLET. PO SCH (08:20)
[2019-07-24 08:21] LABS: BASE EXCESS ABG 1 mmol/L (-3-3); HCO3 ABG 29 mmol/L (21-28); PO2 ABG 67 mmHg (75-108); SAT O2 ABG 88 % (92-99)
[2019-07-24] MEDS: amLODIPine BESYLATE 10 MG TABLET PO SCH (08:21)
[2019-07-24 08:24] LABS: FIO2 ABG 100 +13; PCO2 ABG 64 mmHg (35-46)
--- NOTE | 2019-07-24 08:27 | PDOC ---
CARDIOLOGY PROGRESS NOTE SUBJECTIVE: No new events overnight. Still high O2 requirements. OBJECTIVE: Vital Signs/I&O: Vital Signs Date Time Temp Pulse Resp B/P (MAP) Pulse Ox O2 Delivery O2 Flow Rate FiO2 07/24/19 07:00 80 28 165/77 (106) 98 Ventilator 07/24/19 04:00 98.3 98.3 07/23/19 14:08 40.0 I & O 07/23/19 07/23/19 07/24/19 15:00 23:00 07:00 Intake Total 1124 ml 1162 ml Output Total 3950 ml 2250 ml Balance -2826 ml -1088 ml Objective: Seen from door. no new changes. CURRENT MEDICATIONS: Current Medications Medications (Trade) Dose Ordered Sig/Aria Route PRN Reason Start Time Stop Time Status Last Admin Dose Admin Sodium Acetate 50 meq/Calcium Gluconate 5 meq/ Multivitamins 10 ml/Chromium/ Copper/Manganese/ Seleni/Zn 0.5 ml/ Total Parenteral Nutrition/Amino Acids/Dextrose/ Fat Emulsion Intravenous 1,680 ml @ 70 mls/hr TPN CONT IV 07/23/19 22:00 07/24/19 21:59 07/23/19 20:44 DIAGNOSTIC TESTING: labs reviewed. Labs: Laboratory Tests 07/24/19 05:50 Laboratory Tests Test 07/23/19 10:30 07/23/19 17:53 07/23/19 23:57 07/24/19 05:50 Prothrombin Time 14.3 SEC (11.7-14.0) H Prothromb Time International Ratio 1.2 (0.8-1.1) H Glucose (Fingerstick) 242 mg/dL (70-99) H 296 mg/dL (70-99) H 300 mg/dL (70-99) H White Blood Count 15.3 x10^3/uL (4.0-11.0) H Red Blood Count 4.15 x10^6/uL (4.30-5.70) L Hemoglobin 11.1 g/dL (13.0-17.5) L Hematocrit 35.4 % (39.0-53.0) L Mean Corpuscular Volume 85 fL (79-100) Mean Corpuscular Hemoglobin 27 pg (25-35) Mean Corpuscular Hemoglobin Concent 31 g/dL (31-37) Red Cell Distribution Width 16.0 % (11.5-14.5) H Platelet Count 409 x10^3/uL (140-400) H Erythrocyte Sedimentation Rate 59 (0-15) H Fibrinogen 485 mg/dL (200-440) H D-Dimer (Avis) 9.74 ug/mlFEU (0.00-0.50) H Sodium Level 153 mmol/L (136-145) H Potassium Level 5.0 mmol/L (3.5-5.1) Chloride Level 115 mmol/L (98-107) H Carbon Dioxide Level 30 mmol/L (21-32) Anion Gap 8 (6-14) Blood Urea Nitrogen 126 mg/dL (8-26) H Creatinine 1.7 mg/dL (0.7-1.3) H Estimated GFR (Cockcroft-Gault) 52.3 Glucose Level 377 mg/dL (70-99) H Calcium Level 9.4 mg/dL (8.5-10.1) Ferritin 383 ng/mL (26-388) Lactate Dehydrogenase 507 U/L (85-227) H C-Reactive Protein, Quantitative 0.8 mg/L (0-3.3) ASSESSMENT: 1. Acute respiratory failure secondary to COVID-19 PNA, ARDS. s/p intubation. s/p convalescent plasma. 2. Hypertension; controlled 3. DM2/HLP 4. Morbid obesity 5. GABRIEL/hyperkalemia/uremic: improving PLAN: 1. No new changes from CV standpoint. Per nursing report, he has possible eschar in his right finger. Will consider reinitiation of heparin. Await pulmonary input. Will consider echo tomorrow. Supportive care. MARY BOOKER MD July 24, 2019 08:27
[2019-07-24] MEDS: INSULIN GLARGINE SYRINGE. SQ SCH ×2 (09:03→20:49)
[2019-07-24] MEDS: TPN PER PHARMACY MC PRN (09:39)
[2019-07-24] MEDS: DEXMEDETOMIDINE 400 MCG in IV NORMAL SALINE 100ML 96 ML IV PRN ×2 (09:41→22:15)
--- NOTE | 2019-07-24 09:43 | NUR ---
Pharmacy TPN Dosing Note S: REINALDO BOWER is a 48 year old M Currently receiving Central Continuous TPN started 07/18/19 B:Pertinent PMH: critical illness Height: 6 feet, 1 inches Weight: 172.0 kg Current diet: NPO LABS: Sodium: 153 Potassium: 5 Chloride: 115 Calcium: 9.4 Corrected Calcium: 10.44 Magnesium: 2.9 CO2: 30 SCr: 1.7 Glucose: 377 Albumin: 2.7 AST: 40 ALT: 132 TPN FORMULA: TPN TYPE: Central Continuous AMINO ACIDS: 155 gm DEXTROSE: 225 gm LIPIDS: 20 gm MULTIPLE VITAMIN: 10 ml TRACE ELEMENTS: 0.5 ml(s) TPN PLAN: Na elevated today- removed from TPN. Corrected Calcium elevated- removed from TPN. K normalized today, cont to omit from TPN. SCr improving. BG elevated, lantus dose adjusted. -CMP, Mag and Phos in the AM. R: Change TPN as noted above. Will monitor electrolytes, glucose, and tolerance to TPN. BRITTANY FOLEY [facility], 07/24/19 0024
--- NOTE | 2019-07-24 11:12 | PDOC ---
PULMONARY PROGRESS NOTES Subjective continue AC mode, on 100% fio2 13 PEEP on versed, vec, fent, and precedex gtts Vitals Vital Signs Date Time Temp Pulse Resp B/P (MAP) Pulse Ox O2 Delivery O2 Flow Rate FiO2 07/24/19 08:21 89 187/89 07/24/19 08:00 Mechanical Ventilator 07/24/19 07:00 28 98 07/24/19 04:00 98.3 98.3 07/23/19 14:08 40.0 Comments Visual exam done due to COVID pandemic Patient in sync with the ventilator, no respiratory distress. Labs Laboratory Tests Test 07/22/19 12:15 07/22/19 13:45 07/22/19 17:44 07/22/19 20:28 Sodium Level 141 mmol/L (136-145) Potassium Level 6.2 mmol/L (3.5-5.1) Chloride Level 105 mmol/L (98-107) Carbon Dioxide Level 29 mmol/L (21-32) Anion Gap 7 (6-14) Blood Urea Nitrogen 118 mg/dL (8-26) Creatinine 2.1 mg/dL (0.7-1.3) Estimated GFR (Cockcroft-Gault) 41.0 Glucose Level 221 mg/dL (70-99) Calcium Level 9.0 mg/dL (8.5-10.1) O2 Saturation 88 % (92-99) Arterial Blood pH 7.31 (7.35-7.45) Arterial Blood pCO2 at Patient Temp 54 mmHg (35-46) Arterial Blood pO2 at Patient Temp 64 mmHg (75-108) Arterial Blood HCO3 26 mmol/L (21-28) Arterial Blood Base Excess -1 mmol/L (-3-3) FiO2 100 Glucose (Fingerstick) 170 mg/dL (70-99) 164 mg/dL (70-99) Test 07/23/19 00:05 07/23/19 05:45 07/23/19 08:20 07/23/19 10:30 Glucose (Fingerstick) 153 mg/dL (70-99) 242 mg/dL (70-99) Sodium Level 147 mmol/L (136-145) Potassium Level 5.2 mmol/L (3.5-5.1) Chloride Level 110 mmol/L (98-107) Carbon Dioxide Level 28 mmol/L (21-32) Anion Gap 9 (6-14) Blood Urea Nitrogen 122 mg/dL (8-26) Creatinine 1.9 mg/dL (0.7-1.3) Estimated GFR (Cockcroft-Gault) 46.0 Glucose Level 235 mg/dL (70-99) Calcium Level 9.0 mg/dL (8.5-10.1) O2 Saturation 86 % (92-99) Arterial Blood pH 7.27 (7.35-7.45) Arterial Blood pCO2 at Patient Temp 59 mmHg (35-46) Arterial Blood pO2 at Patient Temp 63 mmHg (75-108) Arterial Blood pO2 (Temp corrected) mmHg Arterial Blood HCO3 26 mmol/L (21-28) Arterial Blood Base Excess -2 mmol/L (-3-3) FiO2 100 Prothrombin Time 14.3 SEC (11.7-14.0) Prothromb Time International Ratio 1.2 (0.8-1.1) Test 07/23/19 17:53 07/23/19 23:57 07/24/19 05:50 07/24/19 08:00 Glucose (Fingerstick) 296 mg/dL (70-99) 300 mg/dL (70-99) White Blood Count 15.3 x10^3/uL (4.0-11.0) Red Blood Count 4.15 x10^6/uL (4.30-5.70) Hemoglobin 11.1 g/dL (13.0-17.5) Hematocrit 35.4 % (39.0-53.0) Mean Corpuscular Volume 85 fL (79-100) Mean Corpuscular Hemoglobin 27 pg (25-35) Mean Corpuscular Hemoglobin Concent 31 g/dL (31-37) Red Cell Distribution Width 16.0 % (11.5-14.5) Platelet Count 409 x10^3/uL (140-400) Erythrocyte Sedimentation Rate 59 (0-15) Fibrinogen 485 mg/dL (200-440) D-Dimer (Avis) 9.74 ug/mlFEU (0.00-0.50) Sodium Level 153 mmol/L (136-145) Potassium Level 5.0 mmol/L (3.5-5.1) Chloride Level 115 mmol/L (98-107) Carbon Dioxide Level 30 mmol/L (21-32) Anion Gap 8 (6-14) Blood Urea Nitrogen 126 mg/dL (8-26) Creatinine 1.7 mg/dL (0.7-1.3) Estimated GFR (Cockcroft-Gault) 52.3 Glucose Level 377 mg/dL (70-99) Calcium Level 9.4 mg/dL (8.5-10.1) Ferritin 383 ng/mL (26-388) Lactate Dehydrogenase 507 U/L (85-227) C-Reactive Protein, Quantitative 0.8 mg/L (0-3.3) O2 Saturation 88 % (92-99) Arterial Blood pH 7.28 (7.35-7.45) Arterial Blood pCO2 at Patient Temp 64 mmHg (35-46) Arterial Blood pO2 at Patient Temp 67 mmHg (75-108) Arterial Blood HCO3 29 mmol/L (21-28) Arterial Blood Base Excess 1 mmol/L (-3-3) FiO2 100 +13 Laboratory Tests Test 07/23/19 17:53 07/23/19 23:57 07/24/19 05:50 07/24/19 08:00 Glucose (Fingerstick) 296 mg/dL (70-99) 300 mg/dL (70-99) White Blood Count 15.3 x10^3/uL (4.0-11.0) Red Blood Count 4.15 x10^6/uL (4.30-5.70) Hemoglobin 11.1 g/dL (13.0-17.5) Hematocrit 35.4 % (39.0-53.0) Mean Corpuscular Volume 85 fL (79-100) Mean Corpuscular Hemoglobin 27 pg (25-35) Mean Corpuscular Hemoglobin Concent 31 g/dL (31-37) Red Cell Distribution Width 16.0 % (11.5-14.5) Platelet Count 409 x10^3/uL (140-400) Erythrocyte Sedimentation Rate 59 (0-15) Fibrinogen 485 mg/dL (200-440) D-Dimer (Avis) 9.74 ug/mlFEU (0.00-0.50) Sodium Level 153 mmol/L (136-145) Potassium Level 5.0 mmol/L (3.5-5.1) Chloride Level 115 mmol/L (98-107) Carbon Dioxide Level 30 mmol/L (21-32) Anion Gap 8 (6-14) Blood Urea Nitrogen 126 mg/dL (8-26) Creatinine 1.7 mg/dL (0.7-1.3) Estimated GFR (Cockcroft-Gault) 52.3 Glucose Level 377 mg/dL (70-99) Calcium Level 9.4 mg/dL (8.5-10.1) Ferritin 383 ng/mL (26-388) Lactate Dehydrogenase 507 U/L (85-227) C-Reactive Protein, Quantitative 0.8 mg/L (0-3.3) O2 Saturation 88 % (92-99) Arterial Blood pH 7.28 (7.35-7.45) Arterial Blood pCO2 at Patient Temp 64 mmHg (35-46) Arterial Blood pO2 at Patient Temp 67 mmHg (75-108) Arterial Blood HCO3 29 mmol/L (21-28) Arterial Blood Base Excess 1 mmol/L (-3-3) FiO2 100 +13 Medications Active Scripts Medications Dose Route/Sig Max Daily Dose Days Date Category Metformin Hcl 1,000 Mg Tablet 1,000 Mg PO [id number] 07/12/19 Reported Lisinopril 40 Mg Tablet 40 Mg PO DAILY 07/12/19 Reported Allopurinol 300 Mg Tablet 300 Mg PO DAILY 07/12/19 Reported Metoprolol Tartrate 25 Mg Tablet 25 Mg PO BID 07/12/19 Reported Doxazosin Mesylate 8 Mg Tablet 8 Mg PO DAILY 07/12/19 Reported Amlodipine Besylate 10 Mg Tablet 10 Mg PO DAILY 07/12/19 Reported Comments CXR 07/24/2019 Impression: Small right effusion and bilateral infiltrates. This appears mildly worse. Impression . 1. Acute hypoxic respiratory failure multifactorial, COVID-19, ARDS, INTUBATED 07/14 2. Abnormal chest x-ray with bilateral infiltrates suggestive of coronavirus disease-19 pneumonia, possible bacterial pneumonia 3. Underlying morbid obesity. 4. Diabetes. 5. Nonsmoker. 6. Increase inflammatory markers suggestive of cytokine surge 7. s/p convalescent plasma 8. Abnormal chest x-ray revealing whiteout of the right lung 9. necrotic right index finger Plan . Continue mechanical ventilation A/C mode PEEP 13 and Fi02 of 100. CXR reviewed improved today, no need for bronchoscopy at this time Status post convalescent serum transfusion 07/13 and Status post Tocilizumab D/C steroid no impropvement in oxygenation, in setting of renal failure catabolic state Cont. ABX Follow nephrology recs -- might require HD Nutritional support-- TPN will D/C lovenox and start heparin gtt right sided thoracentisis on 07/25/2019 D/W RN and RT DVT GI prophylaxis: heparin gtt /protonix I spoke with with Tala Total cumulative critical care time of 35 minutes, reviewing labs, chest x-ray, data, formulating a plan PURA FOSTER MD July 24, 2019 11:12
[2019-07-24] MEDS ORDERED: HEPARIN for IV BOLUS 10,000 UNIT/10 ML VIAL. IV PRN ×2 (11:15)
--- NOTE | 2019-07-24 12:25 | PDOC ---
PROGRESS NOTES Chief Complaint Chief Complaint Impression: Acute hypoxic/// HYPERCAPNIC resp failure REQUIRING VENT SUPPORT Super morbid obesity Bibasilar lung airspace opacities likely atelectasis or infiltrates likely pneumonia or atelectasis or atypical/viral infection/viral pneumonia Diabetes Hypertension, uncontrolled normocytic anemia SEVERE PROTEIN, CALORIC MALNUTRITION COVID-19 POS Acute renal failure vasomotor etiology likely Hyperkalemia secondary to the above improved Constipation Plan: 1. Continue present AC mode, on 100% FIO2 ,14 PEEP. Make changes based on ABG's 2. COVID-19 positive 3. Empiric antibiotics. 4. s/p convalescent plasma transfusion 07/13 5. nutrition, PPN and TF at5 low dose 6. Monitor LFT 7. Discussed with RN. 8. S/P monoclonal antibodies/Tocilizumab 07/15/19 9. Hold tello inhibitor, appreciate nephrology consultation, temporary catheter in place 10.Colace BID lovenox/pepcid History of Present Illness History of Present Illness No acute events reported overnight, case discussed with nursing staff patient in no acute distress no distress during my visit Prognosis guarded, remains critically stable Vitals Vitals Vital Signs Date Time Temp Pulse Resp B/P (MAP) Pulse Ox O2 Delivery O2 Flow Rate FiO2 07/24/19 08:21 89 187/89 07/24/19 08:00 Mechanical Ventilator 07/24/19 07:00 28 98 07/24/19 04:00 98.3 98.3 07/23/19 14:08 40.0 Physical Exam Physical Exam GENERAL: patient is intubated and sedated unresponsive on the ventilator HEENT unremarkable for acute abnormality Chest bilateral equal air entry inspiratory and expiratory wheezes at the bilateral bases anteriorly Heart S1-S2 normal regular rate and rhythm loud systolic murmur at the right second intercostal space Abdomen is obese soft nontender nondistended no masses or organomegaly noted Extremity exam is unremarkable for acute abnormality 1+ bipedal edema is noted General: Oriented X3, Cooperative, No acute distress, mild distress Abdomen: Soft Extremities: No cyanosis Labs LABS Laboratory Tests Test 07/23/19 17:53 07/23/19 23:57 07/24/19 05:48 07/24/19 05:50 Glucose (Fingerstick) 296 mg/dL (70-99) 300 mg/dL (70-99) 353 mg/dL (70-99) White Blood Count 15.3 x10^3/uL (4.0-11.0) Red Blood Count 4.15 x10^6/uL (4.30-5.70) Hemoglobin 11.1 g/dL (13.0-17.5) Hematocrit 35.4 % (39.0-53.0) Mean Corpuscular Volume 85 fL (79-100) Mean Corpuscular Hemoglobin 27 pg (25-35) Mean Corpuscular Hemoglobin Concent 31 g/dL (31-37) Red Cell Distribution Width 16.0 % (11.5-14.5) Platelet Count 409 x10^3/uL (140-400) Erythrocyte Sedimentation Rate 59 (0-15) Fibrinogen 485 mg/dL (200-440) D-Dimer (Avis) 9.74 ug/mlFEU (0.00-0.50) Sodium Level 153 mmol/L (136-145) Potassium Level 5.0 mmol/L (3.5-5.1) Chloride Level 115 mmol/L (98-107) Carbon Dioxide Level 30 mmol/L (21-32) Anion Gap 8 (6-14) Blood Urea Nitrogen 126 mg/dL (8-26) Creatinine 1.7 mg/dL (0.7-1.3) Estimated GFR (Cockcroft-Gault) 52.3 Glucose Level 377 mg/dL (70-99) Calcium Level 9.4 mg/dL (8.5-10.1) Ferritin 383 ng/mL (26-388) Lactate Dehydrogenase 507 U/L (85-227) C-Reactive Protein, Quantitative 0.8 mg/L (0-3.3) Test 07/24/19 08:00 O2 Saturation 88 % (92-99) Arterial Blood pH 7.28 (7.35-7.45) Arterial Blood pCO2 at Patient Temp 64 mmHg (35-46) Arterial Blood pO2 at Patient Temp 67 mmHg (75-108) Arterial Blood HCO3 29 mmol/L (21-28) Arterial Blood Base Excess 1 mmol/L (-3-3) FiO2 100 +13 Assessment and Plan Assessmemt and Plan Problems Medical Problems: (1) Suspected COVID-19 virus infection Status: Acute Comment Review of Relevant I have reviewed the following items lizzy (where applicable) has been applied. Labs Laboratory Tests Test 07/22/19 13:45 07/22/19 17:44 07/22/19 20:28 07/23/19 00:05 O2 Saturation 88 % (92-99) Arterial Blood pH 7.31 (7.35-7.45) Arterial Blood pCO2 at Patient Temp 54 mmHg (35-46) Arterial Blood pO2 at Patient Temp 64 mmHg (75-108) Arterial Blood HCO3 26 mmol/L (21-28) Arterial Blood Base Excess -1 mmol/L (-3-3) FiO2 100 Glucose (Fingerstick) 170 mg/dL (70-99) 164 mg/dL (70-99) 153 mg/dL (70-99) Test 07/23/19 05:45 07/23/19 08:20 07/23/19 10:30 07/23/19 17:53 Sodium Level 147 mmol/L (136-145) Potassium Level 5.2 mmol/L (3.5-5.1) Chloride Level 110 mmol/L (98-107) Carbon Dioxide Level 28 mmol/L (21-32) Anion Gap 9 (6-14) Blood Urea Nitrogen 122 mg/dL (8-26) Creatinine 1.9 mg/dL (0.7-1.3) Estimated GFR (Cockcroft-Gault) 46.0 Glucose Level 235 mg/dL (70-99) Calcium Level 9.0 mg/dL (8.5-10.1) O2 Saturation 86 % (92-99) Arterial Blood pH 7.27 (7.35-7.45) Arterial Blood pCO2 at Patient Temp 59 mmHg (35-46) Arterial Blood pO2 at Patient Temp 63 mmHg (75-108) Arterial Blood pO2 (Temp corrected) mmHg Arterial Blood HCO3 26 mmol/L (21-28) Arterial Blood Base Excess -2 mmol/L (-3-3) FiO2 100 Prothrombin Time 14.3 SEC (11.7-14.0) Prothromb Time International Ratio 1.2 (0.8-1.1) Glucose (Fingerstick) 242 mg/dL (70-99) 296 mg/dL (70-99) Test 07/23/19 23:57 07/24/19 05:48 07/24/19 05:50 07/24/19 08:00 Glucose (Fingerstick) 300 mg/dL (70-99) 353 mg/dL (70-99) White Blood Count 15.3 x10^3/uL (4.0-11.0) Red Blood Count 4.15 x10^6/uL (4.30-5.70) Hemoglobin 11.1 g/dL (13.0-17.5) Hematocrit 35.4 % (39.0-53.0) Mean Corpuscular Volume 85 fL (79-100) Mean Corpuscular Hemoglobin 27 pg (25-35) Mean Corpuscular Hemoglobin Concent 31 g/dL (31-37) Red Cell Distribution Width 16.0 % (11.5-14.5) Platelet Count 409 x10^3/uL (140-400) Erythrocyte Sedimentation Rate 59 (0-15) Fibrinogen 485 mg/dL (200-440) D-Dimer (Avis) 9.74 ug/mlFEU (0.00-0.50) Sodium Level 153 mmol/L (136-145) Potassium Level 5.0 mmol/L (3.5-5.1) Chloride Level 115 mmol/L (98-107) Carbon Dioxide Level 30 mmol/L (21-32) Anion Gap 8 (6-14) Blood Urea Nitrogen 126 mg/dL (8-26) Creatinine 1.7 mg/dL (0.7-1.3) Estimated GFR (Cockcroft-Gault) 52.3 Glucose Level 377 mg/dL (70-99) Calcium Level 9.4 mg/dL (8.5-10.1) Ferritin 383 ng/mL (26-388) Lactate Dehydrogenase 507 U/L (85-227) C-Reactive Protein, Quantitative 0.8 mg/L (0-3.3) O2 Saturation 88 % (92-99) Arterial Blood pH 7.28 (7.35-7.45) Arterial Blood pCO2 at Patient Temp 64 mmHg (35-46) Arterial Blood pO2 at Patient Temp 67 mmHg (75-108) Arterial Blood HCO3 29 mmol/L (21-28) Arterial Blood Base Excess 1 mmol/L (-3-3) FiO2 100 +13 Laboratory Tests Test 07/23/19 17:53 07/23/19 23:57 07/24/19 05:48 07/24/19 05:50 Glucose (Fingerstick) 296 mg/dL (70-99) 300 mg/dL (70-99) 353 mg/dL (70-99) White Blood Count 15.3 x10^3/uL (4.0-11.0) Red Blood Count 4.15 x10^6/uL (4.30-5.70) Hemoglobin 11.1 g/dL (13.0-17.5) Hematocrit 35.4 % (39.0-53.0) Mean Corpuscular Volume 85 fL (79-100) Mean Corpuscular Hemoglobin 27 pg (25-35) Mean Corpuscular Hemoglobin Concent 31 g/dL (31-37) Red Cell Distribution Width 16.0 % (11.5-14.5) Platelet Count 409 x10^3/uL (140-400) Erythrocyte Sedimentation Rate 59 (0-15) Fibrinogen 485 mg/dL (200-440) D-Dimer (Avis) 9.74 ug/mlFEU (0.00-0.50) Sodium Level 153 mmol/L (136-145) Potassium Level 5.0 mmol/L (3.5-5.1) Chloride Level 115 mmol/L (98-107) Carbon Dioxide Level 30 mmol/L (21-32) Anion Gap 8 (6-14) Blood Urea Nitrogen 126 mg/dL (8-26) Creatinine 1.7 mg/dL (0.7-1.3) Estimated GFR (Cockcroft-Gault) 52.3 Glucose Level 377 mg/dL (70-99) Calcium Level 9.4 mg/dL (8.5-10.1) Ferritin 383 ng/mL (26-388) Lactate Dehydrogenase 507 U/L (85-227) C-Reactive Protein, Quantitative 0.8 mg/L (0-3.3) Test 07/24/19 08:00 O2 Saturation 88 % (92-99) Arterial Blood pH 7.28 (7.35-7.45) Arterial Blood pCO2 at Patient Temp 64 mmHg (35-46) Arterial Blood pO2 at Patient Temp 67 mmHg (75-108) Arterial Blood HCO3 29 mmol/L (21-28) Arterial Blood Base Excess 1 mmol/L (-3-3) FiO2 100 +13 Microbiology 07/12/19 Blood Culture - Final, Complete NO GROWTH AFTER 5 DAYS Medications Current Medications Sodium Chloride 1,000 ml @ 1,000 mls/hr 1X ONCE IV Last administered on 07/12/19at 13:25; Start 07/12/19 at 13:30; Stop 07/12/19 at 14:29; Status DC Acetaminophen (Tylenol) 1,000 mg 1X ONCE PO Last administered on 07/12/19at 13: 25; Start 07/12/19 at 13:45; Stop 07/12/19 at 13:46; Status DC Sodium Chloride (Normal Saline Flush) 3 ml QSHIFT PRN IV AFTER MEDS AND BLOOD DRAWS; Start 07/12/19 at 16:45 Sodium Chloride 1,000 ml @ 20 mls/hr Q24H IV Last administered on 07/23/19at 17:10; Start 07/12/19 at 16:41 Ondansetron HCl (Zofran) 4 mg PRN Q4HRS PRN IV NAUSEA/VOMITING; Start 07/12/19 at 16:45 Acetaminophen (Tylenol) 650 mg PRN Q4HRS PRN PO TEMP OVER 100.4F OR MILD PAIN Last administered on 07/14/19at 18:29; Start 07/12/19 at 16:45 Al Hydroxide/Mg Hydroxide (Mylanta Plus Xs) 30 ml PRN DAILY PRN PO HEARTBURN / GAS; Start 07/12/19 at 16:45; Stop 07/22/19 at 04:48; Status DC Clonidine HCl (Catapres) 0.1 mg PRN Q6HRS PRN PO SBP>160 OR DBP>90 Last administered on 07/15/19at 04:25; Start 07/12/19 at 16:45 Docusate Sodium (Colace) 100 mg PRN BID PRN PO CONSTIPATION; Start 07/12/19 at 16:45 Albuterol/ Ipratropium (Duoneb) 3 ml Q4H NEB ; Start 07/12/19 at 16:45; Stop 07/12/19 at 16:55; Status DC Guaifenesin (Robitussin) 200 mg PRN Q4HRS PRN PO COUGH Last administered on 07/14/19at 08:52; Start 07/12/19 at 16:45 Levofloxacin/ Dextrose 100 ml @ 100 mls/hr Q24H IV Last administered on 07/18/19at 16:29; Start 07/13/19 at 17:00; Stop 07/19/19 at 15:22; Status DC Albuterol/ Ipratropium (Duoneb) 3 ml Q4HRS NEB ; Start 07/12/19 at 20:00; Stop 07/12/19 at 18:33; Status DC Levofloxacin/ Dextrose 100 ml @ 100 mls/hr 1X ONCE IV Last administered on 07/12/19at 17:58; Start 07/12/19 at 17:45; Stop 07/12/19 at 18:44; Status DC Albuterol Sulfate (Ventolin Neb Soln) 2.5 mg PRN Q4HRS PRN NEB SHORTNESS OF BREATH; Start 07/12/19 at 18:45 Hydralazine HCl (Apresoline Inj) 10 mg PRN Q4HRS PRN IVP ELEVATED BP, SEE COMMENTS Last administered on 07/12/19at 20:31; Start 07/12/19 at 19:45; Stop 07/12/19 at 22:40; Status DC Allopurinol (Zyloprim) 300 mg DAILY PO Last administered on 07/24/19at 08:20; Start 07/13/19 at 09:00 Amlodipine Besylate (Norvasc) 10 mg DAILY PO Last administered on 07/24/19 08:21; Start 07/13/19 at 09:00 Lisinopril (Prinivil) 40 mg DAILY PO Last administered on 07/19/19at 08:46; Start 07/13/19 at 09:00; Stop 07/22/19 at 13:54; Status DC Metoprolol Tartrate (Lopressor) 25 mg BID PO Last administered on 07/18/19 20:57; Start 07/12/19 at 21:00; Stop 07/19/19 at 14:04; Status DC Doxazosin Mesylate (Cardura) 8 mg DAILY PO Last administered on 07/24/19 08:20; Start 07/13/19 at 09:00 Metformin HCl (Glucophage) 1,000 mg BIDWMEALS PO Last administered on 07/19/19 18:07; Start 07/13/19 at 08:00; Stop 07/20/19 at 13:33; Status DC Atorvastatin Calcium (Lipitor) 40 mg QHS PO Last administered on 5/4/20at 20:57; Start 07/12/19 at 21:00; Stop 07/19/19 at 14:07; Status DC Lisinopril (Prinivil) 10 mg 1X ONCE PO Last administered on 07/13/19at 00:41; Start 07/12/19 at 23:00; Stop 07/12/19 at 23:01; Status DC Hydralazine HCl (Apresoline Inj) 10 mg PRN Q4HRS PRN IVP ELEVATED BP, 1ST CHOICE Last administered on 07/19/19 09:07; Start 07/12/19 at 22:45 Doxazosin Mesylate (Cardura) 8 mg 1X ONCE PO Last administered on 07/12/19at 23:08; Start 07/12/19 at 23:30; Stop 07/12/19 at 23:31; Status DC Amlodipine Besylate (Norvasc) 10 mg 1X ONCE PO Last administered on 07/12/19at 23:00; Start 07/12/19 at 23:30; Stop 07/12/19 at 23:31; Status DC Lorazepam (Ativan Inj) 1 mg PRN Q2HRS PRN IVP ANXIETY Last administered on 07/17/19 12:20; Start 07/12/19 at 23:00 Enoxaparin Sodium (Lovenox 60mg Syringe) 60 mg Q12HR SQ Last administered on 07/21/19at 19:56; Start 07/13/19 at 09:00; Stop 07/22/19 at 04:00; Status DC Lactobacillus Rhamnosus (Culturelle) 1 cap BID PO Last administered on 07/20/19at 20:10; Start 07/13/19 at 21:00; Stop 07/21/19 at 10:47; Status DC Throat Lozenges (Cepacol Sore Throat Lozenge) 1 jessica PRN Q2HRS PRN PO SORE THROAT Last administered on 07/14/19at 08:56; Start 07/13/19 at 16:30 Haloperidol Lactate (Haldol Inj) 3 mg PRN Q4HRS PRN IVP AGITATION Last administered on 07/14/19 22:59; Start 07/14/19 at 22:30 Fentanyl Citrate 30 ml @ 0 mls/hr CONT PRN IV SEE PROTOCOL Last administered on 07/16/19at 16:07; Start 07/15/19 at 05:45; Stop 07/16/19 at 21:59; Status DC Propofol 100 ml @ 0 mls/hr CONT PRN IV SEE PROTOCOL Last administered on 07/15/19at 06:03; Start 07/15/19 at 05:45; Stop 07/15/19 at 06:06; Status DC Famotidine (Pepcid Vial) 20 mg BID IVP Last administered on 07/24/19at 08:20; Start 07/15/19 at 09:00; Stop 07/24/19 at 11:20; Status DC Midazolam HCl 100 ml @ 0 mls/hr CONT PRN IV SEE PROTOCOL Last administered on 07/24/19at 03:32; Start 07/15/19 at 05:45 Ketamine HCl (Ketamine) 50 mg STK-MED ONCE .ROUTE ; Start 07/15/19 at 05:44; Stop 07/15/19 at 05:44; Status DC Succinylcholine Chloride (Anectine) 200 mg STK-MED ONCE .ROUTE ; Start 07/15/19 at 05:45; Stop 07/15/19 at 05:45; Status DC Succinylcholine Chloride (Anectine) 200 mg 1X ONCE IV Last administered on 07/15/19at 06:00; Start 07/15/19 at 06:15; Stop 07/15/19 at 06:16; Status DC Propofol 100 ml @ 2.7 mls/hr CONT PRN IV SEE I/O RECORD Last administered on 07/15/19at 10:08; Start 07/15/19 at 06:15; Stop 07/24/19 at 11:10; Status DC Ketamine HCl (Ketamine) 50 mg 1X ONCE IV Last administered on 07/15/19at 05:55; Start 07/15/19 at 06:15; Stop 07/15/19 at 06:16; Status DC Vecuronium [place]field (Norcuron Bolus) 6 mg 1X ONCE IV Last administered on 07/15/19at 06:55; Start 07/15/19 at 07:00; Stop 07/15/19 at 07:01; Status DC Vecuronium [place]field (Norcuron Bolus) 10 mg STK-MED ONCE IV ; Start 07/15/19 at 06:53; Stop 07/15/19 at 06:53; Status DC Tocilizumab 800 mg/Sodium Chloride 100 ml @ 100 mls/hr ONCE ONCE IV Last administered on 07/15/19at 15:51; Start 07/15/19 at 16:00; Stop 07/15/19 at 16:59; Status DC Dextrose (Dextrose 50%-Water Syringe) 25 gm STK-MED ONCE IV ; Start 07/15/19 at 15:55; Stop 07/15/19 at 15:56; Status DC Dexmedetomidine HCl 400 mcg/ Sodium Chloride 100 ml @ 9 mls/hr CONT PRN IV SEDATION Last administered on 07/24/19at 09:41; Start 07/15/19 at 16:30 Dexmedetomidine HCl 400 mcg/ Sodium Chloride 100 ml @ 0 mls/hr CONT PRN IV SEDATION; Start 07/15/19 at 16:30; Status UNV Dextrose (Dextrose 50%-Water Syringe) 25 gm 1X ONCE IV Last administered on 07/15/19at 16:28; Start 07/15/19 at 16:30; Stop 07/15/19 at 16:31; Status DC Amino Acids/ Glycerin/ Electrolytes 1,000 ml @ 80 mls/hr [id number] IV Last administered on 07/18/19at 13:03; Start 07/16/19 at 10:00; Stop 07/18/19 at 21:59; Status DC Sodium Bicarbonate (Sodium Bicarb Adult 8.4% Syr) 50 meq 1X ONCE IV Last administered on 07/16/19at 11:23; Start 07/16/19 at 09:30; Stop 07/16/19 at 09:31; Status DC Fentanyl Citrate 55 ml @ 0 mls/hr CONT PRN IV SEE I/O RECORD Last administered on 07/23/19at 14:08; Start 07/16/19 at 22:00 Vecuronium Penfield (Norcuron Bolus) 10 mg PRN Q6HRS PRN IV ASYNCHRONARY W/ VENT Last administered on 07/17/19at 12:19; Start 07/17/19 at 10:00 Vecuronium Penfield 50 mg/ Miscellaneous 50 ml @ 8.976 mls/ hr CONT PRN IV SEE I/O RECORD Last administered on 07/24/19at 03:31; Start 07/17/19 at 12:15 Info (Tpn Per Pharmacy) 1 each PRN DAILY PRN MC SEE COMMENTS Last administered on 07/24/19at 09:39; Start 07/18/19 at 10:45 Sodium Acetate 60 meq/Potassium Phosphate 13.6 mmol/Magnesium Sulfate 10 meq/ Calcium Gluconate 10 meq/ Multivitamins 10 ml/Chromium/ Copper/Manganese/ Seleni/Zn 0.5 ml/ Total Parenteral Nutrition/Amino Acids/Dextrose 1,920 ml @ 80 mls/hr TPN CONT IV Last administered on 07/18/19at 22:18; Start 07/18/19 at 22:00; Stop 07/19/19 at 21:59; Status DC Labetalol HCl (Normodyne Iv Push) 20 mg 1X ONCE IVP Last administered on 07/19/19at 09:30; Start 07/19/19 at 09:30; Stop 07/19/19 at 09:31; Status DC Labetalol HCl (Normodyne Iv Push) 10 mg PRN Q5MIN PRN IVP HYPERTENSION, 2ND CHOICE; Start 07/19/19 at 09:30 Sodium Acetate 60 meq/Potassium Phosphate 13.6 mmol/Magnesium Sulfate 5 meq/ Calcium Gluconate 10 meq/ Multivitamins 10 ml/Chromium/ Copper/Manganese/ Seleni/Zn 0.5 ml/ Total Parenteral Nutrition/Amino Acids/Dextrose/ Fat Emulsion Intravenous 1,920 ml @ 80 mls/hr TPN CONT IV Last administered on 07/19/19at 20:45; Start 07/19/19 at 22:00; Stop 07/20/19 at 21:59; Status DC Metoprolol Tartrate (Lopressor Vial) 5 mg Q6HRS IVP Last administered on 07/24/19at 05:52; Start 07/19/19 at 18:00 Norepinephrine Bitartrate 8 mg/ Dextrose 258 ml @ 35.217 mls/ hr CONT PRN IV P ER PROTOCOL Last administered on 07/19/19at 15:59; Start 07/19/19 at 16:00; Stop 07/24/19 at 11:09; Status DC Sodium Acetate 60 meq/Sodium Phosphate 5 mmol/ Calcium Gluconate 5 meq/ Multivitamins 10 ml/Chromium/ Copper/Manganese/ Seleni/Zn 0.5 ml/ Total Pare nteral Nutrition/Amino Acids/Dextrose/ Fat Emulsion Intravenous 1,920 ml @ 80 mls/hr TPN CONT IV Last administered on 07/20/19at 21:23; Start 07/20/19 at 22:00; Stop 07/21/19 at 21:59; Status DC Sodium Acetate 60 meq/Calcium Gluconate 5 meq/ Multivitamins 10 ml/Chromium/ Copper/Manganese/ Seleni/Zn 0.5 ml/ Total Parenteral Nutrition/Amino Acids/Dextrose/ Fat Emulsion Intravenous 1,680 ml @ 70 mls/hr TPN CONT IV Last administered on 07/21/19at 21:21; Start 07/21/19 at 22:00; Stop 07/22/19 at 21:59; Status DC Methylprednisolone Sodium Succinate (SOLU-Medrol 125MG VIAL) 250 mg Q6HRS IV ; Start 07/21/19 at 14:30; Status UNV Methylprednisolone Sodium Succinate 250 mg/Sodium Chloride 100 ml @ 100 mls/hr Q6HRS IV Last administered on 07/24/19at 05:52; Start 07/21/19 at 16:00; Stop 07/24/19 at 10:15; Status DC Heparin Sodium/ Dextrose 250 ml @ 0 mls/hr CONT PRN IV PER PROTOCOL Last administered on 07/22/19at 04:31; Start 07/22/19 at 04:00; Stop 07/22/19 at 12:50; Status DC Heparin Sodium (Porcine) (Heparin Sodium) 5,500 unit PRN Q6HRS PRN IV FOR UFH LEVEL LESS THAN 0.2; Start 07/22/19 at 04:00; Stop 07/22/19 at 12:51; Status DC Heparin Sodium (Porcine) (Heparin Sodium) 2,750 unit PRN Q6HRS PRN IV FOR UFH LEVEL 0.2 - 0.29; Start 07/22/19 at 04:00; Stop 07/22/19 at 12:51; Status DC Info (Anti-Coagulation Monitoring By Pharmacy) 1 each PRN DAILY PRN MC SEE COMMENTS Last administered on 07/22/19at 04:54; Start 07/22/19 at 04:15; Stop 07/23/19 at 08:04; Status DC Furosemide (Lasix) 40 mg 1X ONCE IVP ; Start 07/22/19 at 09:00; Stop 07/22/19 at 09:01; Status Cancel Calcium Gluconate (Calcium Gluconate) 1,000 mg 1X ONCE IVP Last administered on 07/22/19at 09:09; Start 07/22/19 at 09:00; Stop 07/22/19 at 09:01; Status DC Furosemide (Lasix) 40 mg 1X ONCE IVP Last administered on 07/22/19at 09:10; Start 07/22/19 at 09:00; Stop 07/22/19 at 09:01; Status DC Insulin Glargine (Lantus Syringe) 10 unit QHS SQ Last administered on 07/23/19at 20:44; Start 07/22/19 at 21:00; Stop 07/24/19 at 07:52; Status DC Insulin Human Lispro (HumaLOG) 0-5 UNITS Q6HRS SQ Last administered on 07/24/19at 05:54; Start 07/22/19 at 12:00 Dextrose (Dextrose 50%-Water Syringe) 12.5 gm PRN Q15MIN PRN IV SEE COMMENTS; Start 07/22/19 at 09:15 Sodium Acetate 60 meq/Calcium Gluconate 5 meq/ Multivitamins 10 ml/Chromium/ Pipe Insulator per/Manganese/ Seleni/Zn 0.5 ml/ Total Parenteral Nutrition/Amino Acids/Dextrose/ Fat Emulsion Intravenous 1,680 ml @ 70 mls/hr TPN CONT IV ; Start 07/22/19 at 22:00; Stop 07/23/19 at 21:59; Status Cancel Sodium Acetate 60 meq/Calcium Gluconate 5 meq/ Multivitamins 10 ml/Chromium/ Copper/Manganese/ Seleni/Zn 0.5 ml/ Total Parenteral Nutrition/Amino Acids/Dextrose/ Fat Emulsion Intravenous 1,680 ml @ 70 mls/hr TPN CONT IV Last administered on 07/22/19at 23:49; Start 07/22/19 at 22:00; Stop 07/23/19 at 21:59; Status DC Calcium Gluconate (Calcium Gluconate) 1,000 mg 1X ONCE IVP Last administered on 07/22/19at 13:38; Start 07/22/19 at 13:15; Stop 07/22/19 at 13:21; Status DC Sodium Bicarbonate (Sodium Bicarb Adult 8.4% Syr) 50 meq 1X ONCE IV Last administered on 07/22/19at 13:38; Start 07/22/19 at 13:15; Stop 5/8/20 at 13:21; Status DC Dextrose (Dextrose 50%-Water Syringe) 25 gm 1X ONCE IV Last administered on 07/22/19at 13:41; Start 07/22/19 at 13:15; Stop 07/22/19 at 13:21; Status DC Insulin Human Regular (HumuLIN R VIAL) 10 unit 1X ONCE IV Last administered on 07/22/19at 13:39; Start 07/22/19 at 13:15; Stop 07/22/19 at 13:21; Status DC Sodium Polystyrene Sulfonate (Kayexalate) 30 gm 1X ONCE PO ; Start 07/22/19 at 13:15; Stop 07/22/19 at 13:21; Status DC Lidocaine HCl (Lidocaine 1% 20ml Vial) 20 ml STK-MED ONCE .ROUTE ; Start 07/22/19 at 15:37; Stop 07/22/19 at 15:37; Status DC Enoxaparin Sodium (Lovenox 60mg Syringe) 60 mg Q12HR SQ Last administered on 07/24/19at 08:20; Start 07/22/19 at 21:00; Stop 07/24/19 at 11:20; Status DC Lidocaine HCl (Buffered Lidocaine 1%) 6 ml 1X ONCE INJ Last administered on 07/22/19at 16:53; Start 07/22/19 at 17:00; Stop 07/22/19 at 17:01; Status DC Oxytocin (Pitocin) 10 unit STK-MED ONCE .ROUTE ; Start 07/23/19 at 12:00; Stop 07/23/19 at 12:01; Status DC Morphine Sulfate (Morphine Preservative Free) 10 mg STK-MED ONCE .ROUTE ; Start 07/23/19 at 12:00; Stop 07/23/19 at 12:01; Status DC Sodium Acetate 50 meq/Calcium Gluconate 5 meq/ Multivitamins 10 ml/Chromium/ Copper/Manganese/ Seleni/Zn 0.5 ml/ Total Parenteral Nutrition/Amino Acids/Dextrose/ Fat Emulsion Intravenous 1,680 ml @ 70 mls/hr TPN CONT IV Last administered on 07/23/19at 20:44; Start 07/23/19 at 22:00; Stop 07/24/19 at 21:59 Ephedrine Sulfate (ePHEDrine PF IN SALINE SYRINGE) 50 mg STK-MED ONCE IV ; Start 07/23/19 at 12:41; Stop 07/23/19 at 12:41; Status DC Insulin Glargine (Lantus Syringe) 20 unit BID SQ Last administered on 07/24/19at 09:03; Start 07/24/19 at 09:00 Multivitamins 10 ml/Chromium/ Copper/Manganese/ Seleni/Zn 0.5 ml/ Total Parenteral Nutrition/Amino Acids/Dextrose/ Fat Emulsion Intravenous 1,680 ml @ 70 mls/hr TPN CONT IV ; Start 07/24/19 at 22:00; Stop 07/25/19 at 21:59 Pantoprazole Sodium (PROTONIX VIAL for IV PUSH) 40 mg DAILYAC IVP ; Start 07/25/19 at 07:30 Heparin Sodium/ Dextrose 250 ml @ 0 mls/hr CONT PRN IV PER PROTOCOL; Start 07/24/19 at 11:15 Heparin Sodium (Porcine) (Heparin Sodium) 5,150 unit PRN Q6HRS PRN IV FOR UFH LEVEL LESS THAN 0.2; Start 07/24/19 at 11:15 Heparin Sodium (Porcine) (Heparin Sodium) 2,600 unit PRN Q6HRS PRN IV FOR UFH LEVEL 0.2 - 0.29; Start 07/24/19 at 11:15 Active Scripts Active Reported Metformin Hcl 1,000 Mg Tablet 1,000 Mg PO BIDWMEALS Lisinopril 40 Mg Tablet 40 Mg PO DAILY Allopurinol 300 Mg Tablet 300 Mg PO DAILY Metoprolol Tartrate 25 Mg Tablet 25 Mg PO BID Doxazosin Mesylate 8 Mg Tablet 8 Mg PO DAILY Amlodipine Besylate 10 Mg Tablet 10 Mg PO DAILY Vitals/I & O Vital Sign - Last 24 Hours 07/23/19 07/23/19 07/23/19 07/23/19 13:00 14:00 14:08 15:00 Pulse 92 84 82 Resp 28 28 28 B/P (MAP) 140/62 (88) 142/64 (90) 148/66 (93) Pulse Ox 98 98 97 95 O2 Delivery Ventilator Ventilator Ventilator O2 Flow Rate 40.0 07/23/19 07/23/19 07/23/19 07/23/19 16:00 16:00 16:00 16:13 Temp 98.9 98.9 Pulse 90 90 Resp 28 B/P (MAP) 180/76 (110) Pulse Ox 93 97 O2 Delivery Ventilator Mechanical Ventilator Ventilator 07/23/19 07/23/19 07/23/19 07/23/19 17:00 17:09 18:00 19:00 Pulse 85 94 83 84 Resp 28 28 28 B/P (MAP) 148/66 (93) 168/98 160/69 (99) 154/66 (95) Pulse Ox 95 96 97 O2 Delivery Ventilator Ventilator Ventilator 07/23/19 07/23/19 07/23/19 07/23/19 20:00 20:00 20:11 20:20 Temp 98.2 98.2 Pulse 90 82 90 Resp 28 B/P (MAP) 152/66 (94) Pulse Ox 97 97 O2 Delivery Ventilator Ventilator 07/23/19 07/23/19 07/23/19 07/23/19 20:20 21:00 22:00 23:00 Pulse 84 82 76 Resp 28 28 28 B/P (MAP) 192/98 (129) 160/78 (105) 158/76 (103) Pulse Ox 96 98 97 O2 Delivery Mechanical Ventilator Ventilator Ventilator Ventilator 07/24/19 07/24/19 07/24/19 07/24/19 00:00 00:00 00:14 00:15 Temp 98.0 98.0 Pulse 76 76 Resp 28 B/P (MAP) 162/77 160/76 (104) Pulse Ox 97 97 O2 Delivery Ventilator Ventilator Mechanical Ventilator 07/24/19 07/24/19 07/24/19 07/24/19 00:15 01:00 02:00 03:00 Pulse 75 74 76 84 Resp 28 28 28 B/P (MAP) 166/78 (107) 166/78 (107) 188/82 (117) Pulse Ox 98 98 98 O2 Delivery Ventilator Ventilator Ventilator 07/24/19 07/24/19 07/24/19 07/24/19 03:35 04:00 04:00 04:10 Temp 98.3 98.3 Pulse 79 78 Resp 28 B/P (MAP) 166/78 (107) Pulse Ox 98 97 O2 Delivery Mechanical Ventilator Ventilator Ventilator 07/24/19 07/24/19 07/24/19 07/24/19 05:00 05:52 06:00 07:00 Pulse 82 88 78 80 Resp 28 28 28 B/P (MAP) 180/82 (114) 188/76 174/80 (111) 165/77 (106) Pulse Ox 98 98 98 O2 Delivery Ventilator Ventilator Ventilator 07/24/19 07/24/19 07/24/19 07/24/19 08:00 08:00 08:20 08:21 Pulse 87 98 89 B/P (MAP) 187/84 187/89 O2 Delivery Mechanical Ventilator Intake and Output 07/23/19 07/23/19 07/24/19 15:00 23:00 07:00 Intake Total 1124 ml 1162 ml Output Total 3950 ml 2250 ml Balance -2826 ml -1088 ml GABRIEL REGALADO MD July 24, 2019 12:25
[2019-07-24] MEDS: HEPARIN 25,000UTS/250ML PREMIX 250 ML IV PRN ×2 (12:56→22:52)
--- NOTE | 2019-07-24 13:20 | PDOC ---
PROGRESS NOTES Subjective Subjective SEEN IN FOLLOW UP OF ARF AND TPN. HE IS COVID 19 + AND NOT PHYSICALLY EXAMINED Objective Objective Vital Signs Date Time Temp Pulse Resp B/P (MAP) Pulse Ox O2 Delivery O2 Flow Rate FiO2 07/24/19 13:03 77 159/79 07/24/19 08:00 Mechanical Ventilator 07/24/19 07:00 28 98 07/24/19 04:00 98.3 98.3 07/23/19 14:08 40.0 Intake and Output 07/24/19 07:00 Intake Total 2286 ml Output Total 6200 ml Balance -3914 ml IV Total 2286 ml Output Urine Total 6200 ml Diagnosis RENAL FAILURE: Acute (Acute tubular necrosis), Other (HYPERNATREMIA) Assessment Assessment Problems Medical Problems: (1) Suspected COVID-19 virus infection Status: Acute Plan Plan of Care SERUM SODIUM IS ELEVATED AND WILL ADD D5W FOR FREE WATER. HIS BUN >> CREAT DUE TO CATABOLIC STATE, GLUCOCORTICOIDS, TPN AND ARF. WILL PLAN ON DIALYSIS TOMORROW Comment Review of Relevant I have reviewed the following items lizzy (where applicable) has been applied. Labs Laboratory Tests Test 07/22/19 13:45 07/22/19 17:44 07/22/19 20:28 07/23/19 00:05 O2 Saturation 88 % (92-99) Arterial Blood pH 7.31 (7.35-7.45) Arterial Blood pCO2 at Patient Temp 54 mmHg (35-46) Arterial Blood pO2 at Patient Temp 64 mmHg (75-108) Arterial Blood HCO3 26 mmol/L (21-28) Arterial Blood Base Excess -1 mmol/L (-3-3) FiO2 100 Glucose (Fingerstick) 170 mg/dL (70-99) 164 mg/dL (70-99) 153 mg/dL (70-99) Test 07/23/19 05:45 07/23/19 08:20 07/23/19 10:30 07/23/19 17:53 Sodium Level 147 mmol/L (136-145) Potassium Level 5.2 mmol/L (3.5-5.1) Chloride Level 110 mmol/L (98-107) Carbon Dioxide Level 28 mmol/L (21-32) Anion Gap 9 (6-14) Blood Urea Nitrogen 122 mg/dL (8-26) Creatinine 1.9 mg/dL (0.7-1.3) Estimated GFR (Cockcroft-Gault) 46.0 Glucose Level 235 mg/dL (70-99) Calcium Level 9.0 mg/dL (8.5-10.1) O2 Saturation 86 % (92-99) Arterial Blood pH 7.27 (7.35-7.45) Arterial Blood pCO2 at Patient Temp 59 mmHg (35-46) Arterial Blood pO2 at Patient Temp 63 mmHg (75-108) Arterial Blood pO2 (Temp corrected) mmHg Arterial Blood HCO3 26 mmol/L (21-28) Arterial Blood Base Excess -2 mmol/L (-3-3) FiO2 100 Prothrombin Time 14.3 SEC (11.7-14.0) Prothromb Time International Ratio 1.2 (0.8-1.1) Glucose (Fingerstick) 242 mg/dL (70-99) 296 mg/dL (70-99) Test 07/23/19 23:57 07/24/19 05:48 07/24/19 05:50 07/24/19 08:00 Glucose (Fingerstick) 300 mg/dL (70-99) 353 mg/dL (70-99) White Blood Count 15.3 x10^3/uL (4.0-11.0) Red Blood Count 4.15 x10^6/uL (4.30-5.70) Hemoglobin 11.1 g/dL (13.0-17.5) Hematocrit 35.4 % (39.0-53.0) Mean Corpuscular Volume 85 fL (79-100) Mean Corpuscular Hemoglobin 27 pg (25-35) Mean Corpuscular Hemoglobin Concent 31 g/dL (31-37) Red Cell Distribution Width 16.0 % (11.5-14.5) Platelet Count 409 x10^3/uL (140-400) Erythrocyte Sedimentation Rate 59 (0-15) Fibrinogen 485 mg/dL (200-440) D-Dimer (Avis) 9.74 ug/mlFEU (0.00-0.50) Sodium Level 153 mmol/L (136-145) Potassium Level 5.0 mmol/L (3.5-5.1) Chloride Level 115 mmol/L (98-107) Carbon Dioxide Level 30 mmol/L (21-32) Anion Gap 8 (6-14) Blood Urea Nitrogen 126 mg/dL (8-26) Creatinine 1.7 mg/dL (0.7-1.3) Estimated GFR (Cockcroft-Gault) 52.3 Glucose Level 377 mg/dL (70-99) Calcium Level 9.4 mg/dL (8.5-10.1) Ferritin 383 ng/mL (26-388) Lactate Dehydrogenase 507 U/L (85-227) C-Reactive Protein, Quantitative 0.8 mg/L (0-3.3) O2 Saturation 88 % (92-99) Arterial Blood pH 7.28 (7.35-7.45) Arterial Blood pCO2 at Patient Temp 64 mmHg (35-46) Arterial Blood pO2 at Patient Temp 67 mmHg (75-108) Arterial Blood HCO3 29 mmol/L (21-28) Arterial Blood Base Excess 1 mmol/L (-3-3) FiO2 100 +13 Laboratory Tests Test 07/23/19 17:53 07/23/19 23:57 07/24/19 05:48 07/24/19 05:50 Glucose (Fingerstick) 296 mg/dL (70-99) 300 mg/dL (70-99) 353 mg/dL (70-99) White Blood Count 15.3 x10^3/uL (4.0-11.0) Red Blood Count 4.15 x10^6/uL (4.30-5.70) Hemoglobin 11.1 g/dL (13.0-17.5) Hematocrit 35.4 % (39.0-53.0) Mean Corpuscular Volume 85 fL (79-100) Mean Corpuscular Hemoglobin 27 pg (25-35) Mean Corpuscular Hemoglobin Concent 31 g/dL (31-37) Red Cell Distribution Width 16.0 % (11.5-14.5) Platelet Count 409 x10^3/uL (140-400) Erythrocyte Sedimentation Rate 59 (0-15) Fibrinogen 485 mg/dL (200-440) D-Dimer (Avis) 9.74 ug/mlFEU (0.00-0.50) Sodium Level 153 mmol/L (136-145) Potassium Level 5.0 mmol/L (3.5-5.1) Chloride Level 115 mmol/L (98-107) Carbon Dioxide Level 30 mmol/L (21-32) Anion Gap 8 (6-14) Blood Urea Nitrogen 126 mg/dL (8-26) Creatinine 1.7 mg/dL (0.7-1.3) Estimated GFR (Cockcroft-Gault) 52.3 Glucose Level 377 mg/dL (70-99) Calcium Level 9.4 mg/dL (8.5-10.1) Ferritin 383 ng/mL (26-388) Lactate Dehydrogenase 507 U/L (85-227) C-Reactive Protein, Quantitative 0.8 mg/L (0-3.3) Test 07/24/19 08:00 O2 Saturation 88 % (92-99) Arterial Blood pH 7.28 (7.35-7.45) Arterial Blood pCO2 at Patient Temp 64 mmHg (35-46) Arterial Blood pO2 at Patient Temp 67 mmHg (75-108) Arterial Blood HCO3 29 mmol/L (21-28) Arterial Blood Base Excess 1 mmol/L (-3-3) FiO2 100 +13 Microbiology 07/12/19 Blood Culture - Final, Complete NO GROWTH AFTER 5 DAYS Medications Current Medications Sodium Chloride 1,000 ml @ 1,000 mls/hr 1X ONCE IV Last administered on 07/12/19at 13:25; Start 07/12/19 at 13:30; Stop 07/12/19 at 14:29; Status DC Acetaminophen (Tylenol) 1,000 mg 1X ONCE PO Last administered on 07/12/19at 13:25; Start 07/12/19 at 13:45; Stop 07/12/19 at 13:46; Status DC Sodium Chloride (Normal Saline Flush) 3 ml QSHIFT PRN IV AFTER MEDS AND BLOOD DRAWS; Start 07/12/19 at 16:45 Sodium Chloride 1,000 ml @ 20 mls/hr Q24H IV Last administered on 07/23/19at 17:10; Start 07/12/19 at 16:41 Ondansetron HCl (Zofran) 4 mg PRN Q4HRS PRN IV NAUSEA/VOMITING; Start 07/12/19 at 16:45 Acetaminophen (Tylenol) 650 mg PRN Q4HRS PRN PO TEMP OVER 100.4F OR MILD PAIN Last administered on 07/14/19at 18:29; Start 07/12/19 at 16:45 Al Hydroxide/Mg Hydroxide (Mylanta Plus Xs) 30 ml PRN DAILY PRN PO HEARTBURN / GAS; Start 07/12/19 at 16:45; Stop 07/22/19 at 04:48; Status DC Clonidine HCl (Catapres) 0.1 mg PRN Q6HRS PRN PO SBP>160 OR DBP>90 Last administered on 07/15/19at 04:25; Start 07/12/19 at 16:45 Docusate Sodium (Colace) 100 mg PRN BID PRN PO CONSTIPATION; Start 07/12/19 at 16:45 Albuterol/ Ipratropium (Duoneb) 3 ml Q4H NEB ; Start 07/12/19 at 16:45; Stop 07/12/19 at 16:55; Status DC Guaifenesin (Robitussin) 200 mg PRN Q4HRS PRN PO COUGH Last administered on 07/14/19at 08:52; Start 07/12/19 at 16:45 Levofloxacin/ Dextrose 100 ml @ 100 mls/hr Q24H IV Last administered on 07/18/19at 16:29; Start 07/13/19 at 17:00; Stop 07/19/19 at 15:22; Status DC Albuterol/ Ipratropium (Duoneb) 3 ml Q4HRS NEB ; Start 07/12/19 at 20:00; Stop 07/12/19 at 18:33; Status DC Levofloxacin/ Dextrose 100 ml @ 100 mls/hr 1X ONCE IV Last administered on at 17:58; Start 07/12/19 at 17:45; Stop 07/12/19 at 18:44; Status DC Albuterol Sulfate (Ventolin Neb Soln) 2.5 mg PRN Q4HRS PRN NEB SHORTNESS OF BREATH; Start 07/12/19 at 18:45 Hydralazine HCl (Apresoline Inj) 10 mg PRN Q4HRS PRN IVP ELEVATED BP, SEE COMMENTS Last administered on 07/12/19at 20:31; Start 07/12/19 at 19:45; Stop 07/12/19 at 22:40; Status DC Allopurinol (Zyloprim) 300 mg DAILY PO Last administered on 07/24/19at 08:20; Start 07/13/19 at 09:00 Amlodipine Besylate (Norvasc) 10 mg DAILY PO Last administered on 07/24/19 08:21; Start 07/13/19 at 09:00 Lisinopril (Prinivil) 40 mg DAILY PO Last administered on 07/19/19 08:46; Start 07/13/19 at 09:00; Stop 07/22/19 at 13:54; Status DC Metoprolol Tartrate (Lopressor) 25 mg BID PO Last administered on 07/18/19 20:57; Start 07/12/19 at 21:00; Stop 07/19/19 at 14:04; Status DC Doxazosin Mesylate (Cardura) 8 mg DAILY PO Last administered on 07/24/19 08:20; Start 07/13/19 at 09:00 Metformin HCl (Glucophage) 1,000 mg BIDWMEALS PO Last administered on 07/19/19 18:07; Start 07/13/19 at 08:00; Stop 07/20/19 at 13:33; Status DC Atorvastatin Calcium (Lipitor) 40 mg QHS PO Last administered on 07/18/19 20:57; Start 07/12/19 at 21:00; Stop 07/19/19 at 14:07; Status DC Lisinopril (Prinivil) 10 mg 1X ONCE PO Last administered on 07/13/19at 00:41; Start 07/12/19 at 23:00; Stop 07/12/19 at 23:01; Status DC Hydralazine HCl (Apresoline Inj) 10 mg PRN Q4HRS PRN IVP ELEVATED BP, 1ST CHOICE Last administered on 07/19/19 09:07; Start 07/12/19 at 22:45 Doxazosin Mesylate (Cardura) 8 mg 1X ONCE PO Last administered on 07/12/19at 23:08; Start 07/12/19 at 23:30; Stop 07/12/19 at 23:31; Status DC Amlodipine Besylate (Norvasc) 10 mg 1X ONCE PO Last administered on 07/12/19at 23:00; Start 07/12/19 at 23:30; Stop 07/12/19 at 23:31; Status DC Lorazepam (Ativan Inj) 1 mg PRN Q2HRS PRN IVP ANXIETY Last administered on 07/17/19at 12:20; Start 07/12/19 at 23:00 Enoxaparin Sodium (Lovenox 60mg Syringe) 60 mg Q12HR SQ Last administered on 07/21/19at 19:56; Start 07/13/19 at 09:00; Stop 07/22/19 at 04:00; Status DC Lactobacillus Rhamnosus (Culturelle) 1 cap BID PO Last administered on 07/20/19at 20:10; Start 07/13/19 at 21:00; Stop 07/21/19 at 10:47; Status DC Throat Lozenges (Cepacol Sore Throat Lozenge) 1 jessica PRN Q2HRS PRN PO SORE THROAT Last administered on 07/14/19at 08:56; Start 07/13/19 at 16:30 Haloperidol Lactate (Haldol Inj) 3 mg PRN Q4HRS PRN IVP AGITATION Last administered on 07/14/19at 22:59; Start 07/14/19 at 22:30 Fentanyl Citrate 30 ml @ 0 mls/hr CONT PRN IV SEE PROTOCOL Last administered on 07/16/19at 16:07; Start 07/15/19 at 05:45; Stop 07/16/19 at 21:59; Status DC Propofol 100 ml @ 0 mls/hr CONT PRN IV SEE PROTOCOL Last administered on 07/15/19at 06:03; Start 07/15/19 at 05:45; Stop 07/15/19 at 06:06; Status DC Famotidine (Pepcid Vial) 20 mg BID IVP Last administered on 07/24/19at 08:20; Start 07/15/19 at 09:00; Stop 07/24/19 at 11:20; Status DC Midazolam HCl 100 ml @ 0 mls/hr CONT PRN IV SEE PROTOCOL Last administered on 07/24/19at 03:32; Start 07/15/19 at 05:45 Ketamine HCl (Ketamine) 50 mg STK-MED ONCE .ROUTE ; Start 07/15/19 at 05:44; Stop 07/15/19 at 05:44; Status DC Succinylcholine Chloride (Anectine) 200 mg STK-MED ONCE .ROUTE ; Start 07/15/19 at 05:45; Stop 07/15/19 at 05:45; Status DC Succinylcholine Chloride (Anectine) 200 mg 1X ONCE IV Last administered on 07/15/19at 06:00; Start 07/15/19 at 06:15; Stop 07/15/19 at 06:16; Status DC Propofol 100 ml @ 2.7 mls/hr CONT PRN IV SEE I/O RECORD Last administered on 07/15/19at 10:08; Start 07/15/19 at 06:15; Stop 07/24/19 at 11:10; Status DC Ketamine HCl (Ketamine) 50 mg 1X ONCE IV Last administered on 07/15/19at 05:55; Start 07/15/19 at 06:15; Stop 07/15/19 at 06:16; Status DC Vecuronium Mchenry (Norcuron Bolus) 6 mg 1X ONCE IV Last administered on 07/15/19at 06:55; Start 07/15/19 at 07:00; Stop 07/15/19 at 07:01; Status DC Vecuronium Mchenry (Norcuron Bolus) 10 mg STK-MED ONCE IV ; Start 07/15/19 at 06:53; Stop 07/15/19 at 06:53; Status DC Tocilizumab 800 mg/Sodium Chloride 100 ml @ 100 mls/hr ONCE ONCE IV Last administered on 07/15/19at 15:51; Start 07/15/19 at 16:00; Stop 07/15/19 at 16:59; Status DC Dextrose (Dextrose 50%-Water Syringe) 25 gm STK-MED ONCE IV ; Start 07/15/19 at 15:55; Stop 07/15/19 at 15:56; Status DC Dexmedetomidine HCl 400 mcg/ Sodium Chloride 100 ml @ 9 mls/hr CONT PRN IV SEDATION Last administered on 07/24/19at 09:41; Start 07/15/19 at 16:30 Dexmedetomidine HCl 400 mcg/ Sodium Chloride 100 ml @ 0 mls/hr CONT PRN IV SEDATION; Start 07/15/19 at 16:30; Status UNV Dextrose (Dextrose 50%-Water Syringe) 25 gm 1X ONCE IV Last administered on 07/15/19at 16:28; Start 07/15/19 at 16:30; Stop 07/15/19 at 16:31; Status DC Amino Acids/ Glycerin/ Electrolytes 1,000 ml @ 80 mls/hr [id number] IV Last administered on 07/18/19at 13:03; Start 07/16/19 at 10:00; Stop 07/18/19 at 21:59; Status DC Sodium Bicarbonate (Sodium Bicarb Adult 8.4% Syr) 50 meq 1X ONCE IV Last administered on 07/16/19at 11:23; Start 07/16/19 at 09:30; Stop 07/16/19 at 09:31; Status DC Fentanyl Citrate 55 ml @ 0 mls/hr CONT PRN IV SEE I/O RECORD Last administered on 07/23/19at 14:08; Start 07/16/19 at 22:00 Vecuronium Mchenry (Norcuron Bolus) 10 mg PRN Q6HRS PRN IV ASYNCHRONARY W/ VENT Last administered on 07/17/19at 12:19; Start 07/17/19 at 10:00 Vecuronium Mchenry 50 mg/ Miscellaneous 50 ml @ 8.976 mls/ hr CONT PRN IV SEE I/O RECORD Last administered on 07/24/19at 03:31; Start 07/17/19 at 12:15 Info (Tpn Per Pharmacy) 1 each PRN DAILY PRN MC SEE COMMENTS Last administered on 07/24/19at 09:39; Start 07/18/19 at 10:45 Sodium Acetate 60 meq/Potassium Phosphate 13.6 mmol/Magnesium Sulfate 10 meq/ Calcium Gluconate 10 meq/ Multivitamins 10 ml/Chromium/ Copper/Manganese/ Seleni/Zn 0.5 ml/ Total Parenteral Nutrition/Amino Acids/Dextrose 1,920 ml @ 80 mls/hr TPN CONT IV Last administered on 07/18/19at 22:18; Start 07/18/19 at 22:00; Stop 07/19/19 at 21:59; Status DC Labetalol HCl (Normodyne Iv Push) 20 mg 1X ONCE IVP Last administered on 07/19/19at 09:30; Start 07/19/19 at 09:30; Stop 07/19/19 at 09:31; Status DC Labetalol HCl (Normodyne Iv Push) 10 mg PRN Q5MIN PRN IVP HYPERTENSION, 2ND CHOICE; Start 07/19/19 at 09:30 Sodium Acetate 60 meq/Potassium Phosphate 13.6 mmol/Magnesium Sulfate 5 meq/ Calcium Gluconate 10 meq/ Multivitamins 10 ml/Chromium/ Copper/Manganese/ Seleni/Zn 0.5 ml/ Total Parenteral Nutrition/Amino Acids/Dextrose/ Fat Emulsion Intravenous 1,920 ml @ 80 mls/hr TPN CONT IV Last administered on 07/19/19at 20:45; Start 07/19/19 at 22:00; Stop 07/20/19 at 21:59; Status DC Metoprolol Tartrate (Lopressor Vial) 5 mg Q6HRS IVP Last administered on 07/24/19at 13:03; Start 07/19/19 at 18:00 Norepinephrine Bitartrate 8 mg/ Dextrose 258 ml @ 35.217 mls/ hr CONT PRN IV PER PROTOCOL Last administered on 07/19/19at 15:59; Start 07/19/19 at 16:00; Stop 07/24/19 at 11:09; Status DC Sodium Acetate 60 meq/Sodium Phosphate 5 mmol/ Calcium Gluconate 5 meq/ Multivitamins 10 ml/Chromium/ Copper/Manganese/ Seleni/Zn 0.5 ml/ Total Parenteral Nutrition/Amino Acids/Dextrose/ Fat Emulsion Intravenous 1,920 ml @ 80 mls/hr TPN CONT IV Last administered on 07/20/19at 21:23; Start 07/20/19 at 22:00; Stop 07/21/19 at 21:59; Status DC Sodium Acetate 60 meq/Calcium Gluconate 5 meq/ Multivitamins 10 ml/Chromium/ Copper/Manganese/ Seleni/Zn 0.5 ml/ Total Parenteral Nutrition/Amino Acids/Dextrose/ Fat Emulsion Intravenous 1,680 ml @ 70 mls/hr TPN CONT IV Last administered on 07/21/19at 21:21; Start 07/21/19 at 22:00; Stop 07/22/19 at 21:59; Status DC Methylprednisolone Sodium Succinate (SOLU-Medrol 125MG VIAL) 250 mg Q6HRS IV ; Start 07/21/19 at 14:30; Status UNV Methylprednisolone Sodium Succinate 250 mg/Sodium Chloride 100 ml @ 100 mls/hr Q6HRS IV Last administered on 07/24/19at 05:52; Start 07/21/19 at 16:00; Stop 07/24/19 at 10:15; Status DC Heparin Sodium/ Dextrose 250 ml @ 0 mls/hr CONT PRN IV PER PROTOCOL Last administered on 07/22/19at 04:31; Start 07/22/19 at 04:00; Stop 07/22/19 at 12:50; Status DC Heparin Sodium (Porcine) (Heparin Sodium) 5,500 unit PRN Q6HRS PRN IV FOR UFH LEVEL LESS THAN 0.2; Start 07/22/19 at 04:00; Stop 07/22/19 at 12:51; Status DC Heparin Sodium (Porcine) (Heparin Sodium) 2,750 unit PRN Q6HRS PRN IV FOR UFH LEVEL 0.2 - 0.29; Start 07/22/19 at 04:00; Stop 07/22/19 at 12:51; Status DC Info (Anti-Coagulation Monitoring By Pharmacy) 1 each PRN DAILY PRN MC SEE COMMENTS Last administered on 07/22/19at 04:54; Start 07/22/19 at 04:15; Stop 07/23/19 at 08:04; Status DC Furosemide (Lasix) 40 mg 1X ONCE IVP ; Start 07/22/19 at 09:00; Stop 07/22/19 at 09:01; Status Cancel Calcium Gluconate (Calcium Gluconate) 1,000 mg 1X ONCE IVP Last administered on 07/22/19at 09:09; Start 07/22/19 at 09:00; Stop 07/22/19 at 09:01; Status DC Furosemide (Lasix) 40 mg 1X ONCE IVP Last administered on 07/22/19at 09:10; Start 07/22/19 at 09:00; Stop 07/22/19 at 09:01; Status DC Insulin Glargine (Lantus Syringe) 10 unit QHS SQ Last administered on 07/23/19at 20:44; Start 07/22/19 at 21:00; Stop 07/24/19 at 07:52; Status DC Insulin Human Lispro (HumaLOG) 0-5 UNITS Q6HRS SQ Last administered on 07/24/19at 12:53; Start 07/22/19 at 12:00 Dextrose (Dextrose 50%-Water Syringe) 12.5 gm PRN Q15MIN PRN IV SEE COMMENTS; Start 07/22/19 at 09:15 Sodium Acetate 60 meq/Calcium Gluconate 5 meq/ Multivitamins 10 ml/Chromium/ Copper/Manganese/ Seleni/Zn 0.5 ml/ Total Parenteral Nutrition/Amino Acids/Dextrose/ Fat Emulsion Intravenous 1,680 ml @ 70 mls/hr TPN CONT IV ; Start 07/22/19 at 22:00; Stop 07/23/19 at 21:59; Status Cancel Sodium Acetate 60 meq/Calcium Gluconate 5 meq/ Multivitamins 10 ml/Chromium/ Copper/Manganese/ Seleni/Zn 0.5 ml/ Total Parenteral Nutrition/Amino Acids/Dextrose/ Fat Emulsion Intravenous 1,680 ml @ 70 mls/hr TPN CONT IV Last administered on 07/22/19at 23:49; Start 07/22/19 at 22:00; Stop 07/23/19 at 21:59; Status DC Calcium Gluconate (Calcium Gluconate) 1,000 mg 1X ONCE IVP Last administered on 07/22/19at 13:38; Start 07/22/19 at 13:15; Stop 07/22/19 at 13:21; Status DC Sodium Bicarbonate (Sodium Bicarb Adult 8.4% Syr) 50 meq 1X ONCE IV Last administered on 07/22/19at 13:38; Start 07/22/19 at 13:15; Stop 07/22/19 at 13:21; Status DC Dextrose (Dextrose 50%-Water Syringe) 25 gm 1X ONCE IV Last administered on 07/22/19at 13:41; Start 07/22/19 at 13:15; Stop 07/22/19 at 13:21; Status DC Insulin Human Regular (HumuLIN R VIAL) 10 unit 1X ONCE IV Last administered on 07/22/19at 13:39; Start 07/22/19 at 13:15; Stop 07/22/19 at 13:21; Status DC Sodium Polystyrene Sulfonate (Kayexalate) 30 gm 1X ONCE PO ; Start 07/22/19 at 13:15; Stop 07/22/19 at 13:21; Status DC Lidocaine HCl (Lidocaine 1% 20ml Vial) 20 ml STK-MED ONCE .ROUTE ; Start 07/22/19 at 15:37; Stop 07/22/19 at 15:37; Status DC Enoxaparin Sodium (Lovenox 60mg Syringe) 60 mg Q12HR SQ Last administered on 07/24/19at 08:20; Start 07/22/19 at 21:00; Stop 07/24/19 at 11:20; Status DC Lidocaine HCl (Buffered Lidocaine 1%) 6 ml 1X ONCE INJ Last administered on 07/22/19at 16:53; Start 07/22/19 at 17:00; Stop 07/22/19 at 17:01; Status DC Oxytocin (Pitocin) 10 unit STK-MED ONCE .ROUTE ; Start 07/23/19 at 12:00; Stop 07/23/19 at 12:01; Status DC Morphine Sulfate (Morphine Preservative Free) 10 mg STK-MED ONCE .ROUTE ; Start 07/23/19 at 12:00; Stop 07/23/19 at 12:01; Status DC Sodium Acetate 50 meq/Calcium Gluconate 5 meq/ Multivitamins 10 ml/Chromium/ Copper/Manganese/ Seleni/Zn 0.5 ml/ Total Parenteral Nutrition/Amino Acids/Dextrose/ Fat Emulsion Intravenous 1,680 ml @ 70 mls/hr TPN CONT IV Last administered on 07/23/19at 20:44; Start 07/23/19 at 22:00; Stop 07/24/19 at 21:59 Ephedrine Sulfate (ePHEDrine PF IN SALINE SYRINGE) 50 mg STK-MED ONCE IV ; Start 07/23/19 at 12:41; Stop 07/23/19 at 12:41; Status DC Insulin Glargine (Lantus Syringe) 20 unit BID SQ Last administered on 07/24/19at 09:03; Start 07/24/19 at 09:00 Multivitamins 10 ml/Chromium/ Copper/Manganese/ Seleni/Zn 0.5 ml/ Total Parenteral Nutrition/Amino Acids/Dextrose/ Fat Emulsion Intravenous 1,680 ml @ 70 mls/hr TPN CONT IV ; Start 07/24/19 at 22:00; Stop 07/25/19 at 21:59 Pantoprazole Sodium (PROTONIX VIAL for IV PUSH) 40 mg DAILYAC IVP ; Start 07/25/19 at 07:30 Heparin Sodium/ Dextrose 250 ml @ 0 mls/hr CONT PRN IV PER PROTOCOL Last administered on 07/24/19at 12:56; Start 07/24/19 at 11:15 Heparin Sodium (Porcine) (Heparin Sodium) 5,150 unit PRN Q6HRS PRN IV FOR UFH LEVEL LESS THAN 0.2; Start 07/24/19 at 11:15 Heparin Sodium (Porcine) (Heparin Sodium) 2,600 unit PRN Q6HRS PRN IV FOR UFH LEVEL 0.2 - 0.29; Start 07/24/19 at 11:15 Active Scripts Active Reported Metformin Hcl 1,000 Mg Tablet 1,000 Mg PO BIDWMEALS Lisinopril 40 Mg Tablet 40 Mg PO DAILY Allopurinol 300 Mg Tablet 300 Mg PO DAILY Metoprolol Tartrate 25 Mg Tablet 25 Mg PO BID Doxazosin Mesylate 8 Mg Tablet 8 Mg PO DAILY Amlodipine Besylate 10 Mg Tablet 10 Mg PO DAILY Vitals/I & O Vital Sign - Last 24 Hours 07/23/19 07/23/19 07/23/19 07/23/19 14:00 14:08 15:00 16:00 Pulse 84 82 90 Resp 28 B/P (MAP) 142/64 (90) 148/66 (93) Pulse Ox 98 97 95 O2 Delivery Ventilator Ventilator O2 Flow Rate 40.0 07/23/19 07/23/19 07/23/19 07/23/19 16:00 16:00 16:13 17:00 Temp 98.9 98.9 Pulse 90 85 B/P (MAP) 180/76 (110) 148/66 (93) Pulse Ox 93 97 95 O2 Delivery Ventilator Mechanical Ventilator Ventilator Ventilator 07/23/19 07/23/19 07/23/19 07/23/19 17:09 18:00 19:00 20:00 Pulse 94 83 84 90 Resp 28 28 B/P (MAP) 168/98 160/69 (99) 154/66 (95) Pulse Ox 96 97 O2 Delivery Ventilator Ventilator 07/23/19 07/23/19 07/23/19 07/23/19 20:00 20:11 20:20 20:20 Temp 98.2 98.2 Pulse 82 90 Resp 28 B/P (MAP) 152/66 (94) Pulse Ox 97 97 O2 Delivery Ventilator Ventilator Mechanical Ventilator 07/23/19 07/23/19 07/23/19 07/24/19 21:00 22:00 23:00 00:00 Pulse 84 82 76 76 Resp 28 28 B/P (MAP) 192/98 (129) 160/78 (105) 158/76 (103) 162/77 Pulse Ox 96 98 97 O2 Delivery Ventilator Ventilator Ventilator 07/24/19 07/24/19 07/24/19 07/24/19 00:00 00:14 00:15 00:15 Temp 98.0 98.0 Pulse 76 75 Resp 28 B/P (MAP) 160/76 (104) Pulse Ox 97 97 O2 Delivery Ventilator Ventilator Mechanical Ventilator 07/24/19 07/24/19 07/24/19 07/24/19 01:00 02:00 03:00 03:35 Pulse 74 76 84 Resp 28 28 28 B/P (MAP) 166/78 (107) 166/78 (107) 188/82 (117) Pulse Ox 98 98 98 O2 Delivery Ventilator Ventilator Ventilator Mechanical Ventilator 07/24/19 07/24/19 07/24/19 07/24/19 04:00 04:00 04:10 05:00 Temp 98.3 98.3 Pulse 79 78 82 Resp 28 B/P (MAP) 166/78 (107) 180/82 (114) Pulse Ox 98 97 98 O2 Delivery Ventilator Ventilator Ventilator 07/24/19 07/24/19 07/24/19 07/24/19 05:52 06:00 07:00 08:00 Pulse 88 78 80 Resp B/P (MAP) 188/76 174/80 (111) 165/77 (106) Pulse Ox 98 98 O2 Delivery Ventilator Ventilator Mechanical Ventilator 07/24/19 07/24/19 07/24/19 07/24/19 08:00 08:20 08:21 13:03 Pulse 87 98 89 77 B/P (MAP) 187/84 187/89 159/79 Intake and Output 07/23/19 07/23/19 07/24/19 15:00 23:00 07:00 Intake Total 1124 ml 1162 ml Output Total 3950 ml 2250 ml Balance -2826 ml -1088 ml JUAN DAVID GONSALEZ MD July 24, 2019 13:20
[2019-07-24] MEDS ORDERED: IV DEXTROSE 5% 1,000 ML IV SCH (13:30)
[2019-07-24] MEDS: fentaNYL HIGH DOSE PCA 55 ML IV PRN (16:03)
[2019-07-24] MEDS: IV NORMAL SALINE 1000ML BAG 1,000 ML IV SCH (16:41)
[2019-07-24] MEDS ORDERED: DEXTROSE 70% IV SCH ×5 (22:00)
[2019-07-24] MEDS ORDERED: TOTAL PARENTERAL NUTRITION IV SCH ×5 (22:00)
[2019-07-24] MEDS ORDERED: [UNRECOGNIZED DRUG - OTHER] IV SCH ×5 (22:00)
[2019-07-24] MEDS ORDERED: AMINO ACID IV SCH ×5 (22:00)
[2019-07-25] VITALS (24 sets, daily range): BP systolic 86–184; BP diastolic 48–80
[2019-07-25] MEDS: METOPROLOL TARTRATE 5 MG/5 ML VIAL. IVP SCH ×5 (00:35→23:53)
[2019-07-25] MEDS: INSULIN LISPRO 300 UNITS/3 ML VIAL. SQ SCH ×4 (00:36→17:21)
[2019-07-25] MEDS: MIDAZOLAM 100mg/100ml NS BAG 100 ML IV PRN ×3 (01:46→23:02)
[2019-07-25] MEDS: VECURONIUM BROMIDE 50 MG in TOTAL VOLUME 50 ML IV PRN ×4 (05:13→23:02)
[2019-07-25 06:57] LABS: HEMATOCRIT 35.8 % (39.0-53.0); HEMOGLOBIN 11.5 g/dL (13.0-17.5); RED BLOOD COUNT 4.2 x10^6/uL (4.30-5.70); WHITE BLOOD COUNT 14.5 x10^3/uL (4.0-11.0)
[2019-07-25 07:14] LABS: ALBUMIN 2.7 g/dL (3.4-5.0); ALBUMIN/GLOBULIN RATIO 0.6 (1.0-1.7); CALCIUM 9.3 mg/dL (8.5-10.1); CREATININE 1.6 mg/dL (0.7-1.3); GFR 56.1; MAGNESIUM 3.2 mg/dL (1.8-2.4); PHOSPHORUS 5.3 mg/dL (2.6-4.7); TOTAL BILIRUBIN 0.3 mg/dL (0.2-1.0); TOTAL PROTEIN 6.9 g/dL (6.4-8.2)
[2019-07-25] MEDS ORDERED: IV DEXTROSE 5% 1,000 ML IV SCH (07:30)
--- NOTE | 2019-07-25 08:30 | NUR ---
This RN spoke with Dr. Gatica for pt's BG running in the 300s consistently. Dr. Gatica will make changes to insulin orders.
[2019-07-25 08:49] LABS: BASE EXCESS ABG 2 mmol/L (-3-3); HCO3 ABG 30 mmol/L (21-28); PO2 ABG 67 mmHg (75-108); SAT O2 ABG 89 % (92-99)
[2019-07-25 08:51] LABS: PCO2 ABG 64 mmHg (35-46)
[2019-07-25 08:52] LABS: FIO2 ABG 100%
[2019-07-25] MEDS: DOXAZOSIN MESYLATE 4 MG TABLET. PO SCH (09:02)
[2019-07-25] MEDS: amLODIPine BESYLATE 10 MG TABLET PO SCH (09:02)
[2019-07-25] MEDS: ALLOPURINOL 300 MG TABLET. PO SCH (09:02)
[2019-07-25] MEDS: PANTOPRAZOLE IV PUSH 40 MG VIAL. IVP SCH (09:03)
--- NOTE | 2019-07-25 09:19 | RAD ---
PORTABLE CHEST 1V 07/25/2019 9:00 AM INDICATION: Covid 19, respiratory failure COMPARISON: None available TECHNIQUE: Portable frontal view of the chest is provided. FINDINGS: The cardiomediastinal silhouette is within normal limits. Endotracheal tube, right IJ central venous catheter, right IJ double-lumen dialysis catheter and nasogastric tube are in similar position. There is persistent moderate right pleural effusion with adjacent basilar atelectasis versus infiltrate. There is improvement with residual of patchy mixed interstitial and alveolar airspace disease. No pneumothorax. No suspicious osseous abnormality. IMPRESSION: Interval partial improvement of persistent moderate mixed interstitial and alveolar airspace disease throughout the lungs. Similar appearance of a moderate right pleural effusion with adjacent compressive atelectasis versus infiltrate. Support lines and tubes are in similar position. Distal tip of the nasogastric tube is difficult to visualize due to technique. Electronically signed by: Kasey Merida MD (07/25/2019 9:17 AM) [id number]
[2019-07-25] MEDS: INSULIN GLARGINE SYRINGE. SQ SCH ×2 (09:30→21:26)
[2019-07-25] MEDS: DEXMEDETOMIDINE 400 MCG in IV NORMAL SALINE 100ML 96 ML IV PRN ×2 (09:31→21:19)
--- NOTE | 2019-07-25 09:42 | PDOC ---
[employer] PROGRESS NOTE Chief Complaint Chief Complaint Acute hypoxic/// HYPERCAPNIC resp failure REQUIRING VENT SUPPORT Super morbid obesity Bibasilar lung airspace opacities likely atelectasis or infiltrates likely pneumonia or atelectasis or atypical/viral infection/viral pneumonia Diabetes Hypertension, uncontrolled normocytic anemia SEVERE PROTEIN, CALORIC MALNUTRITION COVID-19 POS Acute renal failure vasomotor etiology likely Hyperkalemia secondary to the above improved Constipation History of Present Illness History of Present Illness 07/25/2019 Patient seen and examined in the ICU COVID-19 unit Chart reviewed Discussed with RN He is critically ill On mechanical ventilation /04/08 50/100% FiO2 On IV TPN Versed Heparin vecuronium and Precedex Has an art line blood pressure 176/76 He is critically ill I discussed his case with the pharmacy we are increasing his Lantus to 30 twice daily Vitals/I&O Vitals/I&O: Vital Signs Date Time Temp Pulse Resp B/P (MAP) Pulse Ox O2 Delivery O2 Flow Rate FiO2 07/25/19 09:02 116 191/83 07/25/19 08:00 98.6 22 99 Ventilator 98.6 07/24/19 16:03 40.0 I & O 07/24/19 07/24/19 07/25/19 15:00 23:00 07:00 Intake Total 1821.3 ml 1997.5 ml Output Total 2500 ml 2300 ml 1850 ml Balance -2500 ml -478.7 ml 147.5 ml Physical Exam Physical Exam: GENERAL: patient is intubated and sedated unresponsive on the ventilator HEENT unremarkable for acute abnormality Chest bilateral equal air entry inspiratory and expiratory wheezes at the bilateral bases anteriorly Heart S1-S2 normal regular rate and rhythm loud systolic murmur at the right second intercostal space Abdomen is obese soft nontender nondistended no masses or organomegaly noted Extremity exam is unremarkable for acute abnormality 1+ bipedal edema is noted General: Oriented X3, Cooperative, No acute distress, mild distress Abdomen: Soft Extremities: No cyanosis Labs Labs: Laboratory Tests Test 07/24/19 12:51 07/24/19 17:18 07/24/19 18:50 07/25/19 00:26 Glucose (Fingerstick) 344 mg/dL (70-99) 335 mg/dL (70-99) 335 mg/dL (70-99) Heparin Anti-Xa Act, Unfractionated > 1.10 IU/mL (0.30-0.70) Test 07/25/19 00:50 07/25/19 06:27 07/25/19 06:30 07/25/19 08:45 Heparin Anti-Xa Act, Unfractionated > 1.10 IU/mL (0.30-0.70) > 1.10 IU/mL (0.30-0.70) Glucose (Fingerstick) 354 mg/dL (70-99) White Blood Count 14.5 x10^3/uL (4.0-11.0) Red Blood Count 4.20 x10^6/uL (4.30-5.70) Hemoglobin 11.5 g/dL (13.0-17.5) Hematocrit 35.8 % (39.0-53.0) Mean Corpuscular Volume 85 fL (79-100) Mean Corpuscular Hemoglobin 27 pg (25-35) Mean Corpuscular Hemoglobin Concent 32 g/dL (31-37) Red Cell Distribution Width 16.0 % (11.5-14.5) Platelet Count 399 x10^3/uL (140-400) Sodium Level 160 mmol/L (136-145) Potassium Level 5.0 mmol/L (3.5-5.1) Chloride Level 121 mmol/L (98-107) Carbon Dioxide Level 30 mmol/L (21-32) Anion Gap 9 (6-14) Blood Urea Nitrogen 111 mg/dL (8-26) Creatinine 1.6 mg/dL (0.7-1.3) Estimated GFR (Cockcroft-Gault) 56.1 BUN/Creatinine Ratio 69 (6-20) Glucose Level 374 mg/dL (70-99) Calcium Level 9.3 mg/dL (8.5-10.1) Phosphorus Level 5.3 mg/dL (2.6-4.7) Magnesium Level 3.2 mg/dL (1.8-2.4) Total Bilirubin 0.3 mg/dL (0.2-1.0) Aspartate Amino Transf (AST/SGOT) 16 U/L (15-37) Alanine Aminotransferase (ALT/SGPT) 81 U/L (16-63) Alkaline Phosphatase 84 U/L (46-116) Total Protein 6.9 g/dL (6.4-8.2) Albumin 2.7 g/dL (3.4-5.0) Albumin/Globulin Ratio 0.6 (1.0-1.7) O2 Saturation 89 % (92-99) Arterial Blood pH 7.29 (7.35-7.45) Arterial Blood pCO2 at Patient Temp 64 mmHg (35-46) Arterial Blood pO2 at Patient Temp 67 mmHg (75-108) Arterial Blood HCO3 30 mmol/L (21-28) Arterial Blood Base Excess 2 mmol/L (-3-3) FiO2 100% Test 07/25/19 09:10 Glucose (Fingerstick) 362 mg/dL (70-99) Assessment and Plan Assessmemt and Plan Problems Medical Problems: (1) Suspected COVID-19 virus infection Status: Acute Impression: Acute hypoxic/// HYPERCAPNIC resp failure REQUIRING VENT SUPPORT Super morbid obesity Bibasilar lung airspace opacities likely atelectasis or infiltrates likely pneumonia or atelectasis or atypical/viral infection/viral pneumonia Diabetes Hypertension, uncontrolled normocytic anemia SEVERE PROTEIN, CALORIC MALNUTRITION COVID-19 POS Acute renal failure vasomotor etiology likely Hyperkalemia secondary to the above improved Constipation Plan: ICU monitoring - Vent weaning 0. Increase Lantus to 30 twice daily 1. Continue present AC mode, on 100% FIO2 ,14 PEEP. Make changes based on ABG's 2. COVID-19 positive 3. Empiric antibiotics. 4. s/p convalescent plasma transfusion 07/13 5. nutrition, PPN and TF at5 low dose 6. Monitor LFT 7. Discussed with RN. 8. S/P monoclonal antibodies/Tocilizumab 07/15/19 9. Hold tello inhibitor, appreciate nephrology consultation, temporary catheter in place 10.Colace BID He is critically ill Total time 32 minutes Comment Review of Relevant I have reviewed the following items lizzy (where applicable) has been applied. Medications: Current Medications Medications (Trade) Dose Ordered Sig/Aria Route PRN Reason Start Time Stop Time Status Last Admin Dose Admin Multivitamins 10 ml/Chromium/ Copper/Manganese/ Seleni/Zn 0.5 ml/ Total Parenteral Nutrition/Amino Acids/Dextrose/ Fat Emulsion Intravenous 1,680 ml @ 70 mls/hr TPN CONT IV 07/24/19 22:00 07/25/19 21:59 07/24/19 20:31 Pantoprazole Sodium (PROTONIX VIAL for IV PUSH) 40 mg DAILYAC IVP 07/25/19 07:30 07/25/19 09:03 Heparin Sodium/ Dextrose 250 ml @ 0 mls/hr CONT PRN IV PER PROTOCOL 07/24/19 11:15 07/24/19 22:52 Dextrose 1,000 ml @ 50 mls/hr Q20H IV 07/24/19 13:30 07/25/19 07:33 DC 07/24/19 13:47 Dextrose 1,000 ml @ 125 mls/hr Q8H IV 07/25/19 07:30 07/25/19 09:01 Insulin Glargine (Lantus Syringe) 30 unit BID SQ 07/25/19 09:00 07/25/19 09:30 MICHELINE JI III DO July 25, 2019 09:42
--- NOTE | 2019-07-25 09:49 | PDOC ---
SUBJECTIVE ROS Intubated, On MV OBJECTIVE Vital Signs Vital Signs Date Time Temp Pulse Resp B/P (MAP) Pulse Ox O2 Delivery O2 Flow Rate FiO2 07/25/19 09:02 116 191/83 07/25/19 08:00 98.6 22 99 Ventilator 98.6 07/24/19 16:03 40.0 I & 0 Intake and Output 07/25/19 07:00 Intake Total 3818.8 ml Output Total 6650 ml Balance -2831.2 ml IV Total 3818.8 ml Output Urine Total 6650 ml PHYSICAL EXAM Physical Exam GENERAL: patient is intubated and sedated HEENT Intubated Lungs- decreased at bases Heart S1-S2 systolic murmur + Abdomen obese soft nontender Extremity 1+ LE edema Sims + Neuro- On Vent DIAGNOSIS/ASSESSMENT Assessment & Plan GABRIEL --ATN ,Non Oliguric, Improving renal function, Polyuric phase, UOP 6+ lts Discrepancy between BUN/Cr 2/2 Catabolic state , TPN and Steroids(held now) ; BUN improving 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 repeat Na Adjust fluids accordingly HyperKalemia - Resolved , Hold off K in TPN Acute hypoxic respiratory failure secondary to coronavirus disease-19 pneumonia. cytokine surge/ ALI/ ARDS, INTUBATED 07/14 s/p convalescent plasma transfusion 07/13; S/P monoclonal antibodies/Tocilizumab 07/15/19 Abnormal chest x-ray with bilateral infiltrates suggestive of coronavirus disease-19 pneumonia. Cannot exclude bacterial pneumonia. Elevated D-dimer and LFT's Super morbid obesity Diabetes Hypertension, antihypertensives Anemia- stable Dw RN COMMENT/RELEVANT DATA Meds Current Medications Medications (Trade) Dose Ordered Sig/Aria Start Time Stop Time Status Last Admin Dose Admin Acetaminophen (Tylenol) 650 mg PRN Q4HRS PRN 07/12/19 16:45 07/14/19 18:29 650 MG Al Hydroxide/Mg Hydroxide (Mylanta Plus Xs) 30 ml PRN DAILY PRN 07/12/19 16:45 07/22/19 04:48 DC Albuterol Sulfate (Ventolin Neb Soln) 2.5 mg PRN Q4HRS PRN 07/12/19 18:45 Albuterol/ Ipratropium (Duoneb) 3 ml Q4HRS 07/12/19 20:00 07/12/19 18:33 DC Allopurinol (Zyloprim) 300 mg DAILY 07/13/19 09:00 07/25/19 09:02 300 MG Amino Acids/ Glycerin/ Electrolytes 1,000 ml @ 80 mls/hr [id number] 07/16/19 10:00 07/18/19 21:59 DC 07/18/19 13:03 80 MLS/HR Amlodipine Besylate (Norvasc) 10 mg 1X ONCE 07/12/19 23:30 07/12/19 23:31 DC 07/12/19 23:00 10 MG Atorvastatin Calcium (Lipitor) 40 mg QHS 07/12/19 21:00 07/19/19 14:07 DC 07/18/19 20:57 40 MG Calcium Gluconate (Calcium Gluconate) 1,000 mg 1X ONCE 07/22/19 13:15 07/22/19 13:21 DC 07/22/19 13:38 1,000 MG Clonidine HCl (Catapres) 0.1 mg PRN Q6HRS PRN 07/12/19 16:45 07/15/19 04:25 0.1 MG Dexmedetomidine HCl 400 mcg/ Sodium Chloride 100 ml @ 0 mls/hr CONT PRN 07/15/19 16:30 UNV Dextrose 1,000 ml @ 125 mls/hr Q8H 07/25/19 07:30 07/25/19 09:01 125 MLS/HR Dextrose (Dextrose 50%-Water Syringe) 25 gm 1X ONCE 07/22/19 13:15 07/22/19 13:21 DC 07/22/19 13:41 25 GM Docusate Sodium (Colace) 100 mg PRN BID PRN 07/12/19 16:45 Doxazosin Mesylate (Cardura) 8 mg 1X ONCE 07/12/19 23:30 07/12/19 23:31 DC 07/12/19 23:08 8 MG Enoxaparin Sodium (Lovenox 60mg Syringe) 60 mg Q12HR 07/22/19 21:00 07/24/19 11:20 DC 07/24/19 08:20 60 MG Ephedrine Sulfate (ePHEDrine PF IN SALINE SYRINGE) 50 mg STK-MED ONCE 07/23/19 12:41 07/23/19 12:41 DC Famotidine (Pepcid Vial) 20 mg BID 07/15/19 09:00 07/24/19 11:20 DC 07/24/19 08:20 20 MG Fentanyl Citrate 55 ml @ 0 mls/hr CONT PRN 07/16/19 22:00 07/24/19 16:03 2 MLS/HR Furosemide (Lasix) 40 mg 1X ONCE 07/22/19 09:00 07/22/19 09:01 DC 07/22/19 09:10 40 MG Guaifenesin (Robitussin) 200 mg PRN Q4HRS PRN 07/12/19 16:45 07/14/19 08:52 200 MG Haloperidol Lactate (Haldol Inj) 3 mg PRN Q4HRS PRN 07/14/19 22:30 07/14/19 22:59 3 MG Heparin Sodium (Porcine) (Heparin Sodium) 2,600 unit PRN Q6HRS PRN 07/24/19 11:15 Heparin Sodium/ Dextrose 250 ml @ 0 mls/hr CONT PRN 07/24/19 11:15 07/24/19 22:52 23.8 MLS/HR Hydralazine HCl (Apresoline Inj) 10 mg PRN Q4HRS PRN 07/12/19 22:45 07/19/19 09:07 10 MG Info (Anti-Coagulation Monitoring By Pharmacy) 1 each PRN DAILY PRN 07/22/19 04:15 07/23/19 08:04 DC 07/22/19 04:54 1 EACH Info (Tpn Per Pharmacy) 1 each PRN DAILY PRN 07/18/19 10:45 07/24/19 09:39 1 EACH Insulin Glargine (Lantus Syringe) 30 unit BID 07/25/19 09:00 07/25/19 09:30 30 UNIT Insulin Human Lispro (HumaLOG) 0-5 UNITS Q6HRS 07/22/19 12:00 07/25/19 06:31 5 UNITS Insulin Human Regular (HumuLIN R VIAL) 10 unit 1X ONCE 07/22/19 13:15 07/22/19 13:21 DC 07/22/19 13:39 10 UNIT Ketamine HCl (Ketamine) 50 mg 1X ONCE 07/15/19 06:15 07/15/19 06:16 DC 07/15/19 05:55 50 MG Labetalol HCl (Normodyne Iv Push) 10 mg PRN Q5MIN PRN 07/19/19 09:30 Lactobacillus Rhamnosus (Culturelle) 1 cap BID 07/13/19 21:00 07/21/19 10:47 DC 07/20/19 20:10 1 CAP Levofloxacin/ Dextrose 100 ml @ 100 mls/hr 1X ONCE 07/12/19 17:45 07/12/19 18:44 DC 07/12/19 17:58 100 MLS/HR Lidocaine HCl (Buffered Lidocaine 1%) 6 ml 1X ONCE 07/22/19 17:00 07/22/19 17:01 DC 07/22/19 16:53 6 ML Lidocaine HCl (Lidocaine 1% 20ml Vial) 20 ml STK-MED ONCE 07/22/19 15:37 07/22/19 15:37 DC Lisinopril (Prinivil) 10 mg 1X ONCE 07/12/19 23:00 07/12/19 23:01 DC 07/13/19 00:41 10 MG Lorazepam (Ativan Inj) 1 mg PRN Q2HRS PRN 07/12/19 23:00 07/17/19 12:20 1 MG Metformin HCl (Glucophage) 1,000 mg BIDWMEALS 07/13/19 08:00 07/20/19 13:33 DC 07/19/19 18:07 1,000 MG Methylprednisolone Sodium Succinate (SOLU-Medrol 125MG VIAL) 250 mg Q6HRS 07/21/19 14:30 UNV Methylprednisolone Sodium Succinate 250 mg/Sodium Chloride 100 ml @ 100 mls/hr Q6HRS 07/21/19 16:00 07/24/19 10:15 DC 07/24/19 05:52 100 MLS/HR Metoprolol Tartrate (Lopressor Vial) 5 mg Q6HRS 07/19/19 18:00 07/25/19 06:29 5 MG Metoprolol Tartrate (Lopressor) 25 mg BID 07/12/19 21:00 07/19/19 14:04 DC 07/18/19 20:57 25 MG Midazolam HCl 100 ml @ 0 mls/hr CONT PRN 07/15/19 05:45 07/25/19 01:46 10 MLS/HR Morphine Sulfate (Morphine Preservative Free) 10 mg STK-MED ONCE 07/23/19 12:00 07/23/19 12:01 DC Multivitamins 10 ml/Chromium/ Copper/Manganese/ Seleni/Zn 0.5 ml/ Total Parenteral Nutrition/Amino Acids/Dextrose/ Fat Emulsion Intravenous 1,680 ml @ 70 mls/hr TPN CONT 07/24/19 22:00 07/25/19 21:59 07/24/19 20:31 70 MLS/HR Norepinephrine Bitartrate 8 mg/ Dextrose 258 ml @ 35.217 mls/ hr CONT PRN 07/19/19 16:00 07/24/19 11:09 DC 07/19/19 15:59 17.609 MLS/HR Ondansetron HCl (Zofran) 4 mg PRN Q4HRS PRN 07/12/19 16:45 Oxytocin (Pitocin) 10 unit STK-MED ONCE 07/23/19 12:00 07/23/19 12:01 DC Pantoprazole Sodium (PROTONIX VIAL for IV PUSH) 40 mg DAILYAC 07/25/19 07:30 07/25/19 09:03 40 MG Propofol 100 ml @ 2.7 mls/hr CONT PRN 07/15/19 06:15 07/24/19 11:10 DC 07/15/19 10:08 54 MLS/HR Sodium Polystyrene Sulfonate (Kayexalate) 30 gm 1X ONCE 07/22/19 13:15 07/22/19 13:21 DC Sodium Acetate 50 meq/Calcium Gluconate 5 meq/ Multivitamins 10 ml/Chromium/ Copper/Manganese/ Seleni/Zn 0.5 ml/ Total Parenteral Nutrition/Amino Acids/Dextrose/ Fat Emulsion Intravenous 1,680 ml @ 70 mls/hr TPN CONT 07/23/19 22:00 07/24/19 21:59 DC 07/23/19 20:44 70 MLS/HR Sodium Acetate 60 meq/Calcium Gluconate 5 meq/ Multivitamins 10 ml/Chromium/ Copper/Manganese/ Seleni/Zn 0.5 ml/ Total Parenteral Nutrition/Amino Acids/Dextrose/ Fat Emulsion Intravenous 1,680 ml @ 70 mls/hr TPN CONT 07/22/19 22:00 07/23/19 21:59 DC 07/22/19 23:49 70 MLS/HR Sodium Acetate 60 meq/Potassium Phosphate 13.6 mmol/Magnesium Sulfate 10 meq/ Calcium Gluconate 10 meq/ Multivitamins 10 ml/Chromium/ Copper/Manganese/ Seleni/Zn 0.5 ml/ Total Parenteral Nutrition/Amino Acids/Dextrose 1,920 ml @ 80 mls/hr TPN CONT 07/18/19 22:00 07/19/19 21:59 DC 07/18/19 22:18 80 MLS/HR Sodium Acetate 60 meq/Potassium Phosphate 13.6 mmol/Magnesium Sulfate 5 meq/ Calcium Gluconate 10 meq/ Multivitamins 10 ml/Chromium/ Copper/Manganese/ Seleni/Zn 0.5 ml/ Total Parenteral Nutrition/Amino Acids/Dextrose/ Fat Emulsion Intravenous 1,920 ml @ 80 mls/hr TPN CONT 07/19/19 22:00 07/20/19 21:59 DC 07/19/19 20:45 80 MLS/HR Sodium Acetate 60 meq/Sodium Phosphate 5 mmol/ Calcium Gluconate 5 meq/ Multivitamins 10 ml/Chromium/ Copper/Manganese/ Seleni/Zn 0.5 ml/ Total Parenteral Nutrition/Amino Acids/Dextrose/ Fat Emulsion Intravenous 1,920 ml @ 80 mls/hr TPN CONT 07/20/19 22:00 07/21/19 21:59 DC 07/20/19 21:23 80 MLS/HR Sodium Bicarbonate (Sodium Bicarb Adult 8.4% Syr) 50 meq 1X ONCE 07/22/19 13:15 07/22/19 13:21 DC 07/22/19 13:38 50 MEQ Sodium Chloride 1,000 ml @ 20 mls/hr Q24H 07/12/19 16:41 07/23/19 17:10 20 MLS/HR Sodium Chloride (Normal Saline Flush) 3 ml QSHIFT PRN 07/12/19 16:45 Succinylcholine Chloride (Anectine) 200 mg 1X ONCE 07/15/19 06:15 07/15/19 06:16 DC 07/15/19 06:00 200 MG Throat Lozenges (Cepacol Sore Throat Lozenge) 1 jenaro PRN Q2HRS PRN 07/13/19 16:30 07/14/19 08:56 1 JENARO Tocilizumab 800 mg/Sodium Chloride 100 ml @ 100 mls/hr ONCE ONCE 07/15/19 16:00 07/15/19 16:59 DC 07/15/19 15:51 100 MLS/HR Vecuronium [place] 50 mg/ Miscellaneous 50 ml @ 8.976 mls/ hr CONT PRN 07/17/19 12:15 07/25/19 05:13 8.976 MLS/HR Vecuronium [place] (Norcuron Bolus) 10 mg PRN Q6HRS PRN 07/17/19 10:00 07/17/19 12:19 10 MG Lab Laboratory Tests Test 07/24/19 12:51 07/24/19 17:18 07/24/19 18:50 07/25/19 00:26 Glucose (Fingerstick) 344 mg/dL (70-99) 335 mg/dL (70-99) 335 mg/dL (70-99) Heparin Anti-Xa Act, Unfractionated > 1.10 IU/mL (0.30-0.70) Test 07/25/19 00:50 07/25/19 06:27 07/25/19 06:30 07/25/19 08:45 Heparin Anti-Xa Act, Unfractionated > 1.10 IU/mL (0.30-0.70) > 1.10 IU/mL (0.30-0.70) Glucose (Fingerstick) 354 mg/dL (70-99) White Blood Count 14.5 x10^3/uL (4.0-11.0) Red Blood Count 4.20 x10^6/uL (4.30-5.70) Hemoglobin 11.5 g/dL (13.0-17.5) Hematocrit 35.8 % (39.0-53.0) Mean Corpuscular Volume 85 fL (79-100) Mean Corpuscular Hemoglobin 27 pg (25-35) Mean Corpuscular Hemoglobin Concent 32 g/dL (31-37) Red Cell Distribution Width 16.0 % (11.5-14.5) Platelet Count 399 x10^3/uL (140-400) Sodium Level 160 mmol/L (136-145) Potassium Level 5.0 mmol/L (3.5-5.1) Chloride Level 121 mmol/L (98-107) Carbon Dioxide Level 30 mmol/L (21-32) Anion Gap 9 (6-14) Blood Urea Nitrogen 111 mg/dL (8-26) Creatinine 1.6 mg/dL (0.7-1.3) Estimated GFR (Cockcroft-Gault) 56.1 BUN/Creatinine Ratio 69 (6-20) Glucose Level 374 mg/dL (70-99) Calcium Level 9.3 mg/dL (8.5-10.1) Phosphorus Level 5.3 mg/dL (2.6-4.7) Magnesium Level 3.2 mg/dL (1.8-2.4) Total Bilirubin 0.3 mg/dL (0.2-1.0) Aspartate Amino Transf (AST/SGOT) 16 U/L (15-37) Alanine Aminotransferase (ALT/SGPT) 81 U/L (16-63) Alkaline Phosphatase 84 U/L (46-116) Total Protein 6.9 g/dL (6.4-8.2) Albumin 2.7 g/dL (3.4-5.0) Albumin/Globulin Ratio 0.6 (1.0-1.7) O2 Saturation 89 % (92-99) Arterial Blood pH 7.29 (7.35-7.45) Arterial Blood pCO2 at Patient Temp 64 mmHg (35-46) Arterial Blood pO2 at Patient Temp 67 mmHg (75-108) Arterial Blood HCO3 30 mmol/L (21-28) Arterial Blood Base Excess 2 mmol/L (-3-3) FiO2 100% Test 07/25/19 09:10 Glucose (Fingerstick) 362 mg/dL (70-99) Results All relevant outside records, renal labs, imaging studies, telemetry/EKG's were reviewed. DIANA SANDY MD July 25, 2019 09:49
--- NOTE | 2019-07-25 10:01 | NUR ---
PLEASE DISREGARD SECOND SET OF VITAL SIGNS FOR 10:00AM THEY WERE ENTERED IN ERROR.
--- NOTE | 2019-07-25 10:04 | PDOC ---
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 07/25/19 1004: CARDIO Progress Notes Date and Time Date of Service 07/25/19 Time of Evaluation 1045 Subjective Subjective: Other (sedated / intubated ) Vitals Vitals Vital Signs Date Time Temp Pulse Resp B/P (MAP) Pulse Ox O2 Delivery O2 Flow Rate FiO2 07/25/19 09:02 116 191/83 07/25/19 08:00 98.6 22 99 Ventilator 98.6 07/24/19 16:03 40.0 Weight Weight [ ] Input and Output Intake and Output Intake and Output 07/25/19 07:00 Intake Total 3818.8 ml Output Total 6650 ml Balance -2831.2 ml IV Total 3818.8 ml Output Urine Total 6650 ml Laboratory Labs Laboratory Tests Test 07/24/19 12:51 07/24/19 17:18 07/24/19 18:50 07/25/19 00:26 Glucose (Fingerstick) 344 mg/dL (70-99) 335 mg/dL (70-99) 335 mg/dL (70-99) Heparin Anti-Xa Act, Unfractionated > 1.10 IU/mL (0.30-0.70) Test 07/25/19 00:50 07/25/19 06:27 07/25/19 06:30 07/25/19 08:45 Heparin Anti-Xa Act, Unfractionated > 1.10 IU/mL (0.30-0.70) > 1.10 IU/mL (0.30-0.70) Glucose (Fingerstick) 354 mg/dL (70-99) White Blood Count 14.5 x10^3/uL (4.0-11.0) Red Blood Count 4.20 x10^6/uL (4.30-5.70) Hemoglobin 11.5 g/dL (13.0-17.5) Hematocrit 35.8 % (39.0-53.0) Mean Corpuscular Volume 85 fL (79-100) Mean Corpuscular Hemoglobin 27 pg (25-35) Mean Corpuscular Hemoglobin Concent 32 g/dL (31-37) Red Cell Distribution Width 16.0 % (11.5-14.5) Platelet Count 399 x10^3/uL (140-400) Sodium Level 160 mmol/L (136-145) Potassium Level 5.0 mmol/L (3.5-5.1) Chloride Level 121 mmol/L (98-107) Carbon Dioxide Level 30 mmol/L (21-32) Anion Gap 9 (6-14) Blood Urea Nitrogen 111 mg/dL (8-26) Creatinine 1.6 mg/dL (0.7-1.3) Estimated GFR (Cockcroft-Gault) 56.1 BUN/Creatinine Ratio 69 (6-20) Glucose Level 374 mg/dL (70-99) Calcium Level 9.3 mg/dL (8.5-10.1) Phosphorus Level 5.3 mg/dL (2.6-4.7) Magnesium Level 3.2 mg/dL (1.8-2.4) Total Bilirubin 0.3 mg/dL (0.2-1.0) Aspartate Amino Transf (AST/SGOT) 16 U/L (15-37) Alanine Aminotransferase (ALT/SGPT) 81 U/L (16-63) Alkaline Phosphatase 84 U/L (46-116) Total Protein 6.9 g/dL (6.4-8.2) Albumin 2.7 g/dL (3.4-5.0) Albumin/Globulin Ratio 0.6 (1.0-1.7) O2 Saturation 89 % (92-99) Arterial Blood pH 7.29 (7.35-7.45) Arterial Blood pCO2 at Patient Temp 64 mmHg (35-46) Arterial Blood pO2 at Patient Temp 67 mmHg (75-108) Arterial Blood HCO3 30 mmol/L (21-28) Arterial Blood Base Excess 2 mmol/L (-3-3) FiO2 100% Test 07/25/19 09:10 Glucose (Fingerstick) 362 mg/dL (70-99) Microbiology Micro Microbiology 07/12/19 Blood Culture - Final, Complete NO GROWTH AFTER 5 DAYS Physical Exam Chest: Symmetric LUNGS: Other (mechanical vent ) Heart: RRR (SR/ST), other (distant heart tones ) Abdomen: Other (obese, distended) Extremities: Other (right first finger tip with eschar) Neurology: other (sedated) Assessment Assessment 1. Acute respiratory failure secondary to COVID PNA, ARDS. s/p intubation. s/p convalescent plasma. Potential thoracentesis 2. Systolic murmur 3. Hypertension; controlled 4. Hyperlipidemia; statin on hold 5. Diabetes, II 6. Morbid obesity 7. GABRIEL 8. Hypernatremia 9. Right index finger eschar. Recommendations Heprain gtt per protocol; presently on hold with supratherapeutic UFH Limited echo to assess LV systolic function, PAP Metoprolol IV q6 Ongoing treatment as per pulm and ID. Supportive care MARY BOOKER MD 07/26/19 0957: CARDIO Progress Notes Plan Plan Late entry for 07/25/2019 Pt. seen and examined. Agree with above [employer] note. Supportive care. SIMA WIN APRN July 25, 2019 10:04 MARY BOOKER MD July 26, 2019 09:57
--- NOTE | 2019-07-25 10:25 | PDOC ---
Provider Note Provider Note IR NOTE Consulted for thoracentesis. Basilar small effusion vs atelectasis. However, today's xray improved. Patient multiple liters negative, last few days. Given risk of pneumothorax with bedside thora in setting of small effusion in a morbidly obese patient on vent, would prefer to give another day to see if continues to improve. If not. will come to bedside and look for fluid with US, and if significant effusion present, will proceed with thora. GARRICK BATES MD July 25, 2019 10:25
--- NOTE | 2019-07-25 13:01 | NUR ---
SS following up with discharge planning. SS discussed with RN, Martín. Pt remains on the vent at this time. Pt is Full Code and COVID19 positive. SS will continue to follow for discharge planning.
--- NOTE | 2019-07-25 13:14 | NUR ---
Dr. Clinton on the unit this AM and notified of critical UFH reading. Heparin gtt paused at 0909. Redraw for UFH ordered at 1100. Result called to ROSALIND Hernandez and orders were received to redraw heparin at 1400. This RN will call Mary with results to see about turning Heparin gtt on or keeping it off.
[2019-07-25 14:17] LABS: CALCIUM 9.2 mg/dL (8.5-10.1); CREATININE 1.7 mg/dL (0.7-1.3); GFR 52.3; POTASSIUM 5.6 mmol/L (3.5-5.1)
[2019-07-25] MEDS: TPN PER PHARMACY MC PRN (14:20)
--- NOTE | 2019-07-25 14:34 | CARD ---
MR#: [id number] Date of Study: 07/25/2019 Ordering Physician: SIMA WIN, Referring Physician: SIMA WIN, Tech: Ana Ayers MAXINE APPROVED REPORT EXAM: LIMITED Two-dimensional echocardiogram Other Information Quality : Technically Limited Technically limited study due to body habitus and ventilator INDICATION LV Function:Systolic Covid Positive 2D DIMENSIONS Left Atrium(2D)3.2 (1.6-4.0cm)IVSd1.3 (0.7-1.1cm) Aortic Root(2D)3.0 (2.0-3.7cm)LVDd4.2 (3.9-5.9cm) PWd1.3 (0.7-1.1cm)LVDs2.4 (2.5-4.0cm) FS (%) 30.0 %SV60.6 ml LVEF(%)60.0 (>50%) Tricuspid Valve TR P. [id number]/sTR Peak Gr.25mmHg LEFT VENTRICLE The left ventricle is normal size. There is mild to moderate concentric left ventricular hypertrophy. The left ventricular systolic function is normal. The Ejection Fraction is 60%. Unable to accurately assess. ATRIA The left atrium size is normal. GREAT VESSELS The aortic root is normal in size. The IVC is dilated and collapses <50% with inspiration. PERICARDIAL EFFUSION There is a trace pericardial effusion. Critical Notification Critical Value: No <Conclusion> Technically very difficult study. The left ventricular systolic function is normal. The Ejection Fraction is 60%. Endocardium poorly visualized and hence wall motion abnormalities cannot be ruled out. There is a trace pericardial effusion. Signed by : Phill Heck, Electronically Approved : 07/25/2019 14:34:14
--- NOTE | 2019-07-25 15:14 | NUR ---
Pharmacy TPN Dosing Note S: REINALDO BOWER is a 48 year old M Currently receiving Central Continuous TPN started 07/18/19 B:Pertinent PMH: critical illness Height: 6 feet, 1 inches Weight: 167.876669 kg Current diet: NPO LABS: Sodium: 160 Potassium: 5 Chloride: 121 Calcium: 9.3 Corrected Calcium: 10.34 Magnesium: 3.2 CO2: 32 SCr: 1.6 Glucose: 362 Albumin: 2.7 AST: 40 ALT: 132 TPN FORMULA: TPN TYPE: Central Continuous AMINO ACIDS: 210 gm DEXTROSE: 225 gm LIPIDS: 20 gm SODIUM CHLORIDE: mEq SODIUM ACETATE: -- mEq SODIUM PHOSPHATE: - mmol POTASSIUM CHLORIDE: mEq POTASSIUM ACETATE: mEq POTASSIUM PHOSPHATE: - mmol MAGNESIUM: - mEq CALCIUM: -- mEq INSULIN: units MULTIPLE VITAMIN: 10 ml TRACE ELEMENTS: 0.5 ml(s) TPN PLAN: increase aa to 210 gm, up rate to 90 ml/hr. all lytes removed from tpn. lab tomorrow. R: Change TPN TO 90 ML/HR Will monitor electrolytes, glucose, and tolerance to TPN. CHAIM BAUER [facility], 07/25/19 [id number]
[2019-07-25] MEDS: IV DEXTROSE 5 %-0.45 % NACL 1,000 ML IV SCH ×2 (15:27→23:03)
[2019-07-25] MEDS: IV NORMAL SALINE 1000ML BAG 1,000 ML IV SCH (16:22)
--- NOTE | 2019-07-25 16:45 | PDOC ---
PULMONARY PROGRESS NOTES Subjective continue AC mode, on 100% fio2 13 PEEP on versed, vec, fent, and precedex gtts Vitals Vital Signs Date Time Temp Pulse Resp B/P (MAP) Pulse Ox O2 Delivery O2 Flow Rate FiO2 07/25/19 15:50 98 Ventilator 07/25/19 15:00 126 32 137/61 (86) 07/25/19 12:00 98.6 98.6 07/24/19 16:03 40.0 Comments Visual exam done due to COVID pandemic Patient in sync with the ventilator, no respiratory distress. Labs Laboratory Tests Test 07/23/19 17:53 07/23/19 23:57 07/24/19 05:48 07/24/19 05:50 Glucose (Fingerstick) 296 mg/dL (70-99) 300 mg/dL (70-99) 353 mg/dL (70-99) White Blood Count 15.3 x10^3/uL (4.0-11.0) Red Blood Count 4.15 x10^6/uL (4.30-5.70) Hemoglobin 11.1 g/dL (13.0-17.5) Hematocrit 35.4 % (39.0-53.0) Mean Corpuscular Volume 85 fL (79-100) Mean Corpuscular Hemoglobin 27 pg (25-35) Mean Corpuscular Hemoglobin Concent 31 g/dL (31-37) Red Cell Distribution Width 16.0 % (11.5-14.5) Platelet Count 409 x10^3/uL (140-400) Erythrocyte Sedimentation Rate 59 (0-15) Fibrinogen 485 mg/dL (200-440) D-Dimer (Avis) 9.74 ug/mlFEU (0.00-0.50) Sodium Level 153 mmol/L (136-145) Potassium Level 5.0 mmol/L (3.5-5.1) Chloride Level 115 mmol/L (98-107) Carbon Dioxide Level 30 mmol/L (21-32) Anion Gap 8 (6-14) Blood Urea Nitrogen 126 mg/dL (8-26) Creatinine 1.7 mg/dL (0.7-1.3) Estimated GFR (Cockcroft-Gault) 52.3 Glucose Level 377 mg/dL (70-99) Calcium Level 9.4 mg/dL (8.5-10.1) Ferritin 383 ng/mL (26-388) Lactate Dehydrogenase 507 U/L (85-227) C-Reactive Protein, Quantitative 0.8 mg/L (0-3.3) Test 07/24/19 08:00 07/24/19 12:51 07/24/19 17:18 07/24/19 18:50 O2 Saturation 88 % (92-99) Arterial Blood pH 7.28 (7.35-7.45) Arterial Blood pCO2 at Patient Temp 64 mmHg (35-46) Arterial Blood pO2 at Patient Temp 67 mmHg (75-108) Arterial Blood HCO3 29 mmol/L (21-28) Arterial Blood Base Excess 1 mmol/L (-3-3) FiO2 100 +13 Glucose (Fingerstick) 344 mg/dL (70-99) 335 mg/dL (70-99) Heparin Anti-Xa Act, Unfractionated > 1.10 IU/mL (0.30-0.70) Test 07/25/19 00:26 07/25/19 00:50 07/25/19 06:27 07/25/19 06:30 Glucose (Fingerstick) 335 mg/dL (70-99) 354 mg/dL (70-99) Heparin Anti-Xa Act, Unfractionated > 1.10 IU/mL (0.30-0.70) > 1.10 IU/mL (0.30-0.70) White Blood Count 14.5 x10^3/uL (4.0-11.0) Red Blood Count 4.20 x10^6/uL (4.30-5.70) Hemoglobin 11.5 g/dL (13.0-17.5) Hematocrit 35.8 % (39.0-53.0) Mean Corpuscular Volume 85 fL (79-100) Mean Corpuscular Hemoglobin 27 pg (25-35) Mean Corpuscular Hemoglobin Concent 32 g/dL (31-37) Red Cell Distribution Width 16.0 % (11.5-14.5) Platelet Count 399 x10^3/uL (140-400) Sodium Level 160 mmol/L (136-145) Potassium Level 5.0 mmol/L (3.5-5.1) Chloride Level 121 mmol/L (98-107) Carbon Dioxide Level 30 mmol/L (21-32) Anion Gap 9 (6-14) Blood Urea Nitrogen 111 mg/dL (8-26) Creatinine 1.6 mg/dL (0.7-1.3) Estimated GFR (Cockcroft-Gault) 56.1 BUN/Creatinine Ratio 69 (6-20) Glucose Level 374 mg/dL (70-99) Calcium Level 9.3 mg/dL (8.5-10.1) Phosphorus Level 5.3 mg/dL (2.6-4.7) Magnesium Level 3.2 mg/dL (1.8-2.4) Total Bilirubin 0.3 mg/dL (0.2-1.0) Aspartate Amino Transf (AST/SGOT) 16 U/L (15-37) Alanine Aminotransferase (ALT/SGPT) 81 U/L (16-63) Alkaline Phosphatase 84 U/L (46-116) Total Protein 6.9 g/dL (6.4-8.2) Albumin 2.7 g/dL (3.4-5.0) Albumin/Globulin Ratio 0.6 (1.0-1.7) Test 07/25/19 08:45 07/25/19 09:10 07/25/19 11:34 07/25/19 11:38 O2 Saturation 89 % (92-99) Arterial Blood pH 7.29 (7.35-7.45) Arterial Blood pCO2 at Patient Temp 64 mmHg (35-46) Arterial Blood pO2 at Patient Temp 67 mmHg (75-108) Arterial Blood HCO3 30 mmol/L (21-28) Arterial Blood Base Excess 2 mmol/L (-3-3) FiO2 100% Glucose (Fingerstick) 362 mg/dL (70-99) 322 mg/dL (70-99) Heparin Anti-Xa Act, Unfractionated 0.77 IU/mL (0.30-0.70) Test 07/25/19 13:48 Heparin Anti-Xa Act, Unfractionated 0.39 IU/mL (0.30-0.70) Sodium Level 159 mmol/L (136-145) Potassium Level 5.6 mmol/L (3.5-5.1) Chloride Level 121 mmol/L (98-107) Carbon Dioxide Level 30 mmol/L (21-32) Anion Gap 8 (6-14) Blood Urea Nitrogen 114 mg/dL (8-26) Creatinine 1.7 mg/dL (0.7-1.3) Estimated GFR (Cockcroft-Gault) 52.3 Glucose Level 403 mg/dL (70-99) Calcium Level 9.2 mg/dL (8.5-10.1) Laboratory Tests Test 07/24/19 17:18 07/24/19 18:50 07/25/19 00:26 07/25/19 00:50 Glucose (Fingerstick) 335 mg/dL (70-99) 335 mg/dL (70-99) Heparin Anti-Xa Act, Unfractionated > 1.10 IU/mL (0.30-0.70) > 1.10 IU/mL (0.30-0.70) Test 07/25/19 06:27 07/25/19 06:30 07/25/19 08:45 07/25/19 09:10 Glucose (Fingerstick) 354 mg/dL (70-99) 362 mg/dL (70-99) White Blood Count 14.5 x10^3/uL (4.0-11.0) Red Blood Count 4.20 x10^6/uL (4.30-5.70) Hemoglobin 11.5 g/dL (13.0-17.5) Hematocrit 35.8 % (39.0-53.0) Mean Corpuscular Volume 85 fL (79-100) Mean Corpuscular Hemoglobin 27 pg (25-35) Mean Corpuscular Hemoglobin Concent 32 g/dL (31-37) Red Cell Distribution Width 16.0 % (11.5-14.5) Platelet Count 399 x10^3/uL (140-400) Heparin Anti-Xa Act, Unfractionated > 1.10 IU/mL (0.30-0.70) Sodium Level 160 mmol/L (136-145) Potassium Level 5.0 mmol/L (3.5-5.1) Chloride Level 121 mmol/L (98-107) Carbon Dioxide Level 30 mmol/L (21-32) Anion Gap 9 (6-14) Blood Urea Nitrogen 111 mg/dL (8-26) Creatinine 1.6 mg/dL (0.7-1.3) Estimated GFR (Cockcroft-Gault) 56.1 BUN/Creatinine Ratio 69 (6-20) Glucose Level 374 mg/dL (70-99) Calcium Level 9.3 mg/dL (8.5-10.1) Phosphorus Level 5.3 mg/dL (2.6-4.7) Magnesium Level 3.2 mg/dL (1.8-2.4) Total Bilirubin 0.3 mg/dL (0.2-1.0) Aspartate Amino Transf (AST/SGOT) 16 U/L (15-37) Alanine Aminotransferase (ALT/SGPT) 81 U/L (16-63) Alkaline Phosphatase 84 U/L (46-116) Total Protein 6.9 g/dL (6.4-8.2) Albumin 2.7 g/dL (3.4-5.0) Albumin/Globulin Ratio 0.6 (1.0-1.7) O2 Saturation 89 % (92-99) Arterial Blood pH 7.29 (7.35-7.45) Arterial Blood pCO2 at Patient Temp 64 mmHg (35-46) Arterial Blood pO2 at Patient Temp 67 mmHg (75-108) Arterial Blood HCO3 30 mmol/L (21-28) Arterial Blood Base Excess 2 mmol/L (-3-3) FiO2 100% Test 07/25/19 11:34 07/25/19 11:38 07/25/19 13:48 Glucose (Fingerstick) 322 mg/dL (70-99) Heparin Anti-Xa Act, Unfractionated 0.77 IU/mL (0.30-0.70) 0.39 IU/mL (0.30-0.70) Sodium Level 159 mmol/L (136-145) Potassium Level 5.6 mmol/L (3.5-5.1) Chloride Level 121 mmol/L (98-107) Carbon Dioxide Level 30 mmol/L (21-32) Anion Gap 8 (6-14) Blood Urea Nitrogen 114 mg/dL (8-26) Creatinine 1.7 mg/dL (0.7-1.3) Estimated GFR (Cockcroft-Gault) 52.3 Glucose Level 403 mg/dL (70-99) Calcium Level 9.2 mg/dL (8.5-10.1) Medications Active Scripts Medications Dose Route/Sig Max Daily Dose Days Date Category Metformin Hcl 1,000 Mg Tablet 1,000 Mg PO BIDWMEALS 07/12/19 Reported Lisinopril 40 Mg Tablet 40 Mg PO DAILY 07/12/19 Reported Allopurinol 300 Mg Tablet 300 Mg PO DAILY 07/12/19 Reported Metoprolol Tartrate 25 Mg Tablet 25 Mg PO BID 07/12/19 Reported Doxazosin Mesylate 8 Mg Tablet 8 Mg PO DAILY 07/12/19 Reported Amlodipine Besylate 10 Mg Tablet 10 Mg PO DAILY 07/12/19 Reported Comments Chest x-ray reviewed, aeration of the right lung is better, effusion appears to be decreasing Impression . 1. Acute hypoxic respiratory failure multifactorial, COVID-19, ARDS, INTUBATED 07/14 2. Abnormal chest x-ray with bilateral infiltrates suggestive of coronavirus disease-19 pneumonia, possible bacterial pneumonia 3. Underlying morbid obesity. 4. Diabetes. 5. Nonsmoker. 6. Increase inflammatory markers suggestive of cytokine surge 7. s/p convalescent plasma 8. Abnormal chest x-ray revealing whiteout of the right lung 9. necrotic right index finger Plan . I agree with Dr. ruano, hold off on thoracentesis Continue mechanical ventilation A/C mode PEEP 13 and Fi02 of 100. CXR reviewed improved today, no need for bronchoscopy at this time Status post convalescent serum transfusion 07/13 and Status post Tocilizumab Cont. ABX Follow nephrology recs -- might require HD Nutritional support-- TPN will D/C lovenox and start heparin gtt D/W RN and RT DVT GI prophylaxis: heparin gtt /protonix I spoke with with Tala Total cumulative critical care time of 35 minutes, reviewing labs, chest x-ray, data, formulating a plan PURA FOSTER MD July 25, 2019 16:45
[2019-07-25] MEDS: HEPARIN 25,000UTS/250ML PREMIX 250 ML IV PRN (19:14)
[2019-07-25] MEDS: fentaNYL HIGH DOSE PCA 55 ML IV PRN (19:41)
[2019-07-25] MEDS ORDERED: [UNRECOGNIZED DRUG - OTHER] IV SCH ×5 (22:00)
[2019-07-25] MEDS ORDERED: AMINO ACID IV SCH ×15 (22:00)
[2019-07-25] MEDS ORDERED: DEXTROSE 70% IV SCH ×15 (22:00)
[2019-07-25] MEDS ORDERED: TOTAL PARENTERAL NUTRITION IV SCH ×15 (22:00)
[2019-07-25] MEDS ORDERED: [UNRECOGNIZED DRUG - OTHER] IV SCH ×10 (22:00)
[2019-07-26] VITALS (24 sets, daily range): BP systolic 85–130; BP diastolic 40–58
[2019-07-26] MEDS ORDERED: NOREPINEPHRINE VIAL 8 MG in IV DEXTROSE 5% 250 ML IV PRN (04:15)
[2019-07-26] MEDS: DEXMEDETOMIDINE 400 MCG in IV NORMAL SALINE 100ML 96 ML IV PRN ×6 (05:25→23:45)
[2019-07-26] MEDS: VECURONIUM BROMIDE 50 MG in TOTAL VOLUME 50 ML IV PRN ×5 (05:26→22:19)
[2019-07-26] MEDS: METOPROLOL TARTRATE 5 MG/5 ML VIAL. IVP SCH ×4 (06:21→23:37)
[2019-07-26] MEDS: INSULIN LISPRO 300 UNITS/3 ML VIAL. SQ SCH ×5 (06:22→23:45)
[2019-07-26 06:28] LABS: HEMATOCRIT 35.4 % (39.0-53.0); HEMOGLOBIN 10.8 g/dL (13.0-17.5); RED BLOOD COUNT 4.05 x10^6/uL (4.30-5.70); RED CELL DISTRIBUTION WIDTH 16.4 % (11.5-14.5); WHITE BLOOD COUNT 19.8 x10^3/uL (4.0-11.0)
[2019-07-26 06:53] LABS: ALBUMIN 2.5 g/dL (3.4-5.0); ALBUMIN/GLOBULIN RATIO 0.7 (1.0-1.7); CALCIUM 8.6 mg/dL (8.5-10.1); CREATININE 2.1 mg/dL (0.7-1.3); TOTAL BILIRUBIN 0.3 mg/dL (0.2-1.0); TOTAL PROTEIN 6.1 g/dL (6.4-8.2)
[2019-07-26 07:00] LABS: POTASSIUM 6.4 mmol/L (3.5-5.1)
--- NOTE | 2019-07-26 07:00 | PDOC ---
SUBJECTIVE ROS Intubated, On MV OBJECTIVE Vital Signs Vital Signs Date Time Temp Pulse Resp B/P (MAP) Pulse Ox O2 Delivery O2 Flow Rate FiO2 07/26/19 06:21 112 07/26/19 06:00 32 97/52 (67) 91 Ventilator 07/26/19 04:00 98.1 98.1 07/26/19 00:00 40.0 I & 0 Intake and Output 07/26/19 07:00 Intake Total 5915.7 ml Output Total 4075 ml Balance 1840.7 ml Intake Oral 0 ml IV Total 5915.7 ml Output Urine Total 4075 ml Gastric Drainage Total 0 ml PHYSICAL EXAM Physical Exam Visual exam GENERAL: patient is intubated and sedated HEENT Intubated Heart S1-S2 systolic murmur + Extremity LE edema + Sims + Neuro- On Vent DIAGNOSIS/ASSESSMENT Assessment & Plan GABRIEL --ATN ,Non Oliguric, Improving renal function, Polyuric phase, UOP 4- 6+ lts Discrepancy between BUN/Cr 2/2 Catabolic state , TPN and Steroids(held now) Initiated on Hd today, seen on treatment, Discussed plan with Andres HyperNatremia- Severe, No improvement with D5W, s/p IV bicarb this am HD today HyperKalemia - Mild, HD today Acute hypoxic respiratory failure secondary to coronavirus disease-19 pneumonia. cytokine surge/ ALI/ ARDS, INTUBATED 07/14 s/p convalescent plasma transfusion 07/13; S/P monoclonal antibodies/Tocilizumab 07/15/19 RLL effusion necrotic right index finger Elevated D-dimer and LFT's Super morbid obesity Diabetes Hypertension, antihypertensives Anemia- stable Pt evaluated during global Covid 19 pandemic Tarik RN COMMENT/RELEVANT DATA Meds Current Medications Medications (Trade) Dose Ordered Sig/Aria Start Time Stop Time Status Last Admin Dose Admin Acetaminophen (Tylenol) 650 mg PRN Q4HRS PRN 07/12/19 16:45 07/14/19 18:29 650 MG Al Hydroxide/Mg Hydroxide (Mylanta Plus Xs) 30 ml PRN DAILY PRN 07/12/19 16:45 07/22/19 04:48 DC Albuterol Sulfate (Ventolin Neb Soln) 2.5 mg PRN Q4HRS PRN 07/12/19 18:45 Albuterol/ Ipratropium (Duoneb) 3 ml Q4HRS 07/12/19 20:00 07/12/19 18:33 DC Allopurinol (Zyloprim) 300 mg DAILY 07/13/19 09:00 07/25/19 09:02 300 MG Amino Acids/ Glycerin/ Electrolytes 1,000 ml @ 80 mls/hr [id number] 07/16/19 10:00 07/18/19 21:59 DC 07/18/19 13:03 80 MLS/HR Amlodipine Besylate (Norvasc) 10 mg 1X ONCE 07/12/19 23:30 07/12/19 23:31 DC 07/12/19 23:00 10 MG Atorvastatin Calcium (Lipitor) 40 mg QHS 07/12/19 21:00 07/19/19 14:07 DC 07/18/19 20:57 40 MG Calcium Gluconate (Calcium Gluconate) 1,000 mg 1X ONCE 07/22/19 13:15 07/22/19 13:21 DC 07/22/19 13:38 1,000 MG Clonidine HCl (Catapres) 0.1 mg PRN Q6HRS PRN 07/12/19 16:45 07/15/19 04:25 0.1 MG Dexmedetomidine HCl 400 mcg/ Sodium Chloride 100 ml @ 0 mls/hr CONT PRN 07/15/19 16:30 UNV Dextrose 1,000 ml @ 125 mls/hr Q8H 07/25/19 07:30 07/25/19 15:25 DC 07/25/19 09:01 125 MLS/HR Dextrose (Dextrose 50%-Water Syringe) 25 gm 1X ONCE 07/22/19 13:15 07/22/19 13:21 DC 07/22/19 13:41 25 GM Dextrose/Sodium Chloride 1,000 ml @ 125 mls/hr Q8H 07/25/19 14:30 07/25/19 23:03 125 MLS/HR Docusate Sodium (Colace) 100 mg PRN BID PRN 07/12/19 16:45 Doxazosin Mesylate (Cardura) 8 mg 1X ONCE 07/12/19 23:30 07/12/19 23:31 DC 07/12/19 23:08 8 MG Enoxaparin Sodium (Lovenox 60mg Syringe) 60 mg Q12HR 07/22/19 21:00 07/24/19 11:20 DC 07/24/19 08:20 60 MG Ephedrine Sulfate (ePHEDrine PF IN SALINE SYRINGE) 50 mg STK-MED ONCE 07/23/19 12:41 07/23/19 12:41 DC Famotidine (Pepcid Vial) 20 mg BID 07/15/19 09:00 07/24/19 11:20 DC 07/24/19 08:20 20 MG Fentanyl Citrate 55 ml @ 0 mls/hr CONT PRN 07/16/19 22:00 07/25/19 19:41 2 MLS/HR Furosemide (Lasix) 40 mg 1X ONCE 07/22/19 09:00 07/22/19 09:01 DC 07/22/19 09:10 40 MG Guaifenesin (Robitussin) 200 mg PRN Q4HRS PRN 07/12/19 16:45 07/14/19 08:52 200 MG Haloperidol Lactate (Haldol Inj) 3 mg PRN Q4HRS PRN 07/14/19 22:30 07/14/19 22:59 3 MG Heparin Sodium (Porcine) (Heparin Sodium) 2,600 unit PRN Q6HRS PRN 07/24/19 11:15 Heparin Sodium/ Dextrose 250 ml @ 0 mls/hr CONT PRN 07/24/19 11:15 07/25/19 19:14 18.3 MLS/HR Hydralazine HCl (Apresoline Inj) 10 mg PRN Q4HRS PRN 07/12/19 22:45 07/19/19 09:07 10 MG Info (Anti-Coagulation Monitoring By Pharmacy) 1 each PRN DAILY PRN 07/22/19 04:15 07/23/19 08:04 DC 07/22/19 04:54 1 EACH Info (Tpn Per Pharmacy) 1 each PRN DAILY PRN 07/18/19 10:45 07/25/19 14:20 1 EACH Insulin Glargine (Lantus Syringe) 30 unit BID 07/25/19 09:00 07/25/19 21:26 30 UNIT Insulin Human Lispro (HumaLOG) 0-5 UNITS Q6HRS 07/22/19 12:00 07/26/19 06:22 5 UNITS Insulin Human Regular (HumuLIN R VIAL) 10 unit 1X ONCE 07/22/19 13:15 07/22/19 13:21 DC 07/22/19 13:39 10 UNIT Ketamine HCl (Ketamine) 50 mg 1X ONCE 07/15/19 06:15 07/15/19 06:16 DC 07/15/19 05:55 50 MG Labetalol HCl (Normodyne Iv Push) 10 mg PRN Q5MIN PRN 07/19/19 09:30 Lactobacillus Rhamnosus (Culturelle) 1 cap BID 07/13/19 21:00 07/21/19 10:47 DC 07/20/19 20:10 1 CAP Levofloxacin/ Dextrose 100 ml @ 100 mls/hr 1X ONCE 07/12/19 17:45 07/12/19 18:44 DC 07/12/19 17:58 100 MLS/HR Lidocaine HCl (Buffered Lidocaine 1%) 6 ml 1X ONCE 07/22/19 17:00 07/22/19 17:01 DC 07/22/19 16:53 6 ML Lidocaine HCl (Lidocaine 1% 20ml Vial) 20 ml STK-MED ONCE 07/22/19 15:37 07/22/19 15:37 DC Lisinopril (Prinivil) 10 mg 1X ONCE 07/12/19 23:00 07/12/19 23:01 DC 07/13/19 00:41 10 MG Lorazepam (Ativan Inj) 1 mg PRN Q2HRS PRN 07/12/19 23:00 07/17/19 12:20 1 MG Metformin HCl (Glucophage) 1,000 mg BIDWMEALS 07/13/19 08:00 07/20/19 13:33 DC 07/19/19 18:07 1,000 MG Methylprednisolone Sodium Succinate (SOLU-Medrol 125MG VIAL) 250 mg Q6HRS 07/21/19 14:30 UNV Methylprednisolone Sodium Succinate 250 mg/Sodium Chloride 100 ml @ 100 mls/hr Q6HRS 07/21/19 16:00 07/24/19 10:15 DC 07/24/19 05:52 100 MLS/HR Metoprolol Tartrate (Lopressor Vial) 5 mg Q6HRS 07/19/19 18:00 07/26/19 06:21 5 MG Metoprolol Tartrate (Lopressor) 25 mg BID 07/12/19 21:00 07/19/19 14:04 DC 07/18/19 20:57 25 MG Midazolam HCl 100 ml @ 0 mls/hr CONT PRN 07/15/19 05:45 07/25/19 23:02 10 MLS/HR Morphine Sulfate (Morphine Preservative Free) 10 mg STK-MED ONCE 07/23/19 12:00 07/23/19 12:01 DC Multivitamins 10 ml/Chromium/ Copper/Manganese/ Seleni/Zn 0.5 ml/ Total Parenteral Nutrition/Amino Acids/Dextrose/ Fat Emulsion Intravenous 2,160 ml @ 90 mls/hr TPN CONT 07/25/19 22:00 07/26/19 21:59 07/25/19 21:30 90 MLS/HR Norepinephrine Bitartrate 8 mg/ Dextrose 258 ml @ 32.508 mls/ hr CONT PRN 07/26/19 04:15 Ondansetron HCl (Zofran) 4 mg PRN Q4HRS PRN 07/12/19 16:45 Oxytocin (Pitocin) 10 unit STK-MED ONCE 07/23/19 12:00 07/23/19 12:01 DC Pantoprazole Sodium (PROTONIX VIAL for IV PUSH) 40 mg DAILYAC 07/25/19 07:30 07/25/19 09:03 40 MG Propofol 100 ml @ 2.7 mls/hr CONT PRN 07/15/19 06:15 07/24/19 11:10 DC 07/15/19 10:08 54 MLS/HR Sodium Polystyrene Sulfonate (Kayexalate) 30 gm 1X ONCE 07/22/19 13:15 07/22/19 13:21 DC Sodium Acetate 50 meq/Calcium Gluconate 5 meq/ Multivitamins 10 ml/Chromium/ Copper/Manganese/ Seleni/Zn 0.5 ml/ Total Parenteral Nutrition/Amino Acids/Dextrose/ Fat Emulsion Intravenous 1,680 ml @ 70 mls/hr TPN CONT 07/23/19 22:00 07/24/19 21:59 DC 07/23/19 20:44 70 MLS/HR Sodium Acetate 60 meq/Calcium Gluconate 5 meq/ Multivitamins 10 ml/Chromium/ Copper/Manganese/ Seleni/Zn 0.5 ml/ Total Parenteral Nutrition/Amino Acids/Dextrose/ Fat Emulsion Intravenous 1,680 ml @ 70 mls/hr TPN CONT 07/22/19 22:00 07/23/19 21:59 DC 07/22/19 23:49 70 MLS/HR Sodium Acetate 60 meq/Potassium Phosphate 13.6 mmol/Magnesium Sulfate 10 meq/ Calcium Gluconate 10 meq/ Multivitamins 10 ml/Chromium/ Copper/Manganese/ Seleni/Zn 0.5 ml/ Total Parenteral Nutrition/Amino Acids/Dextrose 1,920 ml @ 80 mls/hr TPN CONT 07/18/19 22:00 07/19/19 21:59 DC 07/18/19 22:18 80 MLS/HR Sodium Acetate 60 meq/Potassium Phosphate 13.6 mmol/Magnesium Sulfate 5 meq/ Calcium Gluconate 10 meq/ Multivitamins 10 ml/Chromium/ Copper/Manganese/ Seleni/Zn 0.5 ml/ Total Parenteral Nutrition/Amino Acids/Dextrose/ Fat Emulsion Intravenous 1,920 ml @ 80 mls/hr TPN CONT 07/19/19 22:00 07/20/19 21:59 DC 07/19/19 20:45 80 MLS/HR Sodium Acetate 60 meq/Sodium Phosphate 5 mmol/ Calcium Gluconate 5 meq/ Multivitamins 10 ml/Chromium/ Copper/Manganese/ Seleni/Zn 0.5 ml/ Total Parenteral Nutrition/Amino Acids/Dextrose/ Fat Emulsion Intravenous 1,920 ml @ 80 mls/hr TPN CONT 07/20/19 22:00 07/21/19 21:59 DC 07/20/19 21:23 80 MLS/HR Sodium Bicarbonate (Sodium Bicarb Adult 8.4% Syr) 50 meq 1X ONCE 07/22/19 13:15 07/22/19 13:21 DC 07/22/19 13:38 50 MEQ Sodium Chloride 1,000 ml @ 20 mls/hr Q24H 07/12/19 16:41 07/23/19 17:10 20 MLS/HR Sodium Chloride (Normal Saline Flush) 3 ml QSHIFT PRN 07/12/19 16:45 Succinylcholine Chloride (Anectine) 200 mg 1X ONCE 07/15/19 06:15 07/15/19 06:16 DC 07/15/19 06:00 200 MG Throat Lozenges (Cepacol Sore Throat Lozenge) 1 jenaro PRN Q2HRS PRN 07/13/19 16:30 07/14/19 08:56 1 JENARO Tocilizumab 800 mg/Sodium Chloride 100 ml @ 100 mls/hr ONCE ONCE 07/15/19 16:00 07/15/19 16:59 DC 07/15/19 15:51 100 MLS/HR Vecuronium Monclova 50 mg/ Miscellaneous 50 ml @ 8.976 mls/ hr CONT PRN 07/17/19 12:15 07/26/19 05:26 6.6 MLS/HR Vecuronium Monclova (Norcuron Bolus) 10 mg PRN Q6HRS PRN 07/17/19 10:00 07/17/19 12:19 10 MG Lab Laboratory Tests Test 07/25/19 08:45 07/25/19 09:10 07/25/19 11:34 07/25/19 11:38 O2 Saturation 89 % (92-99) Arterial Blood pH 7.29 (7.35-7.45) Arterial Blood pCO2 at Patient Temp 64 mmHg (35-46) Arterial Blood pO2 at Patient Temp 67 mmHg (75-108) Arterial Blood HCO3 30 mmol/L (21-28) Arterial Blood Base Excess 2 mmol/L (-3-3) FiO2 100% Glucose (Fingerstick) 362 mg/dL (70-99) 322 mg/dL (70-99) Heparin Anti-Xa Act, Unfractionated 0.77 IU/mL (0.30-0.70) Test 07/25/19 13:48 07/25/19 17:01 07/25/19 20:15 07/25/19 23:56 Heparin Anti-Xa Act, Unfractionated 0.39 IU/mL (0.30-0.70) 0.77 IU/mL (0.30-0.70) Sodium Level 159 mmol/L (136-145) Potassium Level 5.6 mmol/L (3.5-5.1) Chloride Level 121 mmol/L (98-107) Carbon Dioxide Level 30 mmol/L (21-32) Anion Gap 8 (6-14) Blood Urea Nitrogen 114 mg/dL (8-26) Creatinine 1.7 mg/dL (0.7-1.3) Estimated GFR (Cockcroft-Gault) 52.3 Glucose Level 403 mg/dL (70-99) Calcium Level 9.2 mg/dL (8.5-10.1) Glucose (Fingerstick) 386 mg/dL (70-99) 355 mg/dL (70-99) Test 07/26/19 03:00 07/26/19 06:00 07/26/19 06:08 Heparin Anti-Xa Act, Unfractionated 0.81 IU/mL (0.30-0.70) White Blood Count 19.8 x10^3/uL (4.0-11.0) Red Blood Count 4.05 x10^6/uL (4.30-5.70) Hemoglobin 10.8 g/dL (13.0-17.5) Hematocrit 35.4 % (39.0-53.0) Mean Corpuscular Volume 87 fL (79-100) Mean Corpuscular Hemoglobin 27 pg (25-35) Mean Corpuscular Hemoglobin Concent 31 g/dL (31-37) Red Cell Distribution Width 16.4 % (11.5-14.5) Platelet Count 369 x10^3/uL (140-400) Glucose (Fingerstick) 329 mg/dL (70-99) Results All relevant outside records, renal labs, imaging studies, telemetry/EKG's were reviewed. DIANA SANDY MD July 26, 2019 06:59
[2019-07-26] MEDS: ALLOPURINOL 300 MG TABLET. PO SCH (07:57)
[2019-07-26] MEDS: PANTOPRAZOLE IV PUSH 40 MG VIAL. IVP SCH (07:57)
[2019-07-26] MEDS: amLODIPine BESYLATE 10 MG TABLET PO SCH (07:57)
[2019-07-26] MEDS: DOXAZOSIN MESYLATE 4 MG TABLET. PO SCH (07:58)
[2019-07-26] MEDS: INSULIN GLARGINE SYRINGE. SQ SCH ×2 (08:00→20:30)
[2019-07-26] MEDS: HEPARIN 25,000UTS/250ML PREMIX 250 ML IV PRN ×2 (08:01→10:44)
[2019-07-26] MEDS ORDERED: IV NORMAL SALINE 1000ML BAG 1,000 ML IV PRN ×2 (08:02)
[2019-07-26] MEDS: IV DEXTROSE 5 %-0.45 % NACL 1,000 ML IV SCH ×3 (08:03→23:04)
[2019-07-26] MEDS ORDERED: 0.9 % SODIUM CHLORIDE 10 ML DISP.SYRIN. IV PRN ×2 (08:15)
[2019-07-26] MEDS ORDERED: ALBUMIN HUMAN 25% 200 ML IV PRN (08:15)
[2019-07-26] MEDS ORDERED: DIALYSIS PATIENT. MC PRN (08:15)
[2019-07-26 09:12] LABS: BASE EXCESS ABG -11 mmol/L (-3-3); HCO3 ABG 18 mmol/L (21-28); PCO2 ABG 51 mmHg (35-46); PO2 ABG 65 mmHg (75-108); SAT O2 ABG 84 % (92-99)
[2019-07-26] MEDS ORDERED: SODIUM BICARB ADULT 8.4% 50 MEQ/50 ML DISP.SYRIN. IV ONE ×2 (10:15→17:15)
--- NOTE | 2019-07-26 11:00 | PDOC ---
PULMONARY PROGRESS NOTES Subjective remains on AC mode, on 100% fio2 13 PEEP on versed, vec, fent, and precedex gtts met/resp acidosis today Vitals Vital Signs Date Time Temp Pulse Resp B/P (MAP) Pulse Ox O2 Delivery O2 Flow Rate FiO2 07/26/19 10:00 109 13 88/42 (57) 91 Ventilator 07/26/19 08:00 98.0 98.0 07/26/19 00:00 40.0 Comments Visual exam done due to COVID pandemic Patient in sync with the ventilator, no respiratory distress. Labs Laboratory Tests Test 07/24/19 12:51 07/24/19 17:18 07/24/19 18:50 07/25/19 00:26 Glucose (Fingerstick) 344 mg/dL (70-99) 335 mg/dL (70-99) 335 mg/dL (70-99) Heparin Anti-Xa Act, Unfractionated > 1.10 IU/mL (0.30-0.70) Test 07/25/19 00:50 07/25/19 06:27 07/25/19 06:30 07/25/19 08:45 Heparin Anti-Xa Act, Unfractionated > 1.10 IU/mL (0.30-0.70) > 1.10 IU/mL (0.30-0.70) Glucose (Fingerstick) 354 mg/dL (70-99) White Blood Count 14.5 x10^3/uL (4.0-11.0) Red Blood Count 4.20 x10^6/uL (4.30-5.70) Hemoglobin 11.5 g/dL (13.0-17.5) Hematocrit 35.8 % (39.0-53.0) Mean Corpuscular Volume 85 fL (79-100) Mean Corpuscular Hemoglobin 27 pg (25-35) Mean Corpuscular Hemoglobin Concent 32 g/dL (31-37) Red Cell Distribution Width 16.0 % (11.5-14.5) Platelet Count 399 x10^3/uL (140-400) Sodium Level 160 mmol/L (136-145) Potassium Level 5.0 mmol/L (3.5-5.1) Chloride Level 121 mmol/L (98-107) Carbon Dioxide Level 30 mmol/L (21-32) Anion Gap 9 (6-14) Blood Urea Nitrogen 111 mg/dL (8-26) Creatinine 1.6 mg/dL (0.7-1.3) Estimated GFR (Cockcroft-Gault) 56.1 BUN/Creatinine Ratio 69 (6-20) Glucose Level 374 mg/dL (70-99) Calcium Level 9.3 mg/dL (8.5-10.1) Phosphorus Level 5.3 mg/dL (2.6-4.7) Magnesium Level 3.2 mg/dL (1.8-2.4) Total Bilirubin 0.3 mg/dL (0.2-1.0) Aspartate Amino Transf (AST/SGOT) 16 U/L (15-37) Alanine Aminotransferase (ALT/SGPT) 81 U/L (16-63) Alkaline Phosphatase 84 U/L (46-116) Total Protein 6.9 g/dL (6.4-8.2) Albumin 2.7 g/dL (3.4-5.0) Albumin/Globulin Ratio 0.6 (1.0-1.7) O2 Saturation 89 % (92-99) Arterial Blood pH 7.29 (7.35-7.45) Arterial Blood pCO2 at Patient Temp 64 mmHg (35-46) Arterial Blood pO2 at Patient Temp 67 mmHg (75-108) Arterial Blood HCO3 30 mmol/L (21-28) Arterial Blood Base Excess 2 mmol/L (-3-3) FiO2 100% Test 07/25/19 09:10 07/25/19 11:34 07/25/19 11:38 07/25/19 13:48 Glucose (Fingerstick) 362 mg/dL (70-99) 322 mg/dL (70-99) Heparin Anti-Xa Act, Unfractionated 0.77 IU/mL (0.30-0.70) 0.39 IU/mL (0.30-0.70) Sodium Level 159 mmol/L (136-145) Potassium Level 5.6 mmol/L (3.5-5.1) Chloride Level 121 mmol/L (98-107) Carbon Dioxide Level 30 mmol/L (21-32) Anion Gap 8 (6-14) Blood Urea Nitrogen 114 mg/dL (8-26) Creatinine 1.7 mg/dL (0.7-1.3) Estimated GFR (Cockcroft-Gault) 52.3 Glucose Level 403 mg/dL (70-99) Calcium Level 9.2 mg/dL (8.5-10.1) Test 07/25/19 17:01 07/25/19 20:15 07/25/19 23:56 07/26/19 03:00 Glucose (Fingerstick) 386 mg/dL (70-99) 355 mg/dL (70-99) Heparin Anti-Xa Act, Unfractionated 0.77 IU/mL (0.30-0.70) 0.81 IU/mL (0.30-0.70) Test 07/26/19 06:00 07/26/19 06:08 07/26/19 09:11 White Blood Count 19.8 x10^3/uL (4.0-11.0) Red Blood Count 4.05 x10^6/uL (4.30-5.70) Hemoglobin 10.8 g/dL (13.0-17.5) Hematocrit 35.4 % (39.0-53.0) Mean Corpuscular Volume 87 fL (79-100) Mean Corpuscular Hemoglobin 27 pg (25-35) Mean Corpuscular Hemoglobin Concent 31 g/dL (31-37) Red Cell Distribution Width 16.4 % (11.5-14.5) Platelet Count 369 x10^3/uL (140-400) Sodium Level 158 mmol/L (136-145) Potassium Level 6.4 mmol/L (3.5-5.1) Chloride Level 122 mmol/L (98-107) Carbon Dioxide Level 31 mmol/L (21-32) Anion Gap 5 (6-14) Blood Urea Nitrogen 132 mg/dL (8-26) Creatinine 2.1 mg/dL (0.7-1.3) Estimated GFR (Cockcroft-Gault) 41.0 BUN/Creatinine Ratio 63 (6-20) Glucose Level 353 mg/dL (70-99) Calcium Level 8.6 mg/dL (8.5-10.1) Magnesium Level 3.2 mg/dL (1.8-2.4) Total Bilirubin 0.3 mg/dL (0.2-1.0) Aspartate Amino Transf (AST/SGOT) 15 U/L (15-37) Alanine Aminotransferase (ALT/SGPT) 60 U/L (16-63) Alkaline Phosphatase 91 U/L (46-116) Total Protein 6.1 g/dL (6.4-8.2) Albumin 2.5 g/dL (3.4-5.0) Albumin/Globulin Ratio 0.7 (1.0-1.7) Glucose (Fingerstick) 329 mg/dL (70-99) Heparin Anti-Xa Act, Unfractionated 0.84 IU/mL (0.30-0.70) Laboratory Tests Test 07/25/19 11:34 07/25/19 11:38 07/25/19 13:48 07/25/19 17:01 Glucose (Fingerstick) 322 mg/dL (70-99) 386 mg/dL (70-99) Heparin Anti-Xa Act, Unfractionated 0.77 IU/mL (0.30-0.70) 0.39 IU/mL (0.30-0.70) Sodium Level 159 mmol/L (136-145) Potassium Level 5.6 mmol/L (3.5-5.1) Chloride Level 121 mmol/L (98-107) Carbon Dioxide Level 30 mmol/L (21-32) Anion Gap 8 (6-14) Blood Urea Nitrogen 114 mg/dL (8-26) Creatinine 1.7 mg/dL (0.7-1.3) Estimated GFR (Cockcroft-Gault) 52.3 Glucose Level 403 mg/dL (70-99) Calcium Level 9.2 mg/dL (8.5-10.1) Test 07/25/19 20:15 07/25/19 23:56 07/26/19 03:00 07/26/19 06:00 Heparin Anti-Xa Act, Unfractionated 0.77 IU/mL (0.30-0.70) 0.81 IU/mL (0.30-0.70) Glucose (Fingerstick) 355 mg/dL (70-99) White Blood Count 19.8 x10^3/uL (4.0-11.0) Red Blood Count 4.05 x10^6/uL (4.30-5.70) Hemoglobin 10.8 g/dL (13.0-17.5) Hematocrit 35.4 % (39.0-53.0) Mean Corpuscular Volume 87 fL (79-100) Mean Corpuscular Hemoglobin 27 pg (25-35) Mean Corpuscular Hemoglobin Concent 31 g/dL (31-37) Red Cell Distribution Width 16.4 % (11.5-14.5) Platelet Count 369 x10^3/uL (140-400) Sodium Level 158 mmol/L (136-145) Potassium Level 6.4 mmol/L (3.5-5.1) Chloride Level 122 mmol/L (98-107) Carbon Dioxide Level 31 mmol/L (21-32) Anion Gap 5 (6-14) Blood Urea Nitrogen 132 mg/dL (8-26) Creatinine 2.1 mg/dL (0.7-1.3) Estimated GFR (Cockcroft-Gault) 41.0 BUN/Creatinine Ratio 63 (6-20) Glucose Level 353 mg/dL (70-99) Calcium Level 8.6 mg/dL (8.5-10.1) Magnesium Level 3.2 mg/dL (1.8-2.4) Total Bilirubin 0.3 mg/dL (0.2-1.0) Aspartate Amino Transf (AST/SGOT) 15 U/L (15-37) Alanine Aminotransferase (ALT/SGPT) 60 U/L (16-63) Alkaline Phosphatase 91 U/L (46-116) Total Protein 6.1 g/dL (6.4-8.2) Albumin 2.5 g/dL (3.4-5.0) Albumin/Globulin Ratio 0.7 (1.0-1.7) Test 07/26/19 06:08 07/26/19 09:11 Glucose (Fingerstick) 329 mg/dL (70-99) Heparin Anti-Xa Act, Unfractionated 0.84 IU/mL (0.30-0.70) Medications Active Scripts Medications Dose Route/Sig Max Daily Dose Days Date Category Metformin Hcl 1,000 Mg Tablet 1,000 Mg PO BIDWMEALS 07/12/19 Reported Lisinopril 40 Mg Tablet 40 Mg PO DAILY 07/12/19 Reported Allopurinol 300 Mg Tablet 300 Mg PO DAILY 07/12/19 Reported Metoprolol Tartrate 25 Mg Tablet 25 Mg PO BID 07/12/19 Reported Doxazosin Mesylate 8 Mg Tablet 8 Mg PO DAILY 07/12/19 Reported Amlodipine Besylate 10 Mg Tablet 10 Mg PO DAILY 07/12/19 Reported Comments Chest x-ray reviewed, aeration of the right lung is better, effusion appears to be decreasing Impression . 1. Acute hypoxic respiratory failure multifactorial, COVID-19, ARDS, INTUBATED 07/14 2. Abnormal chest x-ray with bilateral infiltrates suggestive of coronavirus disease-19 pneumonia, possible bacterial pneumonia 3. Underlying morbid obesity. 4. Diabetes. 5. Nonsmoker. 6. Increase inflammatory markers suggestive of cytokine surge 7. s/p convalescent plasma 8. Abnormal chest x-ray revealing whiteout of the right lung, improved, now RLL effusion 9. necrotic right index finger Plan . I agree with Dr. ruano, hold off on thoracentesis, risks outweigh benefits Continue mechanical ventilation A/C mode PEEP 13 and Fi02 of 100. HD with increase bicarb CXR reviewed improved , no need for bronchoscopy or thoracentesis at this time Status post convalescent serum transfusion 07/13 and Status post Tocilizumab Cont. ABX Follow nephrology recs -- now on HD off steroids Nutritional support-- TPN will D/C lovenox and start heparin gtt D/W RN and RT DVT GI prophylaxis: heparin gtt /protonix Dr Freitas spoke with Tala Total cumulative critical care time of 35 minutes, reviewing labs, chest x-ray, data, formulating a plan Addend: ABG noted . worsening hypercapnia /hypoxia. despite on 100%FIO2, 13 peep. D/W RT.will increase PEEP to 15. adjust I:E ration/ Flow.Increase TV. f/u ABG. Pt did not tolerated HD, Now on full dose Levophed. Possible PE cannot be ruled out. D-dimer is trending down.Cannot do CTA chest. Bed side echo not helpful due to obesity. Already on full dose heparin for possible PE. ?another mateo surge. talked to Tala in detail . explained to her that he may not survive. she wants to continue as full code. HD stopped as he did not tolerated it. on pressors add cct 15 min HILARIO BIRCH MD July 26, 2019 11:00
[2019-07-26 11:51] LABS: FIO2 ABG 100
--- NOTE | 2019-07-26 12:05 | PDOC ---
DEXTER BARNARD SCHEDULING REPRESENTATIVE 07/26/19 1205: CARDIO Progress Notes Date and Time Date of Service 07/26/2019 Time of Evaluation 1040 Subjective Subjective: Other (sedated / intubated ) Vitals Vitals Vital Signs Date Time Temp Pulse Resp B/P (MAP) Pulse Ox O2 Delivery O2 Flow Rate FiO2 07/26/19 11:41 106 104/45 07/26/19 11:00 25 82 Ventilator 07/26/19 08:00 98.0 98.0 07/26/19 00:00 40.0 Weight Weight [ ] Input and Output Intake and Output Intake and Output 07/26/19 07:00 Intake Total 5915.7 ml Output Total 4075 ml Balance 1840.7 ml Intake Oral 0 ml IV Total 5915.7 ml Output Urine Total 4075 ml Gastric Drainage Total 0 ml Laboratory Labs Laboratory Tests Test 07/25/19 13:48 07/25/19 17:01 07/25/19 20:15 07/25/19 23:56 Heparin Anti-Xa Act, Unfractionated 0.39 IU/mL (0.30-0.70) 0.77 IU/mL (0.30-0.70) Sodium Level 159 mmol/L (136-145) Potassium Level 5.6 mmol/L (3.5-5.1) Chloride Level 121 mmol/L (98-107) Carbon Dioxide Level 30 mmol/L (21-32) Anion Gap 8 (6-14) Blood Urea Nitrogen 114 mg/dL (8-26) Creatinine 1.7 mg/dL (0.7-1.3) Estimated GFR (Cockcroft-Gault) 52.3 Glucose Level 403 mg/dL (70-99) Calcium Level 9.2 mg/dL (8.5-10.1) Glucose (Fingerstick) 386 mg/dL (70-99) 355 mg/dL (70-99) Test 07/26/19 03:00 07/26/19 06:00 07/26/19 06:08 07/26/19 09:11 Heparin Anti-Xa Act, Unfractionated 0.81 IU/mL (0.30-0.70) 0.84 IU/mL (0.30-0.70) White Blood Count 19.8 x10^3/uL (4.0-11.0) Red Blood Count 4.05 x10^6/uL (4.30-5.70) Hemoglobin 10.8 g/dL (13.0-17.5) Hematocrit 35.4 % (39.0-53.0) Mean Corpuscular Volume 87 fL (79-100) Mean Corpuscular Hemoglobin 27 pg (25-35) Mean Corpuscular Hemoglobin Concent 31 g/dL (31-37) Red Cell Distribution Width 16.4 % (11.5-14.5) Platelet Count 369 x10^3/uL (140-400) Sodium Level 158 mmol/L (136-145) Potassium Level 6.4 mmol/L (3.5-5.1) Chloride Level 122 mmol/L (98-107) Carbon Dioxide Level 31 mmol/L (21-32) Anion Gap 5 (6-14) Blood Urea Nitrogen 132 mg/dL (8-26) Creatinine 2.1 mg/dL (0.7-1.3) Estimated GFR (Cockcroft-Gault) 41.0 BUN/Creatinine Ratio 63 (6-20) Glucose Level 353 mg/dL (70-99) Calcium Level 8.6 mg/dL (8.5-10.1) Magnesium Level 3.2 mg/dL (1.8-2.4) Total Bilirubin 0.3 mg/dL (0.2-1.0) Aspartate Amino Transf (AST/SGOT) 15 U/L (15-37) Alanine Aminotransferase (ALT/SGPT) 60 U/L (16-63) Alkaline Phosphatase 91 U/L (46-116) Total Protein 6.1 g/dL (6.4-8.2) Albumin 2.5 g/dL (3.4-5.0) Albumin/Globulin Ratio 0.7 (1.0-1.7) Glucose (Fingerstick) 329 mg/dL (70-99) Microbiology Micro Microbiology 07/12/19 Blood Culture - Final, Complete NO GROWTH AFTER 5 DAYS Physical Exam Chest: Symmetric LUNGS: Other (mechanical vent ) Heart: RRR (SR/ST), other (distant heart tones ) Abdomen: Other (obese, distended) Extremities: Other (edema) Neurology: other (sedated) Assessment Assessment 1. Acute respiratory failure secondary to COVID-19 PNA, ARDS. s/p intubation. s/p convalescent plasma. 2. Systolic murmur: estimated EF 60%, could not ascertain WM and endocardium due to body habitus 3. Hypotension: combination of meds/uremia/polyuria 4. DM2/HLP 5. Morbid obesity 7. GABRIEL/hyperkalemia/uremia: nephrology following 8. High DDIMER: likely from cytokine surge/endothelial dysfunction 9. Arrhythmia: intermittent brief episodes of mobitz type2 due to metabolic issues. SR otherwise. Recommendations Started levophed. IVF. Empiric heparin. On vecuronium/precedex Ongoing treatment as per pulm and ID. HD pending today Monitor rhythm/Supportive care MARY BOOKER MD 07/27/19 1036: CARDIO Progress Notes Plan Plan Patient seen and examined. Agree with above nurse practitioner note. Supportive care. Poor long-term prognosis. DEXTER BARNARD APRN July 26, 2019 12:05 MARY BOOKER MD July 27, 2019 10:36
--- NOTE | 2019-07-26 12:07 | NUR ---
SS following up with discharge planning. SS discussed with RNPaco. Pt is Full Code. Pt remains on the vent and COVID19 positive. Pt re-swabbed for COVID19 today. SS will continue to follow for discharge planning.
[2019-07-26] MEDS: NOREPINEPHRINE VIAL 32 MG in IV D5W 250ML IV PRN ×3 (12:33→21:08)
[2019-07-26 12:37] LABS: BASE EXCESS ABG 6 mmol/L (-3-3); HCO3 ABG 41 mmol/L (21-28)
--- NOTE | 2019-07-26 12:41 | PDOC ---
[employer] PROGRESS NOTE Chief Complaint Chief Complaint Acute hypoxic/// HYPERCAPNIC resp failure REQUIRING VENT SUPPORT Super morbid obesity Bibasilar lung airspace opacities likely atelectasis or infiltrates likely pneumonia or atelectasis or atypical/viral infection/viral pneumonia Diabetes Hypertension, uncontrolled normocytic anemia SEVERE PROTEIN, CALORIC MALNUTRITION [facility]- POS Acute renal failure vasomotor etiology likely Hyperkalemia secondary to the above improved Constipation History of Present Illness History of Present Illness 07/26/2019 Patient seen and examined in the [place] [address] ICU He remains intubated and mechanically ventilated AC/10/08 50/100% He is on IV TPN vecuronium heparin and Versed He is currently being dialyzed He has an art line in the right IJ Sims to bedside drainage SCDs in place Discussed with RN Chart reviewed 07/25/2019 Patient seen and examined in the ICU [place] [address] unit Chart reviewed Discussed with RN He is critically ill On mechanical ventilation AC/04/08 50/100% FiO2 On IV TPN Versed Heparin vecuronium and Precedex Has an art line blood pressure 176/76 He is critically ill I discussed his case with the pharmacy we are increasing his Lantus to 30 twice daily Vitals/I&O Vitals/I&O: Vital Signs Date Time Temp Pulse Resp B/P (MAP) Pulse Ox O2 Delivery O2 Flow Rate FiO2 07/26/19 11:41 106 104/45 07/26/19 11:00 25 82 Ventilator 07/26/19 08:00 98.0 98.0 07/26/19 00:00 40.0 I & O 07/25/19 07/25/19 07/26/19 15:00 23:00 07:00 Intake Total 0 ml 2578.7 ml 3337.0 ml Output Total 1700 ml 1400 ml 975 ml Balance -1700 ml 1178.7 ml 2362.0 ml Physical Exam Physical Exam: GENERAL: patient is intubated and sedated unresponsive on the ventilator HEENT unremarkable for acute abnormality Chest bilateral equal air entry inspiratory and expiratory wheezes at the bilateral bases anteriorly Heart S1-S2 normal regular rate and rhythm loud systolic murmur at the right second intercostal space Abdomen is obese soft nontender nondistended no masses or organomegaly noted Extremity exam is unremarkable for acute abnormality 1+ bipedal edema is noted General: mild distress Heart: Regular rate, Normal S1 Lungs: Crackles Abdomen: Soft Extremities: No cyanosis Labs Labs: Laboratory Tests Test 07/25/19 13:48 07/25/19 17:01 07/25/19 20:15 07/25/19 23:56 Heparin Anti-Xa Act, Unfractionated 0.39 IU/mL (0.30-0.70) 0.77 IU/mL (0.30-0.70) Sodium Level 159 mmol/L (136-145) Potassium Level 5.6 mmol/L (3.5-5.1) Chloride Level 121 mmol/L (98-107) Carbon Dioxide Level 30 mmol/L (21-32) Anion Gap 8 (6-14) Blood Urea Nitrogen 114 mg/dL (8-26) Creatinine 1.7 mg/dL (0.7-1.3) Estimated GFR (Cockcroft-Gault) 52.3 Glucose Level 403 mg/dL (70-99) Calcium Level 9.2 mg/dL (8.5-10.1) Glucose (Fingerstick) 386 mg/dL (70-99) 355 mg/dL (70-99) Test 07/26/19 03:00 07/26/19 06:00 07/26/19 06:08 07/26/19 08:00 Heparin Anti-Xa Act, Unfractionated 0.81 IU/mL (0.30-0.70) White Blood Count 19.8 x10^3/uL (4.0-11.0) Red Blood Count 4.05 x10^6/uL (4.30-5.70) Hemoglobin 10.8 g/dL (13.0-17.5) Hematocrit 35.4 % (39.0-53.0) Mean Corpuscular Volume 87 fL (79-100) Mean Corpuscular Hemoglobin 27 pg (25-35) Mean Corpuscular Hemoglobin Concent 31 g/dL (31-37) Red Cell Distribution Width 16.4 % (11.5-14.5) Platelet Count 369 x10^3/uL (140-400) Sodium Level 158 mmol/L (136-145) Potassium Level 6.4 mmol/L (3.5-5.1) Chloride Level 122 mmol/L (98-107) Carbon Dioxide Level 31 mmol/L (21-32) Anion Gap 5 (6-14) Blood Urea Nitrogen 132 mg/dL (8-26) Creatinine 2.1 mg/dL (0.7-1.3) Estimated GFR (Cockcroft-Gault) 41.0 BUN/Creatinine Ratio 63 (6-20) Glucose Level 353 mg/dL (70-99) Calcium Level 8.6 mg/dL (8.5-10.1) Magnesium Level 3.2 mg/dL (1.8-2.4) Total Bilirubin 0.3 mg/dL (0.2-1.0) Aspartate Amino Transf (AST/SGOT) 15 U/L (15-37) Alanine Aminotransferase (ALT/SGPT) 60 U/L (16-63) Alkaline Phosphatase 91 U/L (46-116) Total Protein 6.1 g/dL (6.4-8.2) Albumin 2.5 g/dL (3.4-5.0) Albumin/Globulin Ratio 0.7 (1.0-1.7) Glucose (Fingerstick) 329 mg/dL (70-99) O2 Saturation 84 % (92-99) Arterial Blood pH 7.16 (7.35-7.45) Arterial Blood pCO2 at Patient Temp 51 mmHg (35-46) Arterial Blood pO2 at Patient Temp 65 mmHg (75-108) Arterial Blood HCO3 18 mmol/L (21-28) Arterial Blood Base Excess -11 mmol/L (-3-3) FiO2 100 Test 07/26/19 09:11 Heparin Anti-Xa Act, Unfractionated 0.84 IU/mL (0.30-0.70) Review of Systems Review of Systems: Unable to obtain Assessment and Plan Assessmemt and Plan Problems Medical Problems: (1) Suspected COVID-19 virus infection Status: Acute Impression: Acute hypoxic/// HYPERCAPNIC resp failure REQUIRING VENT SUPPORT Super morbid obesity Bibasilar lung airspace opacities likely atelectasis or infiltrates likely pneumonia or atelectasis or atypical/viral infection/viral pneumonia Diabetes Hypertension, uncontrolled normocytic anemia SEVERE PROTEIN, CALORIC MALNUTRITION COVID-19 POS Acute renal failure vasomotor etiology likely Hyperkalemia secondary to the above improved Constipation Plan: ICU monitoring Vent weaning Versed for sedation Vecuronium for paralytic agent Continue heparin TPN Increase Lantus to 30 twice daily Continue present AC mode, on 100% FIO2 ,14 PEEP. Make changes based on ABG's IV antibiotics. s/p convalescent plasma transfusion 07/13 nutrition, PPN and TF at5 low dose Monitor LFT Discussed with RN. S/P monoclonal antibodies/Tocilizumab 07/15/19 Hold tello inhibitor, appreciate nephrology consultation, temporary catheter in place Colace BID Prognosis guarded He is critically ill Total time 33 minutes Comment Review of Relevant I have reviewed the following items lizzy (where applicable) has been applied. Medications: Current Medications Medications (Trade) Dose Ordered Sig/Aria Route PRN Reason Start Time Stop Time Status Last Admin Dose Admin Multivitamins 10 ml/Chromium/ Copper/Manganese/ Seleni/Zn 0.5 ml/ Total Parenteral Nutrition/Amino Acids/Dextrose/ Fat Emulsion Intravenous 2,160 ml @ 90 mls/hr TPN CONT IV 07/25/19 22:00 07/26/19 03:29 DC 07/25/19 21:30 Dextrose/Sodium Chloride 1,000 ml @ 125 mls/hr Q8H IV 07/25/19 14:30 07/26/19 08:03 Multivitamins 10 ml/Chromium/ Copper/Manganese/ Seleni/Zn 0.5 ml/ Total Parenteral Nutrition/Amino Acids/Dextrose/ Fat Emulsion Intravenous 2,160 ml @ 90 mls/hr TPN CONT IV 07/25/19 22:00 07/26/19 21:59 07/25/19 21:30 Norepinephrine Bitartrate 8 mg/ Dextrose 258 ml @ 32.508 mls/ hr CONT PRN IV PER PROTOCOL 07/26/19 04:15 07/26/19 11:45 DC 07/26/19 10:36 Sodium Bicarbonate (Sodium Bicarb Adult 8.4% Syr) 100 meq 1X ONCE IV 07/26/19 10:15 07/26/19 10:16 DC 07/26/19 10:22 Norepinephrine Bitartrate 32 mg/ Dextrose 250 ml @ 7.795 mls/ hr CONT PRN IV SEE I/O RECORD 07/26/19 12:00 07/26/19 12:33 MICHELINE JI III DO July 26, 2019 12:41
[2019-07-26 12:58] LABS: PCO2 ABG 154 mmHg (35-46); PO2 ABG 44 mmHg (75-108); SAT O2 ABG 62 % (92-99)
[2019-07-26 12:59] LABS: FIO2 ABG 100% + 13 PEEP
[2019-07-26] MEDS: TPN PER PHARMACY MC PRN (12:59)
--- NOTE | 2019-07-26 12:59 | NUR ---
Pharmacy TPN Dosing Note S: REINALDO BOWER is a 48 year old M Currently receiving Central Continuous TPN started 07/18/19 B:Pertinent PMH: critical illness Current diet: NPO LABS: Sodium: 158 Potassium: 6.4 Chloride: 122 Calcium: 8.6 Corrected Calcium: 9.80 Magnesium: 3.2 CO2: 31 SCr: 2.1 Glucose: 266 Albumin: 2.5 AST: 15 ALT: 60 TPN FORMULA: TPN TYPE: Central Continuous AMINO ACIDS: 210 gm DEXTROSE: 225 gm LIPIDS: 20 gm SODIUM CHLORIDE: - mEq SODIUM ACETATE: - mEq SODIUM PHOSPHATE: - mmol POTASSIUM CHLORIDE: - mEq POTASSIUM ACETATE: - mEq POTASSIUM PHOSPHATE: - mmol MAGNESIUM: - mEq CALCIUM: -- mEq INSULIN: - units MULTIPLE VITAMIN: 10 ml TRACE ELEMENTS: 0.5 ml(s) TPN PLAN: 07/25 continue all lytes removed from tpn. R: Continue TPN Will monitor electrolytes, glucose, and tolerance to TPN. PORFIRIO WOODARD [facility], 07/26/19 3226
[2019-07-26] MEDS ORDERED: PHENYLEPHRINE INJ 50 MG in IV NORMAL SALINE 250ML 250 ML IV PRN (13:00)
[2019-07-26] MEDS ORDERED: ALBUMIN HUMAN 5% 250 ML IV ONE ×2 (16:00→23:00)
[2019-07-26 17:04] LABS: BASE EXCESS ABG -5 mmol/L (-3-3); HCO3 ABG 28 mmol/L (21-28); PO2 ABG 51 mmHg (75-108); SAT O2 ABG 75 % (92-99)
[2019-07-26 17:26] LABS: FIO2 ABG 100; PCO2 ABG 104 mmHg (35-46)
[2019-07-26] MEDS: MIDAZOLAM 100mg/100ml NS BAG 100 ML IV PRN (19:22)
[2019-07-26] MEDS ORDERED: DEXTROSE 70% IV SCH ×5 (22:00)
[2019-07-26] MEDS ORDERED: AMINO ACID IV SCH ×5 (22:00)
[2019-07-26] MEDS ORDERED: TOTAL PARENTERAL NUTRITION IV SCH ×5 (22:00)
[2019-07-26] MEDS ORDERED: [UNRECOGNIZED DRUG - OTHER] IV SCH ×5 (22:00)
[2019-07-27] VITALS (29 sets, daily range): BP systolic 44–133; BP diastolic 26–55
[2019-07-27] MEDS: fentaNYL HIGH DOSE PCA 55 ML IV PRN (00:30)
[2019-07-27] MEDS: NOREPINEPHRINE VIAL 32 MG in IV D5W 250ML IV PRN ×4 (00:54→15:19)
[2019-07-27] MEDS: VECURONIUM BROMIDE 50 MG in TOTAL VOLUME 50 ML IV PRN ×4 (04:00→13:47)
[2019-07-27] MEDS: DEXMEDETOMIDINE 400 MCG in IV NORMAL SALINE 100ML 96 ML IV PRN ×3 (05:00→13:12)
[2019-07-27] MEDS: VASOPRESSIN 20 UNIT in IV DEXTROSE 5% 100ML 100 ML IV PRN ×2 (05:22→12:59)
[2019-07-27] MEDS: PHENYLEPHRINE INJ 100 MG in IV NS 250 ML IV PRN ×4 (05:22→15:19)
[2019-07-27] MEDS: METOPROLOL TARTRATE 5 MG/5 ML VIAL. IVP SCH ×2 (05:33→08:49)
[2019-07-27] MEDS: INSULIN LISPRO 300 UNITS/3 ML VIAL. SQ SCH ×2 (06:41→12:13)
[2019-07-27 06:52] LABS: HEMATOCRIT 33.5 % (39.0-53.0); RED BLOOD COUNT 3.75 x10^6/uL (4.30-5.70); RED CELL DISTRIBUTION WIDTH 16.9 % (11.5-14.5); WHITE BLOOD COUNT 33.2 x10^3/uL (4.0-11.0)
[2019-07-27 07:13] LABS: CALCIUM 7.6 mg/dL (8.5-10.1); CREATININE 3.6 mg/dL (0.7-1.3)
[2019-07-27 07:20] LABS: POTASSIUM 6.9 mmol/L (3.5-5.1)
--- NOTE | 2019-07-27 07:25 | NUR ---
approx 0200 patient blood pressure began to drop with Roma reading SBP in 80s, automatic cuff placed and was reading SBP in low 100s. Roma flushed, leveled, and has good blood return. Went with cuff reading in vitals signs. BP with cuff also then began to drop, systolic in mid 80s. Indio restarted as levo already maxed. [place] was quickly maxed out as well. O2 saturation then began to drop to 78%, Dr Carcamo called with any further suggestions. PEEP increased from 16 to 17 and vasopressin started. made aware of patient status. BP slowly recovered to SBP in low 100s and O2 saturation at 88%. called with update, told that although SBP has improved, patient is now maxed on 3 pressors and remains critical.
[2019-07-27] MEDS: DOXAZOSIN MESYLATE 4 MG TABLET. PO SCH (08:47)
[2019-07-27] MEDS: PANTOPRAZOLE IV PUSH 40 MG VIAL. IVP SCH (08:47)
[2019-07-27] MEDS: amLODIPine BESYLATE 10 MG TABLET PO SCH (08:48)
[2019-07-27] MEDS: ALLOPURINOL 300 MG TABLET. PO SCH (08:48)
[2019-07-27] MEDS: INSULIN GLARGINE SYRINGE. SQ SCH (08:49)
[2019-07-27] MEDS: IV DEXTROSE 5 %-0.45 % NACL 1,000 ML IV SCH (08:50)
[2019-07-27 08:55] LABS: BASE EXCESS ABG -7 mmol/L (-3-3); HCO3 ABG 25 mmol/L (21-28); SAT O2 ABG 74 % (92-99)
--- NOTE | 2019-07-27 09:11 | PDOC ---
SUBJECTIVE ROS Intubated, On MV OBJECTIVE Vital Signs Vital Signs Date Time Temp Pulse Resp B/P (MAP) Pulse Ox O2 Delivery O2 Flow Rate FiO2 07/27/19 07:28 113 30 123/43 (69) 89 Ventilator 07/27/19 04:00 98.8 98.8 I & 0 Intake and Output 07/27/19 07:00 Intake Total 6792.7 ml Output Total 735 ml Balance 6057.7 ml IV Total 6692.7 ml Blood Product IV Normal Saline Flush 100 ml Output Urine Total 735 ml PHYSICAL EXAM Physical Exam Visual exam GENERAL: patient is intubated and sedated HEENT Intubated Heart S1-S2 systolic murmur + Extremity LE edema + Sims + Neuro- On Vent DIAGNOSIS/ASSESSMENT Assessment & Plan GABRIEL --ATN ,Non Oliguric, Initiated on Hd 07/25, didnt tolerate well - hypotensive despite pressors and fluids Worsening renal function, Maxed on pressors , not a candidate for ECMO CRRt today, doubtful if will benefit from ENGINEERING INTERN based on overall worsening clinically Dw Dr. Carcamo HyperNatremia- Severe, No improvement with D5W, s/p IV bicarb 07/25 Resolved , post HD 07/25 HyperKalemia - persistent Acute hypoxic respiratory failure secondary to coronavirus disease-19 pneumonia. 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 07/15/19 RLL effusion necrotic right index finger Elevated D-dimer and LFT's Super morbid obesity Diabetes Hypertension, antihypertensives Anemia- stable Pt evaluated during global Covid 19 pandemic COMMENT/RELEVANT DATA Meds Current Medications Medications (Trade) Dose Ordered Sig/Aria Start Time Stop Time Status Last Admin Dose Admin Acetaminophen (Tylenol) 650 mg PRN Q4HRS PRN 07/12/19 16:45 07/14/19 18:29 650 MG Al Hydroxide/Mg Hydroxide (Mylanta Plus Xs) 30 ml PRN DAILY PRN 07/12/19 16:45 07/22/19 04:48 DC Albumin Human 250 ml @ 62.5 mls/hr 1X ONCE 07/26/19 23:00 07/27/19 03:51 DC 07/26/19 23:04 62.5 MLS/HR Albuterol Sulfate (Ventolin Neb Soln) 2.5 mg PRN Q4HRS PRN 07/12/19 18:45 Albuterol/ Ipratropium (Duoneb) 3 ml Q4HRS 07/12/19 20:00 07/12/19 18:33 DC Allopurinol (Zyloprim) 300 mg DAILY 07/13/19 09:00 07/27/19 08:48 300 MG Amino Acids/ Glycerin/ Electrolytes 1,000 ml @ 80 mls/hr [id number] 07/16/19 10:00 07/18/19 21:59 DC 07/18/19 13:03 80 MLS/HR Amlodipine Besylate (Norvasc) 10 mg 1X ONCE 07/12/19 23:30 07/12/19 23:31 DC 07/12/19 23:00 10 MG Atorvastatin Calcium (Lipitor) 40 mg QHS 07/12/19 21:00 07/19/19 14:07 DC 07/18/19 20:57 40 MG Calcium Gluconate (Calcium Gluconate) 1,000 mg 1X ONCE 07/22/19 13:15 07/22/19 13:21 DC 07/22/19 13:38 1,000 MG Clonidine HCl (Catapres) 0.1 mg PRN Q6HRS PRN 07/12/19 16:45 07/15/19 04:25 0.1 MG Dexmedetomidine HCl 400 mcg/ Sodium Chloride 100 ml @ 0 mls/hr CONT PRN 07/15/19 16:30 UNV Dextrose 1,000 ml @ 125 mls/hr Q8H 07/25/19 07:30 07/25/19 15:25 DC 07/25/19 09:01 125 MLS/HR Dextrose (Dextrose 50%-Water Syringe) 25 gm 1X ONCE 07/22/19 13:15 07/22/19 13:21 DC 07/22/19 13:41 25 GM Dextrose/Sodium Chloride 1,000 ml @ 125 mls/hr Q8H 07/25/19 14:30 07/27/19 08:50 125 MLS/HR Docusate Sodium (Colace) 100 mg PRN BID PRN 07/12/19 16:45 Doxazosin Mesylate (Cardura) 8 mg 1X ONCE 07/12/19 23:30 07/12/19 23:31 DC 07/12/19 23:08 8 MG Enoxaparin Sodium (Lovenox 60mg Syringe) 60 mg Q12HR 07/22/19 21:00 07/24/19 11:20 DC 07/24/19 08:20 60 MG Ephedrine Sulfate (ePHEDrine PF IN SALINE SYRINGE) 50 mg STK-MED ONCE 07/23/19 12:41 07/23/19 12:41 DC Famotidine (Pepcid Vial) 20 mg BID 07/15/19 09:00 07/24/19 11:20 DC 07/24/19 08:20 20 MG Fentanyl Citrate (Fentanyl 600 Mcg/30 ml DENTAL FINANCIAL COORDINATOR) 600 mcg STK-MED ONCE 07/15/19 05:54 07/26/19 11:10 DC Furosemide (Lasix) 40 mg 1X ONCE 07/22/19 09:00 07/22/19 09:01 DC 07/22/19 09:10 40 MG Guaifenesin (Robitussin) 200 mg PRN Q4HRS PRN 07/12/19 16:45 07/14/19 08:52 200 MG Haloperidol Lactate (Haldol Inj) 3 mg PRN Q4HRS PRN 07/14/19 22:30 07/14/19 22:59 3 MG Heparin Sodium (Porcine) (Heparin Sodium) 2,600 unit PRN Q6HRS PRN 07/24/19 11:15 Heparin Sodium/ Dextrose 250 ml @ 0 mls/hr CONT PRN 07/24/19 11:15 07/26/19 10:44 11 MLS/HR Hydralazine HCl (Apresoline Inj) 10 mg PRN Q4HRS PRN 07/12/19 22:45 07/19/19 09:07 10 MG Info (Anti-Coagulation Monitoring By Pharmacy) 1 each PRN DAILY PRN 07/22/19 04:15 07/23/19 08:04 DC 07/22/19 04:54 1 EACH Info (PHARMACY MONITORING -- do not chart) 1 each PRN DAILY PRN 07/26/19 08:15 Info (Tpn Per Pharmacy) 1 each PRN DAILY PRN 07/18/19 10:45 07/26/19 12:59 1 EACH Insulin Glargine (Lantus Syringe) 30 unit BID 07/25/19 09:00 07/27/19 08:49 30 UNIT Insulin Human Lispro (HumaLOG) 0-5 UNITS Q6HRS 07/22/19 12:00 07/27/19 06:41 4 UNITS Insulin Human Regular (HumuLIN R VIAL) 10 unit 1X ONCE 07/22/19 13:15 07/22/19 13:21 DC 07/22/19 13:39 10 UNIT Ketamine HCl (Ketamine) 50 mg 1X ONCE 07/15/19 06:15 07/15/19 06:16 DC 07/15/19 05:55 50 MG Labetalol HCl (Normodyne Iv Push) 10 mg PRN Q5MIN PRN 07/19/19 09:30 Lactobacillus Rhamnosus (Culturelle) 1 cap BID 07/13/19 21:00 07/21/19 10:47 DC 07/20/19 20:10 1 CAP Levofloxacin/ Dextrose 100 ml @ 100 mls/hr 1X ONCE 07/12/19 17:45 07/12/19 18:44 DC 07/12/19 17:58 100 MLS/HR Lidocaine HCl (Buffered Lidocaine 1%) 6 ml 1X ONCE 07/22/19 17:00 07/22/19 17:01 DC 07/22/19 16:53 6 ML Lidocaine HCl (Lidocaine 1% 20ml Vial) 20 ml STK-MED ONCE 07/22/19 15:37 07/22/19 15:37 DC Lisinopril (Prinivil) 10 mg 1X ONCE 07/12/19 23:00 07/12/19 23:01 DC 07/13/19 00:41 10 MG Lorazepam (Ativan Inj) 1 mg PRN Q2HRS PRN 07/12/19 23:00 07/17/19 12:20 1 MG Metformin HCl (Glucophage) 1,000 mg BIDWMEALS 07/13/19 08:00 07/20/19 13:33 DC 07/19/19 18:07 1,000 MG Methylprednisolone Sodium Succinate (SOLU-Medrol 125MG VIAL) 250 mg Q6HRS 07/21/19 14:30 UNV Methylprednisolone Sodium Succinate 250 mg/Sodium Chloride 100 ml @ 100 mls/hr Q6HRS 07/21/19 16:00 07/24/19 10:15 DC 07/24/19 05:52 100 MLS/HR Metoprolol Tartrate (Lopressor Vial) 5 mg Q6HRS 07/19/19 18:00 07/26/19 06:21 5 MG Metoprolol Tartrate (Lopressor) 25 mg BID 07/12/19 21:00 07/19/19 14:04 DC 07/18/19 20:57 25 MG Midazolam HCl (Versed Premix) 100 mg STK-MED ONCE 07/20/19 06:47 07/27/19 08:24 DC Morphine Sulfate (Morphine Preservative Free) 10 mg STK-MED ONCE 07/23/19 12:00 07/23/19 12:01 DC Multivitamins 10 ml/Chromium/ Copper/Manganese/ Seleni/Zn 0.5 ml/ Total Parenteral Nutrition/Amino Acids/Dextrose/ Fat Emulsion Intravenous 2,160 ml @ 90 mls/hr TPN CONT 07/26/19 22:00 07/27/19 21:59 07/26/19 20:15 90 MLS/HR Norepinephrine Bitartrate 32 mg/ Dextrose 250 ml @ 7.795 mls/ hr CONT PRN 07/26/19 12:00 07/27/19 08:52 78 MLS/HR Norepinephrine Bitartrate 8 mg/ Dextrose 258 ml @ 32.508 mls/ hr CONT PRN 07/26/19 04:15 07/26/19 11:45 DC 07/26/19 10:36 32.508 MLS/HR Ondansetron HCl (Zofran) 4 mg PRN Q4HRS PRN 07/12/19 16:45 Oxytocin (Pitocin) 10 unit STK-MED ONCE 07/23/19 12:00 07/23/19 12:01 DC Pantoprazole Sodium (PROTONIX VIAL for IV PUSH) 40 mg DAILYAC 07/25/19 07:30 07/27/19 08:47 40 MG Phenylephrine HCl 50 mg/Sodium Chloride 255 ml @ 25.444 mls/ hr CONT PRN 07/26/19 13:00 07/27/19 05:05 DC 07/26/19 15:18 25.444 MLS/HR Phenylephrine HCl 100 mg/Sodium Chloride 260 ml @ 12.971 mls/ hr CONT PRN 07/27/19 05:15 07/27/19 08:53 74.8 MLS/HR Propofol 100 ml @ 2.7 mls/hr CONT PRN 07/15/19 06:15 07/24/19 11:10 DC 07/15/19 10:08 54 MLS/HR Sodium Polystyrene Sulfonate (Kayexalate) 30 gm 1X ONCE 07/22/19 13:15 07/22/19 13:21 DC Sodium Acetate 50 meq/Calcium Gluconate 5 meq/ Multivitamins 10 ml/Chromium/ Copper/Manganese/ Seleni/Zn 0.5 ml/ Total Parenteral Nutrition/Amino Acids/Dextrose/ Fat Emulsion Intravenous 1,680 ml @ 70 mls/hr TPN CONT 07/23/19 22:00 07/24/19 21:59 DC 07/23/19 20:44 70 MLS/HR Sodium Acetate 60 meq/Calcium Gluconate 5 meq/ Multivitamins 10 ml/Chromium/ Copper/Manganese/ Seleni/Zn 0.5 ml/ Total Parenteral Nutrition/Amino Acids/Dextrose/ Fat Emulsion Intravenous 1,680 ml @ 70 mls/hr TPN CONT 07/22/19 22:00 07/23/19 21:59 DC 07/22/19 23:49 70 MLS/HR Sodium Acetate 60 meq/Potassium Phosphate 13.6 mmol/Magnesium Sulfate 10 meq/ Calcium Gluconate 10 meq/ Multivitamins 10 ml/Chromium/ Copper/Manganese/ Seleni/Zn 0.5 ml/ Total Parenteral Nutrition/Amino Acids/Dextrose 1,920 ml @ 80 mls/hr TPN CONT 07/18/19 22:00 07/19/19 21:59 DC 07/18/19 22:18 80 MLS/HR Sodium Acetate 60 meq/Potassium Phosphate 13.6 mmol/Magnesium Sulfate 5 meq/ Calcium Gluconate 10 meq/ Multivitamins 10 ml/Chromium/ Copper/Manganese/ Seleni/Zn 0.5 ml/ Total Parenteral Nutrition/Amino Acids/Dextrose/ Fat Emulsion Intravenous 1,920 ml @ 80 mls/hr TPN CONT 07/19/19 22:00 07/20/19 21:59 DC 07/19/19 20:45 80 MLS/HR Sodium Acetate 60 meq/Sodium Phosphate 5 mmol/ Calcium Gluconate 5 meq/ Multivitamins 10 ml/Chromium/ Copper/Manganese/ Seleni/Zn 0.5 ml/ Total Parenteral Nutrition/Amino Acids/Dextrose/ Fat Emulsion Intravenous 1,920 ml @ 80 mls/hr TPN CONT 07/20/19 22:00 07/21/19 21:59 DC 07/20/19 21:23 80 MLS/HR Sodium Bicarbonate (Sodium Bicarb Adult 8.4% Syr) 50 meq 1X ONCE 07/26/19 17:15 07/26/19 17:16 DC 07/26/19 17:16 50 MEQ Sodium Chloride 1,000 ml @ 400 mls/hr Q2H30M PRN 07/26/19 08:02 07/26/19 20:01 DC Sodium Chloride (Normal Saline Flush) 10 ml 1X PRN PRN 07/26/19 08:15 07/27/19 08:14 DC Succinylcholine Chloride (Anectine) 200 mg 1X ONCE 07/15/19 06:15 07/15/19 06:16 DC 07/15/19 06:00 200 MG Throat Lozenges (Cepacol Sore Throat Lozenge) 1 jenaro PRN Q2HRS PRN 07/13/19 16:30 07/14/19 08:56 1 JENARO Tocilizumab 800 mg/Sodium Chloride 100 ml @ 100 mls/hr ONCE ONCE 07/15/19 16:00 07/15/19 16:59 DC 07/15/19 15:51 100 MLS/HR Vasopressin 20 unit/Dextrose 101 ml @ 12 mls/hr CONT PRN 07/27/19 05:15 07/27/19 05:22 12 MLS/HR Vecuronium [place] 50 mg/ Miscellaneous 50 ml @ 8.976 mls/ hr CONT PRN 07/17/19 12:15 07/27/19 08:47 16.5 MLS/HR Vecuronium [place] (Norcuron Bolus) 10 mg PRN Q6HRS PRN 07/17/19 10:00 07/17/19 12:19 10 MG Lab Laboratory Tests Test 07/26/19 09:11 07/26/19 12:20 07/26/19 12:40 07/26/19 15:25 Heparin Anti-Xa Act, Unfractionated 0.84 IU/mL (0.30-0.70) 0.58 IU/mL (0.30-0.70) Glucose (Fingerstick) 266 mg/dL (70-99) O2 Saturation 62 % (92-99) Arterial Blood pH 7.05 (7.35-7.45) Arterial Blood pCO2 at Patient Temp 154 mmHg (35-46) Arterial Blood pO2 at Patient Temp 44 mmHg (75-108) Arterial Blood HCO3 41 mmol/L (21-28) Arterial Blood Base Excess 6 mmol/L (-3-3) FiO2 100% + 13 peep Test 07/26/19 16:34 07/26/19 17:00 07/26/19 21:00 07/26/19 23:37 Glucose (Fingerstick) 301 mg/dL (70-99) 276 mg/dL (70-99) O2 Saturation 75 % (92-99) Arterial Blood pH 7.05 (7.35-7.45) Arterial Blood pCO2 at Patient Temp 104 mmHg (35-46) Arterial Blood pO2 at Patient Temp 51 mmHg (75-108) Arterial Blood HCO3 28 mmol/L (21-28) Arterial Blood Base Excess -5 mmol/L (-3-3) FiO2 100 Heparin Anti-Xa Act, Unfractionated 0.37 IU/mL (0.30-0.70) Test 07/27/19 06:30 07/27/19 06:35 White Blood Count 33.2 x10^3/uL (4.0-11.0) Red Blood Count 3.75 x10^6/uL (4.30-5.70) Hemoglobin 10.0 g/dL (13.0-17.5) Hematocrit 33.5 % (39.0-53.0) Mean Corpuscular Volume 89 fL (79-100) Mean Corpuscular Hemoglobin 27 pg (25-35) Mean Corpuscular Hemoglobin Concent 30 g/dL (31-37) Red Cell Distribution Width 16.9 % (11.5-14.5) Platelet Count 248 x10^3/uL (140-400) Heparin Anti-Xa Act, Unfractionated 0.27 IU/mL (0.30-0.70) Sodium Level 143 mmol/L (136-145) Potassium Level 6.9 mmol/L (3.5-5.1) Chloride Level 107 mmol/L (98-107) Carbon Dioxide Level 30 mmol/L (21-32) Anion Gap 6 (6-14) Blood Urea Nitrogen 143 mg/dL (8-26) Creatinine 3.6 mg/dL (0.7-1.3) Estimated GFR (Cockcroft-Gault) 22.0 Glucose Level 330 mg/dL (70-99) Calcium Level 7.6 mg/dL (8.5-10.1) Triglycerides Level 295 mg/dL (0-150) Glucose (Fingerstick) 271 mg/dL (70-99) Results All relevant outside records, renal labs, imaging studies, telemetry/EKG's were reviewed. DIANA SANDY MD July 27, 2019 09:11
[2019-07-27 09:18] LABS: PCO2 ABG 90 mmHg (35-46); PO2 ABG 50 mmHg (75-108)
[2019-07-27 09:21] LABS: FIO2 ABG 100% + 18 PEEP
[2019-07-27] MEDS: HEPARIN 25,000UTS/250ML PREMIX 250 ML IV PRN (10:00)
[2019-07-27] MEDS ORDERED: SODIUM BICARB ADULT 8.4% 50 MEQ/50 ML DISP.SYRIN. ONE (10:00)
[2019-07-27] MEDS ORDERED: EPINEPHrine SYRINGE 1 MG/10 ML SYRINGE ONE (10:00)
--- NOTE | 2019-07-27 10:01 | NUR ---
Dr Carcamo wants us to notify transfer center and see if patient would be candidate for ECMO. Kale with the transfer center notified, pt information given and requested documentation faxed to . Awaiting call back.
--- NOTE | 2019-07-27 10:44 | RAD ---
AP portable chest radiograph 07/27/2019 Clinical History: Respiratory failure. An AP semi erect portable digital radiograph of the chest was obtained. Comparison study is dated 07/25/2019. The ET tube, NG tube, right internal jugular central venous catheter and dual-lumen large bore right internal central venous catheter are unchanged in position. The cardiac silhouette is borderline enlarged. The thoracic aorta is mildly tortuous. Left lower lobe atelectasis and/or infiltrate is seen which has increased since the previous examination. Elevation of the right hemidiaphragm is again noted. Superimposed perihilar infiltrates are noted bilaterally which have not significantly changed. No pneumothorax or definite pleural effusion is seen. The osseous structures are unchanged. Impression: Increasing left lower lobe atelectasis and/or infiltrate. Electronically signed by: Rufus Reis MD (07/27/2019 10:41 AM) [id number]
--- NOTE | 2019-07-27 10:48 | PDOC ---
PULMONARY PROGRESS NOTES Subjective remains on AC mode, on 100% fio2 18 of PEEP on versed, vec, fent, and precedex gtts met/resp acidosis on 3 pressors worsening renal failure Vitals Vital Signs Date Time Temp Pulse Resp B/P (MAP) Pulse Ox O2 Delivery O2 Flow Rate FiO2 07/27/19 09:57 114 30 127/46 (73) 91 Ventilator 07/27/19 08:00 99.0 99.0 Comments Visual exam done due to COVID pandemic Patient in sync with the ventilator, no respiratory distress. Labs Laboratory Tests Test 07/25/19 11:34 07/25/19 11:38 07/25/19 13:48 07/25/19 17:01 Glucose (Fingerstick) 322 mg/dL (70-99) 386 mg/dL (70-99) Heparin Anti-Xa Act, Unfractionated 0.77 IU/mL (0.30-0.70) 0.39 IU/mL (0.30-0.70) Sodium Level 159 mmol/L (136-145) Potassium Level 5.6 mmol/L (3.5-5.1) Chloride Level 121 mmol/L (98-107) Carbon Dioxide Level 30 mmol/L (21-32) Anion Gap 8 (6-14) Blood Urea Nitrogen 114 mg/dL (8-26) Creatinine 1.7 mg/dL (0.7-1.3) Estimated GFR (Cockcroft-Gault) 52.3 Glucose Level 403 mg/dL (70-99) Calcium Level 9.2 mg/dL (8.5-10.1) Test 07/25/19 20:15 07/25/19 23:56 07/26/19 03:00 07/26/19 06:00 Heparin Anti-Xa Act, Unfractionated 0.77 IU/mL (0.30-0.70) 0.81 IU/mL (0.30-0.70) Glucose (Fingerstick) 355 mg/dL (70-99) White Blood Count 19.8 x10^3/uL (4.0-11.0) Red Blood Count 4.05 x10^6/uL (4.30-5.70) Hemoglobin 10.8 g/dL (13.0-17.5) Hematocrit 35.4 % (39.0-53.0) Mean Corpuscular Volume 87 fL (79-100) Mean Corpuscular Hemoglobin 27 pg (25-35) Mean Corpuscular Hemoglobin Concent 31 g/dL (31-37) Red Cell Distribution Width 16.4 % (11.5-14.5) Platelet Count 369 x10^3/uL (140-400) Sodium Level 158 mmol/L (136-145) Potassium Level 6.4 mmol/L (3.5-5.1) Chloride Level 122 mmol/L (98-107) Carbon Dioxide Level 31 mmol/L (21-32) Anion Gap 5 (6-14) Blood Urea Nitrogen 132 mg/dL (8-26) Creatinine 2.1 mg/dL (0.7-1.3) Estimated GFR (Cockcroft-Gault) 41.0 BUN/Creatinine Ratio 63 (6-20) Glucose Level 353 mg/dL (70-99) Calcium Level 8.6 mg/dL (8.5-10.1) Magnesium Level 3.2 mg/dL (1.8-2.4) Total Bilirubin 0.3 mg/dL (0.2-1.0) Aspartate Amino Transf (AST/SGOT) 15 U/L (15-37) Alanine Aminotransferase (ALT/SGPT) 60 U/L (16-63) Alkaline Phosphatase 91 U/L (46-116) Total Protein 6.1 g/dL (6.4-8.2) Albumin 2.5 g/dL (3.4-5.0) Albumin/Globulin Ratio 0.7 (1.0-1.7) Hepatitis B Surface Antigen Nonreactive (Nonreactive) Test 07/26/19 06:08 07/26/19 08:00 07/26/19 09:00 07/26/19 09:11 Glucose (Fingerstick) 329 mg/dL (70-99) O2 Saturation 84 % (92-99) Arterial Blood pH 7.16 (7.35-7.45) Arterial Blood pCO2 at Patient Temp 51 mmHg (35-46) Arterial Blood pO2 at Patient Temp 65 mmHg (75-108) Arterial Blood HCO3 18 mmol/L (21-28) Arterial Blood Base Excess -11 mmol/L (-3-3) FiO2 100 Coronavirus (COVID-19)(PCR) See separate report Heparin Anti-Xa Act, Unfractionated 0.84 IU/mL (0.30-0.70) Test 07/26/19 12:20 07/26/19 12:40 07/26/19 15:25 07/26/19 16:34 Glucose (Fingerstick) 266 mg/dL (70-99) 301 mg/dL (70-99) O2 Saturation 62 % (92-99) Arterial Blood pH 7.05 (7.35-7.45) Arterial Blood pCO2 at Patient Temp 154 mmHg (35-46) Arterial Blood pO2 at Patient Temp 44 mmHg (75-108) Arterial Blood HCO3 41 mmol/L (21-28) Arterial Blood Base Excess 6 mmol/L (-3-3) FiO2 100% + 13 peep Heparin Anti-Xa Act, Unfractionated 0.58 IU/mL (0.30-0.70) Test 07/26/19 17:00 07/26/19 21:00 07/26/19 23:37 07/27/19 06:30 O2 Saturation 75 % (92-99) Arterial Blood pH 7.05 (7.35-7.45) Arterial Blood pCO2 at Patient Temp 104 mmHg (35-46) Arterial Blood pO2 at Patient Temp 51 mmHg (75-108) Arterial Blood HCO3 28 mmol/L (21-28) Arterial Blood Base Excess -5 mmol/L (-3-3) FiO2 100 Heparin Anti-Xa Act, Unfractionated 0.37 IU/mL (0.30-0.70) 0.27 IU/mL (0.30-0.70) Glucose (Fingerstick) 276 mg/dL (70-99) White Blood Count 33.2 x10^3/uL (4.0-11.0) Red Blood Count 3.75 x10^6/uL (4.30-5.70) Hemoglobin 10.0 g/dL (13.0-17.5) Hematocrit 33.5 % (39.0-53.0) Mean Corpuscular Volume 89 fL (79-100) Mean Corpuscular Hemoglobin 27 pg (25-35) Mean Corpuscular Hemoglobin Concent 30 g/dL (31-37) Red Cell Distribution Width 16.9 % (11.5-14.5) Platelet Count 248 x10^3/uL (140-400) Sodium Level 143 mmol/L (136-145) Potassium Level 6.9 mmol/L (3.5-5.1) Chloride Level 107 mmol/L (98-107) Carbon Dioxide Level 30 mmol/L (21-32) Anion Gap 6 (6-14) Blood Urea Nitrogen 143 mg/dL (8-26) Creatinine 3.6 mg/dL (0.7-1.3) Estimated GFR (Cockcroft-Gault) 22.0 Glucose Level 330 mg/dL (70-99) Calcium Level 7.6 mg/dL (8.5-10.1) Creatine Kinase 155 U/L (39-308) Triglycerides Level 295 mg/dL (0-150) Test 07/27/19 06:35 07/27/19 08:40 Glucose (Fingerstick) 271 mg/dL (70-99) O2 Saturation 74 % (92-99) Arterial Blood pH 7.06 (7.35-7.45) Arterial Blood pCO2 at Patient Temp 90 mmHg (35-46) Arterial Blood pO2 at Patient Temp 50 mmHg (75-108) Arterial Blood HCO3 25 mmol/L (21-28) Arterial Blood Base Excess -7 mmol/L (-3-3) FiO2 100% + 18 peep Laboratory Tests Test 07/26/19 12:20 07/26/19 12:40 07/26/19 15:25 07/26/19 16:34 Glucose (Fingerstick) 266 mg/dL (70-99) 301 mg/dL (70-99) O2 Saturation 62 % (92-99) Arterial Blood pH 7.05 (7.35-7.45) Arterial Blood pCO2 at Patient Temp 154 mmHg (35-46) Arterial Blood pO2 at Patient Temp 44 mmHg (75-108) Arterial Blood HCO3 41 mmol/L (21-28) Arterial Blood Base Excess 6 mmol/L (-3-3) FiO2 100% + 13 peep Heparin Anti-Xa Act, Unfractionated 0.58 IU/mL (0.30-0.70) Test 07/26/19 17:00 07/26/19 21:00 07/26/19 23:37 07/27/19 06:30 O2 Saturation 75 % (92-99) Arterial Blood pH 7.05 (7.35-7.45) Arterial Blood pCO2 at Patient Temp 104 mmHg (35-46) Arterial Blood pO2 at Patient Temp 51 mmHg (75-108) Arterial Blood HCO3 28 mmol/L (21-28) Arterial Blood Base Excess -5 mmol/L (-3-3) FiO2 100 Heparin Anti-Xa Act, Unfractionated 0.37 IU/mL (0.30-0.70) 0.27 IU/mL (0.30-0.70) Glucose (Fingerstick) 276 mg/dL (70-99) White Blood Count 33.2 x10^3/uL (4.0-11.0) Red Blood Count 3.75 x10^6/uL (4.30-5.70) Hemoglobin 10.0 g/dL (13.0-17.5) Hematocrit 33.5 % (39.0-53.0) Mean Corpuscular Volume 89 fL (79-100) Mean Corpuscular Hemoglobin 27 pg (25-35) Mean Corpuscular Hemoglobin Concent 30 g/dL (31-37) Red Cell Distribution Width 16.9 % (11.5-14.5) Platelet Count 248 x10^3/uL (140-400) Sodium Level 143 mmol/L (136-145) Potassium Level 6.9 mmol/L (3.5-5.1) Chloride Level 107 mmol/L (98-107) Carbon Dioxide Level 30 mmol/L (21-32) Anion Gap 6 (6-14) Blood Urea Nitrogen 143 mg/dL (8-26) Creatinine 3.6 mg/dL (0.7-1.3) Estimated GFR (Cockcroft-Gault) 22.0 Glucose Level 330 mg/dL (70-99) Calcium Level 7.6 mg/dL (8.5-10.1) Creatine Kinase 155 U/L (39-308) Triglycerides Level 295 mg/dL (0-150) Test 07/27/19 06:35 07/27/19 08:40 Glucose (Fingerstick) 271 mg/dL (70-99) O2 Saturation 74 % (92-99) Arterial Blood pH 7.06 (7.35-7.45) Arterial Blood pCO2 at Patient Temp 90 mmHg (35-46) Arterial Blood pO2 at Patient Temp 50 mmHg (75-108) Arterial Blood HCO3 25 mmol/L (21-28) Arterial Blood Base Excess -7 mmol/L (-3-3) FiO2 100% + 18 peep Medications Active Scripts Medications Dose Route/Sig Max Daily Dose Days Date Category Metformin Hcl 1,000 Mg Tablet 1,000 Mg PO BIDWMEALS 07/12/19 Reported Lisinopril 40 Mg Tablet 40 Mg PO DAILY 07/12/19 Reported Allopurinol 300 Mg Tablet 300 Mg PO DAILY 07/12/19 Reported Metoprolol Tartrate 25 Mg Tablet 25 Mg PO BID 07/12/19 Reported Doxazosin Mesylate 8 Mg Tablet 8 Mg PO DAILY 07/12/19 Reported Amlodipine Besylate 10 Mg Tablet 10 Mg PO DAILY 07/12/19 Reported Comments Chest x-ray reviewed,07/26 aeration of the right lung is better, worsening consolidation LLL Impression . 1. Acute hypoxic respiratory failure multifactorial, COVID-19, ARDS, INTUBATED 07/14 .worsening hypercapnia /hypoxia since 07/25 despite on 100%FIO2, 18 peep. D/W RT. increased PEEP to 18. adjusted I:E ratio/Flow.Increased TV reduced as plateau pressure 40'. f/u ABG.improvement in hypercapniaPt did not tolerated HD, Now on full dose Levophed. Possible PE cannot be ruled out. D-dimer is trending down.Cannot do CTA chest. Bed side echo not helpful due to obesity. Already on full dose heparin for possible PE. ?another storm surge. 2. shock, on 3 pressors, ? due to PE, no signs of sepsis but will re-add abx 3. Underlying morbid obesity. 4. Diabetes. 5. Nonsmoker. 6. Increase inflammatory markers suggestive of cytokine surge 7. s/p convalescent plasma 8. Abnormal chest x-ray revealing whiteout of the right lung, improved, now RLL effusion 9. necrotic right index finger 10.Abnormal chest x-ray Plan . Continue mechanical ventilation A/C mode PEEP 18 and Fi02 of 100. make changes bases on ABG, vasopressors add abx will need CRRT correction of K per renal CXR reviewed improved on right, worse left. , no need for bronchoscopy or thoracentesis at this time Status post convalescent serum transfusion 07/13 and Status post Tocilizumab Follow nephrology recs - d/w Dr Carl off steroids Nutritional support-- TPN heparin gtt D/W RN and RT DVT GI prophylaxis: heparin gtt /protonix I have spoke to [facility] team. [facility] a [facility] Total cumulative critical care time of 40 minutes, reviewing labs, chest x-ray, data, formulating a plan d/w MIRIAN in detail 07/25 . will update her again HILARIO BIRCH MD July 27, 2019 10:48
--- NOTE | 2019-07-27 11:03 | PDOC ---
CARDIO Progress Notes Date and Time Date of Service 07/27/2019 Time of Evaluation 1050 Subjective Subjective: Other (sedated / intubated ) Vitals Vitals Vital Signs Date Time Temp Pulse Resp B/P (MAP) Pulse Ox O2 Delivery O2 Flow Rate FiO2 07/27/19 10:51 117 30 120/46 (70) 93 Ventilator 07/27/19 08:00 99.0 99.0 Weight Weight [ ] Input and Output Intake and Output Intake and Output 07/27/19 07:00 Intake Total 6792.7 ml Output Total 735 ml Balance 6057.7 ml IV Total 6692.7 ml Blood Product IV Normal Saline Flush 100 ml Output Urine Total 735 ml Laboratory Labs Laboratory Tests Test 07/26/19 12:20 07/26/19 12:40 07/26/19 15:25 07/26/19 16:34 Glucose (Fingerstick) 266 mg/dL (70-99) 301 mg/dL (70-99) O2 Saturation 62 % (92-99) Arterial Blood pH 7.05 (7.35-7.45) Arterial Blood pCO2 at Patient Temp 154 mmHg (35-46) Arterial Blood pO2 at Patient Temp 44 mmHg (75-108) Arterial Blood HCO3 41 mmol/L (21-28) Arterial Blood Base Excess 6 mmol/L (-3-3) FiO2 100% + 13 peep Heparin Anti-Xa Act, Unfractionated 0.58 IU/mL (0.30-0.70) Test 07/26/19 17:00 07/26/19 21:00 07/26/19 23:37 07/27/19 06:30 O2 Saturation 75 % (92-99) Arterial Blood pH 7.05 (7.35-7.45) Arterial Blood pCO2 at Patient Temp 104 mmHg (35-46) Arterial Blood pO2 at Patient Temp 51 mmHg (75-108) Arterial Blood HCO3 28 mmol/L (21-28) Arterial Blood Base Excess -5 mmol/L (-3-3) FiO2 100 Heparin Anti-Xa Act, Unfractionated 0.37 IU/mL (0.30-0.70) 0.27 IU/mL (0.30-0.70) Glucose (Fingerstick) 276 mg/dL (70-99) White Blood Count 33.2 x10^3/uL (4.0-11.0) Red Blood Count 3.75 x10^6/uL (4.30-5.70) Hemoglobin 10.0 g/dL (13.0-17.5) Hematocrit 33.5 % (39.0-53.0) Mean Corpuscular Volume 89 fL (79-100) Mean Corpuscular Hemoglobin 27 pg (25-35) Mean Corpuscular Hemoglobin Concent 30 g/dL (31-37) Red Cell Distribution Width 16.9 % (11.5-14.5) Platelet Count 248 x10^3/uL (140-400) Sodium Level 143 mmol/L (136-145) Potassium Level 6.9 mmol/L (3.5-5.1) Chloride Level 107 mmol/L (98-107) Carbon Dioxide Level 30 mmol/L (21-32) Anion Gap 6 (6-14) Blood Urea Nitrogen 143 mg/dL (8-26) Creatinine 3.6 mg/dL (0.7-1.3) Estimated GFR (Cockcroft-Gault) 22.0 Glucose Level 330 mg/dL (70-99) Calcium Level 7.6 mg/dL (8.5-10.1) Creatine Kinase 155 U/L (39-308) Triglycerides Level 295 mg/dL (0-150) Test 07/27/19 06:35 07/27/19 08:40 Glucose (Fingerstick) 271 mg/dL (70-99) O2 Saturation 74 % (92-99) Arterial Blood pH 7.06 (7.35-7.45) Arterial Blood pCO2 at Patient Temp 90 mmHg (35-46) Arterial Blood pO2 at Patient Temp 50 mmHg (75-108) Arterial Blood HCO3 25 mmol/L (21-28) Arterial Blood Base Excess -7 mmol/L (-3-3) FiO2 100% + 18 peep Microbiology Micro Microbiology 07/12/19 Blood Culture - Final, Complete NO GROWTH AFTER 5 DAYS Physical Exam Chest: Symmetric LUNGS: Other (mechanical vent ) Heart: RRR (SR/ST), other (distant heart tones ) Abdomen: Other (obese, distended) Extremities: Other (edema) Neurology: other (sedated) Assessment Assessment 1. Acute respiratory failure secondary to COVID-19 PNA, ARDS. s/p intubation. s/p convalescent plasma. 2. Systolic murmur: estimated EF 60%, could not ascertain WM and endocardium due to body habitus 3. Hypotension: with multiorgan failure 4. DM2/HLP 5. Morbid obesity 7. GABRIEL/hyperkalemia/uremia: nephrology following 8. High DDIMER: likely from cytokine surge/endothelial dysfunction 9. Arrhythmia: intermittent brief episodes of mobitz type2 due to metabolic issues. None further presently reactive sinus tach Recommendations Multiple pressors. IVF. Empiric heparin. On vecuronium/precedex Ongoing treatment as per pulm and ID. Fluid off loading per HD Status is critical with worsening respiratory failure, poor prognosis. Monitor rhythm/Supportive care DEXTER BARNARD APRN July 27, 2019 11:03
--- NOTE | 2019-07-27 11:24 | NUR ---
IP: Pt COVID retest remains positive.
--- NOTE | 2019-07-27 12:23 | PDOC ---
[facility] PROGRESS NOTE Chief Complaint Chief Complaint Acute hypoxic/// HYPERCAPNIC resp failure REQUIRING VENT SUPPORT Super morbid obesity Bibasilar lung airspace opacities likely atelectasis or infiltrates likely pneumonia or atelectasis or atypical/viral infection/viral pneumonia Diabetes Hypertension, uncontrolled normocytic anemia SEVERE PROTEIN, CALORIC MALNUTRITION COVID- POS Acute renal failure vasomotor etiology likely Hyperkalemia secondary to the above improved Constipation History of Present Illness History of Present Illness 07/27/2019 Patient seen and examined in the ICU [place] [address] unit We are going to start CRRT He is extremely critically ill He is mechanically ventilated AC// 100/100% with 18 of PEEP He is on vecuronium vasopressin Precedex Indio-Synephrine Versed and TPN Discussed with RN Chart reviewed Prognosis extremely guarded at best! 07/26/2019 Patient seen and examined in the [place] [address] ICU He remains intubated and mechanically ventilated AC// 50/100% He is on IV TPN vecuronium heparin and Versed He is currently being dialyzed He has an art line in the right IJ Sims to bedside drainage SCDs in place Discussed with RN Chart reviewed 07/25/2019 Patient seen and examined in the ICU [place] [address] unit Chart reviewed Discussed with RN He is critically ill On mechanical ventilation AC// 50/100% FiO2 On IV TPN Versed Heparin vecuronium and Precedex Has an art line blood pressure 176/76 He is critically ill I discussed his case with the pharmacy we are increasing his Lantus to 30 twice daily Vitals/I&O Vitals/I&O: Vital Signs Date Time Temp Pulse Resp B/P (MAP) Pulse Ox O2 Delivery O2 Flow Rate FiO2 07/27/19 10:51 117 30 120/46 (70) 93 Ventilator 07/27/19 08:00 99.0 99.0 I & O 07/26/19 07/26/19 07/27/19 15:00 23:00 07:00 Intake Total 350 ml 2841.7 ml 3601 ml Output Total 335 ml 175 ml 225 ml Balance 15 ml 2666.7 ml 3376 ml Physical Exam Physical Exam: GENERAL: patient is intubated and sedated unresponsive on the ventilator HEENT unremarkable for acute abnormality Chest bilateral equal air entry inspiratory and expiratory wheezes at the bilateral bases anteriorly Heart S1-S2 normal regular rate and rhythm loud systolic murmur at the right second intercostal space Abdomen is obese soft nontender nondistended no masses or organomegaly noted Extremity exam is unremarkable for acute abnormality 1+ bipedal edema is noted General: mild distress Heart: Regular rate, Normal S1 Abdomen: Soft Extremities: No cyanosis Labs Labs: Laboratory Tests Test 07/26/19 12:40 07/26/19 15:25 07/26/19 16:34 07/26/19 17:00 O2 Saturation 62 % (92-99) 75 % (92-99) Arterial Blood pH 7.05 (7.35-7.45) 7.05 (7.35-7.45) Arterial Blood pCO2 at Patient Temp 154 mmHg (35-46) 104 mmHg (35-46) Arterial Blood pO2 at Patient Temp 44 mmHg (75-108) 51 mmHg (75-108) Arterial Blood HCO3 41 mmol/L (21-28) 28 mmol/L (21-28) Arterial Blood Base Excess 6 mmol/L (-3-3) -5 mmol/L (-3-3) FiO2 100% + 13 peep 100 Heparin Anti-Xa Act, Unfractionated 0.58 IU/mL (0.30-0.70) Glucose (Fingerstick) 301 mg/dL (70-99) Test 07/26/19 21:00 07/26/19 23:37 07/27/19 06:30 07/27/19 06:35 Heparin Anti-Xa Act, Unfractionated 0.37 IU/mL (0.30-0.70) 0.27 IU/mL (0.30-0.70) Glucose (Fingerstick) 276 mg/dL (70-99) 271 mg/dL (70-99) White Blood Count 33.2 x10^3/uL (4.0-11.0) Red Blood Count 3.75 x10^6/uL (4.30-5.70) Hemoglobin 10.0 g/dL (13.0-17.5) Hematocrit 33.5 % (39.0-53.0) Mean Corpuscular Volume 89 fL (79-100) Mean Corpuscular Hemoglobin 27 pg (25-35) Mean Corpuscular Hemoglobin Concent 30 g/dL (31-37) Red Cell Distribution Width 16.9 % (11.5-14.5) Platelet Count 248 x10^3/uL (140-400) Sodium Level 143 mmol/L (136-145) Potassium Level 6.9 mmol/L (3.5-5.1) Chloride Level 107 mmol/L (98-107) Carbon Dioxide Level 30 mmol/L (21-32) Anion Gap 6 (6-14) Blood Urea Nitrogen 143 mg/dL (8-26) Creatinine 3.6 mg/dL (0.7-1.3) Estimated GFR (Cockcroft-Gault) 22.0 Glucose Level 330 mg/dL (70-99) Calcium Level 7.6 mg/dL (8.5-10.1) Creatine Kinase 155 U/L (39-308) Triglycerides Level 295 mg/dL (0-150) Test 07/27/19 08:40 07/27/19 12:12 O2 Saturation 74 % (92-99) Arterial Blood pH 7.06 (7.35-7.45) Arterial Blood pCO2 at Patient Temp 90 mmHg (35-46) Arterial Blood pO2 at Patient Temp 50 mmHg (75-108) Arterial Blood HCO3 25 mmol/L (21-28) Arterial Blood Base Excess -7 mmol/L (-3-3) FiO2 100% + 18 peep Glucose (Fingerstick) 308 mg/dL (70-99) Review of Systems Review of Systems: Unable to obtain Assessment and Plan Assessmemt and Plan Problems Medical Problems: (1) Suspected COVID-19 virus infection Status: Acute Impression: Acute hypoxic/// HYPERCAPNIC resp failure REQUIRING VENT SUPPORT Super morbid obesity Bibasilar lung airspace opacities likely atelectasis or infiltrates likely pneumonia or atelectasis or atypical/viral infection/viral pneumonia Diabetes Hypertension, uncontrolled normocytic anemia SEVERE PROTEIN, CALORIC MALNUTRITION COVID-19 POS Acute renal failure vasomotor etiology likely Hyperkalemia secondary to the above improved Constipation Plan: Starting CRRT today ICU monitoring Vent weaning Versed for sedation Vecuronium for paralytic agent Continue heparin TPN Increase Lantus to 30 twice daily Continue present AC mode, on 100% FIO2 ,14 PEEP. Make changes based on ABG's IV antibiotics. s/p convalescent plasma transfusion 07/13 nutrition, PPN and TF at5 low dose Monitor LFT Discussed with RN. S/P monoclonal antibodies/Tocilizumab 07/15/19 Hold tello inhibitor, appreciate nephrology consultation, temporary catheter in place Colace BID Prognosis guarded He is critically ill Total time 35 minutes Comment Review of Relevant I have reviewed the following items lizzy (where applicable) has been applied. Medications: Current Medications Medications (Trade) Dose Ordered Sig/Aria Route PRN Reason Start Time Stop Time Status Last Admin Dose Admin Multivitamins 10 ml/Chromium/ Copper/Manganese/ Seleni/Zn 0.5 ml/ Total Parenteral Nutrition/Amino Acids/Dextrose/ Fat Emulsion Intravenous 2,160 ml @ 90 mls/hr TPN CONT IV 07/26/19 22:00 07/27/19 21:59 07/26/19 20:15 Phenylephrine HCl 50 mg/Sodium Chloride 255 ml @ 25.444 mls/ hr CONT PRN IV SEE I/O RECORD 07/26/19 13:00 07/27/19 05:05 DC 07/26/19 15:18 Albumin Human 250 ml @ 62.5 mls/hr 1X ONCE IV 07/26/19 16:00 07/26/19 19:59 DC 07/26/19 16:13 Sodium Bicarbonate (Sodium Bicarb Adult 8.4% Syr) 50 meq 1X ONCE IV 07/26/19 17:15 07/26/19 17:16 DC 07/26/19 17:16 Albumin Human 250 ml @ 62.5 mls/hr 1X ONCE IV 07/26/19 23:00 07/27/19 03:51 DC 07/26/19 23:04 Phenylephrine HCl 100 mg/Sodium Chloride 260 ml @ 12.971 mls/ hr CONT PRN IV SEE I/O RECORD 07/27/19 05:15 07/27/19 12:08 Vasopressin 20 unit/Dextrose 101 ml @ 12 mls/hr CONT PRN IV SEE I/O RECORD 07/27/19 05:15 07/27/19 05:22 MICHELINE JI III DO July 27, 2019 12:23
[2019-07-27] MEDS ORDERED: HEPARIN SODIUM 10,000 UNIT/10 ML VIAL. IV ONE (12:45)
[2019-07-27] MEDS ORDERED: POTASSIUM CHLORIDE 10 MEQ in DIALYSIS SOLUTION BGK 0/2.5 5,000 ML IV SCH ×4 (13:00)
[2019-07-27] MEDS ORDERED: DIALYSIS CRRT SCH (13:00)
--- NOTE | 2019-07-27 13:12 | NUR ---
SW following. Discussed with RN, pt still on vent, COVID-19 still positive. CRRT starting today. No stable for LTAC. SW will continue to follow.
[2019-07-27] MEDS: TPN PER PHARMACY MC PRN (13:22)
--- NOTE | 2019-07-27 13:24 | NUR ---
Pharmacy TPN Dosing Note S: REINALDO BOWER is a 48 year old M Currently receiving Central Continuous TPN started 07/18/19 B:Pertinent PMH: critical illness Height: 6 feet, 1 inches Weight: 172.0 kg Current diet: NPO LABS: Sodium: 143 Potassium: 6.9 Chloride: 107 Calcium: 7.6 Corrected Calcium: 8.80 Magnesium: 3.2 CO2: 30 SCr: 3.6 Glucose: 330 Albumin: 2.5 AST: 15 ALT: 60 TPN FORMULA: TPN TYPE: Central Continuous AMINO ACIDS: 210 gm DEXTROSE: 225 gm LIPIDS: 20 gm SODIUM CHLORIDE: - mEq SODIUM ACETATE: 30 mEq SODIUM PHOSPHATE: - mmol POTASSIUM CHLORIDE: - mEq POTASSIUM ACETATE: - mEq POTASSIUM PHOSPHATE: - mmol MAGNESIUM: - mEq CALCIUM: 5 mEq INSULIN: - units MULTIPLE VITAMIN: 10 ml TRACE ELEMENTS: 1 ml(s) TPN PLAN: 07/26 all electrolytes wnl except potassium. Added sodium and calcium again R: Continue TPN as ordered Will monitor electrolytes, glucose, and tolerance to TPN. ALIA SNYDER, [facility], 07/27/19 [id number]
[2019-07-27] MEDS: MIDAZOLAM 100mg/100ml NS BAG 100 ML IV PRN (13:30)
[2019-07-27] MEDS ORDERED: ALBUMIN HUMAN 5% 500 ML IV ONE (16:30)
[2019-07-27] MEDS ORDERED: EPINEPHrine 1 MG/ML VIAL ONE (16:36)
--- NOTE | 2019-07-27 17:56 | NUR ---
Patient was started on CRRT at 1311, tolerated well for about an hour until the filter clogged. The system was flushed over the course of an hour and a half with approximately two liters of NS by RN and marketing engineer. Patient's BP was 110s/120s and SPO2 improved while on CRRT. When the machine clogged and CRRT was stopped at 1530, patient's BP started trending down as did heart rate. When heart rate was in the 80s as opposed to 110s, QRS widened from 0.10 to 0.16. marketing engineer notified Dr. Goldstein of filter problems on CRRT, received the order to restart CRRT if Dr. Carcamo agrees even though vital signs are trending down. Dr. Carcamo agreed to restart CRRT and give 500 cc 5% Albumin one time, don't start another pressor. The order was placed in the computer and patient's was notified of decline in patient's condition, again asking that we do full aggressive care. Shortly after that, patient's HR was 45 and BP 53/31, chemically coded patient (see code blue sheet). Notified Dr. Gatica and Dr. Carcamo of chemically coding patient, Dr. Gatica was able to speak with the , Nereida, and get DNR status on patient. Nereida was allowed to come visit patient but she did not want to come see him like this. Notified Nereida of time of at 1706, unable to talk about home due to hysteria, notified nursing color paste mixing supervisor and was given contact information for a later time. Notified MTN of cardiac time of , patient is not a candidate. Belongings going down to the [employer] with body.
--- NOTE | 2019-07-27 18:00 | NUR ---
Nereida called unit back with home: [place].
--- NOTE | 2019-07-27 18:11 | PN ---
DATE: ADDENDUM The patient's clinical condition further deteriorated this afternoon. He could not tolerate CRRT as it clotted. The patient is on 3 pressors with a systolic blood pressure in the 40s and saturation in the 70s. At this time, I talked to the in detail and explained that despite doing everything, he will not survive. she understands that .she was crying a lot and wanted me to talk to his brother and another sister. I did talk to both of them via conference call and explained the critical condition and multisystem organ dysfunction and no chance of survival despite doing everything. They all agreed to not to do any CPR in case he codes. This was notified to the nursing staff and Dr. Gatica was notified as well. He had also personally talked to the family who also agreed with DNR with this discussion. HILARIO BIRCH MD DR: MIRANDA/mayela JOB#: [id number] / [id number] SUZANNE
[2019-07-27] MEDS ORDERED: CEFEPIME HCL IV Push 1 GM VIAL. IVP SCH (21:00)
[2019-07-27] MEDS ORDERED: TOTAL PARENTERAL NUTRITION IV SCH ×7 (22:00)
[2019-07-27] MEDS ORDERED: AMINO ACID IV SCH ×7 (22:00)
[2019-07-27] MEDS ORDERED: DEXTROSE 70% IV SCH ×7 (22:00)
[2019-07-27] MEDS ORDERED: [UNRECOGNIZED DRUG - OTHER] IV SCH ×7 (22:00)
--- NOTE | 2019-07-27 22:56 | PN ---
DATE: 07/27/2019 ADDENDUM The patient has decompensated this afternoon. The nurse just called me and explained that his heart rate is down to 40 and his blood pressure is down to 60. We tried doing CRRT earlier, but he could not even tolerate that, not even for an hour. He is on maximum oxygen, maximum positive end expiratory pressure with high respirations. We have tried all different antibiotics. He has had multiple consults and appears to be actively dying. Given this information, I did call his , Tala to update her. She is tearful, but understands he is actively dying. She had been calling his brother, William. I did call William. He also put his older sister on the phone and a cousin as well, so we had a conference call. I updated them as to all of what is going on, they understand. They would like to allow a natural because he would not "want to live in a hospital or be on machines." I then called Tala back and explained that they are okay with not doing any compressions or shocking. Tala asked if they agreed and I stated again that they do agree, so Tala has agreed to make the patient DNR. I then called the nurse in the ICU and gave the order for DNR. I also spoke to the manager assembly, Latricia Nava and gave further orders as well. Latricia is going to call the to give her support and I asked her if she would like to come visit the patient. We certainly appreciate Latricia's assistance. I also called Dr. Carcamo and explained to him that the patient is now DNR. The patient will most likely pass away here this evening. MICHELINE JI DO DR: ELIOT/mayela JOB#: [id number] / [id number]
--- NOTE | 2019-07-27 23:36 | DS ---
DATE OF DISCHARGE: 07/27/2019 SUMMARY DATE OF : 07/26 ADMISSION DIAGNOSIS: Respiratory failure secondary to COVID-19 syndrome. CAUSE OF : Progression of disease secondary to fulminant respiratory failure with severe COVID-19 syndrome. HOSPITAL COURSE: The patient was a pleasant middle-aged male who basically presented with shortness of breath and was in respiratory failure. He got testing COVID-19 positive. He was admitted to the ICU, we had to intubate him. For the past 2 weeks, we have tried very hard to get his disease resolved. He has been treated with strong broad-spectrum IV antibiotics. We even tried continuous renal replacement therapy today, but he could not tolerate. His pressure dropped, his heart rate dropped. He had been on IV pressors for quite some time. He was on 100% oxygen when I saw him this morning. This afternoon patient . MICHELINE JI DO DR: ELIOT/mayela JOB#: [id number] / [id number]
== END 2019-07-27 17:05 | disposition expired | DRG 870 ==
LOC: ER 12:58 → ED HOLD 15:00 → 1 WEST ICU 19:06
PROVIDERS: ADMIT Family Medicine; ATTEND Family Medicine
PROC: 5A1955Z Respiratory Ventilation, Greater than 96 Consecutive Hours (ICD-10-PCS; principal; 2019-07-12)
PROC: 0BH17EZ Insertion of Endotracheal Airway into Trachea, Via Natural or Artificial Opening (ICD-10-PCS; 2019-07-12)
PROC: 02HV33Z Insertion of Infusion Device into Superior Vena Cava, Percutaneous Approach (ICD-10-PCS; 2019-07-12)
PROC: B548ZZA Ultrasonography of Superior Vena Cava, Guidance (ICD-10-PCS; 2019-07-12)
PROC: 30233K1 Transfusion of Nonautologous Frozen Plasma into Peripheral Vein, Percutaneous Approach (ICD-10-PCS; 2019-07-14)
PROC: 02H633Z Insertion of Infusion Device into Right Atrium, Percutaneous Approach (ICD-10-PCS; 2019-07-22)
PROC: B5181ZA Fluoroscopy of Superior Vena Cava using Low Osmolar Contrast, Guidance (ICD-10-PCS; 2019-07-22)
PROC: B548ZZA Ultrasonography of Superior Vena Cava, Guidance (ICD-10-PCS; 2019-07-22)
PROC: 5A1D70Z Performance of Urinary Filtration, Intermittent, Less than 6 Hours Per Day (ICD-10-PCS; 2019-07-27)
PROC: 5A1D90Z Performance of Urinary Filtration, Continuous, Greater than 18 hours Per Day (ICD-10-PCS; 2019-07-27)
DX: A41.89 Other specified sepsis (principal); U07.1 COVID-19; J96.01 Acute respiratory failure with hypoxia; J12.89 Other viral pneumonia; J96.02 Acute respiratory failure with hypercapnia; E46 Unspecified protein-calorie malnutrition; E87.0 Hyperosmolality and hypernatremia; N17.9 Acute kidney failure, unspecified; Z68.43 Body mass index [BMI] 50.0-59.9, adult; D64.9 Anemia, unspecified; E11.9 Type 2 diabetes mellitus without complications; E66.01 Morbid (severe) obesity due to excess calories; E78.00 Pure hypercholesterolemia, unspecified; E78.5 Hyperlipidemia, unspecified; E87.5 Hyperkalemia; I10 Essential (primary) hypertension; K59.00 Constipation, unspecified; Z66 Do not resuscitate; Z82.49 Family history of ischemic heart disease and other diseases of the circulatory system; M10.9 Gout, unspecified
CPT/HCPCS: 36415; 36556; 36600; 71045; 74018; 76937; 80048; 80053; 80076; 81001; 82550; 82728; 82805; 82962; 83605; 83615; 83735; 83880; 84100; 84145; 84478; 84484; 85007; 85025; 85027; 85379; 85384; 85520; 85610; 85651; 86140; 86850; 86900; 86901; 86927; 87040; 87340; 87635; 93308; 94002; 94003; 96365; 96366; C1769; C1892; C9113; J0171; J0330; J0360; J0610; J1630; J1644; J1650; J1815; J1940; J1956; J2060; J2250; J2274; J2370; J2590; J2704; J2930; J3010; J3262; J3475; J3480; J3490; J7030; J7042; J7050; J7060; P9017; P9041; 99285-25; G0378